=== PATIENT | female | born 1935 | race American Indian/Alaskan Native ===

== ENCOUNTER 2016-05-20 11:58 | Inpatient (IN) | payer MEDICARE ==
[2016-05-20] MEDS ORDERED: DUONEB 0.5 MG-3 MG/3 ML SOLN IH ONE (13:02)
[2016-05-20 13:07] LABS: Hemoglobin 10.5 gm/dl (10.1-14.3); Mean Corpuscular HGB Conc 32 % (30-34); Platelet Count 234 K/mm3 (140-440); Red Blood Count 4.38 M/mm3 (3.65-5.03); White Blood Count 9.1 K/mm3 (4.5-11.0)
[2016-05-20 13:13] LABS: Mean Corpuscular Hemoglobin 24 pg (28-32); Red Cell Distribution Width 27.6 % (13.2-15.2)
[2016-05-20 13:14] LABS: Mean Corpuscular Volume 75 fl (79-97)
--- NOTE | 2016-05-20 13:20 | XRay Report ---
AP chest History: Shortness of breath Findings: The interstitium is prominent. This may represent interstitial edema or fibrotic changes. No consolidation, pleural effusion or pneumothorax. Heart size is within normal limits. Given differences in the level of inspiration, no overwhelming change since 04/01/16. Impression: Prominent interstitium, see above.
--- NOTE | 2016-05-20 13:23 | Emergency Department Report ---
ED Shortness of Breath HPI - General Chief Complaint: Dyspnea/Respdistress Stated Complaint: CARL Time Seen by Provider: 05/20/16 12:51 Source: patient Mode of arrival: Ambulatory Limitations: No Limitations - History of Present Illness Initial Comments: 80-year-old female presents to the emergency department via EMS complaining of difficulty breathing. Patient reports she has been having difficulty breathing for 2 weeks. Her symptoms became acutely worse yesterday. She reports cough productive of clear sputum. She denies chest pain or fever. Patient normally wears 2 L of oxygen via nasal cannula. She states this morning her oxygen saturation was in the 40s. She increased her oxygen to 4 L but this did not increase her oxygen saturation. EMS administered 125 mg of Solu-Medrol and 2.5 mg of albuterol en route to the emergency department. There are no other complaints. MD Complaint: shortness of breath, cough -: Gradual, week(s) (2) Consistency: constant Improves With: oxygen, bronchodilators Worsens With: nothing Known History Of: COPD, asthma, congestive heart failure Associated Symptoms: cough, sputum production - Related Data Home Medications Medication Instructions Recorded Confirmed Last Taken Acetaminophen [Acetaminophen TAB] 650 mg PO Q6HR PRN 04/01/16 05/20/16 1 Day Ago Albuterol Sulfate [Albuterol 0.63% 0.63 mg IH Q6H PRN 04/01/16 05/20/16 1 Day Ago NEBS] Albuterol Sulfate [Ventolin HFA] 2 puff IH Q4H PRN 04/01/16 05/20/16 1 Day Ago Fluticasone/Vilanterol [Breo 1 each IH DAILY 04/01/16 05/20/16 1 Day Ago Ellipta 100-25 Mcg INH] Gabapentin [Neurontin] 100 mg PO QHS 04/01/16 05/20/16 1 Day Ago Pantoprazole [Protonix TAB] 40 mg PO QDAY 04/01/16 05/20/16 1 Day Ago Valsartan/Hydrochlorothiazide 1 tab PO QDAY 04/01/16 05/20/16 1 Day Ago [Diovan Hct 160-25 mg] amLODIPine [Norvasc] 5 mg PO DAILY 04/01/16 05/20/16 1 Day Ago Previous Rx's Medication Instructions Recorded Last Taken Type AtorvaSTATin [Lipitor] 20 mg PO QHS #30 tablet 12/31/16 Unknown Rx Ferrous Sulfate [Feosol 325 MG tab] 325 mg PO TID #90 tablet 04/10/16 Unknown Rx Prednisone [predniSONE 10 mg 10 mg PO .TAPER #1 tab.ds.pk 04/10/16 Unknown Rx (6-Day Pack, 21 Tabs)] Allergies Allergy/AdvReac Type Severity Reaction Status Date / Time oxytetracycline Allergy Rash Verified 05/01/15 12:26 [From Terramycin] oxytetracycline HCl Allergy Rash Verified 05/01/15 12:26 [From Terramycin] Penicillins Allergy Rash Verified 05/01/15 12:26 Sulfa (Sulfonamide Allergy Rash Verified 05/01/15 12:26 Antibiotics) GLOVE POWDER Allergy Rash Uncoded 05/01/15 12:26 ED Review of Systems ROS: Stated complaint: CARL Other details as noted in HPI Comment: All other systems reviewed and negative Respiratory: cough, shortness of breath 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) Hx Congestive Heart Failure: Yes Hx Diabetes: No Hx Deep Vein Thrombosis: Yes (right leg) Hx GERD: Yes Hx Arthritis: Yes (spine) Hx Kidney Stones: Yes Hx Asthma: Yes Hx COPD: Yes Hx HIV: No Additional medical history: Respiratory disease, possibly pulmonary fibrosis, hiatel hernia 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 - Surgical History Past Surgical History?: Yes Hx Coronary Stent: Yes Hx Open Heart Surgery: Yes (CABG) Additional Surgical History: csection x 5 lung surg hand surg - Family History Family history: no significant - Social History Smoking Status: Former Smoker Substance Use Type: None - Medications Home Medications: Home Medications Medication Instructions Recorded Confirmed Last Taken Type Acetaminophen [Acetaminophen TAB] 650 mg PO Q6HR PRN 04/01/16 05/20/16 1 Day Ago History Albuterol Sulfate [Albuterol 0.63% 0.63 mg IH Q6H PRN 04/01/16 05/20/16 1 Day Ago History NEBS] Albuterol Sulfate [Ventolin HFA] 2 puff IH Q4H PRN 04/01/16 05/20/16 1 Day Ago History Fluticasone/Vilanterol [Breo 1 each IH DAILY 04/01/16 05/20/16 1 Day Ago History Ellipta 100-25 Mcg INH] Gabapentin [Neurontin] 100 mg PO QHS 04/01/16 05/20/16 1 Day Ago History Pantoprazole [Protonix TAB] 40 mg PO QDAY 04/01/16 05/20/16 1 Day Ago History Valsartan/Hydrochlorothiazide 1 tab PO QDAY 04/01/16 05/20/16 1 Day Ago History [Diovan Hct 160-25 mg] amLODIPine [Norvasc] 5 mg PO DAILY 04/01/16 05/20/16 1 Day Ago History AtorvaSTATin [Lipitor] 20 mg PO QHS #30 tablet 04/10/16 05/20/16 Unknown Rx Ferrous Sulfate [Feosol 325 MG tab] 325 mg PO TID #90 tablet 04/10/16 05/20/16 Unknown Rx Prednisone [predniSONE 10 mg 10 mg PO .TAPER #1 tab.ds.pk 04/10/16 05/20/16 Unknown Rx (6-Day Pack, 21 Tabs)] ED Physical Exam - General Limitations: No Limitations General appearance: alert, in no apparent distress - Head Head exam: Present: atraumatic, normocephalic - Eye Eye exam: Present: normal appearance, PERRL, EOMI - ENT ENT exam: Present: normal exam, normal orophraynx, mucous membranes moist - Neck Neck exam: Present: normal inspection, full ROM. Absent: tenderness - Respiratory Respiratory exam: Present: decreased breath sounds (bilateral posterior bases). Absent: respiratory distress - Cardiovascular Cardiovascular Exam: Present: regular rate, normal rhythm, normal heart sounds - GI/Abdominal GI/Abdominal exam: Present: soft, normal bowel sounds. Absent: distended, tenderness - Extremities Exam Extremities exam: Present: normal inspection, full ROM. Absent: tenderness - Back Exam Back exam: Present: normal inspection, full ROM. Absent: tenderness - Neurological Exam Neurological exam: Present: alert, oriented X3. Absent: motor sensory deficit - Skin Skin exam: Present: warm, dry, intact ED Course Vital Signs 05/20/16 05/20/16 05/20/16 12:19 13:10 13:32 Temperature 97.6 F Pulse Rate 86 84 Pulse Rate [ 85 Right Middle Lobe] Respiratory 28 H 30 H Rate Respiratory 30 H Rate [Right Middle Lobe] Blood Pressure 106/65 Blood Pressure 106/65 107/69 [Left] O2 Sat by Pulse 94 88 Oximetry 05/20/16 05/20/16 13:59 14:08 Temperature Pulse Rate 86 Pulse Rate [ 95 H Right Middle Lobe] Respiratory 26 H Rate Respiratory 20 Rate [Right Middle Lobe] Blood Pressure Blood Pressure 128/71 [Left] O2 Sat by Pulse 90 Oximetry - Reevaluation(s) Reevaluation #1: 05/20/16 13:47 Patient reports feeling better following to do a nap nebulizer treatments. Her oxygen saturation is reading between 88 and 90%, but this patient is still on 5 L via nasal cannula. Giving additional albuterol. Reevaluation #2: 05/20/16 15:01 After additional albuterol, the patient's oxygen saturation continues to be in the low 80s. She is still on 5 L of oxygen via nasal cannula. Giving IV Levaquin. Patient is to be admitted by the hospitalist. ED Medical Decision Making - Lab Data Result diagrams: 05/20/16 12:55 05/20/16 12:55 - EKG Data -: EKG Interpreted by Al EKG shows normal: sinus rhythm, axis, intervals, QRS complexes Rate: normal - EKG Data When compared to previous EKG there are: previous EKG unavailable Interpretation: nonspecific ST-T wave jaret - Radiology Data Radiology results: report reviewed, image reviewed Chest x-ray shows prominent interstitium, no significant change compared to previous x-ray dated 04/01/2016. - Differential Diagnosis COPD exacerbation, CHF, ACS Critical care attestation.: If time is entered above; I have spent that time in minutes in the direct care of this critically ill patient, excluding procedure time. ED Disposition Clinical Impression: COPD exacerbation Disposition: OP ADMITTED IP TO THIS HOSP Is pt being admited?: Yes Condition: Stable Instructions: Chronic Obstructive Pulmonary Disease (ED) Referrals: PRIMARY CARE, [Primary Care Provider] - 3-5 Days Time of Disposition: 15:06
[2016-05-20 13:26] LABS: Anion Gap 24 mmol/L; Blood Urea Nitrogen 16 mg/dL (7-17); Calcium 6.9 mg/dL (8.4-10.2); Carbon Dioxide 19 mmol/L (22-30); Chloride 101.1 mmol/L (98-107); Glucose 108 mg/dL (65-100); Potassium 3.2 mmol/L (3.6-5.0); Sodium 141 mmol/L (137-145)
[2016-05-20 13:45] LABS: Anisocytosis 1+; Basophils % (Manual) 0 % (0.0-1.8); Blastocytes % (Manual) 0 %; Diff Status Complete; Elliptocytes 1+; Hypochromasia 1+; Microcytosis 1+; Poikilocytosis 1+; Target Cells 1+; Tear Drop Cells 1+
--- NOTE | 2016-05-20 13:46 | Admit Criteria Form ---
Admission Criteria Documentation: COPD Clinical Indications for Admission to Inpatient Care (Place 'X' for any and all applicable criteria): Admission is indicated for ANY ONE of the following (1)(2)(3): [X ]I. Acute exacerbation by high-risk comorbidity (e.g., pneumonia, dysrhythmia, heart failure, pleural effusion, pneumothorax) or severe underlying COPD (e.g., steroid dependent) [ X]II. Inpatient admission required rather than observation care (see Chronic Obstructive Pulmonary Disease: Observation Care) because of ANY ONE of the following: [X ]a) New or pre-existing signs or symptoms of COPD (eg, dyspnea or Tachypnea at rest or with minimal activity) that persist despite outpatient and observation care treatment [ ]b) New-onset hypoxemia (room air SaO2 less than 90%, PO2 less than 60 mm Hg (8.0 kPa)) that persists despite outpatient and observation care treatment [ ]c) Worsening of pre-existing hypoxemia (eg, new or increased requirement for supplemental oxygen to maintain oxygenation at baseline level) that persists despite outpatient and observation care treatment, with oxygen treatment needs performable only in acute inpatient setting [ ]d) Hypercarbia (PCO2 greater than 40 mm Hg (5.3 kPa))-induced respiratory acidosis (pH less than 7.35) that persists despite outpatient and observation care treatment [ ]e) Supplemental oxygen or respiratory treatments for over 24 hours that are performable only in acute inpatient setting [ ]f) Chest tube placement with active evacuation (e.g., suction, drainage) (5) [ ]g) Other condition, treatment or monitoring requiring inpatient admission [ ]III. Planned invasive surgical or diagnostic procedures requiring acute- care hospitalization [ ]IV. Acute respiratory failure (e.g., uncompensated hypercarbia, severe hypoxemia) [ ]V. Severe comorbid condition (e.g., severe steroid myopathy, acute vertebral fracture) that has acutely worsened pulmonary function [ ]. Confusion state, lethargy, obtundation, stupor or coma Extended stay beyond goal length of stay may be needed for (31)(32): [ ]a ) Respiratory Failure. [ ]b) Severe or persisting hypoxemia or hypercarbia [ ]c) Severe or persistent dyspnea [ ]d) Comorbidities (e.g. chronic heart failure, atrial fibrillation with rapid response, pneumonia) [ ]e) Malnutrition The original [facility] content created by [facility] has been revised. The portions of the content which have been revised are identified through the use of italic text or in bold, and [facility] has neither reviewed nor approved the modified material. All other unmodified content is copyright [facility]. Please see references footnoted in the original [facility] edition 2016 Admission Criteria Met: Yes
[2016-05-20] MEDS ORDERED: PROVENTIL IH ONE (13:47)
[2016-05-20] MEDS ORDERED: LEVAQUIN 750MG/150ML 750 MG/150 ML BAG IV ONE (15:32)
--- NOTE | 2016-05-20 16:36 | History and Physical Report ---
History of Present Illness Date of examination: 05/20/16 Date of admission: 05/20/16 Chief complaint: sob History of present illness: 80-year-old female presents to the emergency department via EMS complaining of difficulty breathing. Patient reports she has been having difficulty breathing for 2 weeks. Her symptoms became acutely worse yesterday. She reports cough productive of clear sputum. She denies chest pain or fever. Patient normally wears 2 L of oxygen via nasal cannula. She states this morning her oxygen saturation was in the 40s. She increased her oxygen to 4 L but this did not increase her oxygen saturation. Patient was previously admitted here at our facility in March for COPD exacerbation and was treated appropriately. Patient has history of CAD s/p stent placed. Heart cath was done and it showed pulmonary HTN, multivessel CAD, and restenosis of the stent. In route to the hospital, EMS administered 125 mg of Solu-Medrol and 2.5 mg of albuterol en route to the emergency department. There are no other complaints. Patient denies any nausea, vomiting or abdominal pain. No melena, hematochezia or hematemesis. Past History Past Medical History: CAD, COPD, heart failure, hypertension, other (asthma) Past Surgical History: , Other (hand surgery) Social history: no significant social history Family history: hypertension Medications and Allergies Allergies Allergy/AdvReac Type Severity Reaction Status Date / Time oxytetracycline Allergy Rash Verified 05/01/15 12:26 [From Terramycin] oxytetracycline HCl Allergy Rash Verified 05/01/15 12:26 [From Terramycin] Penicillins Allergy Rash Verified 05/01/15 12:26 Sulfa (Sulfonamide Allergy Rash Verified 05/01/15 12:26 Antibiotics) GLOVE POWDER Allergy Rash Uncoded 05/01/15 12:26 Home Medications Medication Instructions Recorded Confirmed Last Taken Type Acetaminophen [Acetaminophen TAB] 650 mg PO Q6HR PRN 04/01/16 05/20/16 1 Day Ago History Albuterol Sulfate [Albuterol 0.63% 0.63 mg IH Q6H PRN 04/01/16 05/20/16 1 Day Ago History NEBS] Albuterol Sulfate [Ventolin HFA] 2 puff IH Q4H PRN 04/01/16 05/20/16 1 Day Ago History Fluticasone/Vilanterol [Breo 1 each IH DAILY 04/01/16 05/20/16 1 Day Ago History Ellipta 100-25 Mcg INH] Gabapentin [Neurontin] 100 mg PO QHS 04/01/16 05/20/16 1 Day Ago History Pantoprazole [Protonix TAB] 40 mg PO QDAY 04/01/16 05/20/16 1 Day Ago History Valsartan/Hydrochlorothiazide 1 tab PO QDAY 04/01/16 05/20/16 1 Day Ago History [Diovan Hct 160-25 mg] amLODIPine [Norvasc] 5 mg PO DAILY 04/01/16 05/20/16 1 Day Ago History AtorvaSTATin [Lipitor] 20 mg PO QHS #30 tablet 04/10/16 05/20/16 Unknown Rx Ferrous Sulfate [Feosol 325 MG tab] 325 mg PO TID #90 tablet 04/10/16 05/20/16 Unknown Rx Prednisone [predniSONE 10 mg 10 mg PO .TAPER #1 tab.ds.pk 04/10/16 05/20/16 Unknown Rx (6-Day Pack, 21 Tabs)] Active Meds: Active Medications Levofloxacin/Dextrose (Levaquin 750mg/150ml) 750 mg in 150 mls @ 100 mls/hr IV ONCE ONE Stop: 05/20/16 17:01 Last Admin: 05/20/16 16:00 Dose: 100 mls/hr Review of Systems All systems: negative Exam - Constitutional Vitals: Temp Pulse Resp BP Pulse Ox 97.6 F 100 H 26 H 113/63 99 05/20/16 12:19 05/20/16 15:00 05/20/16 16:00 05/20/16 16:00 05/20/16 16:00 General appearance: Present: no acute distress, well-nourished - EENT Eyes: Present: PERRL ENT: hearing intact, clear oral mucosa - Neck Neck: Present: supple, normal ROM - Respiratory Respiratory effort: normal Respiratory: bilateral: diminished, rhonchi, wheezing - Cardiovascular Heart Sounds: Present: S1 & S2. Absent: rub, click - Extremities Extremities: pulses symmetrical, No edema Peripheral Pulses: within normal limits - Abdominal General gastrointestinal: Present: soft, non-tender, non-distended, normal bowel sounds Female genitourinary: Present: normal - Integumentary Integumentary: Present: clear, warm, dry - Musculoskeletal Musculoskeletal: gait normal, strength equal bilaterally - Psychiatric Psychiatric: appropriate mood/affect, intact judgment & insight - Neurologic Neurologic: CNII-XII intact, moves all extremities Results - Labs CBC & Chem 7: 05/20/16 12:55 05/20/16 12:55 Labs: Laboratory Last Values WBC 9.1 K/mm3 (4.5-11.0) 05/20/16 12:55 RBC 4.38 M/mm3 (3.65-5.03) 05/20/16 12:55 Hgb 10.5 gm/dl (10.1-14.3) 05/20/16 12:55 Hct 33.0 % (30.3-42.9) 05/20/16 12:55 MCV 75 fl (79-97) L 05/20/16 12:55 MCH 24 pg (28-32) L 05/20/16 12:55 MCHC 32 % (30-34) 05/20/16 12:55 RDW 27.6 % (13.2-15.2) H 05/20/16 12:55 Plt Count 234 K/mm3 (140-440) 05/20/16 12:55 Add Manual Diff Complete 05/20/16 12:55 Total Counted 100 05/20/16 12:55 Seg Neuts % (Manual) 80.0 % (40.0-70.0) H 05/20/16 12:55 Band Neutrophils % 3.0 % 05/20/16 12:55 Lymphocytes % (Manual) 12.0 % (13.4-35.0) L 05/20/16 12:55 Reactive Lymphs % (Man) 0 % 05/20/16 12:55 Monocytes % (Manual) 3.0 % (0.0-7.3) 05/20/16 12:55 Eosinophils % (Manual) 2.0 % (0.0-4.3) 05/20/16 12:55 Basophils % (Manual) 0 % (0.0-1.8) 05/20/16 12:55 Metamyelocytes % 0 % 05/20/16 12:55 Myelocytes % 0 % 05/20/16 12:55 Promyelocytes % 0 % 05/20/16 12:55 Blast Cells % 0 % 05/20/16 12:55 Nucleated RBC % Not Reportable 05/20/16 12:55 Seg Neutrophils # Man 7.3 K/mm3 (1.8-7.7) 05/20/16 12:55 Band Neutrophils # 0.3 K/mm3 05/20/16 12:55 Lymphocytes # (Manual) 1.1 K/mm3 (1.2-5.4) L 05/20/16 12:55 Abs React Lymphs (Man) 0.0 K/mm3 05/20/16 12:55 Monocytes # (Manual) 0.3 K/mm3 (0.0-0.8) 05/20/16 12:55 Eosinophils # (Manual) 0.2 K/mm3 (0.0-0.4) 05/20/16 12:55 Basophils # (Manual) 0.0 K/mm3 (0.0-0.1) 05/20/16 12:55 Metamyelocytes # 0.0 K/mm3 05/20/16 12:55 Myelocytes # 0.0 K/mm3 05/20/16 12:55 Promyelocytes # 0.0 K/mm3 05/20/16 12:55 Blast Cells # 0.0 K/mm3 05/20/16 12:55 WBC Morphology Not Reportable 05/20/16 12:55 Hypersegmented Neuts Not Reportable 05/20/16 12:55 Hyposegmented Neuts Not Reportable 05/20/16 12:55 Hypogranular Neuts Not Reportable 05/20/16 12:55 Smudge Cells Not Reportable 05/20/16 12:55 Toxic Granulation Not Reportable 05/20/16 12:55 Toxic Vacuolation Not Reportable 05/20/16 12:55 Dohle Bodies Not Reportable 05/20/16 12:55 Pelger-Huet Anomaly Not Reportable 05/20/16 12:55 Mony Rods Not Reportable 05/20/16 12:55 Platelet Estimate Appears normal 05/20/16 12:55 Clumped Platelets Not Reportable 05/20/16 12:55 Plt Clumps, EDTA Not Reportable 05/20/16 12:55 Large Platelets Not Reportable 05/20/16 12:55 Giant Platelets Not Reportable 05/20/16 12:55 Platelet Satelliting Not Reportable 05/20/16 12:55 Plt Morphology Comment Not Reportable 05/20/16 12:55 RBC Morphology Not Reportable 05/20/16 12:55 Dimorphic RBCs Not Reportable 05/20/16 12:55 Polychromasia Not Reportable 05/20/16 12:55 Hypochromasia 1+ 05/20/16 12:55 Poikilocytosis 1+ 05/20/16 12:55 Anisocytosis 1+ 05/20/16 12:55 Microcytosis 1+ 05/20/16 12:55 Macrocytosis Not Reportable 05/20/16 12:55 Spherocytes Not Reportable 05/20/16 12:55 Pappenheimer Bodies Not Reportable 05/20/16 12:55 Sickle Cells Not Reportable 05/20/16 12:55 Target Cells 1+ 05/20/16 12:55 Tear Drop Cells 1+ 05/20/16 12:55 Ovalocytes Not Reportable 05/20/16 12:55 Helmet Cells Not Reportable 05/20/16 12:55 [place] Bodies Not Reportable 05/20/16 12:55 [place] Rings Not Reportable 05/20/16 12:55 [place] Cells Not Reportable 05/20/16 12:55 Bite Cells Not Reportable 05/20/16 12:55 Crenated Cell Not Reportable 05/20/16 12:55 Elliptocytes 1+ 05/20/16 12:55 Acanthocytes (Spur) Not Reportable 05/20/16 12:55 Rouleaux Not Reportable 05/20/16 12:55 Hemoglobin C Crystals Not Reportable 05/20/16 12:55 Schistocytes Not Reportable 05/20/16 12:55 Malaria parasites Not Reportable 05/20/16 12:55 Juan R Bodies Not Reportable 05/20/16 12:55 Hem Pathologist Commnt No 05/20/16 12:55 Sodium 141 mmol/L (137-145) 05/20/16 12:55 Potassium 3.2 mmol/L (3.6-5.0) L 05/20/16 12:55 Chloride 101.1 mmol/L (98-107) 05/20/16 12:55 Carbon Dioxide 19 mmol/L (22-30) L 05/20/16 12:55 Anion Gap 24 mmol/L 05/20/16 12:55 BUN 16 mg/dL (7-17) 05/20/16 12:55 Creatinine 1.3 mg/dL (0.7-1.2) H 05/20/16 12:55 Estimated GFR 48 ml/min 05/20/16 12:55 BUN/Creatinine Ratio 12.30 % 05/20/16 12:55 Glucose 108 mg/dL (65-100) H 05/20/16 12:55 Calcium 6.9 mg/dL (8.4-10.2) L 05/20/16 12:55 Troponin T < 0.010 ng/mL (0.00-0.029) 05/20/16 12:55 NT-Pro-B Natriuret Pep 1205 pg/mL (0-900) H 05/20/16 12:55 Assessment and Plan Assessment and plan: COPD exacerbation Coronary artery disease GERD CHF, stable Hypertension Hypokalemia Plan Admit to medicine Start high-dose IV steroids, nebulizer treatments, check cardiac enzymes Continue appropriate outpatient medication, start DVT prophylaxis Replete potassium.
[2016-05-20] MEDS ORDERED: PROAIR IH PRN (16:39)
[2016-05-20] MEDS ORDERED: TYLENOL PO PRN ×2 (16:39→16:41)
[2016-05-20] MEDS ORDERED: ZOFRAN IV PRN (16:41)
[2016-05-20] MEDS ORDERED: MILK OF MAGNESIA PO PRN (16:41)
[2016-05-20] MEDS ORDERED: DULCOLAX PR PRN (16:41)
[2016-05-20] MEDS ORDERED: PROVENTIL IH PRN (16:51)
[2016-05-20] MEDS: FEOSOL PO SCH (21:00)
[2016-05-20] MEDS: DUONEB 0.5 MG-3 MG/3 ML SOLN IH SCH (21:02)
[2016-05-20] MEDS: PULMICORT IH SCH (21:02)
[2016-05-20] MEDS: BROVANA NEBU IH SCH (21:09)
[2016-05-20] MEDS: NEURONTIN PO SCH (22:52)
[2016-05-21] MEDS: DUONEB 0.5 MG-3 MG/3 ML SOLN IH SCH ×4 (02:09→20:31)
[2016-05-21 05:47] LABS: Hemoglobin 10.2 gm/dl (10.1-14.3); Mean Corpuscular HGB Conc 33 % (30-34); Mean Corpuscular Hemoglobin 24 pg (28-32); Mean Corpuscular Volume 74 fl (79-97); Platelet Count 258 K/mm3 (140-440); Red Blood Count 4.21 M/mm3 (3.65-5.03); Red Cell Distribution Width 27.6 % (13.2-15.2); White Blood Count 7.6 K/mm3 (4.5-11.0)
[2016-05-21 05:56] LABS: BUN/Creatinine Ratio 13.57; Calcium 6.8 mg/dL (8.4-10.2); Chloride 100.1 mmol/L (98-107); Potassium 3.4 mmol/L (3.6-5.0)
[2016-05-21 06:43] LABS: Anisocytosis 2+; Basophils % (Manual) 0 % (0.0-1.8); Blastocytes % (Manual) 0 %; Eosinophils % (Manual) 0 % (0.0-4.3); Hypochromasia 1+; Microcytosis 1+; Poikilocytosis 1+; Polychromasia Rare
[2016-05-21 06:44] LABS: Diff Status Complete; Platelet Estimate Consistent w Auto; Schistocytes Rare
[2016-05-21] MEDS: BROVANA NEBU IH SCH ×2 (07:42→20:31)
[2016-05-21] MEDS: PULMICORT IH SCH ×2 (07:42→20:31)
[2016-05-21] MEDS ORDERED: PROVENTIL IH PRN (07:48)
[2016-05-21] MEDS: NORVASC PO SCH (09:33)
[2016-05-21] MEDS: DIOVAN PO SCH (09:33)
[2016-05-21] MEDS: HCTZ PO SCH (09:33)
[2016-05-21] MEDS: LOVENOX SUB-Q SCH (09:34)
[2016-05-21] MEDS: FEOSOL PO SCH ×3 (09:34→23:38)
[2016-05-21] MEDS: PROTONIX PO SCH (09:34)
[2016-05-21] MEDS ORDERED: NON-FORMULARY (Fluticasone/Vilanterol [Breo Ellipta 100-25 Mcg Inh] 1 EACH) IH SCH (10:00)
[2016-05-21] MEDS ORDERED: LOVENOX SUB-Q SCH (10:00)
[2016-05-21] MEDS ORDERED: VALSARTAN PO SCH (10:00)
[2016-05-21] MEDS ORDERED: NITRO DUR TD ONE (10:00)
[2016-05-21] MEDS ORDERED: HYDROCHLOROTHIAZIDE PO SCH (10:00)
[2016-05-21] MEDS ORDERED: LEVAQUIN 500MG/100ML 500 MG/100 ML BAG IV ONE ×2 (10:00→15:00)
--- NOTE | 2016-05-21 11:06 | Progress Note ---
Assessment and Plan Assessment and plan: COPD exacerbation. Continue IV steroids, nebulizer treatments and IV antibiotics. Coronary artery disease. Supportive care. GERD. Continue PPI. Ischemic cardiomyopathy. Echocardiogram revealed EF 45-50%. Hypertension. Resume antihypertensive medications. Hypokalemia. Resolved. History Interval history: Patient complains of shortness of breath with minimal exertion. Hospitalist Physical - Constitutional Vitals: Temp Pulse Resp BP Pulse Ox 98.2 F 90 22 116/70 97 05/21/16 08:00 05/21/16 08:00 05/21/16 08:00 05/21/16 08:00 05/21/16 08:00 General appearance: Present: no acute distress, well-nourished - EENT Eyes: Present: PERRL, EOM intact ENT: hearing intact, clear oral mucosa, dentition normal - Neck Neck: Present: supple, normal ROM - Respiratory Respiratory effort: normal Respiratory: bilateral: diminished, rhonchi - Cardiovascular Rhythm: regular Heart Sounds: Present: S1 & S2. Absent: gallop, rub - Extremities Extremities: no ischemia, No edema, Full ROM - Abdominal General gastrointestinal: soft, non-tender, non-distended, normal bowel sounds - Integumentary Integumentary: Present: clear, warm, dry - Neurologic Neurologic: CNII-XII intact, moves all extremities Results - Labs CBC & Chem 7: 05/21/16 05:00 05/21/16 05:00 Labs: Laboratory Last Values WBC 7.6 K/mm3 (4.5-11.0) 05/21/16 05:00 RBC 4.21 M/mm3 (3.65-5.03) 05/21/16 05:00 Hgb 10.2 gm/dl (10.1-14.3) 05/21/16 05:00 Hct 31.0 % (30.3-42.9) 05/21/16 05:00 MCV 74 fl (79-97) L 05/21/16 05:00 MCH 24 pg (28-32) L 05/21/16 05:00 MCHC 33 % (30-34) 05/21/16 05:00 RDW 27.6 % (13.2-15.2) H 05/21/16 05:00 Plt Count 258 K/mm3 (140-440) 05/21/16 05:00 Add Manual Diff Complete 05/21/16 05:00 Total Counted 100 05/21/16 05:00 Seg Neuts % (Manual) 73.0 % (40.0-70.0) H 05/21/16 05:00 Band Neutrophils % 6.0 % 05/21/16 05:00 Lymphocytes % (Manual) 19.0 % (13.4-35.0) 05/21/16 05:00 Reactive Lymphs % (Man) 0 % 05/21/16 05:00 Monocytes % (Manual) 2.0 % (0.0-7.3) 05/21/16 05:00 Eosinophils % (Manual) 0 % (0.0-4.3) 05/21/16 05:00 Basophils % (Manual) 0 % (0.0-1.8) 05/21/16 05:00 Metamyelocytes % 0 % 05/21/16 05:00 Myelocytes % 0 % 05/21/16 05:00 Promyelocytes % 0 % 05/21/16 05:00 Blast Cells % 0 % 05/21/16 05:00 Nucleated RBC % Not Reportable 05/21/16 05:00 Seg Neutrophils # Man 5.5 K/mm3 (1.8-7.7) 05/21/16 05:00 Band Neutrophils # 0.5 K/mm3 05/21/16 05:00 Lymphocytes # (Manual) 1.4 K/mm3 (1.2-5.4) 05/21/16 05:00 Abs React Lymphs (Man) 0.0 K/mm3 05/21/16 05:00 Monocytes # (Manual) 0.2 K/mm3 (0.0-0.8) 05/21/16 05:00 Eosinophils # (Manual) 0.0 K/mm3 (0.0-0.4) 05/21/16 05:00 Basophils # (Manual) 0.0 K/mm3 (0.0-0.1) 05/21/16 05:00 Metamyelocytes # 0.0 K/mm3 05/21/16 05:00 Myelocytes # 0.0 K/mm3 05/21/16 05:00 Promyelocytes # 0.0 K/mm3 05/21/16 05:00 Blast Cells # 0.0 K/mm3 05/21/16 05:00 WBC Morphology Not Reportable 05/21/16 05:00 Hypersegmented Neuts Not Reportable 05/21/16 05:00 Hyposegmented Neuts Not Reportable 05/21/16 05:00 Hypogranular Neuts Not Reportable 05/21/16 05:00 Smudge Cells Not Reportable 05/21/16 05:00 Toxic Granulation Not Reportable 05/21/16 05:00 Toxic Vacuolation Not Reportable 05/21/16 05:00 Dohle Bodies Not Reportable 05/21/16 05:00 Pelger-Huet Anomaly Not Reportable 05/21/16 05:00 Mony Rods Not Reportable 05/21/16 05:00 Platelet Estimate Consistent w auto 05/21/16 05:00 Clumped Platelets Not Reportable 05/21/16 05:00 Plt Clumps, EDTA Not Reportable 05/21/16 05:00 Large Platelets Not Reportable 05/21/16 05:00 Giant Platelets Not Reportable 05/21/16 05:00 Platelet Satelliting Not Reportable 05/21/16 05:00 Plt Morphology Comment Not Reportable 05/21/16 05:00 RBC Morphology Not Reportable 05/21/16 05:00 Dimorphic RBCs Yes 05/21/16 05:00 Polychromasia Rare 05/21/16 05:00 Hypochromasia 1+ 05/21/16 05:00 Poikilocytosis 1+ 05/21/16 05:00 Anisocytosis 2+ 05/21/16 05:00 Microcytosis 1+ 05/21/16 05:00 Macrocytosis Not Reportable 05/21/16 05:00 Spherocytes Not Reportable 05/21/16 05:00 Pappenheimer Bodies Not Reportable 05/21/16 05:00 Sickle Cells Not Reportable 05/21/16 05:00 Target Cells Not Reportable 05/21/16 05:00 Tear Drop Cells Not Reportable 05/21/16 05:00 Ovalocytes Not Reportable 05/21/16 05:00 Helmet Cells Not Reportable 05/21/16 05:00 Serna-Young Bodies Not Reportable 05/21/16 05:00 [place] Rings Not Reportable 05/21/16 05:00 [place] Cells Not Reportable 05/21/16 05:00 Bite Cells Not Reportable 05/21/16 05:00 Crenated Cell Not Reportable 05/21/16 05:00 Elliptocytes Not Reportable 05/21/16 05:00 Acanthocytes (Spur) Not Reportable 05/21/16 05:00 Rouleaux Not Reportable 05/21/16 05:00 Hemoglobin C Crystals Not Reportable 05/21/16 05:00 Schistocytes Rare 05/21/16 05:00 Malaria parasites Not Reportable 05/21/16 05:00 Juan R Bodies Not Reportable 05/21/16 05:00 Hem Pathologist Commnt No 05/21/16 05:00 Sodium 142 mmol/L (137-145) 05/21/16 05:00 Potassium 3.4 mmol/L (3.6-5.0) L 05/21/16 05:00 Chloride 100.1 mmol/L (98-107) 05/21/16 05:00 Carbon Dioxide 20 mmol/L (22-30) L 05/21/16 05:00 Anion Gap 25 mmol/L 05/21/16 05:00 BUN 19 mg/dL (7-17) H 05/21/16 05:00 Creatinine 1.4 mg/dL (0.7-1.2) H 05/21/16 05:00 Estimated GFR 44 ml/min 05/21/16 05:00 BUN/Creatinine Ratio 13.57 % 05/21/16 05:00 Glucose 141 mg/dL (65-100) H 05/21/16 05:00 Calcium 6.8 mg/dL (8.4-10.2) L 05/21/16 05:00 Troponin T < 0.010 ng/mL (0.00-0.029) 05/20/16 12:55 NT-Pro-B Natriuret Pep 1205 pg/mL (0-900) H 05/20/16 12:55
--- NOTE | 2016-05-21 11:54 | Consultation ---
History of Present Illness Consult date: 05/21/16 Requesting physician: DIEGO RAMIREZ Reason for consult: other (Acute on Chronic Hypoxemic Respiratory Failure) History of present illness: PULMONARY/CCM CONSULT NOTE (Full dictation # [id number]) Please see dictated notes for full details Past History Past Medical History: CAD, COPD, heart failure, hypertension, other (asthma) Past Surgical History: , Other (hand surgery) Social history: no significant social history Family history: hypertension Medications and Allergies Allergies Allergy/AdvReac Type Severity Reaction Status Date / Time oxytetracycline Allergy Rash Verified 05/01/15 12:26 [From Terramycin] oxytetracycline HCl Allergy Rash Verified 05/01/15 12:26 [From Terramycin] Penicillins Allergy Rash Verified 05/01/15 12:26 Sulfa (Sulfonamide Allergy Rash Verified 05/01/15 12:26 Antibiotics) GLOVE POWDER Allergy Rash Uncoded 05/01/15 12:26 Home Medications Medication Instructions Recorded Confirmed Last Taken Type Acetaminophen [Acetaminophen TAB] 650 mg PO Q6HR PRN 04/01/16 05/20/16 1 Day Ago History Albuterol Sulfate [Albuterol 0.63% 0.63 mg IH Q6H PRN 04/01/16 05/20/16 1 Day Ago History NEBS] Albuterol Sulfate [Ventolin HFA] 2 puff IH Q4H PRN 04/01/16 05/20/16 1 Day Ago History Fluticasone/Vilanterol [Breo 1 each IH DAILY 04/01/16 05/20/16 1 Day Ago History Ellipta 100-25 Mcg INH] Gabapentin [Neurontin] 100 mg PO QHS 04/01/16 05/20/16 1 Day Ago History Pantoprazole [Protonix TAB] 40 mg PO QDAY 04/01/16 05/20/16 1 Day Ago History Valsartan/Hydrochlorothiazide 1 tab PO QDAY 04/01/16 05/20/16 1 Day Ago History [Diovan Hct 160-25 mg] amLODIPine [Norvasc] 5 mg PO DAILY 04/01/16 05/20/16 1 Day Ago History AtorvaSTATin [Lipitor] 20 mg PO QHS #30 tablet 04/10/16 05/20/16 Unknown Rx Ferrous Sulfate [Feosol 325 MG tab] 325 mg PO TID #90 tablet 04/10/16 05/20/16 Unknown Rx Aspirin [Adult Low Dose Aspirin EC] 81 mg PO QDAY 05/20/16 05/20/16 05/20/16 10: 00 History Nitroglycerin [Nitro Dur] 0.4 mg TD QDAY 05/20/16 05/20/16 05/20/16 10:00 History Ranolazine ER [Ranexa ER] 2 tab PO BID 05/20/16 05/20/16 05/20/16 10:00 History Active Meds: Active Medications Acetaminophen (Tylenol) 650 mg PO Q4H PRN PRN Reason: Pain MILD(1-3)/Fever >100.5/JOHNSON Albuterol (Proventil) 2.5 mg IH Q4HRT PRN PRN Reason: Shortness Of Breath Albuterol/Ipratropium (Duoneb 0.5 Mg-3 Mg/3 Ml Soln) 1 ampul IH Q6HRT [facility] Amlodipine Besylate (Norvasc) 5 mg PO DAILY [facility] Last Admin: 05/21/16 09:33 Dose: 5 mg Arformoterol Tartrate (Brovana Nebu) 15 mcg IH Q12HRT [facility] Atorvastatin Calcium (Lipitor) 20 mg PO QHS [facility] Last Admin: 05/20/16 22:52 Dose: 20 mg Bisacodyl (Dulcolax) 10 mg VT QDAY PRN PRN Reason: Constipation unrelieved by MOM Budesonide (Pulmicort) 0.5 mg IH Q12HRT [facility] Enoxaparin Sodium (Lovenox) 30 mg SUB-Q QDAY [facility] Last Admin: 05/21/16 09:34 Dose: 30 mg Ferrous Sulfate (Feosol) 325 mg PO TID [facility] Last Admin: 05/21/16 09:34 Dose: Not Given Gabapentin (Neurontin) 100 mg PO QHS [facility] Last Admin: 05/20/16 22:52 Dose: 100 mg Hydrochlorothiazide (Hctz) 25 mg PO QDAY [facility] Last Admin: 05/21/16 09:33 Dose: 25 mg Levofloxacin/Dextrose (Levaquin 250mg/50ml) 250 mg in 50 mls @ 50 mls/hr IV Q24HR [facility] Magnesium Hydroxide (Milk Of Magnesia) 30 ml PO Q4H PRN PRN Reason: Constipation Methylprednisolone Sodium Succinate (Solu-Medrol) 80 mg IV Q8H [facility] Last Admin: 05/21/16 05:38 Dose: 80 mg Ondansetron HCl (Zofran) 4 mg IV Q8H PRN PRN Reason: N/V unrelieved by Reglan Pantoprazole Sodium (Protonix) 40 mg PO QDAY [facility] Last Admin: 05/21/16 09:34 Dose: 40 mg Valsartan (Diovan) 160 mg PO QDAY [facility] Last Admin: 05/21/16 09:33 Dose: 160 mg Physical Examination Vital signs: Vital Signs Temp Pulse Resp BP Pulse Ox 97.6 F 86 28 H 106/65 88 05/20/16 12:19 05/20/16 12:19 05/20/16 12:19 05/20/16 12:19 05/20/16 12:19 Results - Laboratory Findings CBC and BMP: 05/21/16 05:00 05/21/16 05:00 Abnormal lab findings: Abnormal Labs 05/21/16 05/21/16 05:00 05:00 MCV 74 L MCH 24 L RDW 27.6 H Seg Neuts % (Manual) 73.0 H Potassium 3.4 L Carbon Dioxide 20 L BUN 19 H Creatinine 1.4 H Glucose 141 H Calcium 6.8 L
[2016-05-21] MEDS ORDERED: ROBITUSSIN PO PRN (16:01)
[2016-05-21] MEDS: NEURONTIN PO SCH (23:39)
[2016-05-22] MEDS: DUONEB 0.5 MG-3 MG/3 ML SOLN IH SCH ×4 (01:55→20:27)
[2016-05-22] MEDS: BROVANA NEBU IH SCH ×2 (08:40→20:28)
[2016-05-22] MEDS: PULMICORT IH SCH ×2 (08:40→20:35)
[2016-05-22] MEDS: LEVAQUIN 250MG/50ML 250 MG/50 ML BAG IV SCH (10:25)
[2016-05-22] MEDS: FEOSOL PO SCH ×4 (10:25→22:57)
[2016-05-22] MEDS: DIOVAN PO SCH (10:26)
[2016-05-22] MEDS: HCTZ PO SCH (10:26)
[2016-05-22] MEDS: NORVASC PO SCH (10:26)
[2016-05-22] MEDS: LOVENOX SUB-Q SCH (10:27)
[2016-05-22] MEDS: PROTONIX PO SCH (10:27)
--- NOTE | 2016-05-22 11:36 | Progress Note ---
Assessment and Plan Assessment and plan: ? Coffee ground emesis. Check gatric occult, NGT placement. Neck pain and tenderness. CT neck COPD exacerbation. Continue IV steroids, nebulizer treatments and IV antibiotics. Coronary artery disease. Supportive care. GERD. Continue PPI. Ischemic cardiomyopathy. Echocardiogram revealed EF 45-50%. Hypertension. Resume antihypertensive medications. Hypokalemia. Resolved. History Interval history: Patient complains of shortness of breath with minimal exertion. Patient also complains of exquisite pain in her neck and difficulty swallowing. Nurse reports vomiting episode of ? Coffee ground emesis. Hospitalist Physical - Constitutional Vitals: Temp Pulse Resp BP Pulse Ox 97.8 F 96 H 18 118/60 92 05/22/16 08:00 05/22/16 10:26 05/22/16 08:48 05/22/16 10:26 05/22/16 10:45 General appearance: Present: no acute distress, well-nourished - EENT Eyes: Present: PERRL, EOM intact ENT: hearing intact, clear oral mucosa, dentition normal - Neck Neck: Present: supple, normal ROM, other (tenderness anteriorly to palpation.) - Respiratory Respiratory effort: normal Respiratory: bilateral: diminished, rhonchi, wheezing - Cardiovascular Rhythm: regular Heart Sounds: Present: S1 & S2. Absent: gallop, rub - Extremities Extremities: no ischemia, No edema, Full ROM - Abdominal General gastrointestinal: soft, non-tender, non-distended, normal bowel sounds - Integumentary Integumentary: Present: clear, warm, dry - Neurologic Neurologic: CNII-XII intact, moves all extremities Results - Labs CBC & Chem 7: 05/21/16 05:00 05/21/16 05:00 Labs: Laboratory Last Values WBC 7.6 K/mm3 (4.5-11.0) 05/21/16 05:00 RBC 4.21 M/mm3 (3.65-5.03) 05/21/16 05:00 Hgb 10.2 gm/dl (10.1-14.3) 05/21/16 05:00 Hct 31.0 % (30.3-42.9) 05/21/16 05:00 MCV 74 fl (79-97) L 05/21/16 05:00 MCH 24 pg (28-32) L 05/21/16 05:00 MCHC 33 % (30-34) 05/21/16 05:00 RDW 27.6 % (13.2-15.2) H 05/21/16 05:00 Plt Count 258 K/mm3 (140-440) 05/21/16 05:00 Add Manual Diff Complete 05/21/16 05:00 Total Counted 100 05/21/16 05:00 Seg Neuts % (Manual) 73.0 % (40.0-70.0) H 05/21/16 05:00 Band Neutrophils % 6.0 % 05/21/16 05:00 Lymphocytes % (Manual) 19.0 % (13.4-35.0) 05/21/16 05:00 Reactive Lymphs % (Man) 0 % 05/21/16 05:00 Monocytes % (Manual) 2.0 % (0.0-7.3) 05/21/16 05:00 Eosinophils % (Manual) 0 % (0.0-4.3) 05/21/16 05:00 Basophils % (Manual) 0 % (0.0-1.8) 05/21/16 05:00 Metamyelocytes % 0 % 05/21/16 05:00 Myelocytes % 0 % 05/21/16 05:00 Promyelocytes % 0 % 05/21/16 05:00 Blast Cells % 0 % 05/21/16 05:00 Nucleated RBC % Not Reportable 05/21/16 05:00 Seg Neutrophils # Man 5.5 K/mm3 (1.8-7.7) 05/21/16 05:00 Band Neutrophils # 0.5 K/mm3 05/21/16 05:00 Lymphocytes # (Manual) 1.4 K/mm3 (1.2-5.4) 05/21/16 05:00 Abs React Lymphs (Man) 0.0 K/mm3 05/21/16 05:00 Monocytes # (Manual) 0.2 K/mm3 (0.0-0.8) 05/21/16 05:00 Eosinophils # (Manual) 0.0 K/mm3 (0.0-0.4) 05/21/16 05:00 Basophils # (Manual) 0.0 K/mm3 (0.0-0.1) 05/21/16 05:00 Metamyelocytes # 0.0 K/mm3 05/21/16 05:00 Myelocytes # 0.0 K/mm3 05/21/16 05:00 Promyelocytes # 0.0 K/mm3 05/21/16 05:00 Blast Cells # 0.0 K/mm3 05/21/16 05:00 WBC Morphology Not Reportable 05/21/16 05:00 Hypersegmented Neuts Not Reportable 05/21/16 05:00 Hyposegmented Neuts Not Reportable 05/21/16 05:00 Hypogranular Neuts Not Reportable 05/21/16 05:00 Smudge Cells Not Reportable 05/21/16 05:00 Toxic Granulation Not Reportable 05/21/16 05:00 Toxic Vacuolation Not Reportable 05/21/16 05:00 Dohle Bodies Not Reportable 05/21/16 05:00 Pelger-Huet Anomaly Not Reportable 05/21/16 05:00 Mony Rods Not Reportable 05/21/16 05:00 Platelet Estimate Consistent w auto 05/21/16 05:00 Clumped Platelets Not Reportable 05/21/16 05:00 Plt Clumps, EDTA Not Reportable 05/21/16 05:00 Large Platelets Not Reportable 05/21/16 05:00 Giant Platelets Not Reportable 05/21/16 05:00 Platelet Satelliting Not Reportable 05/21/16 05:00 Plt Morphology Comment Not Reportable 05/21/16 05:00 RBC Morphology Not Reportable 05/21/16 05:00 Dimorphic RBCs Yes 05/21/16 05:00 Polychromasia Rare 05/21/16 05:00 Hypochromasia 1+ 05/21/16 05:00 Poikilocytosis 1+ 05/21/16 05:00 Anisocytosis 2+ 05/21/16 05:00 Microcytosis 1+ 05/21/16 05:00 Macrocytosis Not Reportable 05/21/16 05:00 Spherocytes Not Reportable 05/21/16 05:00 Pappenheimer Bodies Not Reportable 05/21/16 05:00 Sickle Cells Not Reportable 05/21/16 05:00 Target Cells Not Reportable 05/21/16 05:00 Tear Drop Cells Not Reportable 05/21/16 05:00 Ovalocytes Not Reportable 05/21/16 05:00 Helmet Cells Not Reportable 05/21/16 05:00 Serna-[place]ls[place] Bodies Not Reportable 05/21/16 05:00 [place] Rings Not Reportable 05/21/16 05:00 [place] Cells Not Reportable 05/21/16 05:00 Bite Cells Not Reportable 05/21/16 05:00 Crenated Cell Not Reportable 05/21/16 05:00 Elliptocytes Not Reportable 05/21/16 05:00 Acanthocytes (Spur) Not Reportable 05/21/16 05:00 Rouleaux Not Reportable 05/21/16 05:00 Hemoglobin C Crystals Not Reportable 05/21/16 05:00 Schistocytes Rare 05/21/16 05:00 Malaria parasites Not Reportable 05/21/16 05:00 Juan R Bodies Not Reportable 05/21/16 05:00 Hem Pathologist Commnt No 05/21/16 05:00 Sodium 142 mmol/L (137-145) 05/21/16 05:00 Potassium 3.4 mmol/L (3.6-5.0) L 05/21/16 05:00 Chloride 100.1 mmol/L (98-107) 05/21/16 05:00 Carbon Dioxide 20 mmol/L (22-30) L 05/21/16 05:00 Anion Gap 25 mmol/L 05/21/16 05:00 BUN 19 mg/dL (7-17) H 05/21/16 05:00 Creatinine 1.4 mg/dL (0.7-1.2) H 05/21/16 05:00 Estimated GFR 44 ml/min 05/21/16 05:00 BUN/Creatinine Ratio 13.57 % 05/21/16 05:00 Glucose 141 mg/dL (65-100) H 05/21/16 05:00 Calcium 6.8 mg/dL (8.4-10.2) L 05/21/16 05:00 Troponin T < 0.010 ng/mL (0.00-0.029) 05/20/16 12:55 NT-Pro-B Natriuret Pep 1205 pg/mL (0-900) H 05/20/16 12:55
--- NOTE | 2016-05-22 12:20 | Consultation ---
CONSULTING PHYSICIAN: Dr. Flores. REASON FOR CONSULTATION: Difficulty in breathing. CHIEF COMPLAINT AND HISTORY OF PRESENT ILLNESS: The patient is a 80-year-old -[place] female, clinic patient of ours, past medical history most significant amongst other things goes for a diagnosis of pulmonary fibrosis, but also pulmonary hypertension and cardiomyopathy. She is home oxygen dependent, but usually around 2-3 L, came into the Emergency Room complaining of increasing shortness of breath. She had a cough productive of clear sputum. Denies any gross or streaky hemoptysis. Denied chest pains or fevers. She came in because she noticed her oxygen saturations were dropping. She had to go up to about 4-5 L to get the oxygen a little bit higher, still it was lower than 90%. She called emergency medical services and they had difficulty getting the oxygen levels up. So, she was brought into the ER. In the ER, she was essentially admitted with a diagnosis of acute on chronic hypoxemic respiratory failure. We are asked to assist with management. When I stopped by to see her, she was resting in bed, feeling a little bit better, remained on supplemental oxygen. Again, still no hemoptysis. With regards to tobacco smoking abuse, she has a remote tobacco smoking history, 10+ pack year, but has quit smoking for many years now. She denied nausea, vomiting, or overt aspiration. She denied fevers or chills. She denied any sick contacts at home. She stated she had been compliant with all her medications. This really is as much of the history of presentation as I have. PAST MEDICAL HISTORY: Again, significant for chronic obstructive lung disease, pulmonary fibrosis, coronary artery disease, cardiomyopathy, congestive heart failure, hypertension. PAST SURGICAL HISTORY: She has had a section done in the past. She has also had coronary artery stenting. She has had 5 C-sections. MEDICATIONS: She was on at the time I stopped by to see her, according to the medication administration record had included the following: She was on Tylenol 650 mg p.o. q. 4 hours p.r.n., p.r.n. albuterol treatments, DuoNeb treatments scheduled q. 6 hours, amlodipine 5 mg p.o. daily, Lipitor 20 mg p.o. at bedtime, Brovana 15 mcg inhaled q. 12 hours, p.r.n. Dulcolax, Pulmicort 0.5 mg nebulized q. 12 hours, Lovenox 30 mg subQ daily, Feosol 325 mg p.o. t.i.d., Neurontin 100 mg p.o. at bedtime, guaifenesin 200 mg p.o. q. 4 hours, hydrochlorothiazide 25 mg p.o. daily, Levaquin 250 mg IV daily, Solu-Medrol 80 mg IV q. 8 hours, p.r.n. milk of magnesia, Zofran 4 mg IV q. 8 hours p.r.n., Protonix 40 mg p.o. daily, and valsartan 160 mg p.o. daily. ALLERGIES: PENICILLINS AND TETRACYCLINE. Nature of this allergy is unknown. DIET: Petite lady. No significant weight changes since I had last seen her. FAMILY AND SOCIAL HISTORY: Lives in the community. A 10+ pack year remote tobacco smoking history. Denies current alcohol, tobacco, or illicit drug use or abuse. REVIEW OF SYSTEMS: No loss of consciousness. No new onset seizures. No new onset focal weakness. No gross hematochezia or melena. No gross hematuria. She has diarrhea, she states when she takes the iron tablets she is on. She denied dysuria. No hematemesis, no hemoptysis. No palpitations. Complete review of systems obtained. Pertinent positives and/or negatives as in body of the history above, otherwise noncontributory. PHYSICAL EXAMINATION: VITAL SIGNS: At presentation, she was afebrile, temperature 97.6, pulse 86, respiratory rate 28, blood pressure 106/65, oxygen sats were 88%, inspired oxygen concentration was not recorded. HEAD, EYES, EARS, NOSE, AND THROAT: Pupils are equal and round, about 3 mm. Extraocular muscle movements are intact. No scleral icterus. No scleral erythema. NODES: Grossly, no palpable lymph nodes in the supraclavicular or submandibular lymph node chains. Mild left submandibular tenderness. LUNGS: Auscultation of both lung kruger, inspiratory basilar rales, no wheezing. HEART: Sounds 1 and 2 are heard. They were regular in rate and rhythm at the time of my evaluation. ABDOMEN: Soft, full, bowel sounds are positive, nontender. EXTREMITIES: Without overt digital clubbing, cyanosis, or pedal edema. NEUROLOGIC: Exam was grossly nonfocal. LABORATORY DATA: From my review as follows: Admission white cell count 9100, hemoglobin 10.5, hematocrit 33.0, platelets 234. Serum sodium 141, potassium 3.2, chloride 101, bicarbonate 19, BUN 16, creatinine 1.3, and glucose 108. BNP 1205. Troponin within normal limits. IMAGING DATA: Radiographic studies have been reviewed. I have also reviewed the radiologist's interpretation. Comparing this x-ray against one from 04/01/2016, I do not think the increased interstitial markings likely represent an element of interstitial edema. She does have the chronic fibrotic changes. ASSESSMENT AND PLAN: We have an elderly lady in with an acute exacerbation of her chronic hypoxemic respiratory failure. As mentioned prior, she does have a history of cardiomyopathy. Her last cardiac catheterization was in the end of last year, 04/08/2016, showed ejection fraction of 40-45% with elevated pulmonary artery pressures with a systolic pulmonary artery pressure of 75 and a wedge of 25. Respiratory-stauffer, we agree with current therapies. We will taper the systemic steroid dose some and I do feel she will benefit from gentle diuresis, keeping an eye obviously on her blood pressure as well as on her BUN and creatinine and other renal indices. I will go with Lasix. I will do 20 mg IV daily over a 3-day period and see how she tolerates it. Oxygen will be weaned to keep sats greater than or equal to about 92%. We will continue empiric antibiotic therapy. I will change the dose to 500 q. 48 hours as against the 250 daily. I will order at this point. Sputum will be sent for Gram stain, cultures and sensitivities. Aspiration precautions will be maintained. She is appropriately on gastrointestinal prophylaxis as well as deep venous thrombosis prophylaxis. Flu and pneumonia vaccination will be per protocol. Cardiology evaluation will be at the behest of the attending physician. Thank you very much for the consult, Dr. Flores. We will follow along and make further recommendations as picture progresses/becomes clearer. JOB# [id number] DEWEY/BERKLEY
--- NOTE | 2016-05-22 12:25 | Progress Note ---
Assessment and Plan - Patient Problems (1) Acute and chronic respiratory failure ([id number]) Status: Acute Qualifiers: Respiratory failure complication: hypoxia and hypercapnia Qualified Code(s) : J96.21 - Acute and chronic respiratory failure with hypoxia Plan to address problem: - supplemental oxygen to keep sats > 92% at all times - prn BIPAP - trial of diuresis - optimize cardiac status - empiric CAP antibiotics - continue systemic steroids - add long acting bronchodilators (2) Acute chest pain Status: Acute Plan to address problem: - resolved - ACS w/up (3) COPD exacerbation Status: Acute Plan to address problem: - as above Subjective Date of service: 05/22/16 Principal diagnosis: Acute on Chronic Hypoxemic Respiratory Failure Interval history: Seen and examined at bedside; 24 hour events reviewed; nursing and respiratory care staff consulted; no adverse overnight events reported to me; resting in bed ; on supplemental oxygen; denies acute chest pains and less SOB Objective Vital Signs - 12hr 05/22/16 05/22/16 05/22/16 08:00 08:40 08:48 Temperature 97.8 F Pulse Rate Pulse Rate [ 94 H 96 H Anterior Bilateral Throughout] Pulse Rate [ 97 H Right Radial] Respiratory 16 Rate Respiratory 18 18 Rate [Anterior Bilateral Throughout] Blood Pressure Blood Pressure 118/60 [Right Arm] O2 Sat by Pulse 98 99 Oximetry 05/22/16 05/22/16 05/22/16 09:05 10:26 10:45 Temperature Pulse Rate 96 H Pulse Rate [ Anterior Bilateral Throughout] Pulse Rate [ Right Radial] Respiratory Rate Respiratory Rate [Anterior Bilateral Throughout] Blood Pressure 118/60 Blood Pressure [Right Arm] O2 Sat by Pulse 95 92 Oximetry Constitutional: alert, appears uncomfortable Eyes: non-icteric ENT: oropharynx moist Neck: supple, no lymphadenopathy Effort: mildly labored Ascultation: Bilateral: diminished breath sounds, rales (bases and inspiratory) Cardiovascular: regular rate and rhythm Gastrointestinal: normoactive bowel sounds, soft, non-tender, non-distended Integumentary: normal Extremities: no cyanosis, pulses normal, no ischemia or petechiae, edema (trace) Neurologic: normal mental status, non-focal exam, pupils equal and round, motor strength normal and CBC and BMP: 05/21/16 05:00 05/26/16 05:40 Abnormal lab findings: Abnormal Labs 05/21/16 05/21/16 05:00 05:00 MCV 74 L MCH 24 L RDW 27.6 H Seg Neuts % (Manual) 73.0 H Potassium 3.4 L Carbon Dioxide 20 L BUN 19 H Creatinine 1.4 H Glucose 141 H Calcium 6.8 L Chest x-ray: image reviewed
--- NOTE | 2016-05-22 13:34 | Cat Scan Report ---
CT NECK WITHOUT CONTRAST: 05/20/16 16:41:00 CLINICAL: Neck pain and tenderness. Difficulty swallowing. TECHNIQUE: Volumetric acquisition and 1.25 mm axial scan reconstructionswithout contrast. Sagittal and coronal reformats formed. FINDINGS: Normal mucosal structures of the nasopharynx, oropharynx, hypopharynx and larynx. No mass or lymphadenopathy of the neck. Normal salivary glands. The parapharyngeal spaces are normal. Normal thyroid. The sinuses are clear. The innominate artery and the proximal right subclavian, and common carotid arteries are ectatic. The esophagus is filled with fluid and is moderately dilated. Severe emphysematous changes in the lungs with numerous peripheral bullae. IMPRESSION: 1. An abnormally dilated and fluid-filled esophagus. This raises suspicion for an esophageal lesion. Consider an esophagram or endoscopy. 2. No neck mass or lymphadenopathy.
--- NOTE | 2016-05-22 13:38 | XRay Report ---
KUB: 05/22/16 11:29:00 CLINICAL: Abdominal pain. FINDINGS: Normal bowel gas pattern. No distended bowel and no air-fluid levels. No mass or suspicious calcifications. An aorto-right iliac stent graft. IMPRESSION: Negative abdomen.
[2016-05-22] MEDS: LASIX IV SCH (16:28)
[2016-05-22] MEDS: NEURONTIN PO SCH (22:55)
[2016-05-23] MEDS: DUONEB 0.5 MG-3 MG/3 ML SOLN IH SCH ×4 (01:32→20:33)
[2016-05-23] MEDS: PULMICORT IH SCH ×2 (08:07→20:33)
[2016-05-23] MEDS: BROVANA NEBU IH SCH ×2 (08:07→20:30)
[2016-05-23] MEDS: FEOSOL PO SCH ×3 (08:27→22:23)
[2016-05-23 09:42] LABS: Calcium 6.4 mg/dL (8.4-10.2); Chloride 99.1 mmol/L (98-107); Potassium 3.1 mmol/L (3.6-5.0)
[2016-05-23] MEDS ORDERED: HALDOL IM ONE ×2 (10:35→11:00)
[2016-05-23] MEDS: LEVAQUIN 250MG/50ML 250 MG/50 ML BAG IV SCH (11:11)
[2016-05-23] MEDS: LASIX IV SCH (11:12)
[2016-05-23] MEDS: LOVENOX SUB-Q SCH (11:12)
[2016-05-23] MEDS: HCTZ PO SCH (11:13)
[2016-05-23] MEDS: PROTONIX PO SCH (11:13)
[2016-05-23] MEDS: DIOVAN PO SCH (11:22)
[2016-05-23] MEDS: NORVASC PO SCH (11:23)
--- NOTE | 2016-05-23 11:37 | Progress Note ---
Assessment and Plan Assessment and plan: Dysphagia. CT scan revealed abnormally dilated and fluid-filled esophagus. GI consultation. COPD exacerbation. Continue IV steroids, nebulizer treatments and IV antibiotics. Acute hypoxic respiratory failure. Etiology secondary to above. Continue O2 for supportive care. Coronary artery disease. Supportive care. GERD. Continue PPI. Ischemic cardiomyopathy. Echocardiogram revealed EF 45-50%. Hypertension. Resume antihypertensive medications. Hypokalemia. Replete. Nausea vomiting. Resolved. KUB negative. History Interval history: Patient complains of shortness of breath with minimal exertion. Patient only reports one episode of vomiting yesterday. No new episodes of vomiting and no nausea. Hospitalist Physical - Constitutional Vitals: Temp Pulse Resp BP Pulse Ox 98.6 F 98 H 20 111/71 99 05/23/16 07:46 05/23/16 11:23 05/23/16 08:07 05/23/16 11:23 05/23/16 07:46 General appearance: Present: no acute distress, well-nourished - EENT Eyes: Present: PERRL, EOM intact ENT: hearing intact, clear oral mucosa, dentition normal - Neck Neck: Present: supple, normal ROM - Respiratory Respiratory effort: normal Respiratory: bilateral: diminished, wheezing - Cardiovascular Rhythm: regular Heart Sounds: Present: S1 & S2. Absent: gallop, rub - Extremities Extremities: no ischemia, No edema, Full ROM - Abdominal General gastrointestinal: soft, non-tender, non-distended, normal bowel sounds - Integumentary Integumentary: Present: clear, warm, dry - Neurologic Neurologic: CNII-XII intact, moves all extremities Results - Labs CBC & Chem 7: 05/21/16 05:00 05/23/16 08:55 Labs: Laboratory Last Values WBC 7.6 K/mm3 (4.5-11.0) 05/21/16 05:00 RBC 4.21 M/mm3 (3.65-5.03) 05/21/16 05:00 Hgb 10.2 gm/dl (10.1-14.3) 05/21/16 05:00 Hct 31.0 % (30.3-42.9) 05/21/16 05:00 MCV 74 fl (79-97) L 05/21/16 05:00 MCH 24 pg (28-32) L 05/21/16 05:00 MCHC 33 % (30-34) 05/21/16 05:00 RDW 27.6 % (13.2-15.2) H 05/21/16 05:00 Plt Count 258 K/mm3 (140-440) 05/21/16 05:00 Add Manual Diff Complete 05/21/16 05:00 Total Counted 100 05/21/16 05:00 Seg Neuts % (Manual) 73.0 % (40.0-70.0) H 05/21/16 05:00 Band Neutrophils % 6.0 % 05/21/16 05:00 Lymphocytes % (Manual) 19.0 % (13.4-35.0) 05/21/16 05:00 Reactive Lymphs % (Man) 0 % 05/21/16 05:00 Monocytes % (Manual) 2.0 % (0.0-7.3) 05/21/16 05:00 Eosinophils % (Manual) 0 % (0.0-4.3) 05/21/16 05:00 Basophils % (Manual) 0 % (0.0-1.8) 05/21/16 05:00 Metamyelocytes % 0 % 05/21/16 05:00 Myelocytes % 0 % 05/21/16 05:00 Promyelocytes % 0 % 05/21/16 05:00 Blast Cells % 0 % 05/21/16 05:00 Nucleated RBC % Not Reportable 05/21/16 05:00 Seg Neutrophils # Man 5.5 K/mm3 (1.8-7.7) 05/21/16 05:00 Band Neutrophils # 0.5 K/mm3 05/21/16 05:00 Lymphocytes # (Manual) 1.4 K/mm3 (1.2-5.4) 05/21/16 05:00 Abs React Lymphs (Man) 0.0 K/mm3 05/21/16 05:00 Monocytes # (Manual) 0.2 K/mm3 (0.0-0.8) 05/21/16 05:00 Eosinophils # (Manual) 0.0 K/mm3 (0.0-0.4) 05/21/16 05:00 Basophils # (Manual) 0.0 K/mm3 (0.0-0.1) 05/21/16 05:00 Metamyelocytes # 0.0 K/mm3 05/21/16 05:00 Myelocytes # 0.0 K/mm3 05/21/16 05:00 Promyelocytes # 0.0 K/mm3 05/21/16 05:00 Blast Cells # 0.0 K/mm3 05/21/16 05:00 WBC Morphology Not Reportable 05/21/16 05:00 Hypersegmented Neuts Not Reportable 05/21/16 05:00 Hyposegmented Neuts Not Reportable 05/21/16 05:00 Hypogranular Neuts Not Reportable 05/21/16 05:00 Smudge Cells Not Reportable 05/21/16 05:00 Toxic Granulation Not Reportable 05/21/16 05:00 Toxic Vacuolation Not Reportable 05/21/16 05:00 Dohle Bodies Not Reportable 05/21/16 05:00 Pelger-Huet Anomaly Not Reportable 05/21/16 05:00 Mony Rods Not Reportable 05/21/16 05:00 Platelet Estimate Consistent w auto 05/21/16 05:00 Clumped Platelets Not Reportable 05/21/16 05:00 Plt Clumps, EDTA Not Reportable 05/21/16 05:00 Large Platelets Not Reportable 05/21/16 05:00 Giant Platelets Not Reportable 05/21/16 05:00 Platelet Satelliting Not Reportable 05/21/16 05:00 Plt Morphology Comment Not Reportable 05/21/16 05:00 RBC Morphology Not Reportable 05/21/16 05:00 Dimorphic RBCs Yes 05/21/16 05:00 Polychromasia Rare 05/21/16 05:00 Hypochromasia 1+ 05/21/16 05:00 Poikilocytosis 1+ 05/21/16 05:00 Anisocytosis 2+ 05/21/16 05:00 Microcytosis 1+ 05/21/16 05:00 Macrocytosis Not Reportable 05/21/16 05:00 Spherocytes Not Reportable 05/21/16 05:00 Pappenheimer Bodies Not Reportable 05/21/16 05:00 Sickle Cells Not Reportable 05/21/16 05:00 Target Cells Not Reportable 05/21/16 05:00 Tear Drop Cells Not Reportable 05/21/16 05:00 Ovalocytes Not Reportable 05/21/16 05:00 Helmet Cells Not Reportable 05/21/16 05:00 Serna-Paulina Bodies Not Reportable 05/21/16 05:00 Conner Rings Not Reportable 05/21/16 05:00 Tayler Cells Not Reportable 05/21/16 05:00 Bite Cells Not Reportable 05/21/16 05:00 Crenated Cell Not Reportable 05/21/16 05:00 Elliptocytes Not Reportable 05/21/16 05:00 Acanthocytes (Spur) Not Reportable 05/21/16 05:00 Rouleaux Not Reportable 05/21/16 05:00 Hemoglobin C Crystals Not Reportable 05/21/16 05:00 Schistocytes Rare 05/21/16 05:00 Malaria parasites Not Reportable 05/21/16 05:00 Juan R Bodies Not Reportable 05/21/16 05:00 Hem Pathologist Commnt No 05/21/16 05:00 Sodium 142 mmol/L (137-145) 05/23/16 08:55 Potassium 3.1 mmol/L (3.6-5.0) L 05/23/16 08:55 Chloride 99.1 mmol/L (98-107) 05/23/16 08:55 Carbon Dioxide 21 mmol/L (22-30) L 05/23/16 08:55 Anion Gap 25 mmol/L 05/23/16 08:55 BUN 32 mg/dL (7-17) H 05/23/16 08:55 Creatinine 2.0 mg/dL (0.7-1.2) H 05/23/16 08:55 Estimated GFR 29 ml/min 05/23/16 08:55 BUN/Creatinine Ratio 16.00 % 05/23/16 08:55 Glucose 141 mg/dL (65-100) H 05/23/16 08:55 Calcium 6.4 mg/dL (8.4-10.2) L 05/23/16 08:55 Troponin T < 0.010 ng/mL (0.00-0.029) 05/20/16 12:55 NT-Pro-B Natriuret Pep 1205 pg/mL (0-900) H 05/20/16 12:55
--- NOTE | 2016-05-23 13:37 | Progress Note ---
Assessment and Plan (1) Acute and chronic respiratory failure ([id number]) Status: Acute Qualifiers: Respiratory failure complication: hypoxia and hypercapnia Qualified Code(s) : J96.21 - Acute and chronic respiratory failure with hypoxia Plan to address problem: - supplemental oxygen to keep sats > 92% at all times - prn BIPAP - trial of diuresis - optimize cardiac status - empiric CAP antibiotics - continue systemic steroids - add long acting bronchodilators (2) Acute chest pain Status: Acute Plan to address problem: - resolved - ACS w/up (3) COPD exacerbation Status: Acute Plan to address problem: - as above Subjective Date of service: 05/23/16 Principal diagnosis: Acute on Chronic Hypoxemic Respiratory Failure Interval history: seen and examined at bedside; 24hour events reviewed; nursing and respiratory care staff consulted; no adverse overnight events reported to me; no new issues respiratory-stauffer but still states she is more SOB than baseline Objective Vital Signs - 12hr 05/23/16 05/23/16 05/23/16 01:45 07:46 08:07 Temperature 98.6 F Pulse Rate Pulse Rate [ 96 H 94 H Anterior Bilateral Throughout] Pulse Rate [ 98 H Right Radial] Respiratory 16 Rate Respiratory 18 20 Rate [Anterior Bilateral Throughout] Blood Pressure Blood Pressure 111/71 [Right Arm] O2 Sat by Pulse 99 Oximetry 05/23/16 05/23/16 11:22 11:23 Temperature Pulse Rate 98 H 98 H Pulse Rate [ Anterior Bilateral Throughout] Pulse Rate [ Right Radial] Respiratory Rate Respiratory Rate [Anterior Bilateral Throughout] Blood Pressure 111/71 111/71 Blood Pressure [Right Arm] O2 Sat by Pulse Oximetry Constitutional: no acute distress Eyes: non-icteric ENT: oropharynx moist Neck: supple Effort: mildly labored Ascultation: Bilateral: diminished breath sounds, rales Cardiovascular: regular rate and rhythm Gastrointestinal: normoactive bowel sounds, soft, non-tender, non-distended Integumentary: normal Extremities: no cyanosis, no edema, pulses normal, no ischemia or petechiae Neurologic: normal mental status, non-focal exam, pupils equal and round, motor strength normal and Psychiatric: mood appropriate, affect normal CBC and BMP: 05/21/16 05:00 05/26/16 05:40 Abnormal lab findings: Abnormal Labs 05/21/16 05/21/16 05/23/16 05:00 05:00 08:55 MCV 74 L MCH 24 L RDW 27.6 H Seg Neuts % (Manual) 73.0 H Potassium 3.4 L 3.1 L Carbon Dioxide 20 L 21 L BUN 19 H 32 H Creatinine 1.4 H 2.0 H Glucose 141 H 141 H Calcium 6.8 L 6.4 L
--- NOTE | 2016-05-23 16:48 | Consultation ---
History of Present Illness - Reason for Consult Consult date: 05/23/16 abnormal esophagus - History of Present Illness See Dictation Past History Past Medical History: CAD, COPD, heart failure, hypertension, other (asthma) Past Surgical History: , Other (hand surgery) Social history: no significant social history Family history: hypertension Medications and Allergies Allergies Allergy/AdvReac Type Severity Reaction Status Date / Time oxytetracycline Allergy Rash Verified 05/01/15 12:26 [From Terramycin] oxytetracycline HCl Allergy Rash Verified 05/01/15 12:26 [From Terramycin] Penicillins Allergy Rash Verified 05/01/15 12:26 Sulfa (Sulfonamide Allergy Rash Verified 05/01/15 12:26 Antibiotics) GLOVE POWDER Allergy Rash Uncoded 05/01/15 12:26 Home Medications Medication Instructions Recorded Confirmed Last Taken Type Acetaminophen [Acetaminophen TAB] 650 mg PO Q6HR PRN 04/01/16 05/20/16 1 Day Ago History Albuterol Sulfate [Albuterol 0.63% 0.63 mg IH Q6H PRN 04/01/16 05/20/16 1 Day Ago History NEBS] Albuterol Sulfate [Ventolin HFA] 2 puff IH Q4H PRN 04/01/16 05/20/16 1 Day Ago History Fluticasone/Vilanterol [Breo 1 each IH DAILY 04/01/16 05/20/16 1 Day Ago History Ellipta 100-25 Mcg INH] Gabapentin [Neurontin] 100 mg PO QHS 04/01/16 05/20/16 1 Day Ago History Pantoprazole [Protonix TAB] 40 mg PO QDAY 04/01/16 05/20/16 1 Day Ago History Valsartan/Hydrochlorothiazide 1 tab PO QDAY 04/01/16 05/20/16 1 Day Ago History [Diovan Hct 160-25 mg] amLODIPine [Norvasc] 5 mg PO DAILY 04/01/16 05/20/16 1 Day Ago History AtorvaSTATin [Lipitor] 20 mg PO QHS #30 tablet 04/10/16 05/20/16 Unknown Rx Ferrous Sulfate [Feosol 325 MG tab] 325 mg PO TID #90 tablet 04/10/16 05/20/16 Unknown Rx Aspirin [Adult Low Dose Aspirin EC] 81 mg PO QDAY 05/20/16 05/20/1605/20/17 10: 00 History Nitroglycerin [Nitro Dur] 0.4 mg TD QDAY 05/20/16 05/20/16 05/20/16 10:00 History Ranolazine ER [Ranexa ER] 2 tab PO BID 05/20/16 05/20/16 05/20/16 10:00 History Active Meds: Active Medications Acetaminophen (Tylenol) 650 mg PO Q4H PRN PRN Reason: Pain MILD(1-3)/Fever >100.5/JOHNSON Albuterol (Proventil) 2.5 mg IH Q4HRT PRN PRN Reason: Shortness Of Breath Albuterol/Ipratropium (Duoneb 0.5 Mg-3 Mg/3 Ml Soln) 1 ampul IH Q6HRT [facility] Last Admin: 05/23/16 14:44 Dose: Not Given Amlodipine Besylate (Norvasc) 5 mg PO DAILY [facility] Last Admin: 05/23/16 11:23 Dose: 5 mg Arformoterol Tartrate (Brovana Nebu) 15 mcg IH Q12HRT [facility] Last Admin: 05/23/16 08:07 Dose: 15 mcg Atorvastatin Calcium (Lipitor) 20 mg PO QHS [facility] Last Admin: 05/22/16 22:55 Dose: 20 mg Bisacodyl (Dulcolax) 10 mg MS QDAY PRN PRN Reason: Constipation unrelieved by MOM Budesonide (Pulmicort) 0.5 mg IH Q12HRT [facility] Last Admin: 05/23/16 08:07 Dose: 0.5 mg Enoxaparin Sodium (Lovenox) 30 mg SUB-Q QDAY [facility] Last Admin: 05/23/16 11:12 Dose: 30 mg Ferrous Sulfate (Feosol) 325 mg PO TID [facility] Last Admin: 05/23/16 14:24 Dose: Not Given Furosemide (Lasix) 20 mg IV QDAY [facility] Last Admin: 05/23/16 11:12 Dose: 20 mg Gabapentin (Neurontin) 100 mg PO QHS [facility] Last Admin: 05/22/16 22:55 Dose: 100 mg Guaifenesin (Robitussin) 200 mg PO Q4H PRN PRN Reason: Cough Last Admin: 05/21/16 17:41 Dose: 200 mg Hydrochlorothiazide (Hctz) 25 mg PO QDAY [facility] Last Admin: 05/23/16 11:13 Dose: 25 mg Levofloxacin/Dextrose (Levaquin 250mg/50ml) 250 mg in 50 mls @ 50 mls/hr IV Q24HR [facility] Last Admin: 05/23/16 11:11 Dose: 50 mls/hr Magnesium Hydroxide (Milk Of Magnesia) 30 ml PO Q4H PRN PRN Reason: Constipation Methylprednisolone Sodium Succinate (Solu-Medrol) 80 mg IV Q8HR [facility] Last Admin: 05/23/16 14:26 Dose: 80 mg Ondansetron HCl (Zofran) 4 mg IV Q8H PRN PRN Reason: N/V unrelieved by Reglan Last Admin: 05/22/16 10:49 Dose: 4 mg Pantoprazole Sodium (Protonix) 40 mg PO QDAY [facility] Last Admin: 05/23/16 11:13 Dose: 40 mg Valsartan (Diovan) 160 mg PO QDAY [facility] Last Admin: 05/23/16 11:22 Dose: 160 mg Exam - Constitutional Vitals: Temp Pulse Resp BP Pulse Ox 98.6 F 98 H 16 111/71 96 05/23/16 07:46 05/23/16 11:23 05/23/16 08:25 05/23/16 11:23 05/23/16 10:00 Results - Labs CBC & Chem 7: 05/21/16 05:00 05/23/16 08:55 Labs: Abnormal lab results 05/23/16 Range/Units 08:55 Potassium 3.1 L (3.6-5.0) mmol/L Carbon Dioxide 21 L (22-30) mmol/L BUN 32 H (7-17) mg/dL Creatinine 2.0 H (0.7-1.2) mg/dL Glucose 141 H (65-100) mg/dL Calcium 6.4 L (8.4-10.2) mg/dL Assessment and Plan Pt adm with exac of COPD, with no GI symptoms except GERD, but with 30# weight loss recently, with CT showing dilated esophagus with fluid. CT report not available at present. Regardless, will eval with EGD once stable from Pulmonary standpoint.
[2016-05-23] MEDS: NEURONTIN PO SCH (22:23)
[2016-05-24] MEDS: DUONEB 0.5 MG-3 MG/3 ML SOLN IH SCH ×4 (01:28→21:33)
--- NOTE | 2016-05-24 01:42 | Consultation ---
REASON FOR CONSULTATION: Abnormal CT scan. HISTORY OF PRESENT ILLNESS: The patient is a 80-year-old woman with longstanding COPD who is on home oxygen. She was admitted with acute exacerbation of her COPD and has improved somewhat during her hospital stay here. She underwent evaluation including a CT of her neck and this showed findings consistent with abnormally dilated fluid filled esophagus. She had had a chest x-ray done, which did not reveal any esophageal abnormalities. Because of this, GI consultation is obtained. The patient denies problems with dysphagia. She has chronic GERD, controlled with Protonix. She states that she has had a hiatal hernia in the past and a long time ago and was advised to have surgery, but she did not do so. She does complain of loss of appetite and states she cannot chew meat because of poor dentition. She states she has lost 30 pounds in the past, though this appears to have stabilized. She denies abdominal pain, nausea, vomiting, hematemesis, hematochezia, or melena. She was having dyspnea that was progressive for which she was admitted and which is improving. She denies chest pain, fevers, chills, or sweats. ALLERGIES: TERRAMYCIN, PENICILLIN, SULFA AND GLOVE POWDER. MEDICATIONS: At home, she is on nitroglycerin, aspirin, Ranexa, amlodipine, Diovan, pantoprazole, Neurontin, Breo inhaler, iron, Lipitor, Ventolin, albuterol. PAST MEDICAL HISTORY: Has a history of: 1. COPD -- on home oxygen. 2. CHF. 3. Hypertension. 4. Coronary artery disease. 5. x 5. 6. History of pneumothorax in the past. 7. AAA repair and lower extremity bypass for left lower extremity and right lower extremity in 2004 for peripheral arterial disease. FAMILY HISTORY: Noncontributory. SOCIAL HISTORY: Negative for ethanol and she quit smoking 30 years ago. REVIEW OF SYSTEMS: Negative except as noted above. PHYSICAL EXAMINATION: GENERAL: This is a thin, elderly black female lying in bed in no apparent distress. VITAL SIGNS: Temperature, she is afebrile with pulse of 98, blood pressure 111/71. HEENT: She is anicteric. Pupils are round and reactive. Oropharynx is clear with poor dentition. LUNGS: Show few crackles in the bases bilaterally. CARDIOVASCULAR: Regular with no extra heart sounds. ABDOMEN: Soft with good bowel sounds and no organomegaly or tenderness to palpation. RECTAL: Deferred. EXTREMITIES: Reveal no edema. NEUROLOGIC: She is alert, oriented x 3, grossly nonfocal. LABORATORY DATA: White count is 7.6, hemoglobin 10.2, hematocrit 31, MCV of 74, platelet count of 258,000. Sodium is 142, potassium 3.1, chloride 99, bicarbonate 21, BUN 32, creatinine 2.0, glucose is 141. IMPRESSION: 1. Abnormal esophagus on CT -- this is of unclear significance. The patient just had a chest CT done at the end of March 2016, which I cannot access at present. This will be reviewed to see if there is any indication of etiology. Based on that, we will decide whether endoscopic evaluation or other evaluation is warranted. The finding may represent achalasia or growth of mass lesion at the EG junction, but at present this is unclear. 2. Anemia -- microcytosis. This is longstanding. There is evidence that the patient has undergone endoscopic evaluation in the past in 2014, but unfortunately the records are not available right now and will need to be reviewed. Otherwise, given no clear history of bleeding, I will not pursue this further at present. JOB# [id number] HRC/NTS
--- NOTE | 2016-05-24 08:54 | Gastroenterology Progress Note ---
Assessment and Plan 80yo woman with hx of COPD, GERD, with 30lb weight loss; CT shows dilated/fluid- filled esophagus. Can consider large hiatus hernia, mass, motility disorder, etc. Rec: 1) Cont current diet for now 2) Would have pulmonary comment on her risk for EGD; if risk is acceptable, will plan for EGD tomorrow Subjective Date of service: 05/24/16 Principal diagnosis: Acute on Chronic Hypoxemic Respiratory Failure Interval history: Pt seen/examined this AM. No GI complaints. CT officially read as dilated, fluid-filled esophagus. Pt states that she has had chronic heartburn for years and was told in [place] that she has a hiatal hernia. No CP/SOB at this time. Objective - Constitutional Vitals: Temp Pulse Resp BP Pulse Ox 97.5 F L 85 16 125/67 95 05/24/16 08:00 05/24/16 08:00 05/24/16 08:00 05/24/16 08:00 05/24/16 08:00 General appearance: no acute distress - Neck Neck: supple - Respiratory Respiratory: bilateral: wheezing - Cardiovascular Rhythm: regular Heart Sounds: Present: S1 & S2 - Extremities Extremities: No edema - Gastrointestinal General gastrointestinal: Present: soft, non-tender, non-distended, normal bowel sounds - Neurologic Neurological: alert and oriented x3 - Psychiatric Psychiatric: appropriate mood/affect - Labs CBC & Chem 7: 05/21/16 05:00 05/23/16 08:55 Labs: Laboratory Results - last 24 hr 05/23/16 08:55 Sodium 142 Potassium 3.1 L Chloride 99.1 Carbon Dioxide 21 L Anion Gap 25 BUN 32 H Creatinine 2.0 H Estimated GFR 29 BUN/Creatinine Ratio 16.00 Glucose 141 H Calcium 6.4 L - Imaging CT scan: report reviewed
[2016-05-24] MEDS: BROVANA NEBU IH SCH ×2 (09:07→21:07)
[2016-05-24] MEDS: PULMICORT IH SCH ×2 (09:07→21:07)
[2016-05-24] MEDS: LOVENOX SUB-Q SCH (10:06)
[2016-05-24] MEDS: LASIX IV SCH (10:06)
[2016-05-24] MEDS: FEOSOL PO SCH ×5 (10:06→20:58)
[2016-05-24] MEDS: HCTZ PO SCH (10:06)
[2016-05-24] MEDS: PROTONIX PO SCH (10:06)
[2016-05-24] MEDS: NORVASC PO SCH (10:08)
[2016-05-24] MEDS: LEVAQUIN 250MG/50ML 250 MG/50 ML BAG IV SCH (10:09)
[2016-05-24] MEDS: DIOVAN PO SCH (10:11)
--- NOTE | 2016-05-24 10:37 | Progress Note ---
Assessment and Plan Assessment and plan: Dysphagia. CT scan revealed abnormally dilated and fluid-filled esophagus. Patient also reports 30 pound weight loss. GI to perform endoscopy in a.m. COPD exacerbation. Continue IV steroids, nebulizer treatments and IV antibiotics. Acute hypoxic respiratory failure. Etiology secondary to above. Continue O2 for supportive care. Coronary artery disease. Supportive care. GERD. Continue PPI. Ischemic cardiomyopathy. Echocardiogram revealed EF 45-50%. Hypertension. Resume antihypertensive medications. Hypokalemia. Repleted. Nausea vomiting. Resolved. KUB negative. History Interval history: Patient complains of shortness of breath with minimal exertion. Patient only reports one episode of vomiting 2 days ago. No new episodes of vomiting and no nausea. Hospitalist Physical - Constitutional Vitals: Temp Pulse Resp BP Pulse Ox 97.5 F L 93 H 18 125/67 93 05/24/16 08:00 05/24/16 09:25 05/24/16 09:25 05/24/16 08:00 05/24/16 09:26 General appearance: Present: no acute distress, well-nourished - EENT Eyes: Present: PERRL, EOM intact ENT: hearing intact, clear oral mucosa, dentition normal - Neck Neck: Present: supple, normal ROM - Respiratory Respiratory effort: normal Respiratory: bilateral: diminished, rhonchi, wheezing - Cardiovascular Rhythm: regular Heart Sounds: Present: S1 & S2. Absent: gallop, rub - Extremities Extremities: no ischemia, No edema, Full ROM - Abdominal General gastrointestinal: soft, non-tender, non-distended, normal bowel sounds - Integumentary Integumentary: Present: clear, warm, dry - Neurologic Neurologic: CNII-XII intact, moves all extremities Results - Labs CBC & Chem 7: 05/21/16 05:00 05/23/16 08:55 Labs: Laboratory Last Values WBC 7.6 K/mm3 (4.5-11.0) 05/21/16 05:00 RBC 4.21 M/mm3 (3.65-5.03) 05/21/16 05:00 Hgb 10.2 gm/dl (10.1-14.3) 05/21/16 05:00 Hct 31.0 % (30.3-42.9) 05/21/16 05:00 MCV 74 fl (79-97) L 05/21/16 05:00 MCH 24 pg (28-32) L 05/21/16 05:00 MCHC 33 % (30-34) 05/21/16 05:00 RDW 27.6 % (13.2-15.2) H 05/21/16 05:00 Plt Count 258 K/mm3 (140-440) 05/21/16 05:00 Add Manual Diff Complete 05/21/16 05:00 Total Counted 100 05/21/16 05:00 Seg Neuts % (Manual) 73.0 % (40.0-70.0) H 05/21/16 05:00 Band Neutrophils % 6.0 % 05/21/16 05:00 Lymphocytes % (Manual) 19.0 % (13.4-35.0) 05/21/16 05:00 Reactive Lymphs % (Man) 0 % 05/21/16 05:00 Monocytes % (Manual) 2.0 % (0.0-7.3) 05/21/16 05:00 Eosinophils % (Manual) 0 % (0.0-4.3) 05/21/16 05:00 Basophils % (Manual) 0 % (0.0-1.8) 05/21/16 05:00 Metamyelocytes % 0 % 05/21/16 05:00 Myelocytes % 0 % 05/21/16 05:00 Promyelocytes % 0 % 05/21/16 05:00 Blast Cells % 0 % 05/21/16 05:00 Nucleated RBC % Not Reportable 05/21/16 05:00 Seg Neutrophils # Man 5.5 K/mm3 (1.8-7.7) 05/21/16 05:00 Band Neutrophils # 0.5 K/mm3 05/21/16 05:00 Lymphocytes # (Manual) 1.4 K/mm3 (1.2-5.4) 05/21/16 05:00 Abs React Lymphs (Man) 0.0 K/mm3 05/21/16 05:00 Monocytes # (Manual) 0.2 K/mm3 (0.0-0.8) 05/21/16 05:00 Eosinophils # (Manual) 0.0 K/mm3 (0.0-0.4) 05/21/16 05:00 Basophils # (Manual) 0.0 K/mm3 (0.0-0.1) 05/21/16 05:00 Metamyelocytes # 0.0 K/mm3 05/21/16 05:00 Myelocytes # 0.0 K/mm3 05/21/16 05:00 Promyelocytes # 0.0 K/mm3 05/21/16 05:00 Blast Cells # 0.0 K/mm3 05/21/16 05:00 WBC Morphology Not Reportable 05/21/16 05:00 Hypersegmented Neuts Not Reportable 05/21/16 05:00 Hyposegmented Neuts Not Reportable 05/21/16 05:00 Hypogranular Neuts Not Reportable 05/21/16 05:00 Smudge Cells Not Reportable 05/21/16 05:00 Toxic Granulation Not Reportable 05/21/16 05:00 Toxic Vacuolation Not Reportable 05/21/16 05:00 Dohle Bodies Not Reportable 05/21/16 05:00 Pelger-Huet Anomaly Not Reportable 05/21/16 05:00 Mony Rods Not Reportable 05/21/16 05:00 Platelet Estimate Consistent w auto 05/21/16 05:00 Clumped Platelets Not Reportable 05/21/16 05:00 Plt Clumps, EDTA Not Reportable 05/21/16 05:00 Large Platelets Not Reportable 05/21/16 05:00 Giant Platelets Not Reportable 05/21/16 05:00 Platelet Satelliting Not Reportable 05/21/16 05:00 Plt Morphology Comment Not Reportable 05/21/16 05:00 RBC Morphology Not Reportable 05/21/16 05:00 Dimorphic RBCs Yes 05/21/16 05:00 Polychromasia Rare 05/21/16 05:00 Hypochromasia 1+ 05/21/16 05:00 Poikilocytosis 1+ 05/21/16 05:00 Anisocytosis 2+ 05/21/16 05:00 Microcytosis 1+ 05/21/16 05:00 Macrocytosis Not Reportable 05/21/16 05:00 Spherocytes Not Reportable 05/21/16 05:00 Pappenheimer Bodies Not Reportable 05/21/16 05:00 Sickle Cells Not Reportable 05/21/16 05:00 Target Cells Not Reportable 05/21/16 05:00 Tear Drop Cells Not Reportable 05/21/16 05:00 Ovalocytes Not Reportable 05/21/16 05:00 Helmet Cells Not Reportable 05/21/16 05:00 [place] Bodies Not Reportable 05/21/16 05:00 [place] Rings Not Reportable 05/21/16 05:00 [place] Cells Not Reportable 05/21/16 05:00 Bite Cells Not Reportable 05/21/16 05:00 Crenated Cell Not Reportable 05/21/16 05:00 Elliptocytes Not Reportable 05/21/16 05:00 Acanthocytes (Spur) Not Reportable 05/21/16 05:00 Rouleaux Not Reportable 05/21/16 05:00 Hemoglobin C Crystals Not Reportable 05/21/16 05:00 Schistocytes Rare 05/21/16 05:00 Malaria parasites Not Reportable 05/21/16 05:00 Juan R Bodies Not Reportable 05/21/16 05:00 Hem Pathologist Commnt No 05/21/16 05:00 Sodium 142 mmol/L (137-145) 05/23/16 08:55 Potassium 3.1 mmol/L (3.6-5.0) L 05/23/16 08:55 Chloride 99.1 mmol/L (98-107) 05/23/16 08:55 Carbon Dioxide 21 mmol/L (22-30) L 05/23/16 08:55 Anion Gap 25 mmol/L 05/23/16 08:55 BUN 32 mg/dL (7-17) H 05/23/16 08:55 Creatinine 2.0 mg/dL (0.7-1.2) H 05/23/16 08:55 Estimated GFR 29 ml/min 05/23/16 08:55 BUN/Creatinine Ratio 16.00 % 05/23/16 08:55 Glucose 141 mg/dL (65-100) H 05/23/16 08:55 Calcium 6.4 mg/dL (8.4-10.2) L 05/23/16 08:55 Troponin T < 0.010 ng/mL (0.00-0.029) 05/20/16 12:55 NT-Pro-B Natriuret Pep 1205 pg/mL (0-900) H 05/20/16 12:55
--- NOTE | 2016-05-24 18:31 | Progress Note ---
Assessment and Plan - Patient Problems (1) COPD exacerbation Current Visit: Yes Status: Acute Plan to address problem: Albuterol/Atrovent aerosol treatments q 6 hours. Continue I/V solumedral. (2) Acute and chronic respiratory failure ([id number]) Current Visit: No Status: Acute Qualifiers: Respiratory failure complication: hypoxia and hypercapnia Qualified Code(s) : J96.21 - Acute and chronic respiratory failure with hypoxia Plan to address problem: O2 supplementatation Albuterol/atrovent aerosol treatments q 6 hours. Continue I/V solumedral. Continue S/C Lovenox. Continue Protonix. (3) Acute bronchitis Current Visit: No Status: Acute Qualifiers: Bronchitis organism: unspecified organism Qualified Code(s): J20.9 - Acute bronchitis, unspecified Plan to address problem: Patient is on Levaquine. Subjective Date of service: 05/24/16 Principal diagnosis: Acute on Chronic Hypoxemic Respiratory Failure Objective Vital Signs - 12hr 05/24/16 05/24/16 05/24/16 08:00 09:07 09:12 Temperature 97.5 F L Pulse Rate [ 89 Anterior Bilateral Throughout] Pulse Rate [ 85 Right] Respiratory 16 Rate Respiratory 18 Rate [Anterior Bilateral Throughout] Blood Pressure 125/67 [Right Arm] O2 Sat by Pulse 95 99 99 Oximetry 05/24/16 05/24/16 05/24/16 09:25 09:26 13:52 Temperature Pulse Rate [ 93 H 90 Anterior Bilateral Throughout] Pulse Rate [ Right] Respiratory Rate Respiratory 18 18 Rate [Anterior Bilateral Throughout] Blood Pressure [Right Arm] O2 Sat by Pulse 93 Oximetry 05/24/16 05/24/16 14:06 15:16 Temperature 97.8 F Pulse Rate [ 86 Anterior Bilateral Throughout] Pulse Rate [ 106 H Right] Respiratory 16 Rate Respiratory 18 Rate [Anterior Bilateral Throughout] Blood Pressure 108/64 [Right Arm] O2 Sat by Pulse 96 Oximetry CBC and BMP: 05/21/16 05:00 05/23/16 08:55 Abnormal lab findings: Abnormal Labs 05/21/16 05/21/16 05/23/16 05:00 05:00 08:55 MCV 74 L MCH 24 L RDW 27.6 H Seg Neuts % (Manual) 73.0 H Potassium 3.4 L 3.1 L Carbon Dioxide 20 L 21 L BUN 19 H 32 H Creatinine 1.4 H 2.0 H Glucose 141 H 141 H Calcium 6.8 L 6.4 L Chest x-ray: report reviewed (Prominent interstitium), image reviewed
--- NOTE | 2016-05-24 22:32 | Progress Note ---
Assessment and Plan Patient resting on nasal canula. O2 satuaration 100% on 5 litres O2.Patient says breathing better. - Patient Problems (1) COPD exacerbation Current Visit: Yes Status: Acute Plan to address problem: Albuterol/Atrovent aerosol treatments q 6 hours. Continue I/V solumedral. Continue O2 supplementation. (2) Acute and chronic respiratory failure ([id number]) Current Visit: No Status: Acute Qualifiers: Respiratory failure complication: hypoxia and hypercapnia Qualified Code(s) : J96.21 - Acute and chronic respiratory failure with hypoxia Plan to address problem: O2 supplementatation 2 to 3 litres. Albuterol/atrovent aerosol treatments q 6 hours. Continue I/V solumedral. Continue S/C Lovenox. Continue Protonix. (3) Acute bronchitis Current Visit: No Status: Acute Qualifiers: Bronchitis organism: unspecified organism Qualified Code(s): J20.9 - Acute bronchitis, unspecified Plan to address problem: Patient is on Levaquine. Subjective Date of service: 05/24/16 Principal diagnosis: Acute on Chronic Hypoxemic Respiratory Failure Interval history: Patient resting on nasal canula. O2 satuaration 100% on 5 litres O2.Patient says breathing better. Objective Vital Signs - 12hr 05/24/16 05/24/16 05/24/16 13:52 14:06 15:16 Temperature 97.8 F Pulse Rate [ 90 86 Anterior Bilateral Throughout] Pulse Rate [ 106 H Right] Respiratory 16 Rate Respiratory 18 18 Rate [Anterior Bilateral Throughout] Blood Pressure 108/64 [Right Arm] O2 Sat by Pulse 96 Oximetry 05/24/16 05/24/16 05/24/16 21:10 21:35 21:36 Temperature Pulse Rate [ 103 H 108 H Anterior Bilateral Throughout] Pulse Rate [ Right] Respiratory Rate Respiratory 20 20 Rate [Anterior Bilateral Throughout] Blood Pressure [Right Arm] O2 Sat by Pulse 100 Oximetry Constitutional: no acute distress, alert Eyes: non-icteric ENT: oropharynx moist Neck: supple, no lymphadenopathy Ascultation: Bilateral: diminished breath sounds (Prolonged expiratory phase.) Cardiovascular: regular rate and rhythm Gastrointestinal: normoactive bowel sounds, soft, non-tender Integumentary: normal Extremities: no cyanosis, no edema Neurologic: normal mental status, non-focal exam, pupils equal and round, CN II- XII normal Psychiatric: anxious CBC and BMP: 05/21/16 05:00 05/23/16 08:55 Abnormal lab findings: Abnormal Labs 05/21/16 05/21/16 05/23/16 05:00 05:00 08:55 MCV 74 L MCH 24 L RDW 27.6 H Seg Neuts % (Manual) 73.0 H Potassium 3.4 L 3.1 L Carbon Dioxide 20 L 21 L BUN 19 H 32 H Creatinine 1.4 H 2.0 H Glucose 141 H 141 H Calcium 6.8 L 6.4 L Chest x-ray: report reviewed (Prominent interstitium.), image reviewed
[2016-05-24] MEDS: NEURONTIN PO SCH (23:00)
[2016-05-25] MEDS: DUONEB 0.5 MG-3 MG/3 ML SOLN IH SCH ×4 (02:22→20:12)
[2016-05-25] MEDS: PULMICORT IH SCH ×2 (08:02→20:11)
[2016-05-25] MEDS: BROVANA NEBU IH SCH ×2 (08:03→20:11)
[2016-05-25 09:52] LABS: BUN/Creatinine Ratio 22.77; Calcium 6.4 mg/dL (8.4-10.2); Chloride 95.7 mmol/L (98-107)
[2016-05-25] MEDS: LEVAQUIN PO SCH (09:53)
[2016-05-25] MEDS: PROTONIX PO SCH (09:53)
[2016-05-25] MEDS: LOVENOX SUB-Q SCH (09:53)
[2016-05-25] MEDS: LASIX IV SCH (09:53)
[2016-05-25] MEDS: FEOSOL PO SCH ×3 (09:54→23:19)
[2016-05-25] MEDS: NORVASC PO SCH (09:54)
[2016-05-25] MEDS: HCTZ PO SCH (09:54)
[2016-05-25] MEDS: DIOVAN PO SCH (09:54)
[2016-05-25 09:57] LABS: Potassium 2.7 mmol/L (3.6-5.0)
[2016-05-25] MEDS: POTASSIUM CHLORIDE FEEDTUBE SCH ×2 (13:38→15:48)
--- NOTE | 2016-05-25 14:05 | Progress Note ---
Assessment and Plan Patient resting on nasal canula. O2 satuaration 96% on 3 litres O2.Patient says breathing better. - Patient Problems (1) COPD exacerbation Current Visit: Yes Status: Acute Plan to address problem: Albuterol/Atrovent aerosol treatments q 6 hours. Continue I/V solumedral. Continue O2 supplementation. (2) Acute and chronic respiratory failure ([id number]) Current Visit: No Status: Acute Qualifiers: Respiratory failure complication: hypoxia and hypercapnia Qualified Code(s) : J96.21 - Acute and chronic respiratory failure with hypoxia; J96.22 - Acute and chronic respiratory failure with hypercapnia Plan to address problem: O2 supplementatation 2 to 3 litres. Albuterol/atrovent aerosol treatments q 6 hours. Continue I/V solumedral. Continue S/C Lovenox. Continue Protonix. (3) Acute bronchitis Current Visit: No Status: Acute Qualifiers: Bronchitis organism: unspecified organism Qualified Code(s): J20.9 - Acute bronchitis, unspecified Plan to address problem: Patient is on Levaquine. Subjective Date of service: 05/25/16 Principal diagnosis: Acute on Chronic Hypoxemic Respiratory Failure Interval history: Patient resting on nasal canula. O2 satuaration 96% on 3 litres O2.Patient says breathing better. Objective Vital Signs - 12hr 05/25/16 05/25/16 05/25/16 08:03 08:17 08:18 Temperature 98.2 F Pulse Rate [ 102 H 104 H Anterior Bilateral Throughout] Pulse Rate [ 89 Right] Respiratory 16 Rate Respiratory 18 18 Rate [Anterior Bilateral Throughout] Blood Pressure 126/72 [Right Arm] O2 Sat by Pulse 95 96 Oximetry Constitutional: no acute distress, alert Eyes: non-icteric ENT: oropharynx moist Neck: supple, no lymphadenopathy Ascultation: Bilateral: diminished breath sounds (Prolonged expiratory phase.) Cardiovascular: regular rate and rhythm Gastrointestinal: normoactive bowel sounds, soft, non-tender Integumentary: normal Extremities: no cyanosis, no edema Neurologic: normal mental status, non-focal exam, pupils equal and round, CN II- XII normal Psychiatric: anxious CBC and BMP: 05/21/16 05:00 05/25/16 09:10 Abnormal lab findings: Abnormal Labs 05/21/16 05/21/16 05/23/16 05:00 05:00 08:55 MCV 74 L MCH 24 L RDW 27.6 H Seg Neuts % (Manual) 73.0 H Potassium 3.4 L 3.1 L Chloride Carbon Dioxide 20 L 21 L BUN 19 H 32 H Creatinine 1.4 H 2.0 H Glucose 141 H 141 H Calcium 6.8 L 6.4 L Magnesium 05/25/16 05/25/16 09:10 09:10 MCV MCH RDW Seg Neuts % (Manual) Potassium 2.7 L* Chloride 95.7 L Carbon Dioxide BUN 41 H Creatinine 1.8 H Glucose 195 H Calcium 6.4 L Magnesium 1.1 L
--- NOTE | 2016-05-25 14:11 | Gastroenterology Progress Note ---
Assessment and Plan 80yo woman with hx of COPD, GERD, with 30lb weight loss; CT shows dilated/fluid- filled esophagus. Can consider large hiatus hernia, mass, motility disorder, etc. Rec: 1) Discussed EGD further w/ Ms. Hawkins and she declines the procedure at this time. She states "I'm fine and I don't want it." She also declines anesthesia. I have explained to her that there is a risk that there is underlying malignancy, which she understands, and accepts the risks. She states that she has had intermittent problems swallowing for many years and was told that she has a hiatal hernia. I re-encouraged her to stay to have the EGD performed, but again, she adamantly declines the procedure. I will sign off, but please do not hesitate to re-contact me should Ms. Hawkins change her mind. Thank you! Subjective Date of service: 05/25/16 Principal diagnosis: Acute on Chronic Hypoxemic Respiratory Failure Interval history: Pt seen/examined this AM. No GI complaints. CT officially read as dilated, fluid-filled esophagus. Pt states that she has had chronic heartburn for years and was told in [place] that she has a hiatal hernia. No CP/SOB at this time. Sitting in chair with neb tx in progress. Objective - Constitutional Vitals: Temp Pulse Resp BP Pulse Ox 98.2 F 104 H 18 126/72 96 05/25/16 08:17 05/25/16 08:18 05/25/16 08:18 05/25/16 08:17 05/25/16 08:17 General appearance: no acute distress - Neck Neck: supple - Respiratory Respiratory: bilateral: wheezing - Cardiovascular Rhythm: regular Heart Sounds: Present: S1 & S2 - Extremities Extremities: No edema - Gastrointestinal General gastrointestinal: Present: soft, non-tender, non-distended, normal bowel sounds - Neurologic Neurological: alert and oriented x3 - Psychiatric Psychiatric: appropriate mood/affect - Labs CBC & Chem 7: 05/21/16 05:00 05/25/16 09:10 Labs: Laboratory Results - last 24 hr 05/25/16 05/25/16 09:10 09:10 Sodium 141 Potassium 2.7 L* Chloride 95.7 L Carbon Dioxide 24 Anion Gap 24 BUN 41 H Creatinine 1.8 H Estimated GFR 33 BUN/Creatinine Ratio 22.77 Glucose 195 H Calcium 6.4 L Magnesium 1.1 L
--- NOTE | 2016-05-25 16:06 | Progress Note ---
Assessment and Plan Assessment and plan: 1. Dysphagia. CT scan revealed abnormally dilated and fluid-filled esophagus- she refused EGD; GI f/U appreciated. 2. COPD exacerbation-improving. Continue IV steroids, nebulizer treatments and IV antibiotics. 3. Acute hypoxic respiratory failure. Etiology secondary to above. Continue O2 for supportive care. 4. Coronary artery disease-stable; Supportive care. Cont statin 5.GERD. Continue PPI. 6. Hypertension. Resume antihypertensive medications. 7. Hypokalemia- will replace; check Mg;PO4 8. DVT prophylaxis- lovenox For d/c if K better in the a.m and sob better History Interval history: f/u copd exacerbation; dysphagia Patient seen at the bedside; no complaints; she refuses to have EGD Hospitalist Physical - Constitutional Vitals: Temp Pulse Resp BP Pulse Ox 98.3 F 107 H 24 119/69 93 05/25/16 15:51 05/25/16 15:51 05/25/16 15:51 05/25/16 15:51 05/25/16 15:51 General appearance: Present: no acute distress, well-nourished - EENT Eyes: Present: PERRL, EOM intact. Absent: scleral icterus, conjunctival injection ENT: hearing intact, clear oral mucosa, no oropharyngeal erythema, no poor dentition - Neck Neck: Present: supple, normal ROM. Absent: enlarged thyroid, masses or JVD - Respiratory Respiratory effort: normal Respiratory: bilateral: diminished, negative: rales, rhonchi, wheezing - Cardiovascular Rhythm: regular Heart Sounds: Present: S1 & S2. Absent: gallop - Extremities Extremities: no ischemia, pulses intact, pulses symmetrical, No edema Peripheral Pulses: within normal limits - Abdominal General gastrointestinal: soft, non-tender, non-distended - Integumentary Integumentary: Present: clear - Psychiatric Psychiatric: appropriate mood/affect, intact judgment & insight, cooperative - Neurologic Neurologic: CNII-XII intact, moves all extremities Results - Labs CBC & Chem 7: 05/21/16 05:00 05/25/16 09:10 Labs: Laboratory Last Values WBC 7.6 K/mm3 (4.5-11.0) 05/21/16 05:00 RBC 4.21 M/mm3 (3.65-5.03) 05/21/16 05:00 Hgb 10.2 gm/dl (10.1-14.3) 05/21/16 05:00 Hct 31.0 % (30.3-42.9) 05/21/16 05:00 MCV 74 fl (79-97) L 05/21/16 05:00 MCH 24 pg (28-32) L 05/21/16 05:00 MCHC 33 % (30-34) 05/21/16 05:00 RDW 27.6 % (13.2-15.2) H 05/21/16 05:00 Plt Count 258 K/mm3 (140-440) 05/21/16 05:00 Add Manual Diff Complete 05/21/16 05:00 Total Counted 100 05/21/16 05:00 Seg Neuts % (Manual) 73.0 % (40.0-70.0) H 05/21/16 05:00 Band Neutrophils % 6.0 % 05/21/16 05:00 Lymphocytes % (Manual) 19.0 % (13.4-35.0) 05/21/16 05:00 Reactive Lymphs % (Man) 0 % 05/21/16 05:00 Monocytes % (Manual) 2.0 % (0.0-7.3) 05/21/16 05:00 Eosinophils % (Manual) 0 % (0.0-4.3) 05/21/16 05:00 Basophils % (Manual) 0 % (0.0-1.8) 05/21/16 05:00 Metamyelocytes % 0 % 05/21/16 05:00 Myelocytes % 0 % 05/21/16 05:00 Promyelocytes % 0 % 05/21/16 05:00 Blast Cells % 0 % 05/21/16 05:00 Nucleated RBC % Not Reportable 05/21/16 05:00 Seg Neutrophils # Man 5.5 K/mm3 (1.8-7.7) 05/21/16 05:00 Band Neutrophils # 0.5 K/mm3 05/21/16 05:00 Lymphocytes # (Manual) 1.4 K/mm3 (1.2-5.4) 05/21/16 05:00 Abs React Lymphs (Man) 0.0 K/mm3 05/21/16 05:00 Monocytes # (Manual) 0.2 K/mm3 (0.0-0.8) 05/21/16 05:00 Eosinophils # (Manual) 0.0 K/mm3 (0.0-0.4) 05/21/16 05:00 Basophils # (Manual) 0.0 K/mm3 (0.0-0.1) 05/21/16 05:00 Metamyelocytes # 0.0 K/mm3 05/21/16 05:00 Myelocytes # 0.0 K/mm3 05/21/16 05:00 Promyelocytes # 0.0 K/mm3 05/21/16 05:00 Blast Cells # 0.0 K/mm3 05/21/16 05:00 WBC Morphology Not Reportable 05/21/16 05:00 Hypersegmented Neuts Not Reportable 05/21/16 05:00 Hyposegmented Neuts Not Reportable 05/21/16 05:00 Hypogranular Neuts Not Reportable 05/21/16 05:00 Smudge Cells Not Reportable 05/21/16 05:00 Toxic Granulation Not Reportable 05/21/16 05:00 Toxic Vacuolation Not Reportable 05/21/16 05:00 Dohle Bodies Not Reportable 05/21/16 05:00 Pelger-Huet Anomaly Not Reportable 05/21/16 05:00 Mony Rods Not Reportable 05/21/16 05:00 Platelet Estimate Consistent w auto 05/21/16 05:00 Clumped Platelets Not Reportable 05/21/16 05:00 Plt Clumps, EDTA Not Reportable 05/21/16 05:00 Large Platelets Not Reportable 05/21/16 05:00 Giant Platelets Not Reportable 05/21/16 05:00 Platelet Satelliting Not Reportable 05/21/16 05:00 Plt Morphology Comment Not Reportable 05/21/16 05:00 RBC Morphology Not Reportable 05/21/16 05:00 Dimorphic RBCs Yes 05/21/16 05:00 Polychromasia Rare 05/21/16 05:00 Hypochromasia 1+ 05/21/16 05:00 Poikilocytosis 1+ 05/21/16 05:00 Anisocytosis 2+ 05/21/16 05:00 Microcytosis 1+ 05/21/16 05:00 Macrocytosis Not Reportable 05/21/16 05:00 Spherocytes Not Reportable 05/21/16 05:00 Pappenheimer Bodies Not Reportable 05/21/16 05:00 Sickle Cells Not Reportable 05/21/16 05:00 Target Cells Not Reportable 05/21/16 05:00 Tear Drop Cells Not Reportable 05/21/16 05:00 Ovalocytes Not Reportable 05/21/16 05:00 Helmet Cells Not Reportable 05/21/16 05:00 [place] Bodies Not Reportable 05/21/16 05:00 [place] Rings Not Reportable 05/21/16 05:00 [place] Cells Not Reportable 05/21/16 05:00 Bite Cells Not Reportable 05/21/16 05:00 Crenated Cell Not Reportable 05/21/16 05:00 Elliptocytes Not Reportable 05/21/16 05:00 Acanthocytes (Spur) Not Reportable 05/21/16 05:00 Rouleaux Not Reportable 05/21/16 05:00 Hemoglobin C Crystals Not Reportable 05/21/16 05:00 Schistocytes Rare 05/21/16 05:00 Malaria parasites Not Reportable 05/21/16 05:00 Juan R Bodies Not Reportable 05/21/16 05:00 Hem Pathologist Commnt No 05/21/16 05:00 Sodium 141 mmol/L (137-145) 05/25/16 09:10 Potassium 2.7 mmol/L (3.6-5.0) L* 05/25/16 09:10 Chloride 95.7 mmol/L (98-107) L 05/25/16 09:10 Carbon Dioxide 24 mmol/L (22-30) 05/25/16 09:10 Anion Gap 24 mmol/L 05/25/16 09:10 BUN 41 mg/dL (7-17) H 05/25/16 09:10 Creatinine 1.8 mg/dL (0.7-1.2) H 05/25/16 09:10 Estimated GFR 33 ml/min 05/25/16 09:10 BUN/Creatinine Ratio 22.77 % 05/25/16 09:10 Glucose 195 mg/dL (65-100) H 05/25/16 09:10 Calcium 6.4 mg/dL (8.4-10.2) L 05/25/16 09:10 Magnesium 1.1 mg/dL (1.7-2.3) L 05/25/16 09:10 Troponin T < 0.010 ng/mL (0.00-0.029) 05/20/16 12:55 NT-Pro-B Natriuret Pep 1205 pg/mL (0-900) H 05/20/16 12:55
[2016-05-25] MEDS: NEURONTIN PO SCH (23:16)
[2016-05-26] MEDS: DUONEB 0.5 MG-3 MG/3 ML SOLN IH SCH ×3 (01:37→13:13)
[2016-05-26 06:35] LABS: BUN/Creatinine Ratio 23.33; Calcium 6.4 mg/dL (8.4-10.2); Chloride 102.6 mmol/L (98-107); Potassium 3.2 mmol/L (3.6-5.0)
[2016-05-26] MEDS: BROVANA NEBU IH SCH (08:19)
[2016-05-26] MEDS: PULMICORT IH SCH (08:19)
[2016-05-26] MEDS ORDERED: K-DUR PO ONE (08:20)
[2016-05-26] MEDS ORDERED: K-DUR PO SCH (09:00)
--- NOTE | 2016-05-26 09:25 | Discharge Summary ---
Providers - Providers Date of Admission: 05/20/16 16:41 Date of discharge: 05/26/16 Attending physician: DINA MORALES 05/20/16 16:50 Consult to Physician [CONS] Stat Consulting Provider: MAYCOL ROSALES Reason For Exam: CARL Place consult to:: Maycol Rosales Notified:: Bobby office Phone number called:: [phone] Was contact made?: Yes If yes, spoke with:: Shannan Time called:: 17:02 05/23/16 11:38 Consult to Physician [CONS] Routine Consulting Provider: NADIYA DU Reason For Exam: dysphagia, dilated/fluid filled esophagus Place consult to:: Grant Notified:: yes Phone number called:: [phone] If yes, spoke with:: AL Time called:: 13:00 Primary care physician: E MAIL SYSTEM ADMINISTRATOR Hospitalization Reason for admission: COPD exacerbation, hypokalemia Condition: Stable Pertinent studies: Chest [id number] interstitium. No consolidation, pleural effusion or pneumothorax. Heart size is within normal limits Hospital course: Miss Hawkins presented to the ER with shortness of breath on a background of copd with home oxygen dependence; she was diagnosed with copd exacerbation; she was treated with IV steroids and nebulization treatments; she also had dysphagia while she was here and she refused EGD. She returned to baseline prior to discharge. condition at discharge-stable 31 minutes spent on discharge Disposition: DISCHARGED TO HOME OR SELFCARE - Discharge Diagnoses (1) Dysphagia Status: Acute Qualifiers: Dysphagia type: D (2) COPD exacerbation Status: Acute (3) Acute and chronic respiratory failure ([id number]) Status: Acute Qualifiers: Respiratory failure complication: hypoxia and hypercapnia Qualified Code(s) : J96.21 - Acute and chronic respiratory failure with hypoxia Core Measure Documentation - Palliative Care Palliative Care/ Comfort Measures: Not Applicable - Core Measures Any of the following diagnoses?: none Exam - Constitutional Vitals: Temp Pulse Resp BP Pulse Ox 98.3 F 82 16 118/66 93 05/26/16 00:00 05/26/16 08:00 05/26/16 08:00 05/26/16 00:00 05/26/16 08:21 General appearance: Present: no acute distress, well-nourished - EENT Eyes: Present: PERRL, EOM intact. Absent: scleral icterus, conjunctival injection ENT: hearing intact, clear oral mucosa, no oropharyngeal erythema, no poor dentition - Neck Neck: Present: supple, normal ROM. Absent: enlarged thyroid, masses or JVD - Respiratory Respiratory effort: normal Respiratory: negative: diminished, rales, rhonchi, wheezing - Cardiovascular Rhythm: regular Heart Sounds: Present: S1 & S2. Absent: gallop - Extremities Extremities: no ischemia, pulses intact, pulses symmetrical, No edema Peripheral Pulses: within normal limits - Abdominal General gastrointestinal: Present: soft, non-tender, non-distended, normal bowel sounds Female genitourinary: Present: deferred - Rectal Rectal Exam: deferred - Integumentary Integumentary: Present: clear - Musculoskeletal Musculoskeletal: strength equal bilaterally - Psychiatric Psychiatric: appropriate mood/affect, intact judgment & insight, cooperative - Neurologic Neurologic: CNII-XII intact, moves all extremities Plan Activity: advance as tolerated, fall precautions Diet: renal Additional Instructions: F/U PCP for monitoring of potassium level Follow up with: PRIMARY CARE, [Primary Care Provider] - 3-5 Days Prescriptions: Potassium Chloride 20 meq PO DAILY #7 tablet.er Prednisone [predniSONE 5 mg (6-Day Pack, 21 Tabs)] 5 mg PO .TAPER #1 tab.ds.pk
[2016-05-26] MEDS ORDERED: MAGNESIUM SULFATE 2GM/50ML 2 GM/50 ML BAG IV ONE (10:00)
[2016-05-26] MEDS: NORVASC PO SCH (10:39)
[2016-05-26] MEDS: LOVENOX SUB-Q SCH (10:39)
[2016-05-26] MEDS: FEOSOL PO SCH (10:40)
[2016-05-26] MEDS: DIOVAN PO SCH (10:43)
[2016-05-26] MEDS: PROTONIX PO SCH (10:47)
[2016-05-26] MEDS: LEVAQUIN PO SCH (10:47)
[2016-05-26 17:34] VITALS: BP 170/90
== END 2016-05-26 14:00 | disposition home or self-care (01) | DRG 189 ==
LOC: ED 11:58 → 3A 16:41
PROVIDERS: ADMIT Internal Medicine; ATTEND Hospitalist
DX: J96.21 Acute and chronic respiratory failure with hypoxia (principal); N17.0 Acute kidney failure with tubular necrosis; J44.1 Chronic obstructive pulmonary disease with (acute) exacerbation; J44.0 Chronic obstructive pulmonary disease with (acute) lower respiratory infection; J20.9 Acute bronchitis, unspecified; I50.9 Heart failure, unspecified; K21.9 Gastro-esophageal reflux disease without esophagitis; I25.5 Ischemic cardiomyopathy; J96.22 Acute and chronic respiratory failure with hypercapnia; Z53.29 Procedure and treatment not carried out because of patient's decision for other reasons; E87.6 Hypokalemia; I25.10 Atherosclerotic heart disease of native coronary artery without angina pectoris; J45.909 Unspecified asthma, uncomplicated; I11.0 Hypertensive heart disease with heart failure; Z86.718 Personal history of other venous thrombosis and embolism; Z87.442 Personal history of urinary calculi; Z95.1 Presence of aortocoronary bypass graft; Z87.891 Personal history of nicotine dependence; Z82.49 Family history of ischemic heart disease and other diseases of the circulatory system; Z88.0 Allergy status to penicillin; Z88.8 Allergy status to other drugs, medicaments and biological substances; Z79.899 Other long term (current) drug therapy
CPT/HCPCS: 36415; 70490; 71010; 74000; 80048; 83735; 83880; 84484; 85007; 85025; 93005; 93010; 94640; 94760; 96365; 96375; A9270-GY; J1630; J1650; J1940; J1956; J2405; J2920; J2930; J3475

== ENCOUNTER 2016-06-17 15:06 | Inpatient (IN) | payer MEDICARE ==
[2016-06-17] MEDS ORDERED: DUONEB 0.5 MG-3 MG/3 ML SOLN IH ONE (16:19)
[2016-06-17] MEDS ORDERED: BABY ASPIRIN PO ONE (16:22)
--- NOTE | 2016-06-17 16:22 | Emergency Department Report ---
HPI - General Chief Complaint: Dyspnea/Respdistress Time Seen by Provider: 06/17/16 15:55 - HPI HPI: The patient is 80-year-old female who presents for evaluation of dyspnea. The patient has history of COPD and CHF. The patient reports constant and severe dyspnea for the past 2-3 days, worsening over the past one day, exacerbated with attempting to physical activity or lying flat, and improved with rest and sitting up. The patient states that her symptoms are consistent with previous episodes of COPD exacerbation. The patient denies fever, chest pain, cough, generalized myalgias, hemoptysis, unilateral leg swelling, recent immobilization , history of DVT or PE. 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 - Surgical History Past Surgical History?: Yes Hx Coronary Stent: Yes (x2) Hx Open Heart Surgery: Yes (CABG) Additional Surgical History: csection x 5 lung surg hand surg - Social History Smoking Status: Former Smoker Substance Use Type: None - Medications Home Medications: Home Medications Medication Instructions Recorded Confirmed Last Taken Type Albuterol Sulfate [Ventolin HFA] 2 puff IH Q4H PRN 04/01/16 06/17/16 1 Day Ago History Fluticasone/Vilanterol [Breo 1 each IH DAILY 04/01/16 06/17/16 1 Day Ago History Ellipta 100-25 Mcg INH] Gabapentin [Neurontin] 100 mg PO QHS 04/01/16 06/17/16 1 Day Ago History Pantoprazole [Protonix TAB] 40 mg PO BID 04/01/16 06/17/16 1 Day Ago History Valsartan/Hydrochlorothiazide 1 tab PO QDAY 04/01/16 06/17/16 1 Day Ago History [Diovan Hct 160-25 mg] amLODIPine [Norvasc] 5 mg PO DAILY 04/01/16 06/17/16 1 Day Ago History Ferrous Sulfate [Feosol 325 MG tab] 325 mg PO TID #90 tablet 04/10/16 06/17/16 Unknown Rx Aspirin [Adult Low Dose Aspirin EC] 81 mg PO QDAY 05/20/16 06/17/16 05/20/16 10: 00 History Nitroglycerin [Nitro Dur] 0.4 mg TD QDAY 05/20/16 06/17/16 05/20/16 10:00 History Ranolazine ER [Ranexa ER] 2 tab PO BID 05/20/16 06/17/16 05/20/16 10:00 History ED Review of Systems ROS: Stated complaint: CARL Other details as noted in HPI Constitutional: denies: fever ENT: denies: throat or neck pain Respiratory: denies: cough reports shortness of breath Cardiovascular: denies: chest pain Endocrine: denies unexplained weight loss or gain Gastrointestinal: denies: abdominal pain, nausea Genitourinary: denies: dysuria Musculoskeletal: denies: leg swelling Skin: denies: rash Neurological: denies: headache Hematological/Lymphatic: denies: easy bleeding or easy bruising Psych: denies sadness or hopelessness Physical Exam - Physical Exam Vital Signs: Vital Signs 06/17/16 15:15 Pulse Rate 77 Blood Pressure 88/39 O2 Sat by Pulse 67 L Oximetry Physical Exam: General: well-nourished, well-developed, no acute distress Head: Normocephalic, atraumatic Eyes: normal sclera ENT: Mucous membranes are pink and moist Neck: trachea midline, neck supple, No neck stiffness, no cervical adenopathy Respiratory: Diminished breath sounds and wheezing present throughout lung kruger bilaterally, rhonchi present to bilateral lower lung kruger Cardio: S1 and S2 present, no murmurs, rubs, gallops, capillary refill is brisk Abdomen: Normoactive bowel sounds, soft abdomen, no rigidity, no guarding or rebound tenderness Musc: 1+ bilateral pitting edema of the legs present Skin: No rash Neuro: no facial drooping, normal speech Psych: Normal affect ED Course Vital Signs 06/17/16 15:15 Pulse Rate 77 Blood Pressure 88/39 O2 Sat by Pulse 67 L Oximetry ED Medical Decision Making - Lab Data Result diagrams: 06/17/16 15:59 06/17/16 15:59 - Medical Decision Making The patient was seen and examined by myself. The patient is placed on a recording clerk and continuous pulse ox. Prior to arrival the patient was given IV site measuring, IV magnesium, and an albuterol breathing treatment. On initial evaluation here in the ED, the patient was found to be in mild respiratory distress, with low oxygen saturations and pulse oximetry despite supplemental oxygenation. The patient is placed on a Ventimask and O2 sat improves to 91%. Evaluation orders were placed. The patient is given a DuoNeb breathing treatment. X-ray of the chest exhibits diffuse bilateral lung scarring and hyperinflation, and is negative for pneumonia or pneumothorax. The patient is reevaluated and remains with wheezing, decreased breath sounds, and increased work of breathing. The on-call hospitalist service was contacted. They agreed to admit the patient for further treatment and close monitoring. The ED admit order was placed. The patient was admitted in guarded condition. Critical care attestation.: If time is entered above; I have spent that time in minutes in the direct care of this critically ill patient, excluding procedure time. ED Disposition Clinical Impression: Acute exacerbation of chronic obstructive pulmonary disease (COPD), PATIENCE (acute kidney injury) Respiratory failure with hypoxia Qualifiers: Chronicity: acute on chronic Qualified Code(s): J96.21 - Acute and chronic respiratory failure with hypoxia Anemia Qualifiers: Anemia type: unspecified type Qualified Code(s): D64.9 - Anemia, unspecified Disposition: OP ADMITTED IP TO THIS HOSP Is pt being admited?: Yes Does the pt Need Aspirin: Yes Condition: Serious Instructions: Chronic Obstructive Pulmonary Disease (ED) Referrals: PRIMARY MD CALI [Primary Care Provider] - 3-5 Days Time of Disposition: 16:21
[2016-06-17 16:41] LABS: Anion Gap 21 mmol/L; BUN/Creatinine Ratio 12.85; Blood Urea Nitrogen 18 mg/dL (7-17); Calcium 7.1 mg/dL (8.4-10.2); Carbon Dioxide 23 mmol/L (22-30); Chloride 99.2 mmol/L (98-107); Glucose 119 mg/dL (65-100); Hematocrit 28.4 % (30.3-42.9); Hemoglobin 9.4 gm/dl (10.1-14.3); Mean Corpuscular HGB Conc 33 % (30-34); Mean Corpuscular Hemoglobin 26 pg (28-32); Mean Corpuscular Volume 79 fl (79-97); Platelet Count 403 K/mm3 (140-440); Potassium 4.4 mmol/L (3.6-5.0); Red Blood Count 3.61 M/mm3 (3.65-5.03); Sodium 139 mmol/L (137-145); White Blood Count 6.4 K/mm3 (4.5-11.0)
[2016-06-17 16:42] LABS: Red Cell Distribution Width 28.3 % (13.2-15.2)
--- NOTE | 2016-06-17 16:51 | Admit Criteria Form ---
Admission Criteria Documentation: RESPIRATORY FAILURE GRG Clinical Indications for Admission to Inpatient Care (Place 'X' for any and all applicable criteria): Hospital admission is needed for appropriate care of the patient because of acute respiratory failure or insufficiency as indicated by ANY ONE of the following(1)(2)(3)(4)(5)(6)(7)(8): [ ]I. Mechanical ventilation needed (acute invasive or noninvasive) [ ]II. Severe ventilation deficit as indicated by ANY ONE of the following (9) [ ]a) Respiratory acidosis (pH less than 7.32 and partial pressure of carbon dioxide greater than 40 mm Hg (5.3 kPa)) [ ]b) Partial pressure of carbon dioxide greater than 44 mm Hg (5.9 kPa ) (new) [ ]c) Airflow measurements less than 25% of predicted (eg, peak expiratory flow rate less than 100 L/minute) [ ]d) Forced vital capacity less than 15 mL/kg of ideal body weight, or 50% decrease in vital capacity from baseline [ ]III. Noncardiac pulmonary edema not resolving with rapid emergency treatment (8) [X]IV. Severe respiratory distress as indicated by ANY ONE of the following: [X]a) Severe tachypnea (respiratory rate greater than 30, greater than 45 for 6-month-old, greater than 60 for ) []b) Severe hypoxemia (partial pressure of oxygen less than 50 mm Hg ( 6.7 kPa) on greater than 50% oxygen or partial pressure of oxygen to FIO2 ratio less than 200) [ ]c) Mental status deterioration from respiratory disease [ ]V. Airway obstruction or inadequate protection [A](10)(11) The original [email or web address] content created by [email or web address] has been revised. The portions of the content which have been revised are identified through the use of italic text or in bold, and [facility] has neither reviewed nor approved the modified material. All other unmodified content is copyright [email or web address]. Please see references footnoted in the original [email or web address] edition 2016 Admission Criteria Met: Yes
[2016-06-17 18:24] LABS: Basophils % (Manual) 0 % (0.0-1.8); Blastocytes % (Manual) 0 %
[2016-06-17 18:26] LABS: Anisocytosis 1+; Elliptocytes 1+; Poikilocytosis 1+
[2016-06-17 18:27] LABS: Diff Status Complete; Platelet Estimate Consistent w Auto; Polychromasia Few; Tear Drop Cells Few
[2016-06-17] MEDS ORDERED: ZOFRAN IV PRN (20:13)
[2016-06-17] MEDS ORDERED: DULCOLAX PR PRN (20:13)
[2016-06-17] MEDS ORDERED: TYLENOL PO PRN (20:13)
[2016-06-17] MEDS ORDERED: MILK OF MAGNESIA PO PRN (20:13)
--- NOTE | 2016-06-17 20:33 | History and Physical Report ---
History of Present Illness Date of examination: 06/17/16 Chief complaint: Worsening shortness of breath for 3 days History of present illness: The patient is 80-year-old AA female history of COPD on home oxygen and CHF, pretension, atherosclerotic heart disease and GERD who presents for evaluation of dyspnea. The patient reports constant and worsening dyspnea for the past 2- 3 days, exacerbated with attempting to physical activity or lying flat, and improved with rest and sitting up. The patient states that her symptoms are consistent with previous episodes of COPD exacerbation. The patient denies fever, chills, chest pain, but has chronic cough mostly dry but with occasional mucoid sputum Past History Past Medical History: CAD, COPD, GERD, heart failure, hypertension, other (back ache) Past Surgical History: CABG, Other (kidney stone removal) Social history: no significant social history Family history: diabetes, hypertension Medications and Allergies Allergies Allergy/AdvReac Type Severity Reaction Status Date / Time oxytetracycline Allergy Rash Verified 05/01/15 12:26 [From Terramycin] oxytetracycline HCl Allergy Rash Verified 05/01/15 12:26 [From Terramycin] Penicillins Allergy Rash Verified 05/01/15 12:26 Sulfa (Sulfonamide Allergy Rash Verified 05/01/15 12:26 Antibiotics) GLOVE POWDER Allergy Rash Uncoded 05/01/15 12:26 Home Medications Medication Instructions Recorded Confirmed Last Taken Type Albuterol Sulfate [Ventolin HFA] 2 puff IH Q4H PRN 04/01/16 06/17/16 1 Day Ago History Fluticasone/Vilanterol [Breo 1 each IH DAILY 04/01/16 06/17/16 1 Day Ago History Ellipta 100-25 Mcg INH] Gabapentin [Neurontin] 100 mg PO QHS 04/01/16 06/17/16 1 Day Ago History Pantoprazole [Protonix TAB] 40 mg PO BID 04/01/16 06/17/16 1 Day Ago History Valsartan/Hydrochlorothiazide 1 tab PO QDAY 04/01/16 06/17/16 1 Day Ago History [Diovan Hct 160-25 mg] amLODIPine [Norvasc] 5 mg PO DAILY 04/01/16 06/17/16 1 Day Ago History Ferrous Sulfate [Feosol 325 MG tab] 325 mg PO TID #90 tablet 04/10/16 06/17/16 Unknown Rx Aspirin [Adult Low Dose Aspirin EC] 81 mg PO QDAY 05/20/16 06/17/16 05/20/16 10: 00 History Nitroglycerin [Nitro Dur] 0.4 mg TD QDAY 05/20/16 06/17/16 05/20/16 10:00 History Ranolazine ER [Ranexa ER] 2 tab PO BID 05/20/16 06/17/16 05/20/16 10:00 History Active Meds: Active Medications Acetaminophen (Tylenol) 650 mg PO Q4H PRN PRN Reason: Pain MILD(1-3)/Fever >100.5/JOHNSON Acetaminophen/Hydrocodone Bitart ([place] 5/325) 1 each PO Q6H PRN PRN Reason: Pain, Moderate (4-6) Albuterol/Ipratropium (Duoneb 0.5 Mg-3 Mg/3 Ml Soln) 1 ampul IH Q6HRT LLUVIA Bisacodyl (Dulcolax) 10 mg MS QDAY PRN PRN Reason: Constipation unrelieved by [facility] [place] Budesonide (Pulmicort) 0.5 mg IH Q12HRT LLUVIA Heparin Sodium (Porcine) (Heparin) 5,000 unit SUB-Q Q8HR LLUVIA Sodium Chloride (Nacl 0.9% 1000 Ml) 1,000 mls @ 42 mls/hr IV DIRECT LLUVIA Magnesium Hydroxide (Milk Of Magnesia) 30 ml PO Q4H PRN PRN Reason: Constipation Methylprednisolone Sodium Succinate (Solu-Medrol) 60 mg IV Q8H LLUVIA Ondansetron HCl (Zofran) 4 mg IV Q8H PRN PRN Reason: N/V unrelieved by Reglan Review of Systems Constitutional: no weight loss, no fever, no chills, no weakness Ears, nose, mouth and throat: no ear pain, no ear discharge, no sore throat, no headache, no vertigo Cardiovascular: high blood pressure, no chest pain, no palpitations, no syncope , no lightheadedness Respiratory: cough (mostly dry), shortness of breath, dyspnea on exertion, home oxygen, no wheezing Gastrointestinal: no abdominal pain, no nausea, no vomiting, no diarrhea, no constipation, no melena Genitourinary Female: no dysuria, no urge incontinence Menstruation: postmenopausal Rectal: no pain Musculoskeletal: low back pain, no neck stiffness, no neck pain Integumentary: no rash, no pruritis Neurological: no seizures, no syncope Psychiatric: no anxiety, no depression Endocrine: no excessive thirst, no polyuria, no nocturia Exam - Constitutional Vitals: Temp Pulse Resp BP Pulse Ox 98.1 F 88 18 120/70 93 06/17/16 19:58 06/17/16 19:58 06/17/16 19:58 06/17/16 19:58 06/17/16 19:58 General appearance: Present: mild distress (on Ventimask with 34% FiO2 and O2 sats mid 90s) - EENT Eyes: Present: PERRL, EOM intact ENT: hearing intact, clear oral mucosa - Neck Neck: Present: supple, normal ROM. Absent: masses or JVD, carotid bruits - Respiratory Respiratory: bilateral: diminished, rales, negative: rhonchi, wheezing - Cardiovascular Rhythm: regular Heart Sounds: Present: S1 & S2 - Extremities Extremities: No edema - Abdominal General gastrointestinal: Present: soft, non-tender. Absent: hepatomegaly, splenomegaly - Rectal Rectal Exam: deferred - Integumentary Integumentary: Present: clear - Musculoskeletal Musculoskeletal: strength equal bilaterally - Psychiatric Psychiatric: appropriate mood/affect - Neurologic Neurologic: CNII-XII intact, no focal deficits Results - Labs CBC & Chem 7: 06/17/16 15:59 06/17/16 15:59 Labs: Abnormal lab results 06/17/16 06/17/16 06/17/16 Range/Units 15:59 15:59 15:59 RBC 3.61 L (3.65-5.03) M/mm3 Hgb 9.4 L (10.1-14.3) gm/dl Hct 28.4 L (30.3-42.9) % MCH 26 L (28-32) pg RDW 28.3 H (13.2-15.2) % Lymphocytes % (Manual) 12.0 L (13.4-35.0) % Eosinophils % (Manual) 7.0 H (0.0-4.3) % Lymphocytes # (Manual) 0.8 L (1.2-5.4) K/mm3 BUN 18 H (7-17) mg/dL Creatinine 1.4 H (0.7-1.2) mg/dL Glucose 119 H (65-100) mg/dL Calcium 7.1 L (8.4-10.2) mg/dL NT-Pro-B Natriuret Pep 1912 H (0-900) pg/mL Assessment and Plan - Patient Problems (1) Acute and chronic respiratory failure (kogth-py-tplhnda) Current Visit: No Status: Acute Qualifiers: Respiratory failure complication: hypoxia and hypercapnia Qualified Code(s) : J96.21 - Acute and chronic respiratory failure with hypoxia Plan to address problem: Admitted to telemetry floor Start the patient on aggressive nebulizer treatments with DuoNeb intravenous steroids and Pulmicort stools X-ray shows chronic lung disease with no acute infiltrates or pneumothorax Pulmonary consult with Dr. Rosales was requested (2) Normocytic anemia Current Visit: Yes Status: Chronic Plan to address problem: Most likely chronic there is no overt bleeding Will monitor hemoglobin and hematocrit (3) Hypertension Current Visit: Yes Status: Chronic Qualifiers: Hypertension type: H Plan to address problem: Blood pressure is in the normal range we will hold some of her medications and gradually step of the medications as needed Start on valsartan for now (4) COPD exacerbation Current Visit: No Status: Acute Plan to address problem: Intravenous steroids and aggressive nebulizer treatments and oxygen supplement Patient refused ABG Her O2 sat on 35% FiO2 via Ventimask is 93-94% (5) Coronary artery disease Current Visit: No Status: Chronic Qualifiers: Coronary Disease-Associated Artery/Lesion type: unspecified vessel or lesion type [place] vs. transplanted heart: N Associated angina: A Plan to address problem: Continue home medications
[2016-06-17] MEDS: NEURONTIN PO SCH (22:39)
[2016-06-17] MEDS: HEPARIN SUB-Q SCH (22:39)
[2016-06-17] MEDS: RANEXA ER PO SCH (22:39)
[2016-06-17] MEDS: NACL 0.9% 1000 ML 1,000 ML IV SCH (22:42)
[2016-06-17] MEDS ORDERED: DEEP SEA NS PRN (23:17)
[2016-06-18] MEDS: DUONEB 0.5 MG-3 MG/3 ML SOLN IH SCH ×4 (01:11→20:43)
[2016-06-18] MEDS: HEPARIN SUB-Q SCH ×3 (05:53→21:49)
[2016-06-18 06:36] LABS: Calcium 7.2 mg/dL (8.4-10.2); Chloride 101.3 mmol/L (98-107); Potassium 4.7 mmol/L (3.6-5.0)
--- NOTE | 2016-06-18 09:20 | XRay Report ---
PORTABLE CHEST INDICATION: Difficulty breathing. COMPARISON: 05/20/2016 and few other chest radiographs, including the most remote from 09/28/2006 available at this institution. FINDINGS: Portable, frontal chest radiograph again demonstrates limited inspiration with stable cardiomediastinal silhouette and diffuse bilateral interstitial infiltrates/coarsening. No pleural effusions or CHF. EKG leads. Demineralized bones with few degenerative changes. Right humeral neck appearance nonspecific for questionable fracture versus projectional/artifactual. CONCLUSION: Chronic interstitial lung disease without significant interval change since 1 month ago, as described. Clinical correlation for right shoulder radiographic appearance also suggested as also followed up on subsequent exams. Thank you for the opportunity to participate in this patient's care.
[2016-06-18] MEDS: BROVANA NEBU IH SCH ×2 (09:22→20:43)
[2016-06-18] MEDS: PULMICORT IH SCH ×2 (09:22→20:43)
[2016-06-18] MEDS ORDERED: NON-FORMULARY (Fluticasone/Vilanterol [Breo Ellipta 100-25 Mcg Inh] 1 EACH) IH SCH (10:00)
[2016-06-18] MEDS: DIOVAN PO SCH (10:29)
[2016-06-18] MEDS: HALFPRIN EC PO SCH (10:29)
[2016-06-18] MEDS: RANEXA ER PO SCH ×2 (10:30→21:54)
[2016-06-18] MEDS: PROTONIX PO SCH (10:30)
[2016-06-18] MEDS: FEOSOL PO SCH ×3 (13:30→21:57)
[2016-06-18] MEDS ORDERED: XANAX PO PRN (15:58)
--- NOTE | 2016-06-18 15:58 | Progress Note ---
Assessment and Plan Assessment and plan: (1) Acute and chronic respiratory failure ([id number]) Current Visit: No Status: Acute Qualifiers: Respiratory failure complication: hypoxia and hypercapnia Qualified Code(s) : J96.21 - Acute and chronic respiratory failure with hypoxia Plan to address problem: cont on aggressive nebulizer treatments with DuoNeb intravenous steroids and Pulmicort stools X-ray shows chronic lung disease with no acute infiltrates or pneumothorax cont on BiPAP Pulmonary consult with Dr. Rosales was requested (2) Normocytic anemia Current Visit: Yes Status: Chronic Plan to address problem: Most likely chronic there is no overt bleeding Will monitor hemoglobin and hematocrit (3) Hypertension Current Visit: Yes Status: Chronic Qualifiers: Hypertension type: H Plan to address problem: Blood pressure is in the normal range we will hold some of her medications and gradually step of the medications as needed cont on valsartan for now (4) COPD exacerbation Current Visit: No Status: Acute Plan to address problem: Intravenous steroids and aggressive nebulizer treatments and oxygen supplement Patient refused ABG on BiPAP now (5) Coronary artery disease Current Visit: No Status: Chronic Qualifiers: Coronary Disease-Associated Artery/Lesion type: unspecified vessel or lesion type [place] vs. transplanted heart: N Associated angina: A Plan to address problem: Continue home medications s/p cath on 03/26 (6) CHF Current Visit: No Status: chronic Plan to address problem: EF 40 to 45% on last echo cont to monitor no pulmonary edema on cxr History Interval history: Patient seen and examined. Medical records and medication list reviewed. No acute event overnight noted by the RN. Patient placed back on BiPAP Hospitalist Physical - Physical exam Narrative exam: GENERAL: Elderly female lying on bed appeared to be in mild discomfort. HEENT: Normocephalic. Atraumatic. No conjunctival congestion or icterus. Patient has moist mucous membranes. NECK: Supple. Trachea midline. CHEST/LUNGS: Coarse breath sounds auscultated bilaterally, breathing labored. On BiPAP mask HEART/CARDIOVASCULAR: Regular in rate and rhythm. S1 and S2 positive. ABDOMEN: Abdomen is soft, nontender. Patient has normal bowel sounds. SKIN: There is no rash. Warm and dry. NEURO: No focal motor deficit. Follows command. MUSCULOSKELETAL: No joint effusion or tenderness. EXTRIMITY: No edema, no cyanosis or clubbing. PSYCH: Cooperative. - Constitutional Vitals: Temp Pulse Resp BP Pulse Ox 98.0 F 96 H 31 H 140/72 92 06/18/16 09:35 06/18/16 13:24 06/18/16 13:24 06/18/16 09:35 06/18/16 13:12 General appearance: Present: mild distress (on Ventimask with 34% FiO2 and O2 sats mid 90s) Results - Labs CBC & Chem 7: 06/17/16 15:59 06/18/16 05:34 Labs: Laboratory Last Values WBC 6.4 K/mm3 (4.5-11.0) 06/17/16 15:59 RBC 3.61 M/mm3 (3.65-5.03) L 06/17/16 15:59 Hgb 9.4 gm/dl (10.1-14.3) L 06/17/16 15:59 Hct 28.4 % (30.3-42.9) L 06/17/16 15:59 MCV 79 fl (79-97) 06/17/16 15:59 MCH 26 pg (28-32) L 06/17/16 15:59 MCHC 33 % (30-34) 06/17/16 15:59 RDW 28.3 % (13.2-15.2) H 06/17/16 15:59 Plt Count 403 K/mm3 (140-440) 06/17/16 15:59 Add Manual Diff Complete 06/17/16 15:59 Total Counted 100 06/17/16 15:59 Seg Neuts % (Manual) 66.0 % (40.0-70.0) 06/17/16 15:59 Band Neutrophils % 11.0 % 06/17/16 15:59 Lymphocytes % (Manual) 12.0 % (13.4-35.0) L 06/17/16 15:59 Reactive Lymphs % (Man) 0 % 06/17/16 15:59 Monocytes % (Manual) 4.0 % (0.0-7.3) 06/17/16 15:59 Eosinophils % (Manual) 7.0 % (0.0-4.3) H 06/17/16 15:59 Basophils % (Manual) 0 % (0.0-1.8) 06/17/16 15:59 Metamyelocytes % 0 % 06/17/16 15:59 Myelocytes % 0 % 06/17/16 15:59 Promyelocytes % 0 % 06/17/16 15:59 Blast Cells % 0 % 06/17/16 15:59 Nucleated RBC % Not Reportable 06/17/16 15:59 Seg Neutrophils # Man 4.2 K/mm3 (1.8-7.7) 06/17/16 15:59 Band Neutrophils # 0.7 K/mm3 06/17/16 15:59 Lymphocytes # (Manual) 0.8 K/mm3 (1.2-5.4) L 06/17/16 15:59 Abs React Lymphs (Man) 0.0 K/mm3 06/17/16 15:59 Monocytes # (Manual) 0.3 K/mm3 (0.0-0.8) 06/17/16 15:59 Eosinophils # (Manual) 0.4 K/mm3 (0.0-0.4) 06/17/16 15:59 Basophils # (Manual) 0.0 K/mm3 (0.0-0.1) 06/17/16 15:59 Metamyelocytes # 0.0 K/mm3 06/17/16 15:59 Myelocytes # 0.0 K/mm3 06/17/16 15:59 Promyelocytes # 0.0 K/mm3 06/17/16 15:59 Blast Cells # 0.0 K/mm3 06/17/16 15:59 WBC Morphology Not Reportable 06/17/16 15:59 Hypersegmented Neuts Not Reportable 06/17/16 15:59 Hyposegmented Neuts Not Reportable 06/17/16 15:59 Hypogranular Neuts Not Reportable 06/17/16 15:59 Smudge Cells Not Reportable 06/17/16 15:59 Toxic Granulation Not Reportable 06/17/16 15:59 Toxic Vacuolation Not Reportable 06/17/16 15:59 Dohle Bodies Not Reportable 06/17/16 15:59 Pelger-Huet Anomaly Not Reportable 06/17/16 15:59 Mony Rods Not Reportable 06/17/16 15:59 Platelet Estimate Consistent w auto 06/17/16 15:59 Clumped Platelets Not Reportable 06/17/16 15:59 Plt Clumps, EDTA Not Reportable 06/17/16 15:59 Large Platelets Not Reportable 06/17/16 15:59 Giant Platelets Not Reportable 06/17/16 15:59 Platelet Satelliting Not Reportable 06/17/16 15:59 Plt Morphology Comment Not Reportable 06/17/16 15:59 RBC Morphology Not Reportable 06/17/16 15:59 Dimorphic RBCs Not Reportable 06/17/16 15:59 Polychromasia Few 06/17/16 15:59 Hypochromasia Not Reportable 06/17/16 15:59 Poikilocytosis 1+ 06/17/16 15:59 Anisocytosis 1+ 06/17/16 15:59 Microcytosis Not Reportable 06/17/16 15:59 Macrocytosis Not Reportable 06/17/16 15:59 Spherocytes Not Reportable 06/17/16 15:59 Pappenheimer Bodies Not Reportable 06/17/16 15:59 Sickle Cells Not Reportable 06/17/16 15:59 Target Cells Not Reportable 06/17/16 15:59 Tear Drop Cells Few 06/17/16 15:59 Ovalocytes Not Reportable 06/17/16 15:59 Helmet Cells Not Reportable 06/17/16 15:59 [place] Bodies Not Reportable 06/17/16 15:59 [place] Rings Not Reportable 06/17/16 15:59 [place] Cells Not Reportable 06/17/16 15:59 Bite Cells Not Reportable 06/17/16 15:59 Crenated Cell Not Reportable 06/17/16 15:59 Elliptocytes 1+ 06/17/16 15:59 Acanthocytes (Spur) Not Reportable 06/17/16 15:59 Rouleaux Not Reportable 06/17/16 15:59 Hemoglobin C Crystals Not Reportable 06/17/16 15:59 Schistocytes Not Reportable 06/17/16 15:59 Malaria parasites Not Reportable 06/17/16 15:59 Juan R Bodies Not Reportable 06/17/16 15:59 Hem Pathologist Commnt No 06/17/16 15:59 Sodium 137 mmol/L (137-145) 06/18/16 05:34 Potassium 4.7 mmol/L (3.6-5.0) 06/18/16 05:34 Chloride 101.3 mmol/L (98-107) 06/18/16 05:34 Carbon Dioxide 19 mmol/L (22-30) L 06/18/16 05:34 Anion Gap 21 mmol/L 06/18/16 05:34 BUN 18 mg/dL (7-17) H 06/18/16 05:34 Creatinine 1.2 mg/dL (0.7-1.2) 06/18/16 05:34 Estimated GFR 53 ml/min 06/18/16 05:34 BUN/Creatinine Ratio 15.00 % 06/18/16 05:34 Glucose 143 mg/dL (65-100) H 06/18/16 05:34 Calcium 7.2 mg/dL (8.4-10.2) L 06/18/16 05:34 Troponin T < 0.010 ng/mL (0.00-0.029) 06/17/16 15:59 NT-Pro-B Natriuret Pep 1912 pg/mL (0-900) H 06/17/16 15:59
[2016-06-18] MEDS: NEURONTIN PO SCH (21:49)
[2016-06-19] MEDS: DUONEB 0.5 MG-3 MG/3 ML SOLN IH SCH ×4 (02:41→19:21)
[2016-06-19] MEDS: HEPARIN SUB-Q SCH ×3 (05:56→23:26)
[2016-06-19] MEDS: NACL 0.9% 1000 ML 1,000 ML IV SCH (06:44)
[2016-06-19] MEDS: PULMICORT IH SCH ×2 (07:40→19:21)
[2016-06-19] MEDS: BROVANA NEBU IH SCH ×2 (07:40→19:21)
[2016-06-19] MEDS: COREG PO SCH ×2 (10:16→23:25)
[2016-06-19] MEDS: FEOSOL PO SCH ×3 (10:16→23:29)
[2016-06-19] MEDS: PROTONIX PO SCH (10:16)
[2016-06-19] MEDS: HALFPRIN EC PO SCH (10:18)
[2016-06-19] MEDS: RANEXA ER PO SCH ×2 (10:18→23:26)
[2016-06-19] MEDS: DIOVAN PO SCH (10:18)
--- NOTE | 2016-06-19 13:32 | Consultation ---
History of Present Illness Consult date: 06/19/16 Requesting physician: MARGARITO VASQUES Reason for consult: other (Acute on Chronic Hypoxemic Respiratory Failure) History of present illness: PULMONARY/CCM CONSULT NOTE (Full dictation # [id number]) Please see dictated notes for full details Past History Past Medical History: CAD, COPD, GERD, heart failure, hypertension, other (back ache) Past Surgical History: CABG, Other (kidney stone removal) Social history: no significant social history Family history: diabetes, hypertension Medications and Allergies Allergies Allergy/AdvReac Type Severity Reaction Status Date / Time oxytetracycline Allergy Rash Verified 05/01/15 12:26 [From Terramycin] oxytetracycline HCl Allergy Rash Verified 05/01/15 12:26 [From Terramycin] Penicillins Allergy Rash Verified 05/01/15 12:26 Sulfa (Sulfonamide Allergy Rash Verified 05/01/15 12:26 Antibiotics) GLOVE POWDER Allergy Rash Uncoded 05/01/15 12:26 Home Medications Medication Instructions Recorded Confirmed Last Taken Type Albuterol Sulfate [Ventolin HFA] 2 puff IH Q4H PRN 04/01/16 06/17/16 1 Day Ago History Fluticasone/Vilanterol [Breo 1 each IH DAILY 04/01/16 06/17/16 1 Day Ago History Ellipta 100-25 Mcg INH] Gabapentin [Neurontin] 100 mg PO QHS 04/01/16 06/17/16 1 Day Ago History Pantoprazole [Protonix TAB] 40 mg PO BID 04/01/16 06/17/16 1 Day Ago History Valsartan/Hydrochlorothiazide 1 tab PO QDAY 04/01/16 06/17/16 1 Day Ago History [Diovan Hct 160-25 mg] amLODIPine [Norvasc] 5 mg PO DAILY 04/01/16 06/17/16 1 Day Ago History Ferrous Sulfate [Feosol 325 MG tab] 325 mg PO TID #90 tablet 04/10/16 06/17/16 Unknown Rx Aspirin [Adult Low Dose Aspirin EC] 81 mg PO QDAY 05/20/16 06/17/16 05/20/16 10: 00 History Nitroglycerin [Nitro Dur] 0.4 mg TD QDAY 05/20/16 06/17/16 05/20/16 10:00 History Ranolazine ER [Ranexa ER] 2 tab PO BID 05/20/16 06/17/16 05/20/16 10:00 History Active Meds: Active Medications Acetaminophen (Tylenol) 650 mg PO Q4H PRN PRN Reason: Pain MILD(1-3)/Fever >100.5/[place] Acetaminophen/Hydrocodone Bitart ([place] 5/325) 1 each PO Q6H PRN PRN Reason: Pain, Moderate (4-6) Albuterol/Ipratropium (Duoneb 0.5 Mg-3 Mg/3 Ml Soln) 1 ampul IH Q6HRT [facility] Last Admin: 06/19/16 13:20 Dose: 1 ampul Alprazolam (Xanax) 0.25 mg PO Q8H PRN PRN Reason: Anxiety Arformoterol Tartrate (Brovana Nebu) 15 mcg IH Q12HRT [facility] Last Admin: 06/19/16 07:40 Dose: 15 mcg Aspirin (Halfprin Ec) 81 mg PO QDAY [facility] Last Admin: 06/19/16 10:18 Dose: 81 mg Atorvastatin Calcium (Lipitor) 40 mg PO QHS [facility] Last Admin: 06/18/16 21:49 Dose: 40 mg Bisacodyl (Dulcolax) 10 mg OK QDAY PRN PRN Reason: Constipation unrelieved by MOM Budesonide (Pulmicort) 0.5 mg IH Q12HRT [facility] Last Admin: 06/19/16 07:40 Dose: 0.5 mg Carvedilol (Coreg) 3.125 mg PO BID [facility] Last Admin: 06/19/16 10:16 Dose: 3.125 mg Ferrous Sulfate (Feosol) 325 mg PO TID [facility] Last Admin: 06/19/16 10:16 Dose: 325 mg Gabapentin (Neurontin) 100 mg PO QHS [facility] Last Admin: 06/18/16 21:49 Dose: 100 mg Heparin Sodium (Porcine) (Heparin) 5,000 unit SUB-Q Q8HR [facility] Last Admin: 06/19/16 05:56 Dose: 5,000 unit Sodium Chloride (Nacl 0.9% 1000 Ml) 1,000 mls @ 42 mls/hr IV DIRECT [facility] Last Admin: 06/19/16 06:44 Dose: 42 mls/hr Magnesium Hydroxide (Milk Of Magnesia) 30 ml PO Q4H PRN PRN Reason: Constipation Methylprednisolone Sodium Succinate (Solu-Medrol) 60 mg IV Q12H [facility] Last Admin: 06/19/16 10:19 Dose: 60 mg Ondansetron HCl (Zofran) 4 mg IV Q8H PRN PRN Reason: N/V unrelieved by Adri Pantoprazole Sodium (Protonix) 40 mg PO DAILY [facility] Last Admin: 06/19/16 10:16 Dose: 40 mg Ranolazine (Ranexa Er) 1,000 mg PO BID [facility] Last Admin: 06/19/16 10:18 Dose: 1,000 mg Sodium Chloride ([place]) 2 spray NS QID PRN PRN Reason: dry nasal passage Last Admin: 06/17/16 23:42 Dose: 2 spray Valsartan (Diovan) 80 mg PO DAILY [facility] Last Admin: 06/19/16 10:18 Dose: 80 mg Physical Examination Vital signs: Vital Signs Pulse Ox 82 L 06/17/16 15:09 Results - Laboratory Findings CBC and BMP: 06/17/16 15:59 06/18/16 05:34 Abnormal lab findings: Abnormal Labs 06/18/16 05:34 Carbon Dioxide 19 L BUN 18 H Glucose 143 H Calcium 7.2 L
--- NOTE | 2016-06-19 18:20 | Progress Note ---
Assessment and Plan Assessment and plan: (1) Acute and chronic respiratory failure ([id number]) Current Visit: No Status: Acute Qualifiers: Respiratory failure complication: hypoxia and hypercapnia Qualified Code(s) : J96.21 - Acute and chronic respiratory failure with hypoxia Plan to address problem: cont on aggressive nebulizer treatments with DuoNeb intravenous tappering steroids and Pulmicort X-ray shows chronic lung disease with no acute infiltrates or pneumothorax cont on BiPAP prn , now on ventimask Pulmonary following (2) Normocytic anemia Current Visit: Yes Status: Chronic Plan to address problem: Most likely chronic there is no overt bleeding Will cont to monitor hemoglobin and hematocrit (3) Hypertension Current Visit: Yes Status: Chronic Qualifiers: Hypertension type: H Plan to address problem: Blood pressure is in the normal range we will hold some of her medications and gradually step of the medications as needed cont on valsartan for now, added coreg (4) COPD exacerbation Current Visit: No Status: Acute Plan to address problem: Intravenous steroids and aggressive nebulizer treatments and oxygen supplement Patient refused ABG, prn BiPAP (5) Coronary artery disease Current Visit: No Status: Chronic Qualifiers: Coronary Disease-Associated Artery/Lesion type: unspecified vessel or lesion type [place] vs. transplanted heart: N Associated angina: A Plan to address problem: Continue home medications s/p cath on 03/26 (6) CHF Current Visit: No Status: chronic Plan to address problem: EF 40 to 45% on last echo cont to monitor no pulmonary edema on cxr History Interval history: Patient seen and examined. Medical records and medication list reviewed. No acute event overnight noted by the RN. Patient placed back on [facility] Hospitalist Physical - Physical exam Narrative exam: GENERAL: Elderly female sitting on chair appeared to be in no discomfort. HEENT: Normocephalic. Atraumatic. No conjunctival congestion or icterus. Patient has moist mucous membranes. NECK: Supple. Trachea midline. CHEST/LUNGS: clear breath sounds auscultated bilaterally, breathing labored. On venti mask HEART/CARDIOVASCULAR: Regular in rate and rhythm. S1 and S2 positive. ABDOMEN: Abdomen is soft, nontender. Patient has normal bowel sounds. SKIN: There is no rash. Warm and dry. NEURO: No focal motor deficit. Follows command. MUSCULOSKELETAL: No joint effusion or tenderness. EXTRIMITY: No edema, no cyanosis or clubbing. PSYCH: Cooperative. - Constitutional Vitals: Temp Pulse Resp BP Pulse Ox 97.4 F L 97 H 20 131/74 95 06/19/16 08:45 06/19/16 13:30 06/19/16 13:30 06/19/16 08:45 06/19/16 10:00 General appearance: Present: mild distress (on Ventimask with 34% FiO2 and O2 sats mid 90s) Results - Labs CBC & Chem 7: 06/17/16 15:59 06/18/16 05:34 Labs: Laboratory Last Values WBC 6.4 K/mm3 (4.5-11.0) 06/17/16 15:59 RBC 3.61 M/mm3 (3.65-5.03) L 06/17/16 15:59 Hgb 9.4 gm/dl (10.1-14.3) L 06/17/16 15:59 Hct 28.4 % (30.3-42.9) L 06/17/16 15:59 MCV 79 fl (79-97) 06/17/16 15:59 MCH 26 pg (28-32) L 06/17/16 15:59 MCHC 33 % (30-34) 06/17/16 15:59 RDW 28.3 % (13.2-15.2) H 06/17/16 15:59 Plt Count 403 K/mm3 (140-440) 06/17/16 15:59 Add Manual Diff Complete 06/17/16 15:59 Total Counted 100 06/17/16 15:59 Seg Neuts % (Manual) 66.0 % (40.0-70.0) 06/17/16 15:59 Band Neutrophils % 11.0 % 06/17/16 15:59 Lymphocytes % (Manual) 12.0 % (13.4-35.0) L 06/17/16 15:59 Reactive Lymphs % (Man) 0 % 06/17/16 15:59 Monocytes % (Manual) 4.0 % (0.0-7.3) 06/17/16 15:59 Eosinophils % (Manual) 7.0 % (0.0-4.3) H 06/17/16 15:59 Basophils % (Manual) 0 % (0.0-1.8) 06/17/16 15:59 Metamyelocytes % 0 % 06/17/16 15:59 Myelocytes % 0 % 06/17/16 15:59 Promyelocytes % 0 % 06/17/16 15:59 Blast Cells % 0 % 06/17/16 15:59 Nucleated RBC % Not Reportable 06/17/16 15:59 Seg Neutrophils # Man 4.2 K/mm3 (1.8-7.7) 06/17/16 15:59 Band Neutrophils # 0.7 K/mm3 06/17/16 15:59 Lymphocytes # (Manual) 0.8 K/mm3 (1.2-5.4) L 06/17/16 15:59 Abs React Lymphs (Man) 0.0 K/mm3 06/17/16 15:59 Monocytes # (Manual) 0.3 K/mm3 (0.0-0.8) 06/17/16 15:59 Eosinophils # (Manual) 0.4 K/mm3 (0.0-0.4) 06/17/16 15:59 Basophils # (Manual) 0.0 K/mm3 (0.0-0.1) 06/17/16 15:59 Metamyelocytes # 0.0 K/mm3 06/17/16 15:59 Myelocytes # 0.0 K/mm3 06/17/16 15:59 Promyelocytes # 0.0 K/mm3 06/17/16 15:59 Blast Cells # 0.0 K/mm3 06/17/16 15:59 WBC Morphology Not Reportable 06/17/16 15:59 Hypersegmented Neuts Not Reportable 06/17/16 15:59 Hyposegmented Neuts Not Reportable 06/17/16 15:59 Hypogranular Neuts Not Reportable 06/17/16 15:59 Smudge Cells Not Reportable 06/17/16 15:59 Toxic Granulation Not Reportable 06/17/16 15:59 Toxic Vacuolation Not Reportable 06/17/16 15:59 Dohle Bodies Not Reportable 06/17/16 15:59 Pelger-Huet Anomaly Not Reportable 06/17/16 15:59 Mony Rods Not Reportable 06/17/16 15:59 Platelet Estimate Consistent w auto 06/17/16 15:59 Clumped Platelets Not Reportable 06/17/16 15:59 Plt Clumps, EDTA Not Reportable 06/17/16 15:59 Large Platelets Not Reportable 06/17/16 15:59 Giant Platelets Not Reportable 06/17/16 15:59 Platelet Satelliting Not Reportable 06/17/16 15:59 Plt Morphology Comment Not Reportable 06/17/16 15:59 RBC Morphology Not Reportable 06/17/16 15:59 Dimorphic RBCs Not Reportable 06/17/16 15:59 Polychromasia Few 06/17/16 15:59 Hypochromasia Not Reportable 06/17/16 15:59 Poikilocytosis 1+ 06/17/16 15:59 Anisocytosis 1+ 06/17/16 15:59 Microcytosis Not Reportable 06/17/16 15:59 Macrocytosis Not Reportable 06/17/16 15:59 Spherocytes Not Reportable 06/17/16 15:59 Pappenheimer Bodies Not Reportable 06/17/16 15:59 Sickle Cells Not Reportable 06/17/16 15:59 Target Cells Not Reportable 06/17/16 15:59 Tear Drop Cells Few 06/17/16 15:59 Ovalocytes Not Reportable 06/17/16 15:59 Helmet Cells Not Reportable 06/17/16 15:59 [place] Bodies Not Reportable 06/17/16 15:59 [place] Rings Not Reportable 06/17/16 15:59 [place] Cells Not Reportable 06/17/16 15:59 Bite Cells Not Reportable 06/17/16 15:59 Crenated Cell Not Reportable 06/17/16 15:59 Elliptocytes 1+ 06/17/16 15:59 Acanthocytes (Spur) Not Reportable 06/17/16 15:59 Rouleaux Not Reportable 06/17/16 15:59 Hemoglobin C Crystals Not Reportable 06/17/16 15:59 Schistocytes Not Reportable 06/17/16 15:59 Malaria parasites Not Reportable 06/17/16 15:59 Juan R Bodies Not Reportable 06/17/16 15:59 Hem Pathologist Commnt No 06/17/16 15:59 Sodium 137 mmol/L (137-145) 06/18/16 05:34 Potassium 4.7 mmol/L (3.6-5.0) 06/18/16 05:34 Chloride 101.3 mmol/L (98-107) 06/18/16 05:34 Carbon Dioxide 19 mmol/L (22-30) L 06/18/16 05:34 Anion Gap 21 mmol/L 06/18/16 05:34 BUN 18 mg/dL (7-17) H 06/18/16 05:34 Creatinine 1.2 mg/dL (0.7-1.2) 06/18/16 05:34 Estimated GFR 53 ml/min 06/18/16 05:34 BUN/Creatinine Ratio 15.00 % 06/18/16 05:34 Glucose 143 mg/dL (65-100) H 06/18/16 05:34 Calcium 7.2 mg/dL (8.4-10.2) L 06/18/16 05:34 Troponin T < 0.010 ng/mL (0.00-0.029) 06/17/16 15:59 NT-Pro-B Natriuret Pep 1912 pg/mL (0-900) H 06/17/16 15:59
[2016-06-19] MEDS: NEURONTIN PO SCH (23:26)
[2016-06-20] MEDS: DUONEB 0.5 MG-3 MG/3 ML SOLN IH SCH ×4 (03:28→20:04)
[2016-06-20] MEDS: HEPARIN SUB-Q SCH ×3 (06:06→22:58)
[2016-06-20] MEDS: BROVANA NEBU IH SCH ×2 (10:03→20:04)
[2016-06-20] MEDS: PULMICORT IH SCH ×2 (10:03→20:04)
[2016-06-20] MEDS: COREG PO SCH ×2 (10:51→22:57)
[2016-06-20] MEDS: DIOVAN PO SCH (10:51)
[2016-06-20] MEDS: FEOSOL PO SCH ×3 (10:51→20:22)
[2016-06-20] MEDS: RANEXA ER PO SCH ×2 (10:51→22:57)
[2016-06-20] MEDS: HALFPRIN EC PO SCH (10:51)
[2016-06-20] MEDS: PROTONIX PO SCH (10:52)
[2016-06-20] MEDS: NACL 0.9% 1000 ML 1,000 ML IV SCH (10:52)
--- NOTE | 2016-06-20 13:26 | Progress Note ---
Assessment and Plan - Patient Problems (1) Acute exacerbation of chronic obstructive pulmonary disease (COPD) Current Visit: Yes Status: Acute Plan to address problem: - continue supplemental oxygen to keep O2 Sats >/= 92% - continue bronchodilators and pulmonary toilet - prn BIPAP - optimize cardiac status (2) Chest pain Current Visit: No Status: Acute Qualifiers: Chest pain type: unspecified Qualified Code(s): R07.9 - Chest pain, unspecified Plan to address problem: - ACS w/up per cardiology - prn analgesia (3) Pulmonary fibrosis Current Visit: No Status: Chronic Plan to address problem: - as above - sputum C&S - follow off AB's Subjective Date of service: 06/20/16 Principal diagnosis: Acute On Chronic ypoxemic Respiratory Failure Interval history: Seen and examined at bedside; 24 hour events reviewed; nursing and respiratory care staff consulted; no adverse overnight events reported to me; resting in bed ; denies acute chest pains or increased SOB; no N/V/F/C Objective Vital Signs - 12hr 06/20/16 06/20/16 06/20/16 01:13 05:40 07:00 Temperature 97.4 F L 97.5 F L Pulse Rate Pulse Rate [ 86 Anterior Bilateral Throughout] Pulse Rate [ 91 H 87 Right Dorsalis Pedis] Respiratory 18 24 Rate Respiratory 20 Rate [Anterior Bilateral Throughout] Blood Pressure 152/87 145/83 [Right Radial Artery] O2 Sat by Pulse 97 95 Oximetry 06/20/16 06/20/16 06/20/16 07:10 08:00 08:21 Temperature 97.4 F L Pulse Rate Pulse Rate [ 90 Anterior Bilateral Throughout] Pulse Rate [ 82 Right Dorsalis Pedis] Respiratory 20 18 Rate Respiratory 20 Rate [Anterior Bilateral Throughout] Blood Pressure 131/64 [Right Radial Artery] O2 Sat by Pulse 96 96 Oximetry 06/20/16 06/20/16 06/20/16 08:24 10:03 10:15 Temperature Pulse Rate 91 H Pulse Rate [ 88 96 H Anterior Bilateral Throughout] Pulse Rate [ Right Dorsalis Pedis] Respiratory Rate Respiratory 20 20 Rate [Anterior Bilateral Throughout] Blood Pressure [Right Radial Artery] O2 Sat by Pulse Oximetry 06/20/16 13:21 Temperature Pulse Rate Pulse Rate [ 98 H Anterior Bilateral Throughout] Pulse Rate [ Right Dorsalis Pedis] Respiratory Rate Respiratory 20 Rate [Anterior Bilateral Throughout] Blood Pressure [Right Radial Artery] O2 Sat by Pulse Oximetry Constitutional: alert, appears uncomfortable Eyes: non-icteric ENT: oropharynx moist Neck: supple, no lymphadenopathy Effort: mildly labored Ascultation: Bilateral: diminished breath sounds, rales (inspiratory in bases) Cardiovascular: regular rate and rhythm Gastrointestinal: normoactive bowel sounds, soft, non-tender, non-distended Integumentary: normal Extremities: no cyanosis, pulses normal, no ischemia or petechiae Neurologic: normal mental status, non-focal exam, pupils equal and round, motor strength normal and Psychiatric: mood appropriate, affect normal CBC and BMP: 07/01/16 07:10 06/30/16 07:29 Abnormal lab findings: Abnormal Labs 06/18/16 05:34 Carbon Dioxide 19 L BUN 18 H Glucose 143 H Calcium 7.2 L Chest x-ray: image reviewed
[2016-06-20 14:48] LABS: INR 1.13 (0.87-1.13)
--- NOTE | 2016-06-20 15:00 | Progress Note ---
Assessment and Plan Assessment and plan: (1) Acute and chronic respiratory failure ([id number]) Current Visit: No Status: Acute Qualifiers: Respiratory failure complication: hypoxia and hypercapnia Qualified Code(s) : J96.21 - Acute and chronic respiratory failure with hypoxia Plan to address problem: cont on aggressive nebulizer treatments with DuoNeb intravenous tappering steroids and Pulmicort X-ray shows chronic lung disease with no acute infiltrates or pneumothorax cont on BiPAP prn , now on ventimask Pulmonary following (2) Normocytic anemia Current Visit: Yes Status: Chronic Plan to address problem: Most likely chronic there is no overt bleeding Will cont to monitor hemoglobin and hematocrit (3) Hypertension Current Visit: Yes Status: Chronic Qualifiers: Hypertension type: H Plan to address problem: Blood pressure is in the normal range we will hold some of her medications and gradually step of the medications as needed cont on valsartan and coreg (4) COPD exacerbation Current Visit: No Status: Acute Plan to address problem: Intravenous steroids and aggressive nebulizer treatments and oxygen supplement Patient refused ABG, prn BiPAP (5) Coronary artery disease Current Visit: No Status: Chronic Qualifiers: Coronary Disease-Associated Artery/Lesion type: unspecified vessel or lesion type [place] vs. transplanted heart: N Associated angina: A Plan to address problem: Continue home medications s/p cath on 03/26 (6) CHF Current Visit: No Status: chronic Plan to address problem: EF 40 to 45% on last echo cont to monitor no pulmonary edema on cxr Disposition: unable to wean off from high flow O2, will f/u with pulmonary History Interval history: Patient seen and examined. Medical records and medication list reviewed. No acute event overnight noted by the RN. Patient on ventimask, updated family at bedside Hospitalist Physical - Physical exam Narrative exam: GENERAL: Elderly female sitting on chair appeared to be in no discomfort. HEENT: Normocephalic. Atraumatic. No conjunctival congestion or icterus. Patient has moist mucous membranes. NECK: Supple. Trachea midline. CHEST/LUNGS: clear breath sounds auscultated bilaterally, breathing labored. On venti mask HEART/CARDIOVASCULAR: Regular in rate and rhythm. S1 and S2 positive. ABDOMEN: Abdomen is soft, nontender. Patient has normal bowel sounds. SKIN: There is no rash. Warm and dry. NEURO: No focal motor deficit. Follows command. MUSCULOSKELETAL: No joint effusion or tenderness. EXTRIMITY: No edema, no cyanosis or clubbing. PSYCH: Cooperative. - Constitutional Vitals: Temp Pulse Resp BP Pulse Ox 97.4 F L 101 H 20 131/64 96 06/20/16 08:00 06/20/16 13:32 06/20/16 13:32 06/20/16 08:00 06/20/16 08:21 General appearance: Present: mild distress (on Ventimask with 34% FiO2 and O2 sats mid 90s) Results - Labs CBC & Chem 7: 06/17/16 15:59 06/18/16 05:34 Labs: Laboratory Last Values WBC 6.4 K/mm3 (4.5-11.0) 06/17/16 15:59 RBC 3.61 M/mm3 (3.65-5.03) L 06/17/16 15:59 Hgb 9.4 gm/dl (10.1-14.3) L 06/17/16 15:59 Hct 28.4 % (30.3-42.9) L 06/17/16 15:59 MCV 79 fl (79-97) 06/17/16 15:59 MCH 26 pg (28-32) L 06/17/16 15:59 MCHC 33 % (30-34) 06/17/16 15:59 RDW 28.3 % (13.2-15.2) H 06/17/16 15:59 Plt Count 403 K/mm3 (140-440) 06/17/16 15:59 Add Manual Diff Complete 06/17/16 15:59 Total Counted 100 06/17/16 15:59 Seg Neuts % (Manual) 66.0 % (40.0-70.0) 06/17/16 15:59 Band Neutrophils % 11.0 % 06/17/16 15:59 Lymphocytes % (Manual) 12.0 % (13.4-35.0) L 06/17/16 15:59 Reactive Lymphs % (Man) 0 % 06/17/16 15:59 Monocytes % (Manual) 4.0 % (0.0-7.3) 06/17/16 15:59 Eosinophils % (Manual) 7.0 % (0.0-4.3) H 06/17/16 15:59 Basophils % (Manual) 0 % (0.0-1.8) 06/17/16 15:59 Metamyelocytes % 0 % 06/17/16 15:59 Myelocytes % 0 % 06/17/16 15:59 Promyelocytes % 0 % 06/17/16 15:59 Blast Cells % 0 % 06/17/16 15:59 Nucleated RBC % Not Reportable 06/17/16 15:59 Seg Neutrophils # Man 4.2 K/mm3 (1.8-7.7) 06/17/16 15:59 Band Neutrophils # 0.7 K/mm3 06/17/16 15:59 Lymphocytes # (Manual) 0.8 K/mm3 (1.2-5.4) L 06/17/16 15:59 Abs React Lymphs (Man) 0.0 K/mm3 06/17/16 15:59 Monocytes # (Manual) 0.3 K/mm3 (0.0-0.8) 06/17/16 15:59 Eosinophils # (Manual) 0.4 K/mm3 (0.0-0.4) 06/17/16 15:59 Basophils # (Manual) 0.0 K/mm3 (0.0-0.1) 06/17/16 15:59 Metamyelocytes # 0.0 K/mm3 06/17/16 15:59 Myelocytes # 0.0 K/mm3 06/17/16 15:59 Promyelocytes # 0.0 K/mm3 06/17/16 15:59 Blast Cells # 0.0 K/mm3 06/17/16 15:59 WBC Morphology Not Reportable 06/17/16 15:59 Hypersegmented Neuts Not Reportable 06/17/16 15:59 Hyposegmented Neuts Not Reportable 06/17/16 15:59 Hypogranular Neuts Not Reportable 06/17/16 15:59 Smudge Cells Not Reportable 06/17/16 15:59 Toxic Granulation Not Reportable 06/17/16 15:59 Toxic Vacuolation Not Reportable 06/17/16 15:59 Dohle Bodies Not Reportable 06/17/16 15:59 Pelger-Huet Anomaly Not Reportable 06/17/16 15:59 Mony Rods Not Reportable 06/17/16 15:59 Platelet Estimate Consistent w auto 06/17/16 15:59 Clumped Platelets Not Reportable 06/17/16 15:59 Plt Clumps, EDTA Not Reportable 06/17/16 15:59 Large Platelets Not Reportable 06/17/16 15:59 Giant Platelets Not Reportable 06/17/16 15:59 Platelet Satelliting Not Reportable 06/17/16 15:59 Plt Morphology Comment Not Reportable 06/17/16 15:59 RBC Morphology Not Reportable 06/17/16 15:59 Dimorphic RBCs Not Reportable 06/17/16 15:59 Polychromasia Few 06/17/16 15:59 Hypochromasia Not Reportable 06/17/16 15:59 Poikilocytosis 1+ 06/17/16 15:59 Anisocytosis 1+ 06/17/16 15:59 Microcytosis Not Reportable 06/17/16 15:59 Macrocytosis Not Reportable 06/17/16 15:59 Spherocytes Not Reportable 06/17/16 15:59 Pappenheimer Bodies Not Reportable 06/17/16 15:59 Sickle Cells Not Reportable 06/17/16 15:59 Target Cells Not Reportable 06/17/16 15:59 Tear Drop Cells Few 06/17/16 15:59 Ovalocytes Not Reportable 06/17/16 15:59 Helmet Cells Not Reportable 06/17/16 15:59 Serna-[place] Bodies Not Reportable 06/17/16 15:59 [place] Rings Not Reportable 06/17/16 15:59 [place]ler Cells Not Reportable 06/17/16 15:59 Bite Cells Not Reportable 06/17/16 15:59 Crenated Cell Not Reportable 06/17/16 15:59 Elliptocytes 1+ 06/17/16 15:59 Acanthocytes (Spur) Not Reportable 06/17/16 15:59 Rouleaux Not Reportable 06/17/16 15:59 Hemoglobin C Crystals Not Reportable 06/17/16 15:59 Schistocytes Not Reportable 06/17/16 15:59 Malaria parasites Not Reportable 06/17/16 15:59 Juan R Bodies Not Reportable 06/17/16 15:59 Hem Pathologist Commnt No 06/17/16 15:59 PT 14.4 Sec. (12.2-14.9) 06/20/16 14:11 INR 1.13 (0.87-1.13) 06/20/16 14:11 D-Dimer 958.1 ng/mlDDU (0-234) H 06/20/16 14:12 Sodium 137 mmol/L (137-145) 06/18/16 05:34 Potassium 4.7 mmol/L (3.6-5.0) 06/18/16 05:34 Chloride 101.3 mmol/L (98-107) 06/18/16 05:34 Carbon Dioxide 19 mmol/L (22-30) L 06/18/16 05:34 Anion Gap 21 mmol/L 06/18/16 05:34 BUN 18 mg/dL (7-17) H 06/18/16 05:34 Creatinine 1.2 mg/dL (0.7-1.2) 06/18/16 05:34 Estimated GFR 53 ml/min 06/18/16 05:34 BUN/Creatinine Ratio 15.00 % 06/18/16 05:34 Glucose 143 mg/dL (65-100) H 06/18/16 05:34 Calcium 7.2 mg/dL (8.4-10.2) L 06/18/16 05:34 Troponin T < 0.010 ng/mL (0.00-0.029) 06/17/16 15:59 NT-Pro-B Natriuret Pep 1912 pg/mL (0-900) H 06/17/16 15:59
[2016-06-20] MEDS: NEURONTIN PO SCH (22:57)
--- NOTE | 2016-06-21 01:31 | Consultation ---
CONSULTING PHYSICIAN: Dr. Starks. REASON FOR CONSULTATION: Acute on chronic hypoxemic respiratory failure. CHIEF COMPLAINT AND HISTORY OF PRESENT ILLNESS: The patient is a 80-year-old -[place] female known to us with past medical history significant amongst other things for pulmonary fibrosis and chronic obstructive lung disease who stated that she has had increasing shortness of breath in the preceding 2-3 days, increasing oxygen requirement. She was actually seen in the clinic about a couple of days prior to admission, according to her and did well and was sent back home. She denied any major problems at that time. As a result of watching her oxygen levels drop at home, she got scared, came into the Emergency Room. In the Emergency Room, she was evaluated. She denied any hemoptysis, but stated she was coughing up more brownish phlegm than usual. Denied any chest pains. Denied fevers or chills. Denied nausea, vomiting, or overt aspiration. The patient is a former smoker, a 10+ pack year tobacco smoking history. When I stopped by to see her, she was sitting in the chair, had oxygen going via facemask, was feeling better. That really is as much of the history of presentation. Denies any new onset leg pain or swelling or any suggestion of deep venous thrombosis. PAST MEDICAL HISTORY: Hypertension, congestive heart failure, coronary artery disease, history of right lower extremity DVT, history of gastroesophageal reflux disease, history of COPD, history of pulmonary fibrosis, history of nephrolithiasis, history of arthritis, and peripheral vascular disease. PAST SURGICAL HISTORY: She has had a coronary stenting x 2. She has had coronary artery bypass grafting and she has had C-sections x 5 and femoral artery bypass in the left leg. MEDICATIONS: She was on at the time I stopped by to see her, according to the medication administration record included the following: Tylenol 650 mg p.o. q. 4 hours p.r.n., [place] 5/325 mg 1 tablet p.o. q. 6 hours p.r.n. moderate pain, DuoNeb treatments nebulized q. 6, Xanax 0.25 mg p.o. q. 8 p.r.n. anxiety, Brovana 15 mcg inhaled q. 12 hours, aspirin 81 mg p.o. daily, Lipitor 40 mg p.o. at bedtime, p.r.n. Dulcolax, Pulmicort 0.5 mg inhaled q. 12 hours, Coreg 3.125 mg p.o. b.i.d., Feosol 325 mg p.o. t.i.d., Neurontin 100 mg p.o. at bedtime, heparin 5000 units subcutaneous q. 8 hours, Solu-Medrol 60 mg IV q. 12 hours, p.r.n. milk of magnesia, Zofran 4 mg IV q. 8 hours, Protonix 40 mg p.o. daily, Ranexa 1000 mg p.o. b.i.d., p.r.n. saline nasal spray, and Diovan 80 mg p.o. daily. ALLERGIES: Tetracycline and penicillins, nature of this allergy is unclear. DIET: Well-built lady. No significant weight changes in the preceding few weeks to months. FAMILY AND SOCIAL HISTORY: Lives in the community. 10+ pack year tobacco smoking history. Denies current alcohol, tobacco, or illicit drug use or abuse. Family history, otherwise noncontributory. REVIEW OF SYSTEMS: No loss of consciousness. No new onset seizures. No new onset focal weakness. She had increasing expectoration. Denies gross hematochezia or melena. No gross hematuria or dysuria. No hematemesis. No hemoptysis. No palpitations. Complete review of systems obtained. Pertinent positives and/or negatives as in body of history above, otherwise they are noncontributory. PHYSICAL EXAMINATION: VITAL SIGNS: At presentation, she was afebrile, initial temperature recorded was 98.1, pulse was 88, respiratory rate was 30, blood pressure was 120/70, oxygen sats were recorded as 88%, inspired oxygen concentration was not recorded. HEAD, EYES, EARS, NOSE, AND THROAT: Pupils are equal, round, about 3-4 mm, reactive to light. Extraocular muscle movements were intact. Grossly, no palpable lymph nodes in the supraclavicular or submandibular lymph node chains. LUNGS: Auscultation of both lung kruger significant for bilateral inspiratory rales in the bases. No wheezing. HEART: Heart sounds 1 and 2 are heard. There were regular rate and rhythm at the time of my evaluation. ABDOMEN: Soft, full, bowel sounds are positive, nontender. EXTREMITIES: Without overt digital clubbing or cyanosis. Trace pedal edema. NEUROLOGIC: The exam was grossly nonfocal. LABORATORY DATA: From my review are as follows: White cell count 6400, hemoglobin 9.4, hematocrit 28.4, platelets 403. Serum sodium 139, potassium 4.4, chloride 99, bicarbonate 23, BUN 18, creatinine 1.2, and glucose of 119. Troponin within normal limits. BNP was elevated. Radiographic studies have been reviewed. I have also reviewed the radiologist's interpretation and essentially there does not seem to be significant change in her chronic interstitial lung markings, but it is always to difficult to tell if there is an element of pulmonary edema or occult pneumonia interspace. ASSESSMENT AND PLAN: We have an elderly lady in with an acute on chronic hypoxemic respiratory failure. Historically, there is a psych component to her, I should say an anxiety component to her symptoms, sometimes she just feels much better in the hospital, she has refused ABGs for example, and there has not been any real major intervention that I can put a finger on except she has not been compliant with her treatments at home. She tells me she has home oxygen. She uses it as prescribed. Denied any sick contacts. Denied any significant medication noncompliance. Recommendations would be to continue current therapy. Wean oxygen to keep sats greater than or equal to 92%. A quick acute coronary syndrome workup may be indicated, but the initial troponins are unremarkable. I will send a D-dimer plus or minus for the venosus thromboembolic disease workup. I will send sputum for Gram stain, cultures and sensitivities, but I will hold on empiric anti-infective therapy at this time as she is already clinically improving. We will continue the systemic steroids and taper that shortly. She is appropriately on GI and DVT prophylaxis. Flu and pneumonia vaccination will be per protocol. Thank you very much for the consult. We will follow along and make further recommendations as picture progresses/becomes clearer. JOB# [id number] DEWEY/BERKLEY
[2016-06-21 02:02] LABS: Hematocrit 26.9 % (30.3-42.9); Hemoglobin 8.9 gm/dl (10.1-14.3); Mean Corpuscular HGB Conc 33 % (30-34); Mean Corpuscular Hemoglobin 27 pg (28-32); Mean Corpuscular Volume 81 fl (79-97); Platelet Count 317 K/mm3 (140-440); Red Blood Count 3.33 M/mm3 (3.65-5.03)
[2016-06-21 02:17] LABS: Red Cell Distribution Width 28.4 % (13.2-15.2)
[2016-06-21] MEDS: DUONEB 0.5 MG-3 MG/3 ML SOLN IH SCH ×4 (02:30→20:38)
[2016-06-21] MEDS: HEPARIN SUB-Q SCH ×3 (06:31→22:40)
[2016-06-21] MEDS: PULMICORT IH SCH ×2 (07:44→20:38)
[2016-06-21] MEDS: BROVANA NEBU IH SCH ×2 (07:44→20:41)
[2016-06-21] MEDS: FEOSOL PO SCH ×3 (08:21→22:38)
[2016-06-21] MEDS: DIOVAN PO SCH (10:16)
[2016-06-21] MEDS: HALFPRIN EC PO SCH (10:17)
[2016-06-21] MEDS: RANEXA ER PO SCH ×2 (10:17→22:44)
[2016-06-21] MEDS: PROTONIX PO SCH (10:18)
[2016-06-21] MEDS: COREG PO SCH ×2 (10:18→22:39)
[2016-06-21] MEDS: NACL 0.9% 1000 ML 1,000 ML IV SCH (10:22)
--- NOTE | 2016-06-21 16:33 | Progress Note ---
Assessment and Plan Assessment and plan: (1) Acute and chronic respiratory failure ([id number]) Current Visit: No Status: Acute Qualifiers: Respiratory failure complication: hypoxia and hypercapnia Qualified Code(s) : J96.21 - Acute and chronic respiratory failure with hypoxia Plan to address problem: cont on aggressive nebulizer treatments with DuoNeb cont intravenous steroids and Pulmicort X-ray shows chronic lung disease with no acute infiltrates or pneumothorax cont on BiPAP prn , now on 15L O2 Pulmonary following (2) Normocytic anemia Current Visit: Yes Status: Chronic Plan to address problem: Most likely chronic there is no overt bleeding Will cont to monitor hemoglobin and hematocrit (3) Hypertension Current Visit: Yes Status: Chronic Qualifiers: Hypertension type: H Plan to address problem: Blood pressure is in the normal range we will hold some of her medications and gradually step of the medications as needed cont on valsartan and coreg (4) COPD exacerbation Current Visit: No Status: Acute Plan to address problem: Intravenous steroids and aggressive nebulizer treatments and oxygen supplement Patient refused ABG, prn BiPAP (5) Coronary artery disease Current Visit: No Status: Chronic Qualifiers: Coronary Disease-Associated Artery/Lesion type: unspecified vessel or lesion type [place] vs. transplanted heart: N Associated angina: A Plan to address problem: Continue home medications s/p cath on 03/26 (6) CHF Current Visit: No Status: chronic Plan to address problem: EF 40 to 45% on last echo cont to monitor no pulmonary edema on cxr Disposition: unable to wean off from high flow O2, will f/u with pulmonary History Interval history: Patient seen and examined. Medical records and medication list reviewed. No acute event overnight noted by the RN. Patient on 15L supplimental O2 , BiPAP at night unable to wean off from O2 Hospitalist Physical - Physical exam Narrative exam: GENERAL: Elderly female sitting on chair appeared to be in no discomfort. HEENT: Normocephalic. Atraumatic. No conjunctival congestion or icterus. Patient has moist mucous membranes. NECK: Supple. Trachea midline. CHEST/LUNGS: clear breath sounds auscultated bilaterally, breathing labored. On venti mask HEART/CARDIOVASCULAR: Regular in rate and rhythm. S1 and S2 positive. ABDOMEN: Abdomen is soft, nontender. Patient has normal bowel sounds. SKIN: There is no rash. Warm and dry. NEURO: No focal motor deficit. Follows command. MUSCULOSKELETAL: No joint effusion or tenderness. EXTRIMITY: No edema, no cyanosis or clubbing. PSYCH: Cooperative. - Constitutional Vitals: Temp Pulse Resp BP Pulse Ox 97.3 F L 101 H 22 141/81 98 06/21/16 15:10 06/21/16 15:10 06/21/16 15:10 06/21/16 15:10 06/21/16 11:10 General appearance: Present: mild distress (on Ventimask with 34% FiO2 and O2 sats mid 90s) Results - Labs CBC & Chem 7: 06/21/16 00:31 06/18/16 05:34 Labs: Laboratory Last Values WBC 9.0 K/mm3 (4.5-11.0) 06/21/16 00:31 RBC 3.33 M/mm3 (3.65-5.03) L 06/21/16 00:31 Hgb 8.9 gm/dl (10.1-14.3) L 06/21/16 00:31 Hct 26.9 % (30.3-42.9) L 06/21/16 00:31 MCV 81 fl (79-97) 06/21/16 00:31 MCH 27 pg (28-32) L 06/21/16 00:31 MCHC 33 % (30-34) 06/21/16 00:31 RDW 28.4 % (13.2-15.2) H 06/21/16 00:31 Plt Count 317 K/mm3 (140-440) 06/21/16 00:31 Add Manual Diff Complete 06/17/16 15:59 Total Counted 100 06/17/16 15:59 Seg Neuts % (Manual) 66.0 % (40.0-70.0) 06/17/16 15:59 Band Neutrophils % 11.0 % 06/17/16 15:59 Lymphocytes % (Manual) 12.0 % (13.4-35.0) L 06/17/16 15:59 Reactive Lymphs % (Man) 0 % 06/17/16 15:59 Monocytes % (Manual) 4.0 % (0.0-7.3) 06/17/16 15:59 Eosinophils % (Manual) 7.0 % (0.0-4.3) H 06/17/16 15:59 Basophils % (Manual) 0 % (0.0-1.8) 06/17/16 15:59 Metamyelocytes % 0 % 06/17/16 15:59 Myelocytes % 0 % 06/17/16 15:59 Promyelocytes % 0 % 06/17/16 15:59 Blast Cells % 0 % 06/17/16 15:59 Nucleated RBC % Not Reportable 06/17/16 15:59 Seg Neutrophils # Man 4.2 K/mm3 (1.8-7.7) 06/17/16 15:59 Band Neutrophils # 0.7 K/mm3 06/17/16 15:59 Lymphocytes # (Manual) 0.8 K/mm3 (1.2-5.4) L 06/17/16 15:59 Abs React Lymphs (Man) 0.0 K/mm3 06/17/16 15:59 Monocytes # (Manual) 0.3 K/mm3 (0.0-0.8) 06/17/16 15:59 Eosinophils # (Manual) 0.4 K/mm3 (0.0-0.4) 06/17/16 15:59 Basophils # (Manual) 0.0 K/mm3 (0.0-0.1) 06/17/16 15:59 Metamyelocytes # 0.0 K/mm3 06/17/16 15:59 Myelocytes # 0.0 K/mm3 06/17/16 15:59 Promyelocytes # 0.0 K/mm3 06/17/16 15:59 Blast Cells # 0.0 K/mm3 06/17/16 15:59 WBC Morphology Not Reportable 06/17/16 15:59 Hypersegmented Neuts Not Reportable 06/17/16 15:59 Hyposegmented Neuts Not Reportable 06/17/16 15:59 Hypogranular Neuts Not Reportable 06/17/16 15:59 Smudge Cells Not Reportable 06/17/16 15:59 Toxic Granulation Not Reportable 06/17/16 15:59 Toxic Vacuolation Not Reportable 06/17/16 15:59 Dohle Bodies Not Reportable 06/17/16 15:59 Pelger-Huet Anomaly Not Reportable 06/17/16 15:59 Mony Rods Not Reportable 06/17/16 15:59 Platelet Estimate Consistent w auto 06/17/16 15:59 Clumped Platelets Not Reportable 06/17/16 15:59 Plt Clumps, EDTA Not Reportable 06/17/16 15:59 Large Platelets Not Reportable 06/17/16 15:59 Giant Platelets Not Reportable 06/17/16 15:59 Platelet Satelliting Not Reportable 06/17/16 15:59 Plt Morphology Comment Not Reportable 06/17/16 15:59 RBC Morphology Not Reportable 06/17/16 15:59 Dimorphic RBCs Not Reportable 06/17/16 15:59 Polychromasia Few 06/17/16 15:59 Hypochromasia Not Reportable 06/17/16 15:59 Poikilocytosis 1+ 06/17/16 15:59 Anisocytosis 1+ 06/17/16 15:59 Microcytosis Not Reportable 06/17/16 15:59 Macrocytosis Not Reportable 06/17/16 15:59 Spherocytes Not Reportable 06/17/16 15:59 Pappenheimer Bodies Not Reportable 06/17/16 15:59 Sickle Cells Not Reportable 06/17/16 15:59 Target Cells Not Reportable 06/17/16 15:59 Tear Drop Cells Few 06/17/16 15:59 Ovalocytes Not Reportable 06/17/16 15:59 Helmet Cells Not Reportable 06/17/16 15:59 Serna-[place] Bodies Not Reportable 06/17/16 15:59 [place] Rings Not Reportable 06/17/16 15:59 Tayler Cells Not Reportable 06/17/16 15:59 Bite Cells Not Reportable 06/17/16 15:59 Crenated Cell Not Reportable 06/17/16 15:59 Elliptocytes 1+ 06/17/16 15:59 Acanthocytes (Spur) Not Reportable 06/17/16 15:59 Rouleaux Not Reportable 06/17/16 15:59 Hemoglobin C Crystals Not Reportable 06/17/16 15:59 Schistocytes Not Reportable 06/17/16 15:59 Malaria parasites Not Reportable 06/17/16 15:59 Juan R Bodies Not Reportable 06/17/16 15:59 Hem Pathologist Commnt No 06/17/16 15:59 PT 14.4 Sec. (12.2-14.9) 06/20/16 14:11 INR 1.13 (0.87-1.13) 06/20/16 14:11 D-Dimer 958.1 ng/mlDDU (0-234) H 06/20/16 14:12 Sodium 137 mmol/L (137-145) 06/18/16 05:34 Potassium 4.7 mmol/L (3.6-5.0) 06/18/16 05:34 Chloride 101.3 mmol/L (98-107) 06/18/16 05:34 Carbon Dioxide 19 mmol/L (22-30) L 06/18/16 05:34 Anion Gap 21 mmol/L 06/18/16 05:34 BUN 18 mg/dL (7-17) H 06/18/16 05:34 Creatinine 1.2 mg/dL (0.7-1.2) 06/18/16 05:34 Estimated GFR 53 ml/min 06/18/16 05:34 BUN/Creatinine Ratio 15.00 % 06/18/16 05:34 Glucose 143 mg/dL (65-100) H 06/18/16 05:34 Calcium 7.2 mg/dL (8.4-10.2) L 06/18/16 05:34 Troponin T < 0.010 ng/mL (0.00-0.029) 06/17/16 15:59 NT-Pro-B Natriuret Pep 1912 pg/mL (0-900) H 06/17/16 15:59
--- NOTE | 2016-06-21 18:45 | Progress Note ---
Assessment and Plan (1) Acute exacerbation of chronic obstructive pulmonary disease (COPD) Current Visit: Yes Status: Acute Plan to address problem: - continue supplemental oxygen and wean to keep O2 Sats >/= 92% - continue bronchodilators and pulmonary toilet - prn BIPAP (historically does not tolerate) - optimize cardiac status per cardiology (2) Chest pain Current Visit: No Status: Acute Qualifiers: Chest pain type: unspecified Qualified Code(s): R07.9 - Chest pain, unspecified Plan to address problem: - ACS w/up per cardiology - prn analgesia (3) Pulmonary fibrosis Current Visit: No Status: Chronic Plan to address problem: - as above - sputum C&S - follow off AB's Subjective Date of service: 06/21/16 Principal diagnosis: Acute On Chronic ypoxemic Respiratory Failure Interval history: Seen and examined at bedside; 24 hour events reviewed; nursing and respiratory care staff consulted; no adverse overnight events reported to me; remains on HFNC at 12L/min; denies acute chest pains or increased SOB; no hemoptysis Objective Vital Signs - 12hr 06/21/16 06/21/16 06/21/16 07:05 07:44 07:55 Temperature 97.4 F L Pulse Rate Pulse Rate [ 100 H 94 H Anterior Bilateral Throughout] Pulse Rate [ Left Radial] Pulse Rate [ 94 H Right Radial] Respiratory 22 Rate Respiratory 20 20 Rate [Anterior Bilateral Throughout] Respiratory Rate [denies] Blood Pressure 149/75 [Right Radial Artery] O2 Sat by Pulse 98 98 Oximetry 06/21/16 06/21/16 06/21/16 09:00 09:30 10:00 Temperature Pulse Rate 103 H Pulse Rate [ Anterior Bilateral Throughout] Pulse Rate [ 103 H Left Radial] Pulse Rate [ Right Radial] Respiratory 24 Rate Respiratory Rate [Anterior Bilateral Throughout] Respiratory 24 Rate [denies] Blood Pressure [Right Radial Artery] O2 Sat by Pulse 78 L 96 Oximetry 06/21/16 06/21/16 06/21/16 11:10 13:35 15:10 Temperature 97.5 F L 97.3 F L Pulse Rate Pulse Rate [ 90 Anterior Bilateral Throughout] Pulse Rate [ 97 H Left Radial] Pulse Rate [ 101 H Right Radial] Respiratory 22 22 Rate Respiratory 20 Rate [Anterior Bilateral Throughout] Respiratory Rate [denies] Blood Pressure 129/71 141/81 [Right Radial Artery] O2 Sat by Pulse 98 Oximetry Constitutional: alert, appears uncomfortable Eyes: non-icteric ENT: oropharynx moist Neck: supple, no lymphadenopathy Effort: mildly labored Ascultation: Bilateral: diminished breath sounds, rales (bases) Cardiovascular: regular rate and rhythm Gastrointestinal: normoactive bowel sounds, soft, non-tender, non-distended Integumentary: normal Extremities: no cyanosis, pulses normal, no ischemia or petechiae, edema Neurologic: normal mental status, non-focal exam, pupils equal and round, motor strength normal and Psychiatric: mood appropriate, affect normal CBC and BMP: 07/01/16 07:10 06/30/16 07:29 ABG, PT/INR, D-dimer: PT/INR, D-dimer PT 14.4 Sec. (12.2-14.9) 06/20/16 14:11 INR 1.13 (0.87-1.13) 06/20/16 14:11 D-Dimer 958.1 ng/mlDDU (0-234) H 06/20/16 14:12 Abnormal lab findings: Abnormal Labs 06/18/16 06/20/16 06/21/16 05:34 14:12 00:31 RBC 3.33 L Hgb 8.9 L Hct 26.9 L MCH 27 L RDW 28.4 H D-Dimer 958.1 H Carbon Dioxide 19 L BUN 18 H Glucose 143 H POC Glucose Calcium 7.2 L 06/21/16 11:39 RBC Hgb Hct MCH RDW D-Dimer Carbon Dioxide BUN Glucose POC Glucose 135 H Calcium Chest x-ray: image reviewed
[2016-06-21] MEDS: NEURONTIN PO SCH (22:40)
[2016-06-22] MEDS: DUONEB 0.5 MG-3 MG/3 ML SOLN IH SCH ×4 (01:47→20:08)
[2016-06-22] MEDS: HEPARIN SUB-Q SCH ×4 (06:29→21:03)
[2016-06-22 07:04] LABS: Anion Gap 16 mmol/L; Blood Urea Nitrogen 17 mg/dL (7-17); Calcium 8.2 mg/dL (8.4-10.2); Carbon Dioxide 21 mmol/L (22-30); Glucose 91 mg/dL (65-100); Potassium 4.2 mmol/L (3.6-5.0); Sodium 142 mmol/L (137-145)
[2016-06-22 07:05] LABS: Hematocrit 25.1 % (30.3-42.9); Hemoglobin 8.2 gm/dl (10.1-14.3); Mean Corpuscular HGB Conc 33 % (30-34); Mean Corpuscular Hemoglobin 26 pg (28-32); Mean Corpuscular Volume 80 fl (79-97); Platelet Count 279 K/mm3 (140-440); Red Blood Count 3.13 M/mm3 (3.65-5.03); White Blood Count 8.6 K/mm3 (4.5-11.0)
[2016-06-22 07:14] LABS: Red Cell Distribution Width 28.6 % (13.2-15.2)
[2016-06-22] MEDS: BROVANA NEBU IH SCH ×2 (07:27→20:07)
[2016-06-22] MEDS: PULMICORT IH SCH ×2 (07:27→20:07)
[2016-06-22 09:18] LABS: Blastocytes % (Manual) 0 %
[2016-06-22 09:19] LABS: Anisocytosis 3+; Basophils % (Manual) 0 % (0.0-1.8); Elliptocytes Few; Hypochromasia 1+; Ovalocytes Few
[2016-06-22 09:20] LABS: Diff Status Complete
[2016-06-22] MEDS: HALFPRIN EC PO SCH (10:25)
[2016-06-22] MEDS: PROTONIX PO SCH (10:25)
[2016-06-22] MEDS: DIOVAN PO SCH (10:25)
[2016-06-22] MEDS: COREG PO SCH ×3 (10:25→21:03)
[2016-06-22] MEDS: FEOSOL PO SCH ×3 (10:30→20:51)
[2016-06-22] MEDS: RANEXA ER PO SCH ×2 (10:30→21:03)
--- NOTE | 2016-06-22 11:32 | Progress Note ---
Assessment and Plan Assessment and plan: Acute on chronic respiratory failure due to COPD exacerbation. She is still on high amount of oxygen. For LTAC placement COPD exacerbation. On solumedrol, Duoneb, supplemental Oxygen Coronary artery disease. On Aspirin, Coreg, Diovan, Ranexa. 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 On Coreg, Diovan Hypertension. BP stable. DVT prophylaxis. Full code status Disposition. To go to LTAC when arrangements done. History Interval history: still shortness of breath Hospitalist Physical - Constitutional Vitals: Temp Pulse Resp BP Pulse Ox 97.7 F 93 H 20 133/79 97 06/22/16 08:00 06/22/16 10:25 06/22/16 08:00 06/22/16 08:00 06/22/16 08:00 General appearance: Present: mild distress (on Ventimask with 34% FiO2 and O2 sats mid 90s) Results - Labs CBC & Chem 7: 06/22/16 06:22 06/22/16 06:22 Labs: Laboratory Last Values WBC 8.6 K/mm3 (4.5-11.0) 06/22/16 06:22 RBC 3.13 M/mm3 (3.65-5.03) L 06/22/16 06:22 Hgb 8.2 gm/dl (10.1-14.3) L 06/22/16 06:22 Hct 25.1 % (30.3-42.9) L 06/22/16 06:22 MCV 80 fl (79-97) 06/22/16 06:22 MCH 26 pg (28-32) L 06/22/16 06:22 MCHC 33 % (30-34) 06/22/16 06:22 RDW 28.6 % (13.2-15.2) H 06/22/16 06:22 Plt Count 279 K/mm3 (140-440) 06/22/16 06:22 Add Manual Diff Complete 06/22/16 06:22 Total Counted 100 06/22/16 06:22 Seg Neuts % (Manual) 88.0 % (40.0-70.0) H 06/22/16 06:22 Band Neutrophils % 0 % 06/22/16 06:22 Lymphocytes % (Manual) 7.0 % (13.4-35.0) L 06/22/16 06:22 Reactive Lymphs % (Man) 0 % 06/22/16 06:22 Monocytes % (Manual) 4.0 % (0.0-7.3) 06/22/16 06:22 Eosinophils % (Manual) 1.0 % (0.0-4.3) 06/22/16 06:22 Basophils % (Manual) 0 % (0.0-1.8) 06/22/16 06:22 Metamyelocytes % 0 % 06/22/16 06:22 Myelocytes % 0 % 06/22/16 06:22 Promyelocytes % 0 % 06/22/16 06:22 Blast Cells % 0 % 06/22/16 06:22 Nucleated RBC % Not Reportable 06/22/16 06:22 Seg Neutrophils # Man 7.6 K/mm3 (1.8-7.7) 06/22/16 06:22 Band Neutrophils # 0.0 K/mm3 06/22/16 06:22 Lymphocytes # (Manual) 0.6 K/mm3 (1.2-5.4) L 06/22/16 06:22 Abs React Lymphs (Man) 0.0 K/mm3 06/22/16 06:22 Monocytes # (Manual) 0.3 K/mm3 (0.0-0.8) 06/22/16 06:22 Eosinophils # (Manual) 0.1 K/mm3 (0.0-0.4) 06/22/16 06:22 Basophils # (Manual) 0.0 K/mm3 (0.0-0.1) 06/22/16 06:22 Metamyelocytes # 0.0 K/mm3 06/22/16 06:22 Myelocytes # 0.0 K/mm3 06/22/16 06:22 Promyelocytes # 0.0 K/mm3 06/22/16 06:22 Blast Cells # 0.0 K/mm3 06/22/16 06:22 WBC Morphology Not Reportable 06/22/16 06:22 Hypersegmented Neuts Not Reportable 06/22/16 06:22 Hyposegmented Neuts Not Reportable 06/22/16 06:22 Hypogranular Neuts Not Reportable 06/22/16 06:22 Smudge Cells Not Reportable 06/22/16 06:22 Toxic Granulation Not Reportable 06/22/16 06:22 Toxic Vacuolation Not Reportable 06/22/16 06:22 Dohle Bodies Not Reportable 06/22/16 06:22 Pelger-Huet Anomaly Not Reportable 06/22/16 06:22 Mony Rods Not Reportable 06/22/16 06:22 Platelet Estimate Appears normal 06/22/16 06:22 Clumped Platelets Not Reportable 06/22/16 06:22 Plt Clumps, EDTA Not Reportable 06/22/16 06:22 Large Platelets Not Reportable 06/22/16 06:22 Giant Platelets Not Reportable 06/22/16 06:22 Platelet Satelliting Not Reportable 06/22/16 06:22 Plt Morphology Comment Not Reportable 06/22/16 06:22 RBC Morphology Not Reportable 06/22/16 06:22 Dimorphic RBCs Not Reportable 06/22/16 06:22 Polychromasia Not Reportable 06/22/16 06:22 Hypochromasia 1+ 06/22/16 06:22 Poikilocytosis Not Reportable 06/22/16 06:22 Anisocytosis 3+ 06/22/16 06:22 Microcytosis Not Reportable 06/22/16 06:22 Macrocytosis Not Reportable 06/22/16 06:22 Spherocytes Not Reportable 06/22/16 06:22 Pappenheimer Bodies Not Reportable 06/22/16 06:22 Sickle Cells Not Reportable 06/22/16 06:22 Target Cells Not Reportable 06/22/16 06:22 Tear Drop Cells Not Reportable 06/22/16 06:22 Ovalocytes Few 06/22/16 06:22 Helmet Cells Not Reportable 06/22/16 06:22 [place] Bodies Not Reportable 06/22/16 06:22 [place] Rings Not Reportable 06/22/16 06:22 [place] Cells Not Reportable 06/22/16 06:22 Bite Cells Not Reportable 06/22/16 06:22 Crenated Cell Not Reportable 06/22/16 06:22 Elliptocytes Few 06/22/16 06:22 Acanthocytes (Spur) Not Reportable 06/22/16 06:22 Rouleaux Not Reportable 06/22/16 06:22 Hemoglobin C Crystals Not Reportable 06/22/16 06:22 Schistocytes Not Reportable 06/22/16 06:22 Malaria parasites Not Reportable 06/22/16 06:22 Juan R Bodies Not Reportable 06/22/16 06:22 Hem Pathologist Commnt No 06/22/16 06:22 PT 14.4 Sec. (12.2-14.9) 06/20/16 14:11 INR 1.13 (0.87-1.13) 06/20/16 14:11 D-Dimer 958.1 ng/mlDDU (0-234) H 06/20/16 14:12 Sodium 142 mmol/L (137-145) 06/22/16 06:22 Potassium 4.2 mmol/L (3.6-5.0) 06/22/16 06:22 Chloride 109.0 mmol/L (98-107) H 06/22/16 06:22 Carbon Dioxide 21 mmol/L (22-30) L 06/22/16 06:22 Anion Gap 16 mmol/L 06/22/16 06:22 BUN 17 mg/dL (7-17) 06/22/16 06:22 Creatinine 1.0 mg/dL (0.7-1.2) 06/22/16 06:22 Estimated GFR > 60 ml/min 06/22/16 06:22 BUN/Creatinine Ratio 17.00 % 06/22/16 06:22 Glucose 91 mg/dL (65-100) 06/22/16 06:22 POC Glucose 115 (70-105) H 06/21/16 16:19 Calcium 8.2 mg/dL (8.4-10.2) L 06/22/16 06:22 Troponin T < 0.010 ng/mL (0.00-0.029) 06/17/16 15:59 NT-Pro-B Natriuret Pep 1912 pg/mL (0-900) H 06/17/16 15:59
--- NOTE | 2016-06-22 11:47 | Progress Note ---
Assessment and Plan Patient resting on venturi mask.FIO2 40% and O2 satuaration 93%.Patient admitted for hypoxic respiratory failure.Patient D dimer is high. Patient has angio ct of chest about 6 months ago which is negative.Still complaining shortness of breath. Repeating angio CT of chest again. Obtaining ABgs. - Patient Problems (1) Acute exacerbation of chronic obstructive pulmonary disease (COPD) Current Visit: Yes Status: Acute Plan to address problem: O2 FIO2 40% through venturi mask. Albuterol/atrovent aerosol treatments q 12 hours. Continue I/V solumedral. Continue S/C Heparin. Continue prednisone. (2) Respiratory failure with hypoxia Current Visit: Yes Status: Acute Qualifiers: Chronicity: acute on chronic Qualified Code(s): J96.21 - Acute and chronic respiratory failure with hypoxia Plan to address problem: O2 FIO2 40% through venturi mask. Albuterol/atrovent aerosol treatments q 12 hours. Continue I/V solumedral. Continue S/C Heparin. Continue prednisone. Obtaining ABGs Obtaining Angio CT of chest. Subjective Date of service: 06/22/16 Principal diagnosis: Acute On Chronic ypoxemic Respiratory Failure Interval history: Patient resting on venturi mask.FIO2 40% and O2 satuaration 93%.Patient admitted for hypoxic respiratory failure.Patient D dimer is high. Patient has angio ct of chest about 6 months ago which is negative.Still complaining shortness of breath. Repeating angio CT of chest again. Obtaining ABgs. Objective Vital Signs - 12hr 06/22/16 06/22/16 06/22/16 00:37 01:40 01:51 Temperature 97.6 F Pulse Rate Pulse Rate [ 98 H 96 H Anterior Bilateral Throughout] Pulse Rate [ 102 H Right Dorsalis Pedis] Respiratory 22 Rate Respiratory 22 20 Rate [Anterior Bilateral Throughout] Blood Pressure 128/73 [Right Radial Artery] O2 Sat by Pulse 90 Oximetry 06/22/16 06/22/16 06/22/16 04:00 08:00 10:25 Temperature 97.7 F 97.7 F Pulse Rate 93 H Pulse Rate [ Anterior Bilateral Throughout] Pulse Rate [ 104 H 89 Right Dorsalis Pedis] Respiratory 24 20 Rate Respiratory Rate [Anterior Bilateral Throughout] Blood Pressure 121/82 133/79 [Right Radial Artery] O2 Sat by Pulse 100 97 Oximetry Constitutional: alert, other (Still complaining shortness of breath.) Eyes: non-icteric ENT: oropharynx moist Neck: supple, no lymphadenopathy Ascultation: Bilateral: diminished breath sounds (Prolonged expiratory phase.) Cardiovascular: regular rate and rhythm Gastrointestinal: normoactive bowel sounds, soft, non-tender Integumentary: normal Extremities: no cyanosis, no edema Neurologic: normal mental status, non-focal exam, pupils equal and round, CN II- XII normal Psychiatric: mood appropriate CBC and BMP: 06/22/16 06:22 06/22/16 06:22 ABG, PT/INR, D-dimer: PT/INR, D-dimer PT 14.4 Sec. (12.2-14.9) 06/20/16 14:11 INR 1.13 (0.87-1.13) 06/20/16 14:11 D-Dimer 958.1 ng/mlDDU (0-234) H 06/20/16 14:12 Abnormal lab findings: Abnormal Labs 06/18/16 06/20/16 06/21/16 05:34 14:12 00:31 RBC 3.33 L Hgb 8.9 L Hct 26.9 L MCH 27 L RDW 28.4 H Seg Neuts % (Manual) Lymphocytes % (Manual) Lymphocytes # (Manual) D-Dimer 958.1 H Chloride Carbon Dioxide 19 L BUN 18 H Glucose 143 H POC Glucose Calcium 7.2 L 06/21/16 06/21/16 06/22/16 11:39 16:19 06:22 RBC 3.13 L Hgb 8.2 L Hct 25.1 L MCH 26 L RDW 28.6 H Seg Neuts % (Manual) 88.0 H Lymphocytes % (Manual) 7.0 L Lymphocytes # (Manual) 0.6 L D-Dimer Chloride Carbon Dioxide BUN Glucose POC Glucose 135 H 115 H Calcium 06/22/16 06:22 RBC Hgb Hct MCH RDW Seg Neuts % (Manual) Lymphocytes % (Manual) Lymphocytes # (Manual) D-Dimer Chloride 109.0 H Carbon Dioxide 21 L BUN Glucose POC Glucose Calcium 8.2 L
[2016-06-22 16:10] LABS: ISTAT Base Excess -3; ISTAT HCO3 21.2; ISTAT PCO2 29.7 (35-45); ISTAT PH 7.461 (7.35-7.45); ISTAT PO2 29 (80-105); ISTAT SO2 60; ISTAT TCO2 22
[2016-06-22] MEDS: NACL 0.9% 1000 ML 1,000 ML IV SCH (20:49)
[2016-06-22] MEDS: NEURONTIN PO SCH ×2 (20:52→21:04)
[2016-06-23] MEDS: DUONEB 0.5 MG-3 MG/3 ML SOLN IH SCH ×4 (02:14→19:31)
[2016-06-23] MEDS: HEPARIN SUB-Q SCH ×3 (06:05→21:45)
[2016-06-23] MEDS: PULMICORT IH SCH ×2 (08:02→19:31)
--- NOTE | 2016-06-23 09:58 | Query- Renal Failure ---
Eugenio Dorado Jadyn Date:____06/23/16 Computer Systems Integrator/CDS:___Veronicaora Osbornrafi Phone#:____[phone] Exercise your independent professional judgment when responding to query. Questions asked do not imply a particular answer is desired or expected. We greatly appreciate your clarification on this issue. Clinical Documentation States: 80 year old female was admitted on 06/17/16. The patient was diagnosed with Acute on chronic respiratory failure, and copd exacerbation. With chronic CHF. Clinical Findings Show: 06/17/16 06/22/16 Creatinine: 1.4 1.0 Please clarify if you mean: Acute Renal Failure with or due to: [x ] Tubular Necrosis [ ] Medullary Necrosis [ ] Vasomotor Nephropathy [ ] Shock Kidney [ ] Tubular Nephrosis [ ] Renal Tubular Stasis [ ] Cortical Necrosis [ ] Acute Renal Failure (unspecified) [ ] Lower Tubular Nephrosis [ ] Other: [ ] Not Applicable Present on Admission: [x ] Yes (Y) [ ] Clinically undeterminable (W) [ ] No (N) Please also document response in your Progress Notes and/or Discharge Summary and indicate if the condition was present on admission. MTDD
--- NOTE | 2016-06-23 11:04 | Consultation ---
History of Present Illness Consult date: 06/23/16 Consult reason: shortness of breath History of present illness: Patient is a 80 year old chronically ill female admitted for shortness of breath and hypoxia. Patient denies chest pain. Patient is very sedentary and transfers minimally at home using a walker without distress. She is known to have severe diffuse coronary artery disease and was recommended by her primary academic director to medical therapy only. Past History Past Medical History: CAD, COPD, GERD, heart failure, hypertension, other (back ache) Past Surgical History: CABG, Other (kidney stone removal) Social history: no significant social history Family history: diabetes, hypertension Medications and Allergies Allergies Allergy/AdvReac Type Severity Reaction Status Date / Time oxytetracycline Allergy Rash Verified 05/01/15 12:26 [From Terramycin] oxytetracycline HCl Allergy Rash Verified 05/01/15 12:26 [From Terramycin] Penicillins Allergy Rash Verified 05/01/15 12:26 Sulfa (Sulfonamide Allergy Rash Verified 05/01/15 12:26 Antibiotics) GLOVE POWDER Allergy Rash Uncoded 05/01/15 12:26 Home Medications Medication Instructions Recorded Confirmed Last Taken Type Albuterol Sulfate [Ventolin HFA] 2 puff IH Q4H PRN 04/01/16 06/17/16 1 Day Ago History Fluticasone/Vilanterol [Breo 1 each IH DAILY 04/01/16 06/17/16 1 Day Ago History Ellipta 100-25 Mcg INH] Gabapentin [Neurontin] 100 mg PO QHS 04/01/16 06/17/16 1 Day Ago History Pantoprazole [Protonix TAB] 40 mg PO BID 04/01/16 06/17/16 1 Day Ago History Valsartan/Hydrochlorothiazide 1 tab PO QDAY 04/01/16 06/17/16 1 Day Ago History [Diovan Hct 160-25 mg] amLODIPine [Norvasc] 5 mg PO DAILY 04/01/16 06/17/16 1 Day Ago History Ferrous Sulfate [Feosol 325 MG tab] 325 mg PO TID #90 tablet 04/10/16 06/17/16 Unknown Rx Aspirin [Adult Low Dose Aspirin EC] 81 mg PO QDAY 05/20/16 06/17/16 05/20/16 10: 00 History Nitroglycerin [Nitro Dur] 0.4 mg TD QDAY 05/20/16 06/17/16 05/20/16 10:00 History Ranolazine ER [Ranexa ER] 2 tab PO BID 05/20/16 06/17/16 05/20/16 10:00 History Active Meds: Active Medications Acetaminophen (Tylenol) 650 mg PO Q4H PRN PRN Reason: Pain MILD(1-3)/Fever >100.5/JOHNSON Acetaminophen/Hydrocodone Bitart ([place] 5/325) 1 each PO Q6H PRN PRN Reason: Pain, Moderate (4-6) Albuterol/Ipratropium (Duoneb 0.5 Mg-3 Mg/3 Ml Soln) 1 ampul IH Q6HRT [facility] Last Admin: 06/23/16 08:02 Dose: 1 ampul Alprazolam (Xanax) 0.25 mg PO Q8H PRN PRN Reason: Anxiety Arformoterol Tartrate (Brovana Nebu) 15 mcg IH Q12HRT [facility] Last Admin: 06/22/16 20:07 Dose: 15 mcg Aspirin (Halfprin Ec) 81 mg PO QDAY [facility] Last Admin: 06/22/16 10:25 Dose: 81 mg Atorvastatin Calcium (Lipitor) 40 mg PO QHS [facility] Last Admin: 06/22/16 21:03 Dose: Not Given Bisacodyl (Dulcolax) 10 mg UT QDAY PRN PRN Reason: Constipation unrelieved by MOM Budesonide (Pulmicort) 0.5 mg IH Q12HRT [facility] Last Admin: 06/23/16 08:02 Dose: 0.5 mg Carvedilol (Coreg) 3.125 mg PO BID [facility] Last Admin: 06/22/16 21:03 Dose: Not Given Ferrous Sulfate (Feosol) 325 mg PO TID [facility] Last Admin: 06/22/16 20:51 Dose: 325 mg Gabapentin (Neurontin) 100 mg PO QHS [facility] Last Admin: 06/22/16 21:04 Dose: Not Given Heparin Sodium (Porcine) (Heparin) 5,000 unit SUB-Q Q8HR [facility] Last Admin: 06/23/16 06:05 Dose: 5,000 unit Sodium Chloride (Nacl 0.9% 1000 Ml) 1,000 mls @ 42 mls/hr IV DIRECT [facility] Last Admin: 06/22/16 20:49 Dose: 42 mls/hr Magnesium Hydroxide (Milk Of Magnesia) 30 ml PO Q4H PRN PRN Reason: Constipation Methylprednisolone Sodium Succinate (Solu-Medrol) 60 mg IV Q12H [facility] Last Admin: 06/22/16 21:03 Dose: Not Given Ondansetron HCl (Zofran) 4 mg IV Q8H PRN PRN Reason: N/V unrelieved by Reglan Pantoprazole Sodium (Protonix) 40 mg PO DAILY [facility] Last Admin: 06/22/16 10:25 Dose: 40 mg Ranolazine (Ranexa Er) 1,000 mg PO BID [facility] Last Admin: 06/22/16 21:03 Dose: Not Given Sodium Chloride ([place]) 2 spray NS QID PRN PRN Reason: dry nasal passage Last Admin: 06/17/16 23:42 Dose: 2 spray Valsartan (Diovan) 80 mg PO DAILY [facility] Last Admin: 06/22/16 10:25 Dose: 80 mg Review of Systems All systems: negative Physical Examination Vital Signs Pulse Ox 82 L 06/17/16 15:09 General appearance: no acute distress HEENT: Positive: PERRL Neck: Positive: neck supple Cardiac: Positive: Reg Rate and Rhythm, Systolic Murmur Lungs: Positive: Decreased Breath Sounds Abdomen: Positive: Soft Extremities: Present: +2 Edema Results 06/22/16 06:22 06/22/16 06:22 Assessment and Plan Shortness of breath and hypoxia Acute COPD exacerbation CXR showing chronic interstitial changes No clinical signs of heart failure Diffuse calcified severe coronary artery disease involving the proximal, mid RCA , mid LAD and mid left circumflex arteries Patient deemed not a candidate for revascularization and recommended only for medical therapy Severe deconditioning Anemia Recommendations: Continue current medical therapy No further cardiac intervention is recommended
--- NOTE | 2016-06-23 12:32 | Progress Note ---
Assessment and Plan Assessment and plan: Acute on chronic respiratory failure due to COPD exacerbation. She is still on high amount of oxygen. For LTAC placement COPD exacerbation. On solumedrol, Duoneb, supplemental Oxygen Coronary artery disease. On Aspirin, Coreg, Diovan, Ranexa. 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 On Coreg, Diovan Hypertension. BP stable. Hyperlipidemia , on Lipitor. DVT prophylaxis.Heparin subcut Full code status Disposition. To go to LTAC when arrangements done. History Interval history: still shortness of breath, no chest pain Hospitalist Physical - Physical exam Narrative exam: Gen: not in acute distress, ventimask on HEENT: normocephalic,atraumatic Neck :supple, no JVD Lungs: Decreased breath sounds,few rhonchibilaterally Heart: S1 and S2 regular, no murmurs no gallops, Abdomen: soft nontender, nondistended, normal bowel sounds Extremities: no edema, no clubbing or cyanosis Neuro: Awake alert oriented x 3, non focal Psych: Normal mood - Constitutional Vitals: Temp Pulse Resp BP Pulse Ox 97.6 F 84 20 99/61 92 06/23/16 09:03 06/23/16 09:03 06/23/16 09:03 06/23/16 09:03 06/23/16 09:03 General appearance: Present: no acute distress Results - Labs CBC & Chem 7: 06/22/16 06:22 06/22/16 06:22 Labs: Laboratory Last Values WBC 8.6 K/mm3 (4.5-11.0) 06/22/16 06:22 RBC 3.13 M/mm3 (3.65-5.03) L 06/22/16 06:22 Hgb 8.2 gm/dl (10.1-14.3) L 06/22/16 06:22 Hct 25.1 % (30.3-42.9) L 06/22/16 06:22 MCV 80 fl (79-97) 06/22/16 06:22 MCH 26 pg (28-32) L 06/22/16 06:22 MCHC 33 % (30-34) 06/22/16 06:22 RDW 28.6 % (13.2-15.2) H 06/22/16 06:22 Plt Count 279 K/mm3 (140-440) 06/22/16 06:22 Add Manual Diff Complete 06/22/16 06:22 Total Counted 100 06/22/16 06:22 Seg Neuts % (Manual) 88.0 % (40.0-70.0) H 06/22/16 06:22 Band Neutrophils % 0 % 06/22/16 06:22 Lymphocytes % (Manual) 7.0 % (13.4-35.0) L 06/22/16 06:22 Reactive Lymphs % (Man) 0 % 06/22/16 06:22 Monocytes % (Manual) 4.0 % (0.0-7.3) 06/22/16 06:22 Eosinophils % (Manual) 1.0 % (0.0-4.3) 06/22/16 06:22 Basophils % (Manual) 0 % (0.0-1.8) 06/22/16 06:22 Metamyelocytes % 0 % 06/22/16 06:22 Myelocytes % 0 % 06/22/16 06:22 Promyelocytes % 0 % 06/22/16 06:22 Blast Cells % 0 % 06/22/16 06:22 Nucleated RBC % Not Reportable 06/22/16 06:22 Seg Neutrophils # Man 7.6 K/mm3 (1.8-7.7) 06/22/16 06:22 Band Neutrophils # 0.0 K/mm3 06/22/16 06:22 Lymphocytes # (Manual) 0.6 K/mm3 (1.2-5.4) L 06/22/16 06:22 Abs React Lymphs (Man) 0.0 K/mm3 06/22/16 06:22 Monocytes # (Manual) 0.3 K/mm3 (0.0-0.8) 06/22/16 06:22 Eosinophils # (Manual) 0.1 K/mm3 (0.0-0.4) 06/22/16 06:22 Basophils # (Manual) 0.0 K/mm3 (0.0-0.1) 06/22/16 06:22 Metamyelocytes # 0.0 K/mm3 06/22/16 06:22 Myelocytes # 0.0 K/mm3 06/22/16 06:22 Promyelocytes # 0.0 K/mm3 06/22/16 06:22 Blast Cells # 0.0 K/mm3 06/22/16 06:22 WBC Morphology Not Reportable 06/22/16 06:22 Hypersegmented Neuts Not Reportable 06/22/16 06:22 Hyposegmented Neuts Not Reportable 06/22/16 06:22 Hypogranular Neuts Not Reportable 06/22/16 06:22 Smudge Cells Not Reportable 06/22/16 06:22 Toxic Granulation Not Reportable 06/22/16 06:22 Toxic Vacuolation Not Reportable 06/22/16 06:22 Dohle Bodies Not Reportable 06/22/16 06:22 Pel[place]uet Anomaly Not Reportable 06/22/16 06:22 Mony Rods Not Reportable 06/22/16 06:22 Platelet Estimate Appears normal 06/22/16 06:22 Clumped Platelets Not Reportable 06/22/16 06:22 Plt Clumps, EDTA Not Reportable 06/22/16 06:22 Large Platelets Not Reportable 06/22/16 06:22 Giant Platelets Not Reportable 06/22/16 06:22 Platelet Satelliting Not Reportable 06/22/16 06:22 Plt Morphology Comment Not Reportable 06/22/16 06:22 RBC Morphology Not Reportable 06/22/16 06:22 Dimorphic RBCs Not Reportable 06/22/16 06:22 Polychromasia Not Reportable 06/22/16 06:22 Hypochromasia 1+ 06/22/16 06:22 Poikilocytosis Not Reportable 06/22/16 06:22 Anisocytosis 3+ 06/22/16 06:22 Microcytosis Not Reportable 06/22/16 06:22 Macrocytosis Not Reportable 06/22/16 06:22 Spherocytes Not Reportable 06/22/16 06:22 Pappenheimer Bodies Not Reportable 06/22/16 06:22 Sickle Cells Not Reportable 06/22/16 06:22 Target Cells Not Reportable 06/22/16 06:22 Tear Drop Cells Not Reportable 06/22/16 06:22 Ovalocytes Few 06/22/16 06:22 Helmet Cells Not Reportable 06/22/16 06:22 [place] Bodies Not Reportable 06/22/16 06:22 [place] Rings Not Reportable 06/22/16 06:22 [place] Cells Not Reportable 06/22/16 06:22 Bite Cells Not Reportable 06/22/16 06:22 Crenated Cell Not Reportable 06/22/16 06:22 Elliptocytes Few 06/22/16 06:22 Acanthocytes (Spur) Not Reportable 06/22/16 06:22 Rouleaux Not Reportable 06/22/16 06:22 Hemoglobin C Crystals Not Reportable 06/22/16 06:22 Schistocytes Not Reportable 06/22/16 06:22 Malaria parasites Not Reportable 06/22/16 06:22 Juan R Bodies Not Reportable 06/22/16 06:22 Hem Pathologist Commnt No 06/22/16 06:22 PT 14.4 Sec. (12.2-14.9) 06/20/16 14:11 INR 1.13 (0.87-1.13) 06/20/16 14:11 D-Dimer 958.1 ng/mlDDU (0-234) H 06/20/16 14:12 POC ABG pH 7.461 (7.35-7.45) H 06/22/16 15:53 POC ABG pCO2 29.7 (35-45) L 06/22/16 15:53 POC ABG pO2 29 (80-105) L 06/22/16 15:53 POC ABG HCO3 21.2 06/22/16 15:53 POC ABG Total CO2 22 06/22/16 15:53 POC ABG O2 Sat 60 06/22/16 15:53 POC ABG Base Excess -3 06/22/16 15:53 FiO2 21 % 06/22/16 15:53 Sodium 142 mmol/L (137-145) 06/22/16 06:22 Potassium 4.2 mmol/L (3.6-5.0) 06/22/16 06:22 Chloride 109.0 mmol/L (98-107) H 06/22/16 06:22 Carbon Dioxide 21 mmol/L (22-30) L 06/22/16 06:22 Anion Gap 16 mmol/L 06/22/16 06:22 BUN 17 mg/dL (7-17) 06/22/16 06:22 Creatinine 1.0 mg/dL (0.7-1.2) 06/22/16 06:22 Estimated GFR > 60 ml/min 06/22/16 06:22 BUN/Creatinine Ratio 17.00 % 06/22/16 06:22 Glucose 91 mg/dL (65-100) 06/22/16 06:22 POC Glucose 112 (70-105) H 06/22/16 12:52 Calcium 8.2 mg/dL (8.4-10.2) L 06/22/16 06:22 Troponin T < 0.010 ng/mL (0.00-0.029) 06/17/16 15:59 NT-Pro-B Natriuret Pep 1912 pg/mL (0-900) H 06/17/16 15:59
[2016-06-23] MEDS: COREG PO SCH ×2 (13:03→21:45)
[2016-06-23] MEDS: NORCO 5/325 PO PRN (13:09)
[2016-06-23] MEDS: RANEXA ER PO SCH ×2 (13:12→21:45)
[2016-06-23] MEDS: PROTONIX PO SCH (13:12)
[2016-06-23] MEDS: FEOSOL PO SCH ×3 (13:13→22:18)
[2016-06-23] MEDS: HALFPRIN EC PO SCH (13:13)
[2016-06-23] MEDS: DIOVAN PO SCH (13:13)
[2016-06-23] MEDS: BROVANA NEBU IH SCH ×2 (14:42→19:31)
--- NOTE | 2016-06-23 18:43 | Progress Note ---
Assessment and Plan Patient resting on venturi mask.FIO2 40% and O2 satuaration 95%.Patient admitted for hypoxic respiratory failure.Patient D dimer is high. Patient has angio ct of chest about 6 months ago which is negative.Still complaining shortness of breath. Repeating angio CT of chest again. Obtaining ABgs. Angio CT of chest not done. Reordering Angio CT of chest. - Patient Problems (1) Acute exacerbation of chronic obstructive pulmonary disease (COPD) Current Visit: Yes Status: Acute Plan to address problem: O2 FIO2 40% through venturi mask. Albuterol/atrovent aerosol treatments q 12 hours. Continue I/V solumedral. Continue S/C Heparin. Continue prednisone. (2) Respiratory failure with hypoxia Current Visit: Yes Status: Acute Qualifiers: Chronicity: acute on chronic Qualified Code(s): J96.21 - Acute and chronic respiratory failure with hypoxia Plan to address problem: O2 FIO2 40% through venturi mask. Albuterol/atrovent aerosol treatments q 12 hours. Continue I/V solumedral. Continue S/C Heparin. Continue prednisone. Obtaining ABGs Obtaining Angio CT of chest. Subjective Date of service: 06/23/16 Principal diagnosis: Acute On Chronic ypoxemic Respiratory Failure Interval history: Patient resting on venturi mask.FIO2 40% and O2 satuaration 95%.Patient admitted for hypoxic respiratory failure.Patient D dimer is high. Patient has angio ct of chest about 6 months ago which is negative.Still complaining shortness of breath. Repeating angio CT of chest again. Obtaining ABgs. Angio CT of chest not done. Reordering Angio CT of chest. Objective Vital Signs - 12hr 06/23/16 06/23/16 06/23/16 07:10 08:00 08:20 Temperature 97.7 F Pulse Rate Pulse Rate [ 88 88 Anterior Bilateral Throughout] Pulse Rate [ Left Radial] Pulse Rate [ 91 H Right Radial] Respiratory 91 H Rate Respiratory 24 22 Rate [Anterior Bilateral Throughout] Blood Pressure 115/81 [Right Radial Artery] O2 Sat by Pulse 94 Oximetry 06/23/16 06/23/16 06/23/16 08:50 09:03 13:03 Temperature 97.6 F Pulse Rate 94 H Pulse Rate [ Anterior Bilateral Throughout] Pulse Rate [ 84 Left Radial] Pulse Rate [ Right Radial] Respiratory 20 Rate Respiratory Rate [Anterior Bilateral Throughout] Blood Pressure 99/61 [Right Radial Artery] O2 Sat by Pulse 95 92 Oximetry 06/23/16 06/23/16 06/23/16 13:05 13:13 14:45 Temperature 97.8 F Pulse Rate 94 H Pulse Rate [ 90 Anterior Bilateral Throughout] Pulse Rate [ 94 H Left Radial] Pulse Rate [ Right Radial] Respiratory 18 Rate Respiratory 22 Rate [Anterior Bilateral Throughout] Blood Pressure 104/56 [Right Radial Artery] O2 Sat by Pulse 96 Oximetry 06/23/16 17:46 Temperature 98.2 F Pulse Rate Pulse Rate [ Anterior Bilateral Throughout] Pulse Rate [ 93 H Left Radial] Pulse Rate [ Right Radial] Respiratory 18 Rate Respiratory Rate [Anterior Bilateral Throughout] Blood Pressure 116/68 [Right Radial Artery] O2 Sat by Pulse 95 Oximetry Constitutional: alert, other (Still complaining shortness of breath.) Eyes: non-icteric ENT: oropharynx moist Neck: supple, no lymphadenopathy Ascultation: Bilateral: diminished breath sounds (Prolonged expiratory phase.) Cardiovascular: regular rate and rhythm Gastrointestinal: normoactive bowel sounds, soft, non-tender Integumentary: normal Extremities: no cyanosis, no edema Neurologic: normal mental status, non-focal exam, pupils equal and round, CN II- XII normal Psychiatric: mood appropriate CBC and BMP: 06/22/16 06:22 06/22/16 06:22 ABG, PT/INR, D-dimer: ABG POC ABG pH 7.461 (7.35-7.45) H 06/22/16 15:53 POC ABG pCO2 29.7 (35-45) L 06/22/16 15:53 POC ABG pO2 29 (80-105) L 06/22/16 15:53 POC ABG HCO3 21.2 06/22/16 15:53 POC ABG Total CO2 22 06/22/16 15:53 POC ABG O2 Sat 60 06/22/16 15:53 PT/INR, D-dimer PT 14.4 Sec. (12.2-14.9) 06/20/16 14:11 INR 1.13 (0.87-1.13) 06/20/16 14:11 D-Dimer 958.1 ng/mlDDU (0-234) H 06/20/16 14:12 Abnormal lab findings: Abnormal Labs 0306/20/16 06/21/16 05:34 14:12 00:31 RBC 3.33 L Hgb 8.9 L Hct 26.9 L MCH 27 L RDW 28.4 H Seg Neuts % (Manual) Lymphocytes % (Manual) Lymphocytes # (Manual) D-Dimer 958.1 H POC ABG pH POC ABG pCO2 POC ABG pO2 Chloride Carbon Dioxide 19 L BUN 18 H Glucose 143 H POC Glucose Calcium 7.2 L 06/21/16 06/21/16 06/22/16 11:39 16:19 06:22 RBC 3.13 L Hgb 8.2 L Hct 25.1 L MCH 26 L RDW 28.6 H Seg Neuts % (Manual) 88.0 H Lymphocytes % (Manual) 7.0 L Lymphocytes # (Manual) 0.6 L D-Dimer POC ABG pH POC ABG pCO2 POC ABG pO2 Chloride Carbon Dioxide BUN Glucose POC Glucose 135 H 115 H Calcium 06/22/16 06/22/16 06/22/16 06:22 12:52 15:53 RBC Hgb Hct MCH RDW Seg Neuts % (Manual) Lymphocytes % (Manual) Lymphocytes # (Manual) D-Dimer POC ABG pH 7.461 H POC ABG pCO2 29.7 L POC ABG pO2 29 L Chloride 109.0 H Carbon Dioxide 21 L BUN Glucose POC Glucose 112 H Calcium 8.2 L
[2016-06-23] MEDS: NEURONTIN PO SCH (21:45)
[2016-06-24] MEDS: DUONEB 0.5 MG-3 MG/3 ML SOLN IH SCH ×4 (06:10→21:33)
[2016-06-24] MEDS: HEPARIN SUB-Q SCH ×3 (06:27→22:50)
[2016-06-24] MEDS: PULMICORT IH SCH ×2 (08:20→21:32)
[2016-06-24] MEDS: BROVANA NEBU IH SCH ×2 (08:20→21:33)
[2016-06-24] MEDS ORDERED: NACL ONE (10:22)
--- NOTE | 2016-06-24 11:30 | Progress Note ---
Assessment and Plan Acute hypoxic respiratory failure Acute COPD exacerbation Pulmonary edema Hx of Multivessel coronary artery disease Patient deemed not a candidate for revascularization and recommended only for medical therapy. Severe deconditioning Anemia Recommendations: IV diuretics and afterload reduction. Medical therapy for coronary artery disease. Subjective Date of service: 06/24/16 Principal diagnosis: Acute On Chronic ypoxemic Respiratory Failure Interval history: Patient resting in bed comfortably. No distress noted. Objective Vital Signs Temp Pulse Pulse Pulse Pulse Resp Resp 06/24/16 09:30 98.8 F 86 18 06/24/16 08:33 99 H 20 06/24/16 08:30 06/24/16 08:20 83 20 06/24/16 08:12 06/24/16 04:10 98.3 F 75 22 06/24/16 00:20 98.0 F 89 22 06/23/16 23:35 90 20 06/23/16 23:02 84 06/23/16 21:08 97.5 F L 89 22 06/23/16 19:45 96 H 20 06/23/16 19:34 90 20 06/23/16 17:46 98.2 F 93 H 18 06/23/16 15:00 80 18 06/23/16 14:45 90 22 06/23/16 13:13 94 H 06/23/16 13:05 97.8 F 94 H 18 06/23/16 13:03 94 H BP Pulse Ox 06/24/16 09:30 100/58 92 06/24/16 08:33 06/24/16 08:30 92 06/24/16 08:20 06/24/16 08:12 95 06/24/16 04:10 110/60 93 06/24/16 00:20 101/60 93 06/23/16 23:35 93 06/23/16 23:02 06/23/16 21:08 109/57 94 06/23/16 19:45 06/23/16 19:34 91 06/23/16 17:46 116/68 95 06/23/16 15:00 06/23/16 14:45 06/23/16 13:13 06/23/16 13:05 104/56 96 06/23/16 13:03 - Physical Examination General: No Apparent Distress HEENT: Positive: PERRL Neck: Positive: neck supple Cardiac: Positive: Reg Rate and Rhythm
--- NOTE | 2016-06-24 11:36 | Progress Note ---
Assessment and Plan (1) Acute exacerbation of chronic obstructive pulmonary disease (COPD) Current Visit: Yes Status: Acute Plan to address problem: - continue supplemental oxygen and wean to keep O2 Sats >/= 92% - continue bronchodilators and pulmonary toilet - prn BIPAP (historically does not tolerate) - optimize cardiac status per cardiology (2) Chest pain Current Visit: No Status: Acute Qualifiers: Chest pain type: unspecified Qualified Code(s): R07.9 - Chest pain, unspecified Plan to address problem: - ACS w/up per cardiology - prn analgesia - prn diuresis (3) Pulmonary fibrosis Current Visit: No Status: Chronic Plan to address problem: - as above - sputum C&S - follow off AB's Subjective Date of service: 06/24/16 Principal diagnosis: Acute On Chronic ypoxemic Respiratory Failure Interval history: Seen and examined at bedside; 24 hour events reviewed; nursing and respiratory care staff consulted; no adverse overnight events reported to me; still with hypoxemia; no hemoptysis; no chest pains Objective Vital Signs - 12hr 06/24/16 06/24/16 06/24/16 00:20 04:10 08:12 Temperature 98.0 F 98.3 F Pulse Rate [ Anterior Bilateral Throughout] Pulse Rate [ Left Radial] Pulse Rate [ 89 75 Right Radial] Respiratory 22 22 Rate Respiratory Rate [Anterior Bilateral Throughout] Blood Pressure 101/60 110/60 [Right Radial Artery] O2 Sat by Pulse 93 93 95 Oximetry 06/24/16 06/24/16 06/24/16 08:20 08:30 08:33 Temperature Pulse Rate [ 83 99 H Anterior Bilateral Throughout] Pulse Rate [ Left Radial] Pulse Rate [ Right Radial] Respiratory Rate Respiratory 20 20 Rate [Anterior Bilateral Throughout] Blood Pressure [Right Radial Artery] O2 Sat by Pulse 92 Oximetry 06/24/16 09:30 Temperature 98.8 F Pulse Rate [ Anterior Bilateral Throughout] Pulse Rate [ 86 Left Radial] Pulse Rate [ Right Radial] Respiratory 18 Rate Respiratory Rate [Anterior Bilateral Throughout] Blood Pressure 100/58 [Right Radial Artery] O2 Sat by Pulse 92 Oximetry Constitutional: alert, other (Still complaining shortness of breath.) Eyes: non-icteric ENT: oropharynx moist Neck: supple, no lymphadenopathy Effort: mildly labored Ascultation: Bilateral: diminished breath sounds (Prolonged expiratory phase.), rales Cardiovascular: regular rate and rhythm Gastrointestinal: normoactive bowel sounds, soft, non-tender, non-distended Integumentary: normal Extremities: no cyanosis, no edema, pulses normal, no ischemia or petechiae Neurologic: normal mental status, non-focal exam, pupils equal and round, CN II- XII normal Psychiatric: mood appropriate, affect normal CBC and BMP: 07/01/16 07:10 06/30/16 07:29 ABG, PT/INR, D-dimer: ABG POC ABG pH 7.461 (7.35-7.45) H 06/22/16 15:53 POC ABG pCO2 29.7 (35-45) L 06/22/16 15:53 POC ABG pO2 29 (80-105) L 06/22/16 15:53 POC ABG HCO3 21.2 06/22/16 15:53 POC ABG Total CO2 22 06/22/16 15:53 POC ABG O2 Sat 60 06/22/16 15:53 PT/INR, D-dimer PT 14.4 Sec. (12.2-14.9) 06/20/16 14:11 INR 1.13 (0.87-1.13) 06/20/16 14:11 D-Dimer 958.1 ng/mlDDU (0-234) H 06/20/16 14:12 Abnormal lab findings: Abnormal Labs 06/18/16 06/20/16 06/21/16 05:34 14:12 00:31 RBC 3.33 L Hgb 8.9 L Hct 26.9 L MCH 27 L RDW 28.4 H Seg Neuts % (Manual) Lymphocytes % (Manual) Lymphocytes # (Manual) D-Dimer 958.1 H POC ABG pH POC ABG pCO2 POC ABG pO2 Chloride Carbon Dioxide 19 L BUN 18 H Glucose 143 H POC Glucose Calcium 7.2 L 06/21/16 06/21/16 06/22/16 11:39 16:19 06:22 RBC 3.13 L Hgb 8.2 L Hct 25.1 L MCH 26 L RDW 28.6 H Seg Neuts % (Manual) 88.0 H Lymphocytes % (Manual) 7.0 L Lymphocytes # (Manual) 0.6 L D-Dimer POC ABG pH POC ABG pCO2 POC ABG pO2 Chloride Carbon Dioxide BUN Glucose POC Glucose 135 H 115 H Calcium 06/22/16 06/22/16 06/22/16 06:22 12:52 15:53 RBC Hgb Hct MCH RDW Seg Neuts % (Manual) Lymphocytes % (Manual) Lymphocytes # (Manual) D-Dimer POC ABG pH 7.461 H POC ABG pCO2 29.7 L POC ABG pO2 29 L Chloride 109.0 H Carbon Dioxide 21 L BUN Glucose POC Glucose 112 H Calcium 8.2 L
--- NOTE | 2016-06-24 12:18 | Cat Scan Report ---
CT angiography of the chest with 3-D reconstructed images. Findings: There is no evidence of pulmonary emboli. A large hiatal hernia is present. Severe emphysematous changes and honeycomb interstitial pattern are again noted. There is a mixed infiltrate in the left upper lobe, primarily in the apicoposterior segment. Patchy airspace disease is also seen in the left lower lobe posteriorly. There is no pleural fluid. Impression: 1. No evidence of pulmonary emboli. 2. Superimposed on chronic interstitial lung disease are mixed infiltrates in both the left upper and lower lobes. 3. Large lateral hernia
[2016-06-24] MEDS: RANEXA ER PO SCH ×2 (12:41→22:51)
[2016-06-24] MEDS: PROTONIX PO SCH (12:41)
[2016-06-24] MEDS: COREG PO SCH ×2 (12:41→22:51)
[2016-06-24] MEDS: DIOVAN PO SCH ×2 (12:42→19:07)
[2016-06-24] MEDS: FEOSOL PO SCH ×3 (12:43→22:51)
[2016-06-24] MEDS: HALFPRIN EC PO SCH (12:43)
[2016-06-24] MEDS: NEURONTIN PO SCH (22:51)
[2016-06-25] MEDS: DUONEB 0.5 MG-3 MG/3 ML SOLN IH SCH ×4 (01:50→20:53)
--- NOTE | 2016-06-25 02:31 | Progress Note ---
Assessment and Plan Assessment and plan: Acute on chronic respiratory failure due to COPD exacerbation. She is still on high amount of oxygen. O2 sat 92 % on 50% vm that is 15l/min. For LTAC placement COPD exacerbation. On solumedrol, Duoneb, supplemental Oxygen Coronary artery disease. On Aspirin, Coreg, Diovan, Ranexa. 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 On Coreg, Diovan Hypertension. BP stable. Hyperlipidemia , on Lipitor. DVT prophylaxis.Heparin subcut Full code status Disposition. To go to LTAC when arrangements done. History Interval history: still shortness of breath, no chest pain Hospitalist Physical - Physical exam Narrative exam: Gen: not in acute distress, ventimask on HEENT: normocephalic,atraumatic Neck :supple, no JVD Lungs: Decreased breath sounds,few rhonchi bilaterally Heart: S1 and S2 regular, no murmurs no gallops, Abdomen: soft nontender, nondistended, normal bowel sounds Extremities: no edema, no clubbing or cyanosis Neuro: Awake alert oriented x 3, non focal Psych: Normal mood - Constitutional Vitals: Temp Pulse Resp BP Pulse Ox 98.2 F 93 H 20 101/65 95 06/25/16 01:02 06/25/16 01:58 06/25/16 01:58 06/25/16 01:02 06/25/16 01:02 General appearance: Present: no acute distress Results - Labs CBC & Chem 7: 06/22/16 06:22 06/22/16 06:22 Labs: Laboratory Last Values WBC 8.6 K/mm3 (4.5-11.0) 06/22/16 06:22 RBC 3.13 M/mm3 (3.65-5.03) L 06/22/16 06:22 Hgb 8.2 gm/dl (10.1-14.3) L 06/22/16 06:22 Hct 25.1 % (30.3-42.9) L 06/22/16 06:22 MCV 80 fl (79-97) 06/22/16 06:22 MCH 26 pg (28-32) L 06/22/16 06:22 MCHC 33 % (30-34) 06/22/16 06:22 RDW 28.6 % (13.2-15.2) H 06/22/16 06:22 Plt Count 279 K/mm3 (140-440) 06/22/16 06:22 Add Manual Diff Complete 06/22/16 06:22 Total Counted 100 06/22/16 06:22 Seg Neuts % (Manual) 88.0 % (40.0-70.0) H 06/22/16 06:22 Band Neutrophils % 0 % 06/22/16 06:22 Lymphocytes % (Manual) 7.0 % (13.4-35.0) L 06/22/16 06:22 Reactive Lymphs % (Man) 0 % 06/22/16 06:22 Monocytes % (Manual) 4.0 % (0.0-7.3) 06/22/16 06:22 Eosinophils % (Manual) 1.0 % (0.0-4.3) 06/22/16 06:22 Basophils % (Manual) 0 % (0.0-1.8) 06/22/16 06:22 Metamyelocytes % 0 % 06/22/16 06:22 Myelocytes % 0 % 06/22/16 06:22 Promyelocytes % 0 % 06/22/16 06:22 Blast Cells % 0 % 06/22/16 06:22 Nucleated RBC % Not Reportable 06/22/16 06:22 Seg Neutrophils # Man 7.6 K/mm3 (1.8-7.7) 06/22/16 06:22 Band Neutrophils # 0.0 K/mm3 06/22/16 06:22 Lymphocytes # (Manual) 0.6 K/mm3 (1.2-5.4) L 06/22/16 06:22 Abs React Lymphs (Man) 0.0 K/mm3 06/22/16 06:22 Monocytes # (Manual) 0.3 K/mm3 (0.0-0.8) 06/22/16 06:22 Eosinophils # (Manual) 0.1 K/mm3 (0.0-0.4) 06/22/16 06:22 Basophils # (Manual) 0.0 K/mm3 (0.0-0.1) 06/22/16 06:22 Metamyelocytes # 0.0 K/mm3 06/22/16 06:22 Myelocytes # 0.0 K/mm3 06/22/16 06:22 Promyelocytes # 0.0 K/mm3 06/22/16 06:22 Blast Cells # 0.0 K/mm3 06/22/16 06:22 WBC Morphology Not Reportable 06/22/16 06:22 Hypersegmented Neuts Not Reportable 06/22/16 06:22 Hyposegmented Neuts Not Reportable 06/22/16 06:22 Hypogranular Neuts Not Reportable 06/22/16 06:22 Smudge Cells Not Reportable 06/22/16 06:22 Toxic Granulation Not Reportable 06/22/16 06:22 Toxic Vacuolation Not Reportable 06/22/16 06:22 Dohle Bodies Not Reportable 06/22/16 06:22 Pelger-Huet Anomaly Not Reportable 06/22/16 06:22 Mony Rods Not Reportable 06/22/16 06:22 Platelet Estimate Appears normal 06/22/16 06:22 Clumped Platelets Not Reportable 06/22/16 06:22 Plt Clumps, EDTA Not Reportable 06/22/16 06:22 Large Platelets Not Reportable 06/22/16 06:22 Giant Platelets Not Reportable 06/22/16 06:22 Platelet Satelliting Not Reportable 06/22/16 06:22 Plt Morphology Comment Not Reportable 06/22/16 06:22 RBC Morphology Not Reportable 06/22/16 06:22 Dimorphic RBCs Not Reportable 06/22/16 06:22 Polychromasia Not Reportable 06/22/16 06:22 Hypochromasia 1+ 06/22/16 06:22 Poikilocytosis Not Reportable 06/22/16 06:22 Anisocytosis 3+ 06/22/16 06:22 Microcytosis Not Reportable 06/22/16 06:22 Macrocytosis Not Reportable 06/22/16 06:22 Spherocytes Not Reportable 06/22/16 06:22 Pappenheimer Bodies Not Reportable 06/22/16 06:22 Sickle Cells Not Reportable 06/22/16 06:22 Target Cells Not Reportable 06/22/16 06:22 Tear Drop Cells Not Reportable 06/22/16 06:22 Ovalocytes Few 06/22/16 06:22 Helmet Cells Not Reportable 06/22/16 06:22 [place] Bodies Not Reportable 06/22/16 06:22 [place] Rings Not Reportable 06/22/16 06:22 [place] Cells Not Reportable 06/22/16 06:22 Bite Cells Not Reportable 06/22/16 06:22 Crenated Cell Not Reportable 06/22/16 06:22 Elliptocytes Few 06/22/16 06:22 Acanthocytes (Spur) Not Reportable 06/22/16 06:22 Rouleaux Not Reportable 06/22/16 06:22 Hemoglobin C Crystals Not Reportable 06/22/16 06:22 Schistocytes Not Reportable 06/22/16 06:22 Malaria parasites Not Reportable 06/22/16 06:22 Juan R Bodies Not Reportable 06/22/16 06:22 Hem Pathologist Commnt No 06/22/16 06:22 PT 14.4 Sec. (12.2-14.9) 06/20/16 14:11 INR 1.13 (0.87-1.13) 06/20/16 14:11 D-Dimer 958.1 ng/mlDDU (0-234) H 06/20/16 14:12 POC ABG pH 7.461 (7.35-7.45) H 06/22/16 15:53 POC ABG pCO2 29.7 (35-45) L 06/22/16 15:53 POC ABG pO2 29 (80-105) L 06/22/16 15:53 POC ABG HCO3 21.2 06/22/16 15:53 POC ABG Total CO2 22 06/22/16 15:53 POC ABG O2 Sat 60 06/22/16 15:53 POC ABG Base Excess -3 06/22/16 15:53 FiO2 21 % 06/22/16 15:53 Sodium 142 mmol/L (137-145) 06/22/16 06:22 Potassium 4.2 mmol/L (3.6-5.0) 06/22/16 06:22 Chloride 109.0 mmol/L (98-107) H 06/22/16 06:22 Carbon Dioxide 21 mmol/L (22-30) L 06/22/16 06:22 Anion Gap 16 mmol/L 06/22/16 06:22 BUN 17 mg/dL (7-17) 06/22/16 06:22 Creatinine 1.0 mg/dL (0.7-1.2) 06/22/16 06:22 Estimated GFR > 60 ml/min 06/22/16 06:22 BUN/Creatinine Ratio 17.00 % 06/22/16 06:22 Glucose 91 mg/dL (65-100) 06/22/16 06:22 POC Glucose 112 (70-105) H 06/22/16 12:52 Calcium 8.2 mg/dL (8.4-10.2) L 06/22/16 06:22 Troponin T < 0.010 ng/mL (0.00-0.029) 06/17/16 15:59 NT-Pro-B Natriuret Pep 1912 pg/mL (0-900) H 06/17/16 15:59
[2016-06-25] MEDS: HEPARIN SUB-Q SCH ×3 (05:33→21:05)
[2016-06-25] MEDS: BROVANA NEBU IH SCH ×2 (08:12→20:52)
[2016-06-25] MEDS: PULMICORT IH SCH ×2 (08:12→20:52)
--- NOTE | 2016-06-25 10:20 | Progress Note ---
Assessment and Plan Acute hypoxic respiratory failure Acute COPD exacerbation Hx of Multivessel coronary artery disease Patient deemed not a candidate for revascularization and recommended only for medical therapy. Severe deconditioning Anemia Recommendations: Medical therapy for coronary artery disease. Subjective Date of service: 06/25/16 Principal diagnosis: Acute On Chronic ypoxemic Respiratory Failure Interval history: Patient resting in bed comfortably. Venturi mask in place. No distress noted. Patient denies chest pain. Objective Vital Signs Temp Pulse Pulse Pulse Pulse Pulse Resp 06/25/16 08:33 94 H 06/25/16 08:08 88 06/25/16 08:00 98.4 F 57 L 20 06/25/16 05:41 98.6 F 94 H 19 06/25/16 01:58 93 H 06/25/16 01:49 86 06/25/16 01:02 98.2 F 91 H 18 06/24/16 22:57 114 H 21 06/24/16 21:40 114 H 06/24/16 21:20 110 H 06/24/16 20:00 99.6 F 96 H 18 06/24/16 18:01 98.2 F 101 H 18 06/24/16 14:42 98 H 06/24/16 14:32 94 H 06/24/16 13:10 98.6 F 88 18 06/24/16 12:41 88 06/24/16 11:00 101 H Resp BP BP Pulse Ox 06/25/16 08:33 22 06/25/16 08:08 24 88 06/25/16 08:00 121/52 93 06/25/16 05:41 127/63 89 06/25/16 01:58 20 06/25/16 01:49 22 06/25/16 01:02 101/65 95 06/24/16 22:57 94 06/24/16 21:40 24 06/24/16 21:20 22 06/24/16 20:00 112/62 90 06/24/16 18:01 110/62 91 06/24/16 14:42 20 06/24/16 14:32 18 06/24/16 13:10 118/62 98 06/24/16 12:41 118/62 06/24/16 11:00 - Physical Examination General: No Apparent Distress HEENT: Positive: PERRL Neck: Positive: neck supple Cardiac: Positive: Reg Rate and Rhythm Lungs: Positive: Decreased Breath Sounds Extremities: Absent: edema
[2016-06-25] MEDS: RANEXA ER PO SCH ×2 (11:04→21:04)
[2016-06-25] MEDS: HALFPRIN EC PO SCH (11:05)
[2016-06-25] MEDS: DIOVAN PO SCH (11:05)
[2016-06-25] MEDS: COREG PO SCH ×2 (11:06→21:04)
[2016-06-25] MEDS: FEOSOL PO SCH ×3 (11:06→20:54)
[2016-06-25] MEDS: PROTONIX PO SCH (11:06)
--- NOTE | 2016-06-25 14:03 | Progress Note ---
Assessment and Plan Assessment and plan: Acute on chronic respiratory failure due to COPD exacerbation. She is still on high amount of oxygen. O2 sat 88 % on 50% vm that is 15l/min. For LTAC placement COPD exacerbation. On solumedrol, Duoneb, supplemental Oxygen Coronary artery disease. On Aspirin, Coreg, Diovan, Ranexa. 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 On Coreg, Diovan Hypertension. BP stable. Hyperlipidemia , on Lipitor. DVT prophylaxis.Heparin subcut Full code status Disposition. To go to LTAC when arrangements done. History Interval history: still shortness of breath, no chest pain, no fever Hospitalist Physical - Physical exam Narrative exam: Gen: not in acute distress, ventimask on HEENT: normocephalic,atraumatic Neck :supple, no JVD Lungs: Decreased breath sounds, rhonchi bilaterally Heart: S1 and S2 regular, no murmurs no gallops, Abdomen: soft nontender, nondistended, normal bowel sounds Extremities: no edema, no clubbing or cyanosis Neuro: Awake alert oriented x 3, non focal Psych: Normal mood - Constitutional Vitals: Temp Pulse Resp BP Pulse Ox 98.5 F 97 H 20 107/57 92 06/25/16 12:00 06/25/16 12:00 06/25/16 12:00 06/25/16 12:00 06/25/16 12:00 General appearance: Present: no acute distress Results - Labs CBC & Chem 7: 06/22/16 06:22 06/22/16 06:22 Labs: Laboratory Last Values WBC 8.6 K/mm3 (4.5-11.0) 06/22/16 06:22 RBC 3.13 M/mm3 (3.65-5.03) L 06/22/16 06:22 Hgb 8.2 gm/dl (10.1-14.3) L 06/22/16 06:22 Hct 25.1 % (30.3-42.9) L 06/22/16 06:22 MCV 80 fl (79-97) 06/22/16 06:22 MCH 26 pg (28-32) L 06/22/16 06:22 MCHC 33 % (30-34) 06/22/16 06:22 RDW 28.6 % (13.2-15.2) H 06/22/16 06:22 Plt Count 279 K/mm3 (140-440) 06/22/16 06:22 Add Manual Diff Complete 06/22/16 06:22 Total Counted 100 06/22/16 06:22 Seg Neuts % (Manual) 88.0 % (40.0-70.0) H 06/22/16 06:22 Band Neutrophils % 0 % 06/22/16 06:22 Lymphocytes % (Manual) 7.0 % (13.4-35.0) L 06/22/16 06:22 Reactive Lymphs % (Man) 0 % 06/22/16 06:22 Monocytes % (Manual) 4.0 % (0.0-7.3) 06/22/16 06:22 Eosinophils % (Manual) 1.0 % (0.0-4.3) 06/22/16 06:22 Basophils % (Manual) 0 % (0.0-1.8) 06/22/16 06:22 Metamyelocytes % 0 % 06/22/16 06:22 Myelocytes % 0 % 06/22/16 06:22 Promyelocytes % 0 % 06/22/16 06:22 Blast Cells % 0 % 06/22/16 06:22 Nucleated RBC % Not Reportable 06/22/16 06:22 Seg Neutrophils # Man 7.6 K/mm3 (1.8-7.7) 06/22/16 06:22 Band Neutrophils # 0.0 K/mm3 06/22/16 06:22 Lymphocytes # (Manual) 0.6 K/mm3 (1.2-5.4) L 06/22/16 06:22 Abs React Lymphs (Man) 0.0 K/mm3 06/22/16 06:22 Monocytes # (Manual) 0.3 K/mm3 (0.0-0.8) 06/22/16 06:22 Eosinophils # (Manual) 0.1 K/mm3 (0.0-0.4) 06/22/16 06:22 Basophils # (Manual) 0.0 K/mm3 (0.0-0.1) 06/22/16 06:22 Metamyelocytes # 0.0 K/mm3 06/22/16 06:22 Myelocytes # 0.0 K/mm3 06/22/16 06:22 Promyelocytes # 0.0 K/mm3 06/22/16 06:22 Blast Cells # 0.0 K/mm3 06/22/16 06:22 WBC Morphology Not Reportable 06/22/16 06:22 Hypersegmented Neuts Not Reportable 06/22/16 06:22 Hyposegmented Neuts Not Reportable 06/22/16 06:22 Hypogranular Neuts Not Reportable 06/22/16 06:22 Smudge Cells Not Reportable 06/22/16 06:22 Toxic Granulation Not Reportable 06/22/16 06:22 Toxic Vacuolation Not Reportable 06/22/16 06:22 Dohle Bodies Not Reportable 06/22/16 06:22 Pelger-Huet Anomaly Not Reportable 06/22/16 06:22 Mony Rods Not Reportable 06/22/16 06:22 Platelet Estimate Appears normal 06/22/16 06:22 Clumped Platelets Not Reportable 06/22/16 06:22 Plt Clumps, EDTA Not Reportable 06/22/16 06:22 Large Platelets Not Reportable 06/22/16 06:22 Giant Platelets Not Reportable 06/22/16 06:22 Platelet Satelliting Not Reportable 06/22/16 06:22 Plt Morphology Comment Not Reportable 06/22/16 06:22 RBC Morphology Not Reportable 06/22/16 06:22 Dimorphic RBCs Not Reportable 06/22/16 06:22 Polychromasia Not Reportable 06/22/16 06:22 Hypochromasia 1+ 06/22/16 06:22 Poikilocytosis Not Reportable 06/22/16 06:22 Anisocytosis 3+ 06/22/16 06:22 Microcytosis Not Reportable 06/22/16 06:22 Macrocytosis Not Reportable 06/22/16 06:22 Spherocytes Not Reportable 06/22/16 06:22 Pappenheimer Bodies Not Reportable 06/22/16 06:22 Sickle Cells Not Reportable 06/22/16 06:22 Target Cells Not Reportable 06/22/16 06:22 Tear Drop Cells Not Reportable 06/22/16 06:22 Ovalocytes Few 06/22/16 06:22 Helmet Cells Not Reportable 06/22/16 06:22 [place] Bodies Not Reportable 06/22/16 06:22 [place] Rings Not Reportable 06/22/16 06:22 [place] Cells Not Reportable 06/22/16 06:22 Bite Cells Not Reportable 06/22/16 06:22 Crenated Cell Not Reportable 06/22/16 06:22 Elliptocytes Few 06/22/16 06:22 Acanthocytes (Spur) Not Reportable 06/22/16 06:22 Rouleaux Not Reportable 06/22/16 06:22 Hemoglobin C Crystals Not Reportable 06/22/16 06:22 Schistocytes Not Reportable 06/22/16 06:22 Malaria parasites Not Reportable 06/22/16 06:22 Juan R Bodies Not Reportable 06/22/16 06:22 Hem Pathologist Commnt No 06/22/16 06:22 PT 14.4 Sec. (12.2-14.9) 06/20/16 14:11 INR 1.13 (0.87-1.13) 06/20/16 14:11 D-Dimer 958.1 ng/mlDDU (0-234) H 06/20/16 14:12 POC ABG pH 7.461 (7.35-7.45) H 06/22/16 15:53 POC ABG pCO2 29.7 (35-45) L 06/22/16 15:53 POC ABG pO2 29 (80-105) L 06/22/16 15:53 POC ABG HCO3 21.2 06/22/16 15:53 POC ABG Total CO2 22 06/22/16 15:53 POC ABG O2 Sat 60 06/22/16 15:53 POC ABG Base Excess -3 06/22/16 15:53 FiO2 21 % 06/22/16 15:53 Sodium 142 mmol/L (137-145) 06/22/16 06:22 Potassium 4.2 mmol/L (3.6-5.0) 06/22/16 06:22 Chloride 109.0 mmol/L (98-107) H 06/22/16 06:22 Carbon Dioxide 21 mmol/L (22-30) L 06/22/16 06:22 Anion Gap 16 mmol/L 06/22/16 06:22 BUN 17 mg/dL (7-17) 06/22/16 06:22 Creatinine 1.0 mg/dL (0.7-1.2) 06/22/16 06:22 Estimated GFR > 60 ml/min 06/22/16 06:22 BUN/Creatinine Ratio 17.00 % 06/22/16 06:22 Glucose 91 mg/dL (65-100) 06/22/16 06:22 POC Glucose 112 (70-105) H 06/22/16 12:52 Calcium 8.2 mg/dL (8.4-10.2) L 06/22/16 06:22 Troponin T < 0.010 ng/mL (0.00-0.029) 06/17/16 15:59 NT-Pro-B Natriuret Pep 1912 pg/mL (0-900) H 06/17/16 15:59
[2016-06-25] MEDS: NEURONTIN PO SCH (21:04)
[2016-06-26] MEDS: DUONEB 0.5 MG-3 MG/3 ML SOLN IH SCH ×4 (01:25→20:11)
[2016-06-26] MEDS: HEPARIN SUB-Q SCH ×3 (06:10→22:48)
[2016-06-26] MEDS: NACL 0.9% 1000 ML 1,000 ML IV SCH (06:43)
[2016-06-26] MEDS: PULMICORT IH SCH ×2 (07:41→20:09)
[2016-06-26] MEDS: BROVANA NEBU IH SCH ×2 (07:42→20:18)
--- NOTE | 2016-06-26 10:47 | Discharge Summary ---
Providers - Providers Date of Admission: 06/17/16 20:13 Date of discharge: 06/26/16 Attending physician: SILVANA LAWSON 06/22/16 16:17 Consult to Physician [CONS] Routine Consulting Provider: DONNA BARBA Reason For Exam: chronic CHF Place consult to:: Dr. 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 Hospitalization Condition: Fair Disposition: DISCHARGED TO HOME OR SELFCARE - Discharge Diagnoses (1) Acute exacerbation of chronic obstructive pulmonary disease (COPD) Status: Acute (2) Acute and chronic respiratory failure ([id number]) Status: Acute Qualifiers: Respiratory failure complication: hypoxia and hypercapnia Qualified Code(s) : J96.21 - Acute and chronic respiratory failure with hypoxia Exam - Constitutional Vitals: Temp Pulse Resp BP Pulse Ox 97.5 F L 76 20 127/63 92 06/26/16 08:45 06/26/16 08:45 06/26/16 08:45 06/26/16 08:45 06/26/16 08:45 Plan Activity: advance as tolerated Diet: low fat, low cholesterol, low salt Additional Instructions: 1. Follow up with: PRIMARY CARE, [Primary Care Provider] - 3-5 Days Prescriptions: ALPRAZolam [Xanax TAB] 0.25 mg PO Q8H PRN #10 tablet PRN Reason: Anxiety AtorvaSTATin [Lipitor] 40 mg PO QHS #30 tablet Carvedilol [Coreg] 3.125 mg PO BID #60 tablet
[2016-06-26] MEDS: DIOVAN PO SCH (11:00)
[2016-06-26] MEDS: COREG PO SCH ×2 (11:00→22:48)
[2016-06-26] MEDS: PROTONIX PO SCH (11:01)
[2016-06-26] MEDS: RANEXA ER PO SCH ×2 (11:01→22:48)
[2016-06-26] MEDS: FEOSOL PO SCH ×3 (11:01→20:47)
[2016-06-26] MEDS: HALFPRIN EC PO SCH (11:01)
--- NOTE | 2016-06-26 12:59 | Progress Note ---
Assessment and Plan - Patient Problems (1) Coronary artery disease Current Visit: No Status: Chronic Qualifiers: Coronary Disease-Associated Artery/Lesion type: unspecified vessel or lesion type [place] vs. transplanted heart: N Associated angina: A Plan to address problem: Patient has inoperable three-vessel disease and ischemic cardiomyopathy. We'll continue aggressive risk factor modification and medical therapy. Subjective Date of service: 06/26/16 Principal diagnosis: Acute On Chronic ypoxemic Respiratory Failure Interval history: Patient has mild shortness of breath bedrest, currently receiving bronchodilator treatment. No chest pain, no palpitations and no edema. Objective Vital Signs Temp Pulse Pulse Pulse Pulse Resp Resp 06/26/16 11:00 68 06/26/16 08:45 97.5 F L 76 20 06/26/16 07:52 72 20 06/26/16 07:42 74 18 06/26/16 04:59 98 F 83 20 06/26/16 01:34 711 H 71 25 H 25 H 06/26/16 01:20 78 20 06/26/16 00:33 98.2 F 83 18 06/25/16 22:00 20 06/25/16 21:06 90 25 H 06/25/16 21:04 91 H 06/25/16 20:53 99 H 25 H 06/25/16 20:16 97.8 F 91 H 18 06/25/16 16:00 97.3 F L 90 20 BP BP Pulse Ox 06/26/16 11:00 128/74 06/26/16 08:45 127/63 92 06/26/16 07:52 06/26/16 07:42 95 06/26/16 04:59 134/72 98 06/26/16 01:34 91 06/26/16 01:20 06/26/16 00:33 117/64 92 06/25/16 22:00 06/25/16 21:06 06/25/16 21:04 109/61 97 06/25/16 20:53 06/25/16 20:16 109/60 95 06/25/16 16:00 99/57 - Physical Examination General: No Apparent Distress HEENT: Positive: PERRL Neck: Positive: neck supple Cardiac: Positive: Irregularly Regular Lungs: Positive: Decreased Breath Sounds Neuro: Positive: Grossly Intact Abdomen: Positive: Soft Skin: Positive: Clear Extremities: Absent: edema
--- NOTE | 2016-06-26 13:03 | Progress Note ---
Assessment and Plan Assessment and plan: Acute on chronic respiratory failure due to COPD exacerbation. She is still on high amount of oxygen. O2 sat 88 % on 50% vm that is 15l/min. For LTAC placement. COPD exacerbation. On solumedrol, Duoneb, supplemental Oxygen Coronary artery disease. On Aspirin, Coreg, Diovan, Ranexa. 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 On Coreg, Diovan Hypertension. BP stable. Hyperlipidemia , on Lipitor. DVT prophylaxis.Heparin subcut Full code status Disposition. To go to LTAC when arrangements done. - Patient Problems (1) Acute exacerbation of chronic obstructive pulmonary disease (COPD) Current Visit: Yes Status: Acute (2) Acute and chronic respiratory failure ([id number]) Current Visit: No Status: Acute Qualifiers: Respiratory failure complication: hypoxia and hypercapnia Qualified Code(s) : J96.21 - Acute and chronic respiratory failure with hypoxia; J96.22 - Acute and chronic respiratory failure with hypercapnia History Interval history: still shortness of breath, no chest pain, Hospitalist Physical - Physical exam Narrative exam: Gen: not in acute distress, obese, ventimask on HEENT: normocephalic,atraumatic Neck :supple, no JVD Lungs: Decreased breath sounds, rhonchi bilaterally Heart: S1 and S2 regular, no murmurs no gallops, Abdomen: soft non-tender, nond-istended, normal bowel sounds Extremities: no edema, no clubbing or cyanosis Neuro: Awake alert oriented x 3, non focal Psych: Normal mood - Constitutional Vitals: Temp Pulse Resp BP Pulse Ox 97.5 F L 68 20 128/74 92 06/26/16 08:45 06/26/16 11:00 06/26/16 08:45 06/26/16 11:00 06/26/16 08:45 General appearance: Present: no acute distress Results - Labs CBC & Chem 7: 06/28/16 06:40 06/28/16 06:40 Labs: Laboratory Last Values WBC 8.6 K/mm3 (4.5-11.0) 06/22/16 06:22 RBC 3.13 M/mm3 (3.65-5.03) L 06/22/16 06:22 Hgb 8.2 gm/dl (10.1-14.3) L 06/22/16 06:22 Hct 25.1 % (30.3-42.9) L 06/22/16 06:22 MCV 80 fl (79-97) 06/22/16 06:22 MCH 26 pg (28-32) L 06/22/16 06:22 MCHC 33 % (30-34) 06/22/16 06:22 RDW 28.6 % (13.2-15.2) H 06/22/16 06:22 Plt Count 279 K/mm3 (140-440) 06/22/16 06:22 Add Manual Diff Complete 06/22/16 06:22 Total Counted 100 06/22/16 06:22 Seg Neuts % (Manual) 88.0 % (40.0-70.0) H 06/22/16 06:22 Band Neutrophils % 0 % 06/22/16 06:22 Lymphocytes % (Manual) 7.0 % (13.4-35.0) L 06/22/16 06:22 Reactive Lymphs % (Man) 0 % 06/22/16 06:22 Monocytes % (Manual) 4.0 % (0.0-7.3) 06/22/16 06:22 Eosinophils % (Manual) 1.0 % (0.0-4.3) 06/22/16 06:22 Basophils % (Manual) 0 % (0.0-1.8) 06/22/16 06:22 Metamyelocytes % 0 % 06/22/16 06:22 Myelocytes % 0 % 06/22/16 06:22 Promyelocytes % 0 % 06/22/16 06:22 Blast Cells % 0 % 06/22/16 06:22 Nucleated RBC % Not Reportable 06/22/16 06:22 Seg Neutrophils # Man 7.6 K/mm3 (1.8-7.7) 06/22/16 06:22 Band Neutrophils # 0.0 K/mm3 06/22/16 06:22 Lymphocytes # (Manual) 0.6 K/mm3 (1.2-5.4) L 06/22/16 06:22 Abs React Lymphs (Man) 0.0 K/mm3 06/22/16 06:22 Monocytes # (Manual) 0.3 K/mm3 (0.0-0.8) 06/22/16 06:22 Eosinophils # (Manual) 0.1 K/mm3 (0.0-0.4) 06/22/16 06:22 Basophils # (Manual) 0.0 K/mm3 (0.0-0.1) 06/22/16 06:22 Metamyelocytes # 0.0 K/mm3 06/22/16 06:22 Myelocytes # 0.0 K/mm3 06/22/16 06:22 Promyelocytes # 0.0 K/mm3 06/22/16 06:22 Blast Cells # 0.0 K/mm3 06/22/16 06:22 WBC Morphology Not Reportable 06/22/16 06:22 Hypersegmented Neuts Not Reportable 06/22/16 06:22 Hyposegmented Neuts Not Reportable 06/22/16 06:22 Hypogranular Neuts Not Reportable 06/22/16 06:22 Smudge Cells Not Reportable 06/22/16 06:22 Toxic Granulation Not Reportable 06/22/16 06:22 Toxic Vacuolation Not Reportable 06/22/16 06:22 Dohle Bodies Not Reportable 06/22/16 06:22 Pelger-Huet Anomaly Not Reportable 06/22/16 06:22 Mony Rods Not Reportable 06/22/16 06:22 Platelet Estimate Appears normal 06/22/16 06:22 Clumped Platelets Not Reportable 06/22/16 06:22 Plt Clumps, EDTA Not Reportable 06/22/16 06:22 Large Platelets Not Reportable 06/22/16 06:22 Giant Platelets Not Reportable 06/22/16 06:22 Platelet Satelliting Not Reportable 06/22/16 06:22 Plt Morphology Comment Not Reportable 06/22/16 06:22 RBC Morphology Not Reportable 06/22/16 06:22 Dimorphic RBCs Not Reportable 06/22/16 06:22 Polychromasia Not Reportable 06/22/16 06:22 Hypochromasia 1+ 06/22/16 06:22 Poikilocytosis Not Reportable 06/22/16 06:22 Anisocytosis 3+ 06/22/16 06:22 Microcytosis Not Reportable 06/22/16 06:22 Macrocytosis Not Reportable 06/22/16 06:22 Spherocytes Not Reportable 06/22/16 06:22 Pappenheimer Bodies Not Reportable 06/22/16 06:22 Sickle Cells Not Reportable 06/22/16 06:22 Target Cells Not Reportable 06/22/16 06:22 Tear Drop Cells Not Reportable 06/22/16 06:22 Ovalocytes Few 06/22/16 06:22 Helmet Cells Not Reportable 06/22/16 06:22 Serna-[place] Bodies Not Reportable 06/22/16 06:22 [place] Rings Not Reportable 06/22/16 06:22 [place] Cells Not Reportable 06/22/16 06:22 Bite Cells Not Reportable 06/22/16 06:22 Crenated Cell Not Reportable 06/22/16 06:22 Elliptocytes Few 06/22/16 06:22 Acanthocytes (Spur) Not Reportable 06/22/16 06:22 Rouleaux Not Reportable 06/22/16 06:22 Hemoglobin C Crystals Not Reportable 06/22/16 06:22 Schistocytes Not Reportable 06/22/16 06:22 Malaria parasites Not Reportable 06/22/16 06:22 Juan R Bodies Not Reportable 06/22/16 06:22 Hem Pathologist Commnt No 06/22/16 06:22 PT 14.4 Sec. (12.2-14.9) 06/20/16 14:11 INR 1.13 (0.87-1.13) 06/20/16 14:11 D-Dimer 958.1 ng/mlDDU (0-234) H 06/20/16 14:12 POC ABG pH 7.461 (7.35-7.45) H 06/22/16 15:53 POC ABG pCO2 29.7 (35-45) L 06/22/16 15:53 POC ABG pO2 29 (80-105) L 06/22/16 15:53 POC ABG HCO3 21.2 06/22/16 15:53 POC ABG Total CO2 22 06/22/16 15:53 POC ABG O2 Sat 60 06/22/16 15:53 POC ABG Base Excess -3 06/22/16 15:53 FiO2 21 % 06/22/16 15:53 Sodium 142 mmol/L (137-145) 06/22/16 06:22 Potassium 4.2 mmol/L (3.6-5.0) 06/22/16 06:22 Chloride 109.0 mmol/L (98-107) H 06/22/16 06:22 Carbon Dioxide 21 mmol/L (22-30) L 06/22/16 06:22 Anion Gap 16 mmol/L 06/22/16 06:22 BUN 17 mg/dL (7-17) 06/22/16 06:22 Creatinine 1.0 mg/dL (0.7-1.2) 06/22/16 06:22 Estimated GFR > 60 ml/min 06/22/16 06:22 BUN/Creatinine Ratio 17.00 % 06/22/16 06:22 Glucose 91 mg/dL (65-100) 06/22/16 06:22 POC Glucose 112 (70-105) H 06/22/16 12:52 Calcium 8.2 mg/dL (8.4-10.2) L 06/22/16 06:22 Troponin T < 0.010 ng/mL (0.00-0.029) 06/17/16 15:59 NT-Pro-B Natriuret Pep 1912 pg/mL (0-900) H 06/17/16 15:59
--- NOTE | 2016-06-26 15:54 | Progress Note ---
Assessment and Plan Patient resting on high flow O2.FIO2 60% and O2 satuaration 92%.No acute respitatory distress at rest. - Patient Problems (1) Acute exacerbation of chronic obstructive pulmonary disease (COPD) Current Visit: Yes Status: Acute Plan to address problem: Patient is on High flow O2 FIO2 60% Albuterol/atrovent aerosol treatments q 12 hours. Continue I/V solumedral. Continue S/C Heparin. (2) Respiratory failure with hypoxia Current Visit: Yes Status: Acute Qualifiers: Chronicity: acute on chronic Qualified Code(s): J96.21 - Acute and chronic respiratory failure with hypoxia Plan to address problem: Continue High flow O2 ,FIO2 60%. Albuterol/atrovent aerosol treatments q 12 hours. Continue I/V solumedral. Continue S/C Heparin. Subjective Date of service: 06/26/16 Principal diagnosis: Acute On Chronic ypoxemic Respiratory Failure Interval history: Patient resting on high flow O2.FIO2 60% and O2 satuaration 92%.No acute respitatory distress at rest. Objective Vital Signs - 12hr 06/26/16 06/26/16 06/26/16 04:59 07:42 07:52 Temperature 98 F Pulse Rate Pulse Rate [ 74 72 Anterior Bilateral Throughout] Pulse Rate [ 83 Apical] Pulse Rate [ Right Radial] Respiratory 20 Rate Respiratory 18 20 Rate [Anterior Bilateral Throughout] Respiratory Rate [denies] Blood Pressure Blood Pressure 134/72 [Right Radial Artery] O2 Sat by Pulse 98 95 Oximetry 06/26/16 06/26/16 06/26/16 08:45 10:00 11:00 Temperature 97.5 F L Pulse Rate 88 68 Pulse Rate [ Anterior Bilateral Throughout] Pulse Rate [ Apical] Pulse Rate [ 76 Right Radial] Respiratory 20 22 Rate Respiratory Rate [Anterior Bilateral Throughout] Respiratory 20 Rate [denies] Blood Pressure 128/74 Blood Pressure 127/63 [Right Radial Artery] O2 Sat by Pulse 92 92 Oximetry 06/26/16 06/26/16 13:00 13:10 Temperature Pulse Rate Pulse Rate [ 87 107 H Anterior Bilateral Throughout] Pulse Rate [ Apical] Pulse Rate [ Right Radial] Respiratory Rate Respiratory 20 20 Rate [Anterior Bilateral Throughout] Respiratory Rate [denies] Blood Pressure Blood Pressure [Right Radial Artery] O2 Sat by Pulse Oximetry Constitutional: alert, appears uncomfortable Eyes: non-icteric ENT: oropharynx moist Neck: supple, no lymphadenopathy Effort: mildly labored Ascultation: Bilateral: diminished breath sounds, rales (inspiratory in bases) Cardiovascular: regular rate and rhythm Gastrointestinal: normoactive bowel sounds, soft, non-tender, non-distended Integumentary: normal Extremities: no cyanosis, pulses normal, no ischemia or petechiae Neurologic: normal mental status, non-focal exam, pupils equal and round, motor strength normal and Psychiatric: mood appropriate, affect normal CBC and BMP: 06/22/16 06:22 06/22/16 06:22 ABG, PT/INR, D-dimer: ABG POC ABG pH 7.461 (7.35-7.45) H 06/22/16 15:53 POC ABG pCO2 29.7 (35-45) L 06/22/16 15:53 POC ABG pO2 29 (80-105) L 06/22/16 15:53 POC ABG HCO3 21.2 06/22/16 15:53 POC ABG Total CO2 22 06/22/16 15:53 POC ABG O2 Sat 60 06/22/16 15:53 PT/INR, D-dimer PT 14.4 Sec. (12.2-14.9) 06/20/16 14:11 INR 1.13 (0.87-1.13) 06/20/16 14:11 D-Dimer 958.1 ng/mlDDU (0-234) H 06/20/16 14:12 Abnormal lab findings: Abnormal Labs 06/18/16 06/20/16 06/21/16 05:34 14:12 00:31 RBC 3.33 L Hgb 8.9 L Hct 26.9 L MCH 27 L RDW 28.4 H Seg Neuts % (Manual) Lymphocytes % (Manual) Lymphocytes # (Manual) D-Dimer 958.1 H POC ABG pH POC ABG pCO2 POC ABG pO2 Chloride Carbon Dioxide 19 L BUN 18 H Glucose 143 H POC Glucose Calcium 7.2 L 06/21/16 06/21/16 06/22/16 11:39 16:19 06:22 RBC 3.13 L Hgb 8.2 L Hct 25.1 L MCH 26 L RDW 28.6 H Seg Neuts % (Manual) 88.0 H Lymphocytes % (Manual) 7.0 L Lymphocytes # (Manual) 0.6 L D-Dimer POC ABG pH POC ABG pCO2 POC ABG pO2 Chloride Carbon Dioxide BUN Glucose POC Glucose 135 H 115 H Calcium 06/22/16 06/22/16 06/22/16 06:22 12:52 15:53 RBC Hgb Hct MCH RDW Seg Neuts % (Manual) Lymphocytes % (Manual) Lymphocytes # (Manual) D-Dimer POC ABG pH 7.461 H POC ABG pCO2 29.7 L POC ABG pO2 29 L Chloride 109.0 H Carbon Dioxide 21 L BUN Glucose POC Glucose 112 H Calcium 8.2 L
[2016-06-26] MEDS: NEURONTIN PO SCH (22:47)
[2016-06-27] MEDS: DUONEB 0.5 MG-3 MG/3 ML SOLN IH SCH ×4 (03:09→19:31)
[2016-06-27] MEDS: HEPARIN SUB-Q SCH ×3 (06:13→22:36)
[2016-06-27 07:58] LABS: Hematocrit 25.5 % (30.3-42.9); Hemoglobin 8.1 gm/dl (10.1-14.3); Mean Corpuscular HGB Conc 32 % (30-34); Mean Corpuscular Hemoglobin 26 pg (28-32); Mean Corpuscular Volume 83 fl (79-97); Platelet Count 283 K/mm3 (140-440); Red Blood Count 3.07 M/mm3 (3.65-5.03)
[2016-06-27] MEDS: PULMICORT IH SCH ×2 (08:13→19:31)
[2016-06-27] MEDS: BROVANA NEBU IH SCH ×2 (08:13→19:32)
[2016-06-27 08:18] LABS: Anion Gap 21 mmol/L; Blood Urea Nitrogen 23 mg/dL (7-17); Calcium 9.2 mg/dL (8.4-10.2); Carbon Dioxide 22 mmol/L (22-30); Chloride 99.3 mmol/L (98-107); Glucose 117 mg/dL (65-100); Potassium 5.5 mmol/L (3.6-5.0); Sodium 137 mmol/L (137-145)
[2016-06-27 08:20] LABS: Red Cell Distribution Width 28.4 % (13.2-15.2)
[2016-06-27] MEDS ORDERED: D50W (25GM) IV ONE (09:25)
[2016-06-27] MEDS ORDERED: KIONEX PO ONE (09:26)
[2016-06-27] MEDS: RANEXA ER PO SCH ×2 (11:01→22:35)
[2016-06-27] MEDS: DIOVAN PO SCH (11:01)
[2016-06-27] MEDS: PROTONIX PO SCH (11:01)
[2016-06-27] MEDS: COREG PO SCH ×2 (11:01→22:35)
[2016-06-27] MEDS: HALFPRIN EC PO SCH (11:03)
[2016-06-27] MEDS: FEOSOL PO SCH ×3 (11:13→23:06)
--- NOTE | 2016-06-27 14:09 | Progress Note ---
Assessment and Plan - Patient Problems (1) Coronary artery disease Current Visit: No Status: Chronic Qualifiers: Coronary Disease-Associated Artery/Lesion type: unspecified vessel or lesion type [place] vs. transplanted heart: N Associated angina: A Plan to address problem: Patient has inoperable three-vessel disease and ischemic cardiomyopathy. We'll continue aggressive risk factor modification and medical therapy. Subjective Date of service: 06/27/16 Principal diagnosis: Acute On Chronic ypoxemic Respiratory Failure Interval history: Patient is breathing better this morning, denies chest pain, no acute respiratory distress. Objective Vital Signs Temp Pulse Pulse Pulse Pulse Pulse Pulse 06/27/16 13:52 87 06/27/16 13:31 95 H 06/27/16 11:30 97.2 F L 89 06/27/16 08:33 79 06/27/16 08:00 97.3 F L 74 06/27/16 07:49 68 06/27/16 05:06 97.8 F 76 06/27/16 02:23 92 H 06/27/16 02:12 95 H 06/26/16 22:00 06/26/16 21:15 103 H 06/26/16 20:23 97.9 F 89 06/26/16 20:20 06/26/16 20:18 91 H 06/26/16 20:06 89 06/26/16 18:59 97.8 F 101 H Resp Resp BP Pulse Ox 06/27/16 13:52 18 06/27/16 13:31 22 06/27/16 11:30 16 115/62 100 06/27/16 08:33 20 06/27/16 08:00 16 140/69 96 06/27/16 07:49 20 96 06/27/16 05:06 20 121/70 97 06/27/16 02:23 22 06/27/16 02:12 24 06/26/16 22:00 94 06/26/16 21:15 28 H 97 06/26/16 20:23 20 111/69 92 06/26/16 20:20 99 06/26/16 20:18 20 06/26/16 20:06 20 06/26/16 18:59 24 129/61 93 - Physical Examination General: No Apparent Distress HEENT: Positive: PERRL Neck: Positive: neck supple Cardiac: Positive: Reg Rate and Rhythm Lungs: Positive: Decreased Breath Sounds Neuro: Positive: Grossly Intact Abdomen: Positive: Soft Skin: Positive: Clear Extremities: Absent: edema - Labs and Meds CBC 06/27/16 Range/Units 07:03 WBC 17.0 H (4.5-11.0) K/mm3 RBC 3.07 L (3.65-5.03) M/mm3 Hgb 8.1 L (10.1-14.3) gm/dl Hct 25.5 L (30.3-42.9) % Plt Count 283 (140-440) K/mm3 Comprehensive Metabolic Panel 06/27/16 Range/Units 07:03 Sodium 137 (137-145) mmol/L Potassium 5.5 H (3.6-5.0) mmol/L Chloride 99.3 (98-107) mmol/L Carbon Dioxide 22 (22-30) mmol/L BUN 23 H (7-17) mg/dL Creatinine 1.0 (0.7-1.2) mg/dL Glucose 117 H (65-100) mg/dL Calcium 9.2 (8.4-10.2) mg/dL
--- NOTE | 2016-06-27 16:33 | Progress Note ---
Assessment and Plan Assessment and plan: Acute on chronic respiratory failure due to COPD exacerbation. She is still on high amount of oxygen. O2 sat 88 % on 50% vm that is 15l/min. For LTAC placement. COPD exacerbation. On solumedrol, Duoneb, supplemental Oxygen Coronary artery disease. On Aspirin, Coreg, Diovan, Ranexa. Follows with wellness manager Chronic systolic CHF. On Coreg, Diovan Hypertension. BP stable. Hyperlipidemia , on Lipitor. DVT prophylaxis.Heparin subcut Full code status Disposition. Was informed by case management that Insurance denied LTAC transfer. I did peer to peer and discussed with Physican at Insurance company and he states Patient can go to SNF that can handle high amounts of Oxygen requirement. History Interval history: still shortness of breath, no chest pain, Awaiting transfer to LTAC Hospitalist Physical - Physical exam Narrative exam: Gen: not in acute distress, obese, ventimask on HEENT: normocephalic,atraumatic Neck :supple, no JVD Lungs: Decreased breath sounds, rhonchi bilaterally Heart: S1 and S2 regular, no murmurs no gallops, Abdomen: soft non-tender, non-diistended, normal bowel sounds Extremities: no edema, no clubbing or cyanosis Neuro: Awake alert oriented x 3, non focal Psych: Normal mood - Constitutional Vitals: Temp Pulse Resp BP Pulse Ox 97.2 F L 87 18 115/62 100 06/27/16 11:30 06/27/16 13:52 06/27/16 13:52 06/27/16 11:30 06/27/16 11:30 General appearance: Present: no acute distress Results - Labs CBC & Chem 7: 06/28/16 06:40 06/28/16 06:40 Labs: Laboratory Last Values WBC 17.0 K/mm3 (4.5-11.0) H 06/27/16 07:03 RBC 3.07 M/mm3 (3.65-5.03) L 06/27/16 07:03 Hgb 8.1 gm/dl (10.1-14.3) L 06/27/16 07:03 Hct 25.5 % (30.3-42.9) L 06/27/16 07:03 MCV 83 fl (79-97) 06/27/16 07:03 MCH 26 pg (28-32) L 06/27/16 07:03 MCHC 32 % (30-34) 06/27/16 07:03 RDW 28.4 % (13.2-15.2) H 06/27/16 07:03 Plt Count 283 K/mm3 (140-440) 06/27/16 07:03 Add Manual Diff Complete 06/22/16 06:22 Total Counted 100 06/22/16 06:22 Seg Neuts % (Manual) 88.0 % (40.0-70.0) H 06/22/16 06:22 Band Neutrophils % 0 % 06/22/16 06:22 Lymphocytes % (Manual) 7.0 % (13.4-35.0) L 06/22/16 06:22 Reactive Lymphs % (Man) 0 % 06/22/16 06:22 Monocytes % (Manual) 4.0 % (0.0-7.3) 06/22/16 06:22 Eosinophils % (Manual) 1.0 % (0.0-4.3) 06/22/16 06:22 Basophils % (Manual) 0 % (0.0-1.8) 06/22/16 06:22 Metamyelocytes % 0 % 06/22/16 06:22 Myelocytes % 0 % 06/22/16 06:22 Promyelocytes % 0 % 06/22/16 06:22 Blast Cells % 0 % 06/22/16 06:22 Nucleated RBC % Not Reportable 06/22/16 06:22 Seg Neutrophils # Man 7.6 K/mm3 (1.8-7.7) 06/22/16 06:22 Band Neutrophils # 0.0 K/mm3 06/22/16 06:22 Lymphocytes # (Manual) 0.6 K/mm3 (1.2-5.4) L 06/22/16 06:22 Abs React Lymphs (Man) 0.0 K/mm3 06/22/16 06:22 Monocytes # (Manual) 0.3 K/mm3 (0.0-0.8) 06/22/16 06:22 Eosinophils # (Manual) 0.1 K/mm3 (0.0-0.4) 06/22/16 06:22 Basophils # (Manual) 0.0 K/mm3 (0.0-0.1) 06/22/16 06:22 Metamyelocytes # 0.0 K/mm3 06/22/16 06:22 Myelocytes # 0.0 K/mm3 06/22/16 06:22 Promyelocytes # 0.0 K/mm3 06/22/16 06:22 Blast Cells # 0.0 K/mm3 06/22/16 06:22 WBC Morphology Not Reportable 06/22/16 06:22 Hypersegmented Neuts Not Reportable 06/22/16 06:22 Hyposegmented Neuts Not Reportable 06/22/16 06:22 Hypogranular Neuts Not Reportable 06/22/16 06:22 Smudge Cells Not Reportable 06/22/16 06:22 Toxic Granulation Not Reportable 06/22/16 06:22 Toxic Vacuolation Not Reportable 06/22/16 06:22 Dohle Bodies Not Reportable 06/22/16 06:22 Pelger-Huet Anomaly Not Reportable 06/22/16 06:22 Mony Rods Not Reportable 06/22/16 06:22 Platelet Estimate Appears normal 06/22/16 06:22 Clumped Platelets Not Reportable 06/22/16 06:22 Plt Clumps, EDTA Not Reportable 06/22/16 06:22 Large Platelets Not Reportable 06/22/16 06:22 Giant Platelets Not Reportable 06/22/16 06:22 Platelet Satelliting Not Reportable 06/22/16 06:22 Plt Morphology Comment Not Reportable 06/22/16 06:22 RBC Morphology Not Reportable 06/22/16 06:22 Dimorphic RBCs Not Reportable 06/22/16 06:22 Polychromasia Not Reportable 06/22/16 06:22 Hypochromasia 1+ 06/22/16 06:22 Poikilocytosis Not Reportable 06/22/16 06:22 Anisocytosis 3+ 06/22/16 06:22 Microcytosis Not Reportable 06/22/16 06:22 Macrocytosis Not Reportable 06/22/16 06:22 Spherocytes Not Reportable 06/22/16 06:22 Pappenheimer Bodies Not Reportable 06/22/16 06:22 Sickle Cells Not Reportable 06/22/16 06:22 Target Cells Not Reportable 06/22/16 06:22 Tear Drop Cells Not Reportable 06/22/16 06:22 Ovalocytes Few 06/22/16 06:22 Helmet Cells Not Reportable 06/22/16 06:22 Serna-[place] Bodies Not Reportable 06/22/16 06:22 [place] Rings Not Reportable 06/22/16 06:22 [place] Cells Not Reportable 06/22/16 06:22 Bite Cells Not Reportable 06/22/16 06:22 Crenated Cell Not Reportable 06/22/16 06:22 Elliptocytes Few 06/22/16 06:22 Acanthocytes (Spur) Not Reportable 06/22/16 06:22 Rouleaux Not Reportable 06/22/16 06:22 Hemoglobin C Crystals Not Reportable 06/22/16 06:22 Schistocytes Not Reportable 06/22/16 06:22 Malaria parasites Not Reportable 06/22/16 06:22 Juan R Bodies Not Reportable 06/22/16 06:22 Hem Pathologist Commnt No 06/22/16 06:22 PT 14.4 Sec. (12.2-14.9) 06/20/16 14:11 INR 1.13 (0.87-1.13) 06/20/16 14:11 D-Dimer 958.1 ng/mlDDU (0-234) H 06/20/16 14:12 POC ABG pH 7.461 (7.35-7.45) H 06/22/16 15:53 POC ABG pCO2 29.7 (35-45) L 06/22/16 15:53 POC ABG pO2 29 (80-105) L 06/22/16 15:53 POC ABG HCO3 21.2 06/22/16 15:53 POC ABG Total CO2 22 06/22/16 15:53 POC ABG O2 Sat 60 06/22/16 15:53 POC ABG Base Excess -3 06/22/16 15:53 FiO2 21 % 06/22/16 15:53 Sodium 137 mmol/L (137-145) 06/27/16 07:03 Potassium 5.5 mmol/L (3.6-5.0) H 06/27/16 07:03 Chloride 99.3 mmol/L (98-107) 06/27/16 07:03 Carbon Dioxide 22 mmol/L (22-30) 06/27/16 07:03 Anion Gap 21 mmol/L 06/27/16 07:03 BUN 23 mg/dL (7-17) H 06/27/16 07:03 Creatinine 1.0 mg/dL (0.7-1.2) 06/27/16 07:03 Estimated GFR > 60 ml/min 06/27/16 07:03 BUN/Creatinine Ratio 23.00 % 06/27/16 07:03 Glucose 117 mg/dL (65-100) H 06/27/16 07:03 POC Glucose 112 (70-105) H 06/22/16 12:52 Calcium 9.2 mg/dL (8.4-10.2) 06/27/16 07:03 Troponin T < 0.010 ng/mL (0.00-0.029) 06/17/16 15:59 NT-Pro-B Natriuret Pep 1912 pg/mL (0-900) H 06/17/16 15:59
--- NOTE | 2016-06-27 20:06 | Progress Note ---
Assessment and Plan Patient sleeping at this time. On high flow O2.FIO2 60% and O2 satuaration 98% .No acute respitatory distress at rest. - Patient Problems (1) Acute exacerbation of chronic obstructive pulmonary disease (COPD) Current Visit: Yes Status: Acute Plan to address problem: Patient is on High flow O2 FIO2 60% Albuterol/atrovent aerosol treatments q 12 hours. Continue I/V solumedral. Continue S/C Heparin. (2) Respiratory failure with hypoxia Current Visit: Yes Status: Acute Qualifiers: Chronicity: acute on chronic Qualified Code(s): J96.21 - Acute and chronic respiratory failure with hypoxia Plan to address problem: Continue High flow O2 ,FIO2 60%. Albuterol/atrovent aerosol treatments q 12 hours. Continue I/V solumedral. Continue S/C Heparin. Subjective Date of service: 06/27/16 Principal diagnosis: Acute On Chronic ypoxemic Respiratory Failure Interval history: Patient sleeping at this time. On high flow O2.FIO2 60% and O2 satuaration 98% .No acute respitatory distress at rest. Objective Vital Signs - 12hr 06/27/16 06/27/16 06/27/16 08:33 08:50 10:00 Temperature Pulse Rate 74 Pulse Rate [ 79 Anterior Bilateral Throughout] Pulse Rate [ Apical] Respiratory Rate Respiratory 20 Rate [Anterior Bilateral Throughout] Blood Pressure [Right Radial Artery] O2 Sat by Pulse 87 Oximetry 06/27/16 06/27/16 06/27/16 11:30 13:31 13:52 Temperature 97.2 F L Pulse Rate Pulse Rate [ 95 H 87 Anterior Bilateral Throughout] Pulse Rate [ 89 Apical] Respiratory 16 Rate Respiratory 22 18 Rate [Anterior Bilateral Throughout] Blood Pressure 115/62 [Right Radial Artery] O2 Sat by Pulse 100 Oximetry 06/27/16 06/27/16 06/27/16 16:30 19:29 19:37 Temperature 97.2 F L Pulse Rate Pulse Rate [ 94 H Anterior Bilateral Throughout] Pulse Rate [ 94 H Apical] Respiratory 16 Rate Respiratory 22 Rate [Anterior Bilateral Throughout] Blood Pressure 138/76 [Right Radial Artery] O2 Sat by Pulse 94 98 Oximetry 06/27/16 19:38 Temperature Pulse Rate Pulse Rate [ 96 H Anterior Bilateral Throughout] Pulse Rate [ Apical] Respiratory Rate Respiratory 24 Rate [Anterior Bilateral Throughout] Blood Pressure [Right Radial Artery] O2 Sat by Pulse Oximetry Constitutional: no acute distress, alert, asleep Eyes: non-icteric ENT: oropharynx moist Neck: supple, no lymphadenopathy Effort: mildly labored Ascultation: Bilateral: diminished breath sounds, rales (inspiratory in bases) Cardiovascular: regular rate and rhythm Gastrointestinal: normoactive bowel sounds, soft, non-tender, non-distended Integumentary: normal Extremities: no cyanosis, pulses normal, no ischemia or petechiae Neurologic: normal mental status, non-focal exam, pupils equal and round, motor strength normal and Psychiatric: mood appropriate, affect normal CBC and BMP: 06/27/16 07:03 06/27/16 07:03 ABG, PT/INR, D-dimer: ABG POC ABG pH 7.461 (7.35-7.45) H 06/22/16 15:53 POC ABG pCO2 29.7 (35-45) L 06/22/16 15:53 POC ABG pO2 29 (80-105) L 06/22/16 15:53 POC ABG HCO3 21.2 06/22/16 15:53 POC ABG Total CO2 22 06/22/16 15:53 POC ABG O2 Sat 60 06/22/16 15:53 PT/INR, D-dimer PT 14.4 Sec. (12.2-14.9) 06/20/16 14:11 INR 1.13 (0.87-1.13) 06/20/16 14:11 D-Dimer 958.1 ng/mlDDU (0-234) H 06/20/16 14:12 Abnormal lab findings: Abnormal Labs 06/18/16 06/20/16 06/21/16 05:34 14:12 00:31 WBC RBC 3.33 L Hgb 8.9 L Hct 26.9 L MCH 27 L RDW 28.4 H Seg Neuts % (Manual) Lymphocytes % (Manual) Lymphocytes # (Manual) D-Dimer 958.1 H POC ABG pH POC ABG pCO2 POC ABG pO2 Potassium Chloride Carbon Dioxide 19 L BUN 18 H Glucose 143 H POC Glucose Calcium 7.2 L 06/21/16 06/21/16 06/22/16 11:39 16:19 06:22 WBC RBC 3.13 L Hgb 8.2 L Hct 25.1 L MCH 26 L RDW 28.6 H Seg Neuts % (Manual) 88.0 H Lymphocytes % (Manual) 7.0 L Lymphocytes # (Manual) 0.6 L D-Dimer POC ABG pH POC ABG pCO2 POC ABG pO2 Potassium Chloride Carbon Dioxide BUN Glucose POC Glucose 135 H 115 H Calcium 06/22/16 06/22/16 06/22/16 06:22 12:52 15:53 WBC RBC Hgb Hct MCH RDW Seg Neuts % (Manual) Lymphocytes % (Manual) Lymphocytes # (Manual) D-Dimer POC ABG pH 7.461 H POC ABG pCO2 29.7 L POC ABG pO2 29 L Potassium Chloride 109.0 H Carbon Dioxide 21 L BUN Glucose POC Glucose 112 H Calcium 8.2 L 06/27/16 06/27/16 07:03 07:03 WBC 17.0 H RBC 3.07 L Hgb 8.1 L Hct 25.5 L MCH 26 L RDW 28.4 H Seg Neuts % (Manual) Lymphocytes % (Manual) Lymphocytes # (Manual) D-Dimer POC ABG pH POC ABG pCO2 POC ABG pO2 Potassium 5.5 H Chloride Carbon Dioxide BUN 23 H Glucose 117 H POC Glucose Calcium
[2016-06-27] MEDS: NEURONTIN PO SCH (22:35)
[2016-06-28] MEDS: DUONEB 0.5 MG-3 MG/3 ML SOLN IH SCH ×5 (01:03→20:12)
[2016-06-28] MEDS: HEPARIN SUB-Q SCH ×3 (05:50→22:27)
[2016-06-28] MEDS: PULMICORT IH SCH ×2 (07:21→19:41)
[2016-06-28] MEDS: BROVANA NEBU IH SCH ×2 (07:21→19:41)
[2016-06-28 07:23] LABS: Hematocrit 22.3 % (30.3-42.9); Hemoglobin 7.2 gm/dl (10.1-14.3); Mean Corpuscular HGB Conc 32 % (30-34); Mean Corpuscular Hemoglobin 27 pg (28-32); Mean Corpuscular Volume 82 fl (79-97); Platelet Count 267 K/mm3 (140-440); Red Blood Count 2.72 M/mm3 (3.65-5.03)
[2016-06-28 07:27] LABS: Red Cell Distribution Width 28.1 % (13.2-15.2)
[2016-06-28 07:45] LABS: Anion Gap 17 mmol/L; Blood Urea Nitrogen 28 mg/dL (7-17); Calcium 8.2 mg/dL (8.4-10.2); Carbon Dioxide 25 mmol/L (22-30); Chloride 101.8 mmol/L (98-107); Glucose 110 mg/dL (65-100); Sodium 140 mmol/L (137-145)
[2016-06-28] MEDS: FEOSOL PO SCH ×3 (08:26→20:40)
[2016-06-28] MEDS: DIOVAN PO SCH (11:14)
[2016-06-28] MEDS: RANEXA ER PO SCH ×2 (11:15→22:26)
[2016-06-28] MEDS: PROTONIX PO SCH (11:15)
[2016-06-28] MEDS: HALFPRIN EC PO SCH (11:15)
[2016-06-28] MEDS: COREG PO SCH ×2 (11:16→22:26)
--- NOTE | 2016-06-28 12:43 | Query- Renal Failure ---
Deakylie Dorado____Jadyn Date:___06/28/16 Cover Stripper/CDS:___Danielito Iqbal Phone#:___[phone] Exercise your independent professional judgment when responding to query. Questions asked do not imply a particular answer is desired or expected. We greatly appreciate your clarification on this issue. Clinical Documentation States: 80 year old female was admitted on 06/17/16. The progress note (06/26/16) states " (1) Acute exacerbation of chronic obstructive pulmonary disease (COPD) Current Visit: Yes Status: Acute (2) Acute and chronic respiratory failure ([id number]) Current Visit: No Status: Acute Qualifiers: Respiratory failure complication: hypoxia and hypercapnia Qualified Code(s): J96.21 - Acute and chronic respiratory failure with hypoxia; J96.22 - Acute and chronic respiratory failure with hypercapnia " Clinical Findings Show: 06/17/16 06/28/16 Creatinine : 1.4 1.0 Please clarify if you mean: Acute Renal Failure with or due to: [ ] Tubular Necrosis [ ] Medullary Necrosis [ ] Vasomotor Nephropathy [ ] Shock Kidney [ ] Tubular Nephrosis [ ] Renal Tubular Stasis [ ] Cortical Necrosis [ ] Acute Renal Failure (unspecified) [ ] Lower Tubular Nephrosis [ ] Other: [ ] Not Applicable Present on Admission: [ ] Yes (Y) [ ] Clinically undeterminable (W) [ ] No (N) Please also document response in your Progress Notes and/or Discharge Summary and indicate if the condition was present on admission. MTDD
--- NOTE | 2016-06-28 16:37 | Progress Note ---
Assessment and Plan Acute hypoxic respiratory failure Acute COPD exacerbation Hx of Multivessel coronary artery disease Patient deemed not a candidate for revascularization and recommended only for medical therapy. Anemia -HCT trending downwards. Recommendations: Medical therapy for coronary artery disease. Subjective Date of service: 06/28/16 Principal diagnosis: Acute On Chronic ypoxemic Respiratory Failure Interval history: Patient sitting up in bedside chair. No distress noted. Noted hematocrit trending downwards. Objective Vital Signs Temp Pulse Pulse Pulse Pulse Resp Resp 06/28/16 16:08 98.8 F 106 H 24 06/28/16 14:10 107 H 22 06/28/16 13:59 102 H 22 06/28/16 12:22 97 F L 123 H 30 H 06/28/16 09:36 78 06/28/16 07:24 74 24 06/28/16 07:21 74 24 06/28/16 07:00 97.4 F L 74 24 06/28/16 04:00 97.9 F 82 24 06/28/16 03:07 78 06/28/16 03:06 89 18 06/28/16 02:55 92 H 20 06/28/16 00:00 98.0 F 86 22 06/27/16 22:35 84 06/27/16 22:00 79 06/27/16 20:00 98.0 F 88 22 06/27/16 19:38 96 H 24 06/27/16 19:37 06/27/16 19:29 94 H 22 BP Pulse Ox 06/28/16 16:08 125/63 96 06/28/16 14:10 06/28/16 13:59 06/28/16 12:22 123/66 91 06/28/16 09:36 06/28/16 07:24 97 06/28/16 07:21 97 06/28/16 07:00 128/61 97 06/28/16 04:00 104/57 95 06/28/16 03:07 100 06/28/16 03:06 06/28/16 02:55 06/28/16 00:00 149/70 93 06/27/16 22:35 06/27/16 22:00 92 06/27/16 20:00 124/65 100 06/27/16 19:38 06/27/16 19:37 98 06/27/16 19:29 - Physical Examination General: No Apparent Distress HEENT: Positive: PERRL Neck: Positive: neck supple Cardiac: Positive: Reg Rate and Rhythm Lungs: Positive: Decreased Breath Sounds Neuro: Positive: Grossly Intact - Labs and Meds CBC 06/28/16 Range/Units 06:40 WBC 16.0 H (4.5-11.0) K/mm3 RBC 2.72 L (3.65-5.03) M/mm3 Hgb 7.2 L (10.1-14.3) gm/dl Hct 22.3 L (30.3-42.9) % Plt Count 267 (140-440) K/mm3 Comprehensive Metabolic Panel 06/28/16 Range/Units 06:40 Sodium 140 (137-145) mmol/L Potassium 4.0 D (3.6-5.0) mmol/L Chloride 101.8 (98-107) mmol/L Carbon Dioxide 25 (22-30) mmol/L BUN 28 H (7-17) mg/dL Creatinine 1.0 (0.7-1.2) mg/dL Glucose 110 H (65-100) mg/dL Calcium 8.2 L (8.4-10.2) mg/dL
--- NOTE | 2016-06-28 19:27 | Progress Note ---
Assessment and Plan Assessment and plan: Acute on chronic respiratory failure due to COPD exacerbation. She is still on high amount of oxygen. Was on BiPAP last night. Now on high flow oxygen 60% 35l/min with sat 97%. Pulm following. Discussed with Pulm. COPD exacerbation. On solumedrol, Duoneb, supplemental high flow Oxygen. BiPAP prn Coronary artery disease. On Aspirin, Coreg, Diovan, Ranexa. 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 On Coreg, Diovan Hypertension. BP stable. Hyperlipidemia , on Lipitor. DVT prophylaxis.Heparin subcut Full code status Disposition. patient was to go to LTAC, however , was informed by case management that Insurance denied LTAC transfer. I did peer to peer and discussed with Physican at [employer] and he states Patient can go to SNF that can handle high amounts of Oxygen requirement. Discussed with case management and they are working on arrangements. - Patient Problems (1) Acute exacerbation of chronic obstructive pulmonary disease (COPD) Current Visit: Yes Status: Acute (2) Acute and chronic respiratory failure ([id number]) Current Visit: No Status: Acute Qualifiers: Respiratory failure complication: hypoxia and hypercapnia Qualified Code(s) : J96.21 - Acute and chronic respiratory failure with hypoxia; J96.22 - Acute and chronic respiratory failure with hypercapnia History Interval history: Less shortness of breath, no chest pain, Awaiting transfer to SNF Hospitalist Physical - Physical exam Narrative exam: Gen: not in acute distress, obese, ventimask on HEENT: normocephalic,atraumatic Neck :supple, no JVD Lungs: Decreased breath sounds, rhonchi bilaterally Heart: S1 and S2 regular, no murmurs no gallops, Abdomen: soft, non-tender, non-di stended, normal bowel sounds Extremities: no edema, no clubbing or cyanosis Neuro: Awake alert oriented x 3, non focal Psych: Normal mood - Constitutional Vitals: Temp Pulse Resp BP Pulse Ox 98.8 F 106 H 24 125/63 96 06/28/16 16:08 06/28/16 16:08 06/28/16 16:08 06/28/16 16:08 06/28/16 16:08 General appearance: Present: no acute distress Results - Labs CBC & Chem 7: 06/28/16 06:40 06/28/16 06:40 Labs: Laboratory Last Values WBC 16.0 K/mm3 (4.5-11.0) H 06/28/16 06:40 RBC 2.72 M/mm3 (3.65-5.03) L 06/28/16 06:40 Hgb 7.2 gm/dl (10.1-14.3) L 06/28/16 06:40 Hct 22.3 % (30.3-42.9) L 06/28/16 06:40 MCV 82 fl (79-97) 06/28/16 06:40 MCH 27 pg (28-32) L 06/28/16 06:40 MCHC 32 % (30-34) 06/28/16 06:40 RDW 28.1 % (13.2-15.2) H 06/28/16 06:40 Plt Count 267 K/mm3 (140-440) 06/28/16 06:40 Add Manual Diff Complete 06/22/16 06:22 Total Counted 100 06/22/16 06:22 Seg Neuts % (Manual) 88.0 % (40.0-70.0) H 06/22/16 06:22 Band Neutrophils % 0 % 06/22/16 06:22 Lymphocytes % (Manual) 7.0 % (13.4-35.0) L 06/22/16 06:22 Reactive Lymphs % (Man) 0 % 06/22/16 06:22 Monocytes % (Manual) 4.0 % (0.0-7.3) 06/22/16 06:22 Eosinophils % (Manual) 1.0 % (0.0-4.3) 06/22/16 06:22 Basophils % (Manual) 0 % (0.0-1.8) 06/22/16 06:22 Metamyelocytes % 0 % 06/22/16 06:22 Myelocytes % 0 % 06/22/16 06:22 Promyelocytes % 0 % 06/22/16 06:22 Blast Cells % 0 % 06/22/16 06:22 Nucleated RBC % Not Reportable 06/22/16 06:22 Seg Neutrophils # Man 7.6 K/mm3 (1.8-7.7) 06/22/16 06:22 Band Neutrophils # 0.0 K/mm3 06/22/16 06:22 Lymphocytes # (Manual) 0.6 K/mm3 (1.2-5.4) L 06/22/16 06:22 Abs React Lymphs (Man) 0.0 K/mm3 06/22/16 06:22 Monocytes # (Manual) 0.3 K/mm3 (0.0-0.8) 06/22/16 06:22 Eosinophils # (Manual) 0.1 K/mm3 (0.0-0.4) 06/22/16 06:22 Basophils # (Manual) 0.0 K/mm3 (0.0-0.1) 06/22/16 06:22 Metamyelocytes # 0.0 K/mm3 06/22/16 06:22 Myelocytes # 0.0 K/mm3 06/22/16 06:22 Promyelocytes # 0.0 K/mm3 06/22/16 06:22 Blast Cells # 0.0 K/mm3 06/22/16 06:22 WBC Morphology Not Reportable 06/22/16 06:22 Hypersegmented Neuts Not Reportable 06/22/16 06:22 Hyposegmented Neuts Not Reportable 06/22/16 06:22 Hypogranular Neuts Not Reportable 06/22/16 06:22 Smudge Cells Not Reportable 06/22/16 06:22 Toxic Granulation Not Reportable 06/22/16 06:22 Toxic Vacuolation Not Reportable 06/22/16 06:22 Dohle Bodies Not Reportable 06/22/16 06:22 Pelger-Huet Anomaly Not Reportable 06/22/16 06:22 Mony Rods Not Reportable 06/22/16 06:22 Platelet Estimate Appears normal 06/22/16 06:22 Clumped Platelets Not Reportable 06/22/16 06:22 Plt Clumps, EDTA Not Reportable 06/22/16 06:22 Large Platelets Not Reportable 06/22/16 06:22 Giant Platelets Not Reportable 06/22/16 06:22 Platelet Satelliting Not Reportable 06/22/16 06:22 Plt Morphology Comment Not Reportable 06/22/16 06:22 RBC Morphology Not Reportable 06/22/16 06:22 Dimorphic RBCs Not Reportable 06/22/16 06:22 Polychromasia Not Reportable 06/22/16 06:22 Hypochromasia 1+ 06/22/16 06:22 Poikilocytosis Not Reportable 06/22/16 06:22 Anisocytosis 3+ 06/22/16 06:22 Microcytosis Not Reportable 06/22/16 06:22 Macrocytosis Not Reportable 06/22/16 06:22 Spherocytes Not Reportable 06/22/16 06:22 Pappenheimer Bodies Not Reportable 06/22/16 06:22 Sickle Cells Not Reportable 06/22/16 06:22 Target Cells Not Reportable 06/22/16 06:22 Tear Drop Cells Not Reportable 06/22/16 06:22 Ovalocytes Few 06/22/16 06:22 Helmet Cells Not Reportable 06/22/16 06:22 [place] Bodies Not Reportable 06/22/16 06:22 [place] Rings Not Reportable 06/22/16 06:22 [place] Cells Not Reportable 06/22/16 06:22 Bite Cells Not Reportable 06/22/16 06:22 Crenated Cell Not Reportable 06/22/16 06:22 Elliptocytes Few 06/22/16 06:22 Acanthocytes (Spur) Not Reportable 06/22/16 06:22 Rouleaux Not Reportable 06/22/16 06:22 Hemoglobin C Crystals Not Reportable 06/22/16 06:22 Schistocytes Not Reportable 06/22/16 06:22 Malaria parasites Not Reportable 06/22/16 06:22 Juan R Bodies Not Reportable 06/22/16 06:22 Hem Pathologist Commnt No 06/22/16 06:22 PT 14.4 Sec. (12.2-14.9) 06/20/16 14:11 INR 1.13 (0.87-1.13) 06/20/16 14:11 D-Dimer 958.1 ng/mlDDU (0-234) H 06/20/16 14:12 POC ABG pH 7.461 (7.35-7.45) H 06/22/16 15:53 POC ABG pCO2 29.7 (35-45) L 06/22/16 15:53 POC ABG pO2 29 (80-105) L 06/22/16 15:53 POC ABG HCO3 21.2 06/22/16 15:53 POC ABG Total CO2 22 06/22/16 15:53 POC ABG O2 Sat 60 06/22/16 15:53 POC ABG Base Excess -3 06/22/16 15:53 FiO2 21 % 06/22/16 15:53 Sodium 140 mmol/L (137-145) 06/28/16 06:40 Potassium 4.0 mmol/L (3.6-5.0) D 06/28/16 06:40 Chloride 101.8 mmol/L (98-107) 06/28/16 06:40 Carbon Dioxide 25 mmol/L (22-30) 06/28/16 06:40 Anion Gap 17 mmol/L 06/28/16 06:40 BUN 28 mg/dL (7-17) H 06/28/16 06:40 Creatinine 1.0 mg/dL (0.7-1.2) 06/28/16 06:40 Estimated GFR > 60 ml/min 06/28/16 06:40 BUN/Creatinine Ratio 28.00 % 06/28/16 06:40 Glucose 110 mg/dL (65-100) H 06/28/16 06:40 POC Glucose 112 (70-105) H 06/22/16 12:52 Calcium 8.2 mg/dL (8.4-10.2) L 06/28/16 06:40 Troponin T < 0.010 ng/mL (0.00-0.029) 06/17/16 15:59 NT-Pro-B Natriuret Pep 1912 pg/mL (0-900) H 06/17/16 15:59
--- NOTE | 2016-06-28 20:41 | Progress Note ---
Assessment and Plan Patient awke, sitting up in chair. Still On high flow O2.FIO2 60% and O2 satuaration 93%.No acute respitatory distress at rest.Her family with her. - Patient Problems (1) Acute exacerbation of chronic obstructive pulmonary disease (COPD) Current Visit: Yes Status: Acute Plan to address problem: Patient is on High flow O2 FIO2 60% Albuterol/atrovent aerosol treatments q 12 hours. Continue I/V solumedral. Continue S/C Heparin. (2) Respiratory failure with hypoxia Current Visit: Yes Status: Acute Qualifiers: Chronicity: acute on chronic Qualified Code(s): J96.21 - Acute and chronic respiratory failure with hypoxia Plan to address problem: Continue High flow O2 ,FIO2 60%. Albuterol/atrovent aerosol treatments q 12 hours. Continue I/V solumedral. Continue S/C Heparin. Subjective Date of service: 06/28/16 Principal diagnosis: Acute On Chronic ypoxemic Respiratory Failure Interval history: Patient awke, sitting up in chair. Still On high flow O2.FIO2 60% and O2 satuaration 93%.No acute respitatory distress at rest.Her family with her. Objective Vital Signs - 12hr 06/28/16 06/28/16 06/28/16 09:36 10:00 12:22 Temperature 97 F L Pulse Rate 78 Pulse Rate [ Anterior Bilateral Throughout] Pulse Rate [ 123 H Left Radial] Respiratory 24 30 H Rate Respiratory Rate [Anterior Bilateral Throughout] Blood Pressure 123/66 [Right Radial Artery] O2 Sat by Pulse 95 91 Oximetry 06/28/16 06/28/16 06/28/16 13:59 14:10 16:08 Temperature 98.8 F Pulse Rate Pulse Rate [ 102 H 107 H Anterior Bilateral Throughout] Pulse Rate [ 106 H Left Radial] Respiratory 24 Rate Respiratory 22 22 Rate [Anterior Bilateral Throughout] Blood Pressure 125/63 [Right Radial Artery] O2 Sat by Pulse 96 Oximetry 06/28/16 06/28/16 06/28/16 19:41 19:42 19:56 Temperature Pulse Rate Pulse Rate [ 105 H 107 H Anterior Bilateral Throughout] Pulse Rate [ Left Radial] Respiratory Rate Respiratory 20 20 Rate [Anterior Bilateral Throughout] Blood Pressure [Right Radial Artery] O2 Sat by Pulse 93 Oximetry Constitutional: no acute distress, alert, asleep Eyes: non-icteric ENT: oropharynx moist Neck: supple, no lymphadenopathy Effort: mildly labored Ascultation: Bilateral: diminished breath sounds, rales (inspiratory in bases) Cardiovascular: regular rate and rhythm Gastrointestinal: normoactive bowel sounds, soft, non-tender, non-distended Integumentary: normal Extremities: no cyanosis, pulses normal, no ischemia or petechiae Neurologic: normal mental status, non-focal exam, pupils equal and round, motor strength normal and Psychiatric: mood appropriate, affect normal CBC and BMP: 06/28/16 06:40 06/28/16 06:40 ABG, PT/INR, D-dimer: ABG POC ABG pH 7.461 (7.35-7.45) H 06/22/16 15:53 POC ABG pCO2 29.7 (35-45) L 06/22/16 15:53 POC ABG pO2 29 (80-105) L 06/22/16 15:53 POC ABG HCO3 21.2 06/22/16 15:53 POC ABG Total CO2 22 06/22/16 15:53 POC ABG O2 Sat 60 06/22/16 15:53 PT/INR, D-dimer PT 14.4 Sec. (12.2-14.9) 06/20/16 14:11 INR 1.13 (0.87-1.13) 06/20/16 14:11 D-Dimer 958.1 ng/mlDDU (0-234) H 06/20/16 14:12 Abnormal lab findings: Abnormal Labs 06/18/16 06/20/16 06/21/16 05:34 14:12 00:31 WBC RBC 3.33 L Hgb 8.9 L Hct 26.9 L MCH 27 L RDW 28.4 H Seg Neuts % (Manual) Lymphocytes % (Manual) Lymphocytes # (Manual) D-Dimer 958.1 H POC ABG pH POC ABG pCO2 POC ABG pO2 Potassium Chloride Carbon Dioxide 19 L BUN 18 H Glucose 143 H POC Glucose Calcium 7.2 L 06/21/16 06/21/16 06/22/16 11:39 16:19 06:22 WBC RBC 3.13 L Hgb 8.2 L Hct 25.1 L MCH 26 L RDW 28.6 H Seg Neuts % (Manual) 88.0 H Lymphocytes % (Manual) 7.0 L Lymphocytes # (Manual) 0.6 L D-Dimer POC ABG pH POC ABG pCO2 POC ABG pO2 Potassium Chloride Carbon Dioxide BUN Glucose POC Glucose 135 H 115 H Calcium 06/22/16 06/22/16 06/22/16 06:22 12:52 15:53 WBC RBC Hgb Hct MCH RDW Seg Neuts % (Manual) Lymphocytes % (Manual) Lymphocytes # (Manual) D-Dimer POC ABG pH 7.461 H POC ABG pCO2 29.7 L POC ABG pO2 29 L Potassium Chloride 109.0 H Carbon Dioxide 21 L BUN Glucose POC Glucose 112 H Calcium 8.2 L 06/27/16 06/27/16 06/28/16 07:03 07:03 06:40 WBC 17.0 H 16.0 H RBC 3.07 L 2.72 L Hgb 8.1 L 7.2 L Hct 25.5 L 22.3 L MCH 26 L 27 L RDW 28.4 H 28.1 H Seg Neuts % (Manual) Lymphocytes % (Manual) Lymphocytes # (Manual) D-Dimer POC ABG pH POC ABG pCO2 POC ABG pO2 Potassium 5.5 H Chloride Carbon Dioxide BUN 23 H Glucose 117 H POC Glucose Calcium 06/28/16 06:40 WBC RBC Hgb Hct MCH RDW Seg Neuts % (Manual) Lymphocytes % (Manual) Lymphocytes # (Manual) D-Dimer POC ABG pH POC ABG pCO2 POC ABG pO2 Potassium Chloride Carbon Dioxide BUN 28 H Glucose 110 H POC Glucose Calcium 8.2 L
[2016-06-28] MEDS: NEURONTIN PO SCH (22:26)
[2016-06-29] MEDS: DUONEB 0.5 MG-3 MG/3 ML SOLN IH SCH ×4 (03:14→21:19)
[2016-06-29] MEDS: HEPARIN SUB-Q SCH ×3 (06:30→21:06)
[2016-06-29] MEDS: PULMICORT IH SCH ×2 (09:00→19:39)
[2016-06-29] MEDS: BROVANA NEBU IH SCH ×2 (09:01→19:38)
[2016-06-29] MEDS: RANEXA ER PO SCH ×2 (09:29→21:06)
[2016-06-29] MEDS: PROTONIX PO SCH (09:29)
[2016-06-29] MEDS: DIOVAN PO SCH (09:29)
[2016-06-29] MEDS: HALFPRIN EC PO SCH (09:29)
[2016-06-29] MEDS: FEOSOL PO SCH ×3 (09:29→20:54)
[2016-06-29] MEDS: COREG PO SCH ×2 (09:30→21:11)
[2016-06-29 10:10] LABS: Anion Gap 20 mmol/L; BUN/Creatinine Ratio 37.77; Blood Urea Nitrogen 34 mg/dL (7-17); Calcium 8.6 mg/dL (8.4-10.2); Carbon Dioxide 24 mmol/L (22-30); Chloride 99.6 mmol/L (98-107); Glucose 115 mg/dL (65-100); Potassium 4.6 mmol/L (3.6-5.0); Sodium 139 mmol/L (137-145)
--- NOTE | 2016-06-29 10:23 | Progress Note ---
Assessment and Plan Acute hypoxic respiratory failure Acute COPD exacerbation Hx of Multivessel coronary artery disease Patient deemed not a candidate for revascularization and recommended only for medical therapy. EF 55-60% on echo 04/2015 Anemia -HCT trending downwards Recommendations: Medical therapy for coronary artery disease. Subjective Date of service: 06/29/16 Principal diagnosis: Acute On Chronic ypoxemic Respiratory Failure Interval history: Awaits placement. No interval changes. Objective Vital Signs Temp Pulse Pulse Pulse Pulse Resp Resp 06/29/16 09:14 97.9 F 79 24 06/29/16 09:13 80 20 06/29/16 09:01 76 20 06/29/16 09:00 06/29/16 06:10 97.5 F L 109 H 22 06/29/16 01:47 97.7 F 113 H 22 06/29/16 01:08 101 H 20 06/28/16 22:00 86 06/28/16 21:58 97.6 F 99 H 20 06/28/16 19:56 107 H 20 06/28/16 19:42 06/28/16 19:41 105 H 20 06/28/16 16:08 98.8 F 106 H 24 06/28/16 14:10 107 H 22 06/28/16 13:59 102 H 22 06/28/16 12:22 97 F L 123 H 30 H BP BP Pulse Ox 06/29/16 09:14 123/65 123/65 95 06/29/16 09:13 06/29/16 09:01 06/29/16 09:00 94 06/29/16 06:10 114/62 83 L 06/29/16 01:47 130/59 84 06/29/16 01:08 100 06/28/16 22:00 06/28/16 21:58 115/74 92 06/28/16 19:56 06/28/16 19:42 93 06/28/16 19:41 06/28/16 16:08 125/63 96 06/28/16 14:10 06/28/16 13:59 06/28/16 12:22 123/66 91 - Physical Examination General: No Apparent Distress HEENT: Positive: PERRL Neck: Positive: neck supple Cardiac: Positive: Reg Rate and Rhythm Neuro: Positive: Grossly Intact Extremities: Absent: edema - Labs and Meds Comprehensive Metabolic Panel 06/29/16 Range/Units 09:19 Sodium 139 (137-145) mmol/L Potassium 4.6 (3.6-5.0) mmol/L Chloride 99.6 (98-107) mmol/L Carbon Dioxide 24 (22-30) mmol/L BUN 34 H (7-17) mg/dL Creatinine 0.9 (0.7-1.2) mg/dL Glucose 115 H (65-100) mg/dL Calcium 8.6 (8.4-10.2) mg/dL
--- NOTE | 2016-06-29 17:40 | Progress Note ---
Assessment and Plan Assessment and plan: The patient is 80-year-old AA female history of COPD on home oxygen and CHF, pretension, atherosclerotic heart disease and GERD who presents for evaluation of dyspnea. The patient reports constant and worsening dyspnea for 2-3 days, exacerbated with attempting to physical activity or lying flat, and improved with rest and sitting up. The patient states that her symptoms are consistent with previous episodes of COPD exacerbation. The patient denies fever, chills, chest pain, but has chronic cough mostly dry but with occasional mucoid sputum on admission patient was started on intensive treatments with high flow oxygen and BiPAP remains a 5 L/m on high flow. Cardiology recommended medical management. Appears to be improving but not quite at baseline. Acute on chronic hypoxic respiratory failure due to COPD exacerbation. She is still on high amount of oxygen. She is BiPAP last night but will try again today. Continues on high flow oxygen 60% 35l/min with sat 97%. We'll attempt to wean down discussed with respiratory therapist. Pulm following. Discussed with Pulm. COPD exacerbation. On solumedrol, Duoneb, supplemental high flow Oxygen. BiPAP prn Coronary artery disease. On Aspirin, Coreg, Diovan, Ranexa. 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 Will give a dose of IV Lasix due to pleural effusion On Coreg, Diovan Hypertension. BP stable. Pleural effusion-stable we'll give Lasix. Anemia of chronic disease stable monitor closely. Large hiatal hernia-multiple clinical candidate for intervention at this time will follow outpatient with surgery. Hyperlipidemia , on Lipitor. DVT prophylaxis.Heparin subcut Full code status Disposition. Patient was denied LTAC by insurance company stating that SNF for handle high oxygen requirements have discussed with case management. In day and not able to hire trandolapril 5 L flow. We will take the patient is down to 10 L.. Discussed with case management and they are working on arrangements. Plan of care discussed with the patient should verbalize understanding not family present at this time for discussion. History Interval history: Patient seen and examined this morning still with mild respiratory shortness of breath Denies any chest pain, nausea, vomiting, diarrhea No fever noted blood pressure controlled No adverse events reported to me by nursing staff Hospitalist Physical - Physical exam Narrative exam: VITAL SIGNS: Reviewed. GENERAL: The patient appeared ill and frail otherwise sitting up in chair with mild respiratory distress vital signs as documented. HEAD: No signs of head trauma. EYES: Pupils are equal. Extraocular motions intact. EARS: Hearing grossly intact. MOUTH: Oropharynx is normal. NECK: No adenopathy, no JVD. CHEST: Chest with bibasilar crackles bilaterally CARDIAC: Regular rate and rhythm. S1 and S2, without murmurs, gallops, or rubs. VASCULAR: 1+ pitting edema bilaterally. Peripheral pulses normal and equal in all extremities. ABDOMEN: Soft, without detectable tenderness. No sign of distention. No rebound or guarding, and no masses palpated. Bowel Sounds normal. MUSCULOSKELETAL: Good range of motion of all major joints. Extremities without clubbing, cyanosis and 1+ pitting edema bilaterally NEUROLOGIC EXAM: Alert and oriented x 3. No focal sensory or strength deficits. Speech normal. Follows commands. PSYCHIATRIC: Mood normal. SKIN: No rash or lesions. - Constitutional Vitals: Temp Pulse Resp BP Pulse Ox 97.7 F 92 H 20 117/58 93 06/29/16 12:41 06/29/16 13:52 06/29/16 13:52 06/29/16 12:41 06/29/16 16:51 General appearance: Present: no acute distress Results - Labs CBC & Chem 7: 06/28/16 06:40 06/29/16 09:19 Labs: Laboratory Last Values WBC 16.0 K/mm3 (4.5-11.0) H 06/28/16 06:40 RBC 2.72 M/mm3 (3.65-5.03) L 06/28/16 06:40 Hgb 7.2 gm/dl (10.1-14.3) L 06/28/16 06:40 Hct 22.3 % (30.3-42.9) L 06/28/16 06:40 MCV 82 fl (79-97) 06/28/16 06:40 MCH 27 pg (28-32) L 06/28/16 06:40 MCHC 32 % (30-34) 06/28/16 06:40 RDW 28.1 % (13.2-15.2) H 06/28/16 06:40 Plt Count 267 K/mm3 (140-440) 06/28/16 06:40 Add Manual Diff Complete 06/22/16 06:22 Total Counted 100 06/22/16 06:22 Seg Neuts % (Manual) 88.0 % (40.0-70.0) H 06/22/16 06:22 Band Neutrophils % 0 % 06/22/16 06:22 Lymphocytes % (Manual) 7.0 % (13.4-35.0) L 06/22/16 06:22 Reactive Lymphs % (Man) 0 % 06/22/16 06:22 Monocytes % (Manual) 4.0 % (0.0-7.3) 06/22/16 06:22 Eosinophils % (Manual) 1.0 % (0.0-4.3) 06/22/16 06:22 Basophils % (Manual) 0 % (0.0-1.8) 06/22/16 06:22 Metamyelocytes % 0 % 06/22/16 06:22 Myelocytes % 0 % 06/22/16 06:22 Promyelocytes % 0 % 06/22/16 06:22 Blast Cells % 0 % 06/22/16 06:22 Nucleated RBC % Not Reportable 06/22/16 06:22 Seg Neutrophils # Man 7.6 K/mm3 (1.8-7.7) 06/22/16 06:22 Band Neutrophils # 0.0 K/mm3 06/22/16 06:22 Lymphocytes # (Manual) 0.6 K/mm3 (1.2-5.4) L 06/22/16 06:22 Abs React Lymphs (Man) 0.0 K/mm3 06/22/16 06:22 Monocytes # (Manual) 0.3 K/mm3 (0.0-0.8) 06/22/16 06:22 Eosinophils # (Manual) 0.1 K/mm3 (0.0-0.4) 06/22/16 06:22 Basophils # (Manual) 0.0 K/mm3 (0.0-0.1) 06/22/16 06:22 Metamyelocytes # 0.0 K/mm3 06/22/16 06:22 Myelocytes # 0.0 K/mm3 06/22/16 06:22 Promyelocytes # 0.0 K/mm3 06/22/16 06:22 Blast Cells # 0.0 K/mm3 06/22/16 06:22 WBC Morphology Not Reportable 06/22/16 06:22 Hypersegmented Neuts Not Reportable 06/22/16 06:22 Hyposegmented Neuts Not Reportable 06/22/16 06:22 Hypogranular Neuts Not Reportable 06/22/16 06:22 Smudge Cells Not Reportable 06/22/16 06:22 Toxic Granulation Not Reportable 06/22/16 06:22 Toxic Vacuolation Not Reportable 06/22/16 06:22 Dohle Bodies Not Reportable 06/22/16 06:22 Pelger-Huet Anomaly Not Reportable 06/22/16 06:22 Mony Rods Not Reportable 06/22/16 06:22 Platelet Estimate Appears normal 06/22/16 06:22 Clumped Platelets Not Reportable 06/22/16 06:22 Plt Clumps, EDTA Not Reportable 06/22/16 06:22 Large Platelets Not Reportable 06/22/16 06:22 Giant Platelets Not Reportable 06/22/16 06:22 Platelet Satelliting Not Reportable 06/22/16 06:22 Plt Morphology Comment Not Reportable 06/22/16 06:22 RBC Morphology Not Reportable 06/22/16 06:22 Dimorphic RBCs Not Reportable 06/22/16 06:22 Polychromasia Not Reportable 06/22/16 06:22 Hypochromasia 1+ 06/22/16 06:22 Poikilocytosis Not Reportable 06/22/16 06:22 Anisocytosis 3+ 06/22/16 06:22 Microcytosis Not Reportable 06/22/16 06:22 Macrocytosis Not Reportable 06/22/16 06:22 Spherocytes Not Reportable 06/22/16 06:22 Pappenheimer Bodies Not Reportable 06/22/16 06:22 Sickle Cells Not Reportable 06/22/16 06:22 Target Cells Not Reportable 06/22/16 06:22 Tear Drop Cells Not Reportable 06/22/16 06:22 Ovalocytes Few 06/22/16 06:22 Helmet Cells Not Reportable 06/22/16 06:22 [place] Bodies Not Reportable 06/22/16 06:22 [place] Rings Not Reportable 06/22/16 06:22 [place] Cells Not Reportable 06/22/16 06:22 Bite Cells Not Reportable 06/22/16 06:22 Crenated Cell Not Reportable 06/22/16 06:22 Elliptocytes Few 06/22/16 06:22 Acanthocytes (Spur) Not Reportable 06/22/16 06:22 Rouleaux Not Reportable 06/22/16 06:22 Hemoglobin C Crystals Not Reportable 06/22/16 06:22 Schistocytes Not Reportable 06/22/16 06:22 Malaria parasites Not Reportable 06/22/16 06:22 Juan R Bodies Not Reportable 06/22/16 06:22 Hem Pathologist Commnt No 06/22/16 06:22 PT 14.4 Sec. (12.2-14.9) 06/20/16 14:11 INR 1.13 (0.87-1.13) 06/20/16 14:11 D-Dimer 958.1 ng/mlDDU (0-234) H 06/20/16 14:12 POC ABG pH 7.461 (7.35-7.45) H 06/22/16 15:53 POC ABG pCO2 29.7 (35-45) L 06/22/16 15:53 POC ABG pO2 29 (80-105) L 06/22/16 15:53 POC ABG HCO3 21.2 06/22/16 15:53 POC ABG Total CO2 22 06/22/16 15:53 POC ABG O2 Sat 60 06/22/16 15:53 POC ABG Base Excess -3 06/22/16 15:53 FiO2 21 % 06/22/16 15:53 Sodium 139 mmol/L (137-145) 06/29/16 09:19 Potassium 4.6 mmol/L (3.6-5.0) 06/29/16 09:19 Chloride 99.6 mmol/L (98-107) 06/29/16 09:19 Carbon Dioxide 24 mmol/L (22-30) 06/29/16 09:19 Anion Gap 20 mmol/L 06/29/16 09:19 BUN 34 mg/dL (7-17) H 06/29/16 09:19 Creatinine 0.9 mg/dL (0.7-1.2) 06/29/16 09:19 Estimated GFR > 60 ml/min 06/29/16 09:19 BUN/Creatinine Ratio 37.77 % 06/29/16 09:19 Glucose 115 mg/dL (65-100) H 06/29/16 09:19 POC Glucose 112 (70-105) H 06/22/16 12:52 Calcium 8.6 mg/dL (8.4-10.2) 06/29/16 09:19 Troponin T < 0.010 ng/mL (0.00-0.029) 06/17/16 15:59 NT-Pro-B Natriuret Pep 1912 pg/mL (0-900) H 06/17/16 15:59 - Imaging and Cardiology CT scan - chest: image reviewed (large pericardial hernia, mild pleural effusion.)
[2016-06-29] MEDS ORDERED: LASIX IV ONE (18:30)
--- NOTE | 2016-06-29 19:51 | Progress Note ---
Assessment and Plan Patient awke, sitting up in chair. Still On high flow O2.FIO2 55% and O2 satuaration 92%.No acute respitatory distress at rest. - Patient Problems (1) Acute exacerbation of chronic obstructive pulmonary disease (COPD) Current Visit: Yes Status: Acute Plan to address problem: Patient is on High flow O2 FIO2 55% Albuterol/atrovent aerosol treatments q 12 hours. Continue I/V solumedral. Continue S/C Heparin. (2) Respiratory failure with hypoxia Current Visit: Yes Status: Acute Qualifiers: Chronicity: acute on chronic Qualified Code(s): J96.21 - Acute and chronic respiratory failure with hypoxia Plan to address problem: Continue High flow O2 ,FIO2 55%. Albuterol/atrovent aerosol treatments q 12 hours. Continue I/V solumedral. Continue S/C Heparin. Subjective Date of service: 06/29/16 Principal diagnosis: Acute On Chronic ypoxemic Respiratory Failure Interval history: Patient awke, sitting up in chair. Still On high flow O2.FIO2 55% and O2 satuaration 92%.No acute respitatory distress at rest. Objective Vital Signs - 12hr 06/29/16 06/29/16 06/29/16 09:00 09:01 09:13 Temperature Pulse Rate Pulse Rate [ 76 80 Anterior Bilateral Throughout] Pulse Rate [ Apical] Pulse Rate [ Left Radial] Pulse Rate [ Right Radial] Respiratory Rate Respiratory 20 20 Rate [Anterior Bilateral Throughout] Blood Pressure [Left Arm] Blood Pressure [Right Radial Artery] O2 Sat by Pulse 94 Oximetry 06/29/16 06/29/16 06/29/16 09:14 10:00 12:41 Temperature 97.9 F 97.7 F Pulse Rate 79 Pulse Rate [ Anterior Bilateral Throughout] Pulse Rate [ Apical] Pulse Rate [ 79 Left Radial] Pulse Rate [ 90 Right Radial] Respiratory 24 22 Rate Respiratory Rate [Anterior Bilateral Throughout] Blood Pressure 123/65 [Left Arm] Blood Pressure 123/65 117/58 [Right Radial Artery] O2 Sat by Pulse 95 95 95 Oximetry 06/29/16 06/29/16 06/29/16 13:45 13:52 14:16 Temperature Pulse Rate Pulse Rate [ 94 H 92 H Anterior Bilateral Throughout] Pulse Rate [ Apical] Pulse Rate [ Left Radial] Pulse Rate [ Right Radial] Respiratory Rate Respiratory 20 20 Rate [Anterior Bilateral Throughout] Blood Pressure [Left Arm] Blood Pressure [Right Radial Artery] O2 Sat by Pulse 92 Oximetry 06/29/16 06/29/16 06/29/16 16:00 16:51 19:40 Temperature 97.8 F Pulse Rate Pulse Rate [ 89 Anterior Bilateral Throughout] Pulse Rate [ 109 H Apical] Pulse Rate [ Left Radial] Pulse Rate [ Right Radial] Respiratory 20 Rate Respiratory 20 Rate [Anterior Bilateral Throughout] Blood Pressure 105/65 [Left Arm] Blood Pressure [Right Radial Artery] O2 Sat by Pulse 93 93 Oximetry 06/29/16 19:41 Temperature Pulse Rate Pulse Rate [ Anterior Bilateral Throughout] Pulse Rate [ Apical] Pulse Rate [ Left Radial] Pulse Rate [ Right Radial] Respiratory Rate Respiratory Rate [Anterior Bilateral Throughout] Blood Pressure [Left Arm] Blood Pressure [Right Radial Artery] O2 Sat by Pulse 92 Oximetry Constitutional: no acute distress, alert, asleep Eyes: non-icteric ENT: oropharynx moist Neck: supple, no lymphadenopathy Effort: mildly labored Ascultation: Bilateral: diminished breath sounds, rales (inspiratory in bases) Cardiovascular: regular rate and rhythm Gastrointestinal: normoactive bowel sounds, soft, non-tender, non-distended Integumentary: normal Extremities: no cyanosis, pulses normal, no ischemia or petechiae Neurologic: normal mental status, non-focal exam, pupils equal and round, motor strength normal and Psychiatric: mood appropriate, affect normal CBC and BMP: 06/28/16 06:40 06/29/16 09:19 ABG, PT/INR, D-dimer: ABG POC ABG pH 7.461 (7.35-7.45) H 06/22/16 15:53 POC ABG pCO2 29.7 (35-45) L 06/22/16 15:53 POC ABG pO2 29 (80-105) L 06/22/16 15:53 POC ABG HCO3 21.2 06/22/16 15:53 POC ABG Total CO2 22 06/22/16 15:53 POC ABG O2 Sat 60 06/22/16 15:53 PT/INR, D-dimer PT 14.4 Sec. (12.2-14.9) 06/20/16 14:11 INR 1.13 (0.87-1.13) 06/20/16 14:11 D-Dimer 958.1 ng/mlDDU (0-234) H 06/20/16 14:12 Abnormal lab findings: Abnormal Labs 06/18/16 06/20/16 06/21/16 05:34 14:12 00:31 WBC RBC 3.33 L Hgb 8.9 L Hct 26.9 L MCH 27 L RDW 28.4 H Seg Neuts % (Manual) Lymphocytes % (Manual) Lymphocytes # (Manual) D-Dimer 958.1 H POC ABG pH POC ABG pCO2 POC ABG pO2 Potassium Chloride Carbon Dioxide 19 L BUN 18 H Glucose 143 H POC Glucose Calcium 7.2 L 06/21/16 06/21/16 06/22/16 11:39 16:19 06:22 WBC RBC 3.13 L Hgb 8.2 L Hct 25.1 L MCH 26 L RDW 28.6 H Seg Neuts % (Manual) 88.0 H Lymphocytes % (Manual) 7.0 L Lymphocytes # (Manual) 0.6 L D-Dimer POC ABG pH POC ABG pCO2 POC ABG pO2 Potassium Chloride Carbon Dioxide BUN Glucose POC Glucose 135 H 115 H Calcium 06/22/16 06/22/16 06/22/16 06:22 12:52 15:53 WBC RBC Hgb Hct MCH RDW Seg Neuts % (Manual) Lymphocytes % (Manual) Lymphocytes # (Manual) D-Dimer POC ABG pH 7.461 H POC ABG pCO2 29.7 L POC ABG pO2 29 L Potassium Chloride 109.0 H Carbon Dioxide 21 L BUN Glucose POC Glucose 112 H Calcium 8.2 L 06/27/16 06/27/16 06/28/16 07:03 07:03 06:40 WBC 17.0 H 16.0 H RBC 3.07 L 2.72 L Hgb 8.1 L 7.2 L Hct 25.5 L 22.3 L MCH 26 L 27 L RDW 28.4 H 28.1 H Seg Neuts % (Manual) Lymphocytes % (Manual) Lymphocytes # (Manual) D-Dimer POC ABG pH POC ABG pCO2 POC ABG pO2 Potassium 5.5 H Chloride Carbon Dioxide BUN 23 H Glucose 117 H POC Glucose Calcium 06/28/16 06/29/16 06:40 09:19 WBC RBC Hgb Hct MCH RDW Seg Neuts % (Manual) Lymphocytes % (Manual) Lymphocytes # (Manual) D-Dimer POC ABG pH POC ABG pCO2 POC ABG pO2 Potassium Chloride Carbon Dioxide BUN 28 H 34 H Glucose 110 H 115 H POC Glucose Calcium 8.2 L
[2016-06-29] MEDS: NEURONTIN PO SCH (21:06)
[2016-06-30] MEDS: DUONEB 0.5 MG-3 MG/3 ML SOLN IH SCH ×4 (02:42→20:29)
[2016-06-30] MEDS: HEPARIN SUB-Q SCH ×3 (06:15→22:32)
[2016-06-30] MEDS: PULMICORT IH SCH ×2 (08:11→20:29)
[2016-06-30] MEDS: BROVANA NEBU IH SCH ×2 (08:11→20:28)
[2016-06-30 08:12] LABS: Hemoglobin 7.2 gm/dl (10.1-14.3); Mean Corpuscular HGB Conc 33 % (30-34); Mean Corpuscular Hemoglobin 27 pg (28-32); Mean Corpuscular Volume 82 fl (79-97); Platelet Count 282 K/mm3 (140-440); Red Blood Count 2.68 M/mm3 (3.65-5.03)
[2016-06-30 08:13] LABS: Red Cell Distribution Width 27.7 % (13.2-15.2); White Blood Count 20.9 K/mm3 (4.5-11.0)
[2016-06-30 08:35] LABS: BUN/Creatinine Ratio 40.83; Calcium 8.3 mg/dL (8.4-10.2); Chloride 98.1 mmol/L (98-107); Potassium 4.9 mmol/L (3.6-5.0)
[2016-06-30] MEDS: RANEXA ER PO SCH ×2 (10:36→22:31)
[2016-06-30] MEDS: FEOSOL PO SCH ×3 (10:36→22:31)
[2016-06-30] MEDS: COREG PO SCH ×2 (10:36→22:31)
[2016-06-30] MEDS: HALFPRIN EC PO SCH (10:36)
[2016-06-30] MEDS: PROTONIX PO SCH (10:36)
[2016-06-30] MEDS: DIOVAN PO SCH (10:36)
--- NOTE | 2016-06-30 11:11 | Progress Note ---
Assessment and Plan Acute hypoxic respiratory failure Acute COPD exacerbation Hx of Multivessel coronary artery disease Patient deemed not a candidate for revascularization and recommended only for medical therapy. EF 55-60% on echo 04/2015 Anemia - HCT trending downwards Recommendations: Medical therapy for coronary artery disease. No further cardiac work-up Will sign off Subjective Date of service: 06/30/16 Principal diagnosis: Acute On Chronic ypoxemic Respiratory Failure Interval history: No interval changes Objective Vital Signs Temp Pulse Pulse Pulse Pulse Pulse Resp 06/30/16 09:09 97.5 F L 63 18 06/30/16 08:04 67 20 06/30/16 05:18 97.5 F L 69 20 06/30/16 02:43 71 20 06/30/16 01:00 97.7 F 71 20 06/29/16 22:00 20 06/29/16 21:54 97.4 F L 91 H 22 06/29/16 21:11 91 H 06/29/16 19:55 91 H 06/29/16 19:41 06/29/16 19:40 89 06/29/16 16:51 06/29/16 16:00 97.8 F 109 H 20 06/29/16 14:16 06/29/16 13:52 92 H 06/29/16 13:45 94 H 06/29/16 12:41 97.7 F 90 22 Resp BP BP BP Pulse Ox 06/30/16 09:09 126/65 5 L 06/30/16 08:04 92 06/30/16 05:18 116/59 96 06/30/16 02:43 96 06/30/16 01:00 108/63 98 06/29/16 22:00 06/29/16 21:54 116/62 91 06/29/16 21:11 116/62 06/29/16 19:55 20 06/29/16 19:41 92 06/29/16 19:40 20 06/29/16 16:51 93 06/29/16 16:00 105/65 93 06/29/16 14:16 92 06/29/16 13:52 20 06/29/16 13:45 20 06/29/16 12:41 117/58 95 - Physical Examination General: No Apparent Distress HEENT: Positive: PERRL Neck: Positive: neck supple Cardiac: Positive: Reg Rate and Rhythm Lungs: Positive: Decreased Breath Sounds, Wheezes Neuro: Positive: Grossly Intact Abdomen: Positive: Soft Skin: Positive: Clear Extremities: Absent: edema - Labs and Meds CBC 06/30/16 Range/Units 07:29 WBC 20.9 H (4.5-11.0) K/mm3 RBC 2.68 L (3.65-5.03) M/mm3 Hgb 7.2 L (10.1-14.3) gm/dl Hct 22.0 L (30.3-42.9) % Plt Count 282 (140-440) K/mm3 Comprehensive Metabolic Panel 06/30/16 Range/Units 07:29 Sodium 138 (137-145) mmol/L Potassium 4.9 (3.6-5.0) mmol/L Chloride 98.1 (98-107) mmol/L Carbon Dioxide 26 (22-30) mmol/L BUN 49 H (7-17) mg/dL Creatinine 1.2 (0.7-1.2) mg/dL Glucose 139 H (65-100) mg/dL Calcium 8.3 L (8.4-10.2) mg/dL
[2016-06-30] MEDS ORDERED: NACL 0.9% 500 ML 500 ML IV NR (11:51)
[2016-06-30] MEDS ORDERED: LASIX IV ONE (15:00)
--- NOTE | 2016-06-30 16:34 | Progress Note ---
Assessment and Plan Assessment and plan: The patient is 80-year-old AA female history of COPD on home oxygen and CHF, pretension, atherosclerotic heart disease and GERD who presents for evaluation of dyspnea. The patient reports constant and worsening dyspnea for 2-3 days, exacerbated with attempting to physical activity or lying flat, and improved with rest and sitting up. The patient states that her symptoms are consistent with previous episodes of COPD exacerbation. The patient denies fever, chills, chest pain, but has chronic cough mostly dry but with occasional mucoid sputum on admission patient was started on intensive treatments with high flow oxygen and BiPAP remains a 5 L/m on high flow. Cardiology recommended medical management. Appears to be improving but not quite at baseline. Acute on chronic hypoxic respiratory failure due to COPD exacerbation. She is still on high amount of oxygen. She is BiPAP last night but will try again today. Continues on high flow oxygen 60% 35l/min with sat 97%. We'll attempt to wean down discussed with respiratory therapist. Pulm following. Discussed with Pulm. COPD exacerbation. On solumedrol, Duoneb, supplemental high flow Oxygen. BiPAP prn Coronary artery disease. On Aspirin, Coreg, Diovan, Ranexa. 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 Will give a dose of IV Lasix due to pleural effusion On Coreg, Diovan Hypertension. BP stable. Pleural effusion-stable we'll give Lasix. Anemia of chronic disease -hgb 7.2. will give 1 units PRBC to better optimize oxygen carrying capacity and transfers. stable monitor closely. Large hiatal hernia-multiple clinical candidate for intervention at this time will follow outpatient with surgery. Hyperlipidemia , on Lipitor. DVT prophylaxis.Heparin subcut Full code status Disposition. Patient was denied LTAC by insurance company stating that SNF for handle high oxygen requirements have discussed with case management. In day and not able to hire trandolapril 5 L flow. We will take the patient is down to 10 L.. Discussed with case management and they are working on arrangements. Plan of care discussed with the patient should verbalize understanding not family present at this time for discussion. History Interval history: Patient seen and examined this morning still with shortness of breath Denies any chest pain, nausea, vomiting, diarrhea No fever noted blood pressure controlled No adverse events reported to me by nursing staff Hospitalist Physical - Physical exam Narrative exam: VITAL SIGNS: Reviewed. GENERAL: The patient appeared ill and frail otherwise sitting up in chair with mild respiratory distress vital signs as documented. HEAD: No signs of head trauma. EYES: Pupils are equal. Extraocular motions intact. EARS: Hearing grossly intact. MOUTH: Oropharynx is normal. NECK: No adenopathy, no JVD. CHEST: Chest with bibasilar crackles bilaterally CARDIAC: Regular rate and rhythm. S1 and S2, without murmurs, gallops, or rubs. VASCULAR: 1+ pitting edema bilaterally. Peripheral pulses normal and equal in all extremities. ABDOMEN: Soft, without detectable tenderness. No sign of distention. No rebound or guarding, and no masses palpated. Bowel Sounds normal. MUSCULOSKELETAL: Good range of motion of all major joints. Extremities without clubbing, cyanosis and 1+ pitting edema bilaterally NEUROLOGIC EXAM: Alert and oriented x 3. No focal sensory or strength deficits. Speech normal. Follows commands. PSYCHIATRIC: Mood normal. SKIN: No rash or lesions. - Constitutional Vitals: Temp Pulse Resp BP Pulse Ox 97.8 F 72 18 115/59 99 06/30/16 15:50 06/30/16 15:50 06/30/16 15:50 06/30/16 15:50 06/30/16 15:50 General appearance: Present: no acute distress Results - Labs CBC & Chem 7: 06/30/16 07:29 06/30/16 07:29 Labs: Laboratory Last Values WBC 20.9 K/mm3 (4.5-11.0) H 06/30/16 07:29 RBC 2.68 M/mm3 (3.65-5.03) L 06/30/16 07:29 Hgb 7.2 gm/dl (10.1-14.3) L 06/30/16 07:29 Hct 22.0 % (30.3-42.9) L 06/30/16 07:29 MCV 82 fl (79-97) 06/30/16 07:29 MCH 27 pg (28-32) L 06/30/16 07:29 MCHC 33 % (30-34) 06/30/16 07:29 RDW 27.7 % (13.2-15.2) H 06/30/16 07:29 Plt Count 282 K/mm3 (140-440) 06/30/16 07:29 Add Manual Diff Complete 06/22/16 06:22 Total Counted 100 06/22/16 06:22 Seg Neuts % (Manual) 88.0 % (40.0-70.0) H 06/22/16 06:22 Band Neutrophils % 0 % 06/22/16 06:22 Lymphocytes % (Manual) 7.0 % (13.4-35.0) L 06/22/16 06:22 Reactive Lymphs % (Man) 0 % 06/22/16 06:22 Monocytes % (Manual) 4.0 % (0.0-7.3) 06/22/16 06:22 Eosinophils % (Manual) 1.0 % (0.0-4.3) 06/22/16 06:22 Basophils % (Manual) 0 % (0.0-1.8) 06/22/16 06:22 Metamyelocytes % 0 % 06/22/16 06:22 Myelocytes % 0 % 06/22/16 06:22 Promyelocytes % 0 % 06/22/16 06:22 Blast Cells % 0 % 06/22/16 06:22 Nucleated RBC % Not Reportable 06/22/16 06:22 Seg Neutrophils # Man 7.6 K/mm3 (1.8-7.7) 06/22/16 06:22 Band Neutrophils # 0.0 K/mm3 06/22/16 06:22 Lymphocytes # (Manual) 0.6 K/mm3 (1.2-5.4) L 06/22/16 06:22 Abs React Lymphs (Man) 0.0 K/mm3 06/22/16 06:22 Monocytes # (Manual) 0.3 K/mm3 (0.0-0.8) 06/22/16 06:22 Eosinophils # (Manual) 0.1 K/mm3 (0.0-0.4) 06/22/16 06:22 Basophils # (Manual) 0.0 K/mm3 (0.0-0.1) 06/22/16 06:22 Metamyelocytes # 0.0 K/mm3 06/22/16 06:22 Myelocytes # 0.0 K/mm3 06/22/16 06:22 Promyelocytes # 0.0 K/mm3 06/22/16 06:22 Blast Cells # 0.0 K/mm3 06/22/16 06:22 WBC Morphology Not Reportable 06/22/16 06:22 Hypersegmented Neuts Not Reportable 06/22/16 06:22 Hyposegmented Neuts Not Reportable 06/22/16 06:22 Hypogranular Neuts Not Reportable 06/22/16 06:22 Smudge Cells Not Reportable 06/22/16 06:22 Toxic Granulation Not Reportable 06/22/16 06:22 Toxic Vacuolation Not Reportable 06/22/16 06:22 Dohle Bodies Not Reportable 06/22/16 06:22 Pelger-Huet Anomaly Not Reportable 06/22/16 06:22 Mony Rods Not Reportable 06/22/16 06:22 Platelet Estimate Appears normal 06/22/16 06:22 Clumped Platelets Not Reportable 06/22/16 06:22 Plt Clumps, EDTA Not Reportable 06/22/16 06:22 Large Platelets Not Reportable 06/22/16 06:22 Giant Platelets Not Reportable 06/22/16 06:22 Platelet Satelliting Not Reportable 06/22/16 06:22 Plt Morphology Comment Not Reportable 06/22/16 06:22 RBC Morphology Not Reportable 06/22/16 06:22 Dimorphic RBCs Not Reportable 06/22/16 06:22 Polychromasia Not Reportable 06/22/16 06:22 Hypochromasia 1+ 06/22/16 06:22 Poikilocytosis Not Reportable 06/22/16 06:22 Anisocytosis 3+ 06/22/16 06:22 Microcytosis Not Reportable 06/22/16 06:22 Macrocytosis Not Reportable 06/22/16 06:22 Spherocytes Not Reportable 06/22/16 06:22 Pappenheimer Bodies Not Reportable 06/22/16 06:22 Sickle Cells Not Reportable 06/22/16 06:22 Target Cells Not Reportable 06/22/16 06:22 Tear Drop Cells Not Reportable 06/22/16 06:22 Ovalocytes Few 06/22/16 06:22 Helmet Cells Not Reportable 06/22/16 06:22 [place] Bodies Not Reportable 06/22/16 06:22 [place] Rings Not Reportable 06/22/16 06:22 [place] Cells Not Reportable 06/22/16 06:22 Bite Cells Not Reportable 06/22/16 06:22 Crenated Cell Not Reportable 06/22/16 06:22 Elliptocytes Few 06/22/16 06:22 Acanthocytes (Spur) Not Reportable 06/22/16 06:22 Rouleaux Not Reportable 06/22/16 06:22 Hemoglobin C Crystals Not Reportable 06/22/16 06:22 Schistocytes Not Reportable 06/22/16 06:22 Malaria parasites Not Reportable 06/22/16 06:22 Juan R Bodies Not Reportable 06/22/16 06:22 Hem Pathologist Commnt No 06/22/16 06:22 PT 14.4 Sec. (12.2-14.9) 06/20/16 14:11 INR 1.13 (0.87-1.13) 06/20/16 14:11 D-Dimer 958.1 ng/mlDDU (0-234) H 06/20/16 14:12 POC ABG pH 7.461 (7.35-7.45) H 06/22/16 15:53 POC ABG pCO2 29.7 (35-45) L 06/22/16 15:53 POC ABG pO2 29 (80-105) L 06/22/16 15:53 POC ABG HCO3 21.2 06/22/16 15:53 POC ABG Total CO2 22 06/22/16 15:53 POC ABG O2 Sat 60 06/22/16 15:53 POC ABG Base Excess -3 06/22/16 15:53 FiO2 21 % 06/22/16 15:53 Sodium 138 mmol/L (137-145) 06/30/16 07:29 Potassium 4.9 mmol/L (3.6-5.0) 06/30/16 07:29 Chloride 98.1 mmol/L (98-107) 06/30/16 07:29 Carbon Dioxide 26 mmol/L (22-30) 06/30/16 07:29 Anion Gap 19 mmol/L 06/30/16 07:29 BUN 49 mg/dL (7-17) H 06/30/16 07:29 Creatinine 1.2 mg/dL (0.7-1.2) 06/30/16 07:29 Estimated GFR 53 ml/min 06/30/16 07:29 BUN/Creatinine Ratio 40.83 % 06/30/16 07:29 Glucose 139 mg/dL (65-100) H 06/30/16 07:29 POC Glucose 112 (70-105) H 06/22/16 12:52 Calcium 8.3 mg/dL (8.4-10.2) L 06/30/16 07:29 Troponin T < 0.010 ng/mL (0.00-0.029) 06/17/16 15:59 NT-Pro-B Natriuret Pep 1912 pg/mL (0-900) H 06/17/16 15:59 Blood Type B POSITIVE 06/30/16 12:50 Antibody Screen Negative 06/30/16 12:50 Crossmatch See Detail 06/30/16 12:50
--- NOTE | 2016-06-30 16:36 | Progress Note ---
Assessment and Plan Patient alert, awke Still On high flow O2.FIO2 50% and O2 satuaration 99%.No acute respitatory distress at rest.Recommend to wean slowly from high flow O2. - Patient Problems (1) Acute exacerbation of chronic obstructive pulmonary disease (COPD) Current Visit: Yes Status: Acute Plan to address problem: Patient is on High flow O2 FIO2 50% Albuterol/atrovent aerosol treatments q 12 hours. Continue I/V solumedral. Continue S/C Heparin. (2) Respiratory failure with hypoxia Current Visit: Yes Status: Acute Qualifiers: Chronicity: acute on chronic Qualified Code(s): J96.21 - Acute and chronic respiratory failure with hypoxia Plan to address problem: Continue High flow O2 ,FIO2 50%. Albuterol/atrovent aerosol treatments q 12 hours. Continue I/V solumedral. Continue S/C Heparin. Subjective Date of service: 06/30/16 Principal diagnosis: Acute On Chronic ypoxemic Respiratory Failure Interval history: Patient alert, awke Still On high flow O2.FIO2 50% and O2 satuaration 99%.No acute respitatory distress at rest.Recommend to wean slowly from high flow O2. Objective Vital Signs - 12hr 06/30/16 06/30/16 06/30/16 05:18 08:04 08:11 Temperature 97.5 F L Pulse Rate 67 Pulse Rate [ 72 Anterior Bilateral Throughout] Pulse Rate [ 69 Apical] Pulse Rate [ Left Radial] Respiratory 20 20 Rate Respiratory 20 Rate [Anterior Bilateral Throughout] Blood Pressure 116/59 [Left Arm] O2 Sat by Pulse 96 92 98 Oximetry 06/30/16 06/30/16 06/30/16 08:22 09:09 14:14 Temperature 97.5 F L 97.8 F Pulse Rate Pulse Rate [ 97 H Anterior Bilateral Throughout] Pulse Rate [ Apical] Pulse Rate [ 63 81 Left Radial] Respiratory 18 18 Rate Respiratory 20 Rate [Anterior Bilateral Throughout] Blood Pressure 126/65 183/84 [Left Arm] O2 Sat by Pulse 5 L 95 Oximetry 06/30/16 15:50 Temperature 97.8 F Pulse Rate Pulse Rate [ Anterior Bilateral Throughout] Pulse Rate [ Apical] Pulse Rate [ 72 Left Radial] Respiratory 18 Rate Respiratory Rate [Anterior Bilateral Throughout] Blood Pressure 115/59 [Left Arm] O2 Sat by Pulse 99 Oximetry Constitutional: no acute distress, alert Eyes: non-icteric ENT: oropharynx moist Neck: supple, no lymphadenopathy Effort: mildly labored Ascultation: Bilateral: diminished breath sounds, rales (inspiratory in bases) Cardiovascular: regular rate and rhythm Gastrointestinal: normoactive bowel sounds, soft, non-tender, non-distended Integumentary: normal Extremities: no cyanosis, pulses normal, no ischemia or petechiae Neurologic: normal mental status, non-focal exam, pupils equal and round, motor strength normal and Psychiatric: mood appropriate, affect normal CBC and BMP: 06/30/16 07:29 06/30/16 07:29 ABG, PT/INR, D-dimer: ABG POC ABG pH 7.461 (7.35-7.45) H 06/22/16 15:53 POC ABG pCO2 29.7 (35-45) L 06/22/16 15:53 POC ABG pO2 29 (80-105) L 06/22/16 15:53 POC ABG HCO3 21.2 06/22/16 15:53 POC ABG Total CO2 22 06/22/16 15:53 POC ABG O2 Sat 60 06/22/16 15:53 PT/INR, D-dimer PT 14.4 Sec. (12.2-14.9) 06/20/16 14:11 INR 1.13 (0.87-1.13) 06/20/16 14:11 D-Dimer 958.1 ng/mlDDU (0-234) H 06/20/16 14:12 Abnormal lab findings: Abnormal Labs 06/18/16 06/20/16 06/21/16 05:34 14:12 00:31 WBC RBC 3.33 L Hgb 8.9 L Hct 26.9 L MCH 27 L RDW 28.4 H Seg Neuts % (Manual) Lymphocytes % (Manual) Lymphocytes # (Manual) D-Dimer 958.1 H POC ABG pH POC ABG pCO2 POC ABG pO2 Potassium Chloride Carbon Dioxide 19 L BUN 18 H Glucose 143 H POC Glucose Calcium 7.2 L Crossmatch 06/21/16 06/21/16 06/22/16 11:39 16:19 06:22 WBC RBC 3.13 L Hgb 8.2 L Hct 25.1 L MCH 26 L RDW 28.6 H Seg Neuts % (Manual) 88.0 H Lymphocytes % (Manual) 7.0 L Lymphocytes # (Manual) 0.6 L D-Dimer POC ABG pH POC ABG pCO2 POC ABG pO2 Potassium Chloride Carbon Dioxide BUN Glucose POC Glucose 135 H 115 H Calcium Crossmatch 06/22/16 06/22/16 06/22/16 06:22 12:52 15:53 WBC RBC Hgb Hct MCH RDW Seg Neuts % (Manual) Lymphocytes % (Manual) Lymphocytes # (Manual) D-Dimer POC ABG pH 7.461 H POC ABG pCO2 29.7 L POC ABG pO2 29 L Potassium Chloride 109.0 H Carbon Dioxide 21 L BUN Glucose POC Glucose 112 H Calcium 8.2 L Crossmatch 06/27/16 06/27/16 06/28/16 07:03 07:03 06:40 WBC 17.0 H 16.0 H RBC 3.07 L 2.72 L Hgb 8.1 L 7.2 L Hct 25.5 L 22.3 L MCH 26 L 27 L RDW 28.4 H 28.1 H Seg Neuts % (Manual) Lymphocytes % (Manual) Lymphocytes # (Manual) D-Dimer POC ABG pH POC ABG pCO2 POC ABG pO2 Potassium 5.5 H Chloride Carbon Dioxide BUN 23 H Glucose 117 H POC Glucose Calcium Crossmatch 06/28/16 06/29/16 06/30/16 06:40 09:19 07:29 WBC 20.9 H RBC 2.68 L Hgb 7.2 L Hct 22.0 L MCH 27 L RDW 27.7 H Seg Neuts % (Manual) Lymphocytes % (Manual) Lymphocytes # (Manual) D-Dimer POC ABG pH POC ABG pCO2 POC ABG pO2 Potassium Chloride Carbon Dioxide BUN 28 H 34 H Glucose 110 H 115 H POC Glucose Calcium 8.2 L Crossmatch 06/30/16 06/30/16 07:29 12:50 WBC RBC Hgb Hct MCH RDW Seg Neuts % (Manual) Lymphocytes % (Manual) Lymphocytes # (Manual) D-Dimer POC ABG pH POC ABG pCO2 POC ABG pO2 Potassium Chloride Carbon Dioxide BUN 49 H Glucose 139 H POC Glucose Calcium 8.3 L Crossmatch See Detail
[2016-06-30] MEDS: NEURONTIN PO SCH (22:33)
[2016-07-01] MEDS: DUONEB 0.5 MG-3 MG/3 ML SOLN IH SCH ×4 (02:16→20:34)
[2016-07-01] MEDS: HEPARIN SUB-Q SCH ×3 (06:27→22:40)
[2016-07-01 07:29] LABS: Hematocrit 28.1 % (30.3-42.9); Mean Corpuscular HGB Conc 32 % (30-34); Mean Corpuscular Hemoglobin 27 pg (28-32); Mean Corpuscular Volume 83 fl (79-97); Platelet Count 289 K/mm3 (140-440); Red Blood Count 3.41 M/mm3 (3.65-5.03)
[2016-07-01 07:32] LABS: Red Cell Distribution Width 24.5 % (13.2-15.2)
[2016-07-01] MEDS: BROVANA NEBU IH SCH ×2 (08:18→20:33)
[2016-07-01] MEDS: PULMICORT IH SCH ×2 (08:18→20:36)
[2016-07-01] MEDS: NORCO 5/325 PO PRN ×2 (08:32→13:56)
[2016-07-01] MEDS: FEOSOL PO SCH ×3 (08:32→19:58)
[2016-07-01] MEDS: DIOVAN PO SCH (11:12)
[2016-07-01] MEDS: RANEXA ER PO SCH ×2 (11:12→22:40)
[2016-07-01] MEDS: COREG PO SCH ×2 (11:13→22:40)
[2016-07-01] MEDS: HALFPRIN EC PO SCH (11:13)
[2016-07-01] MEDS: PROTONIX PO SCH (11:13)
--- NOTE | 2016-07-01 11:23 | Progress Note ---
Assessment and Plan - Patient Problems (1) Acute exacerbation of chronic obstructive pulmonary disease (COPD) Current Visit: Yes Status: Acute Plan to address problem: - continue supplemental oxygen and wean to keep O2 Sats >/= 92% - continue bronchodilators and pulmonary toilet - prn BIPAP (historically does not tolerate and risk of barotrauma) - optimize cardiac status per cardiology (2) Chest pain Current Visit: No Status: Acute Qualifiers: Chest pain type: unspecified Qualified Code(s): R07.9 - Chest pain, unspecified Plan to address problem: - resolved (3) Pulmonary fibrosis Current Visit: No Status: Chronic Plan to address problem: - as above Subjective Date of service: 07/01/16 Principal diagnosis: Acute On Chronic ypoxemic Respiratory Failure Interval history: Seen and examined at bedside; 24 hour events reviewed; nursing and respiratory care staff consulted; no adverse overnight events reported to me; family visiting; feels better; on high flow oxygen system at 55% FiO2 Objective Vital Signs - 12hr 06/30/16 07/01/16 07/01/16 23:30 00:00 00:30 Temperature 97.3 F L 98.8 F 99.1 F Pulse Rate 74 68 65 Pulse Rate [ Anterior Bilateral Throughout] Pulse Rate [ Apical] Respiratory 22 20 20 Rate Respiratory Rate [Anterior Bilateral Throughout] Blood Pressure 128/66 139/69 110/57 Blood Pressure [Left Arm] O2 Sat by Pulse 97 97 97 Oximetry 07/01/16 07/01/16 07/01/16 00:46 01:00 04:42 Temperature 99.1 F 99.1 F 97.6 F Pulse Rate 75 Pulse Rate [ Anterior Bilateral Throughout] Pulse Rate [ 74 62 Apical] Respiratory 20 20 22 Rate Respiratory Rate [Anterior Bilateral Throughout] Blood Pressure 133/63 Blood Pressure 128/66 109/59 [Left Arm] O2 Sat by Pulse 97 97 Oximetry 07/01/16 07/01/16 07/01/16 06:21 07:34 08:18 Temperature 97.7 F Pulse Rate 75 Pulse Rate [ 82 Anterior Bilateral Throughout] Pulse Rate [ 82 Apical] Respiratory 20 Rate Respiratory 22 Rate [Anterior Bilateral Throughout] Blood Pressure Blood Pressure 148/63 [Left Arm] O2 Sat by Pulse 95 Oximetry 07/01/16 07/01/16 08:23 08:32 Temperature Pulse Rate Pulse Rate [ 84 Anterior Bilateral Throughout] Pulse Rate [ Apical] Respiratory Rate Respiratory 22 Rate [Anterior Bilateral Throughout] Blood Pressure Blood Pressure [Left Arm] O2 Sat by Pulse 89 Oximetry Constitutional: no acute distress, alert Eyes: non-icteric ENT: oropharynx moist Neck: supple, no lymphadenopathy Effort: mildly labored (but close to her baseline) Ascultation: Bilateral: diminished breath sounds, rales (inspiratory in bases) Cardiovascular: regular rate and rhythm Gastrointestinal: normoactive bowel sounds, soft, non-tender, non-distended Integumentary: normal Extremities: no cyanosis, pulses normal, no ischemia or petechiae Neurologic: normal mental status, non-focal exam, pupils equal and round, motor strength normal and Psychiatric: mood appropriate, affect normal CBC and BMP: 07/01/16 07:10 06/30/16 07:29 ABG, PT/INR, D-dimer: ABG POC ABG pH 7.461 (7.35-7.45) H 06/22/16 15:53 POC ABG pCO2 29.7 (35-45) L 06/22/16 15:53 POC ABG pO2 29 (80-105) L 06/22/16 15:53 POC ABG HCO3 21.2 06/22/16 15:53 POC ABG Total CO2 22 06/22/16 15:53 POC ABG O2 Sat 60 06/22/16 15:53 PT/INR, D-dimer PT 14.4 Sec. (12.2-14.9) 06/20/16 14:11 INR 1.13 (0.87-1.13) 06/20/16 14:11 D-Dimer 958.1 ng/mlDDU (0-234) H 06/20/16 14:12 Abnormal lab findings: Abnormal Labs 06/18/16 06/20/16 06/21/16 05:34 14:12 00:31 WBC RBC 3.33 L Hgb 8.9 L Hct 26.9 L MCH 27 L RDW 28.4 H Seg Neuts % (Manual) Lymphocytes % (Manual) Lymphocytes # (Manual) D-Dimer 958.1 H POC ABG pH POC ABG pCO2 POC ABG pO2 Potassium Chloride Carbon Dioxide 19 L BUN 18 H Glucose 143 H POC Glucose Calcium 7.2 L Crossmatch 06/21/16 06/21/16 06/22/16 11:39 16:19 06:22 WBC RBC 3.13 L Hgb 8.2 L Hct 25.1 L MCH 26 L RDW 28.6 H Seg Neuts % (Manual) 88.0 H Lymphocytes % (Manual) 7.0 L Lymphocytes # (Manual) 0.6 L D-Dimer POC ABG pH POC ABG pCO2 POC ABG pO2 Potassium Chloride Carbon Dioxide BUN Glucose POC Glucose 135 H 115 H Calcium Crossmatch 06/22/16 06/22/16 06/22/16 06:22 12:52 15:53 WBC RBC Hgb Hct MCH RDW Seg Neuts % (Manual) Lymphocytes % (Manual) Lymphocytes # (Manual) D-Dimer POC ABG pH 7.461 H POC ABG pCO2 29.7 L POC ABG pO2 29 L Potassium Chloride 109.0 H Carbon Dioxide 21 L BUN Glucose POC Glucose 112 H Calcium 8.2 L Crossmatch 06/27/16 06/27/16 06/28/16 07:03 07:03 06:40 WBC 17.0 H 16.0 H RBC 3.07 L 2.72 L Hgb 8.1 L 7.2 L Hct 25.5 L 22.3 L MCH 26 L 27 L RDW 28.4 H 28.1 H Seg Neuts % (Manual) Lymphocytes % (Manual) Lymphocytes # (Manual) D-Dimer POC ABG pH POC ABG pCO2 POC ABG pO2 Potassium 5.5 H Chloride Carbon Dioxide BUN 23 H Glucose 117 H POC Glucose Calcium Crossmatch 06/28/16 06/29/16 06/30/16 06:40 09:19 07:29 WBC 20.9 H RBC 2.68 L Hgb 7.2 L Hct 22.0 L MCH 27 L RDW 27.7 H Seg Neuts % (Manual) Lymphocytes % (Manual) Lymphocytes # (Manual) D-Dimer POC ABG pH POC ABG pCO2 POC ABG pO2 Potassium Chloride Carbon Dioxide BUN 28 H 34 H Glucose 110 H 115 H POC Glucose Calcium 8.2 L Crossmatch 06/30/16 06/30/16 07/01/16 07:29 12:50 07:10 WBC 17.0 H RBC 3.41 L Hgb 9.0 L Hct 28.1 L D MCH 27 L RDW 24.5 H Seg Neuts % (Manual) Lymphocytes % (Manual) Lymphocytes # (Manual) D-Dimer POC ABG pH POC ABG pCO2 POC ABG pO2 Potassium Chloride Carbon Dioxide BUN 49 H Glucose 139 H POC Glucose Calcium 8.3 L Crossmatch See Detail
--- NOTE | 2016-07-01 17:24 | Progress Note ---
Assessment and Plan Assessment and plan: The patient is 80-year-old AA female history of COPD on home oxygen and CHF, pretension, atherosclerotic heart disease and GERD who presents for evaluation of dyspnea. The patient reports constant and worsening dyspnea for 2-3 days, exacerbated with attempting to physical activity or lying flat, and improved with rest and sitting up. The patient states that her symptoms are consistent with previous episodes of COPD exacerbation. The patient denies fever, chills, chest pain, but has chronic cough mostly dry but with occasional mucoid sputum on admission patient was started on intensive treatments with high flow oxygen and BiPAP remains a 5 L/m on high flow. Cardiology recommended medical management. Appears to be improving but not quite at baseline. Acute on chronic hypoxic respiratory failure due to COPD exacerbation. She is still on high amount of oxygen. She is BiPAP last night but will try again today. Continues on high flow oxygen 60% 35l/min with sat 97%. Attempts to wean down today was unsuccessful as patient desatted to the 70s. This my professional opinion that this patient will not do well in a [facility] facility will need to go to a long-term acute care facility for gradual weaning. Pulm following. Pulmonary fibrosis-continue as noted above. COPD exacerbation. On solumedrol, Duoneb, supplemental high flow Oxygen. BiPAP prn Coronary artery disease. On Aspirin, Coreg, Diovan, Ranexa. 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 Will give a dose of IV Lasix due to pleural effusion On Coreg, Diovan Hypertension. BP stable. Pleural effusion-stable we'll give Lasix. Anemia of chronic disease -hgb 7.2. will give 1 units PRBC to better optimize oxygen carrying capacity and transfers. stable monitor closely. Large hiatal hernia-multiple clinical candidate for intervention at this time will follow outpatient with surgery. Hyperlipidemia , on Lipitor. DVT prophylaxis.Heparin subcut Full code status Disposition. Patient was denied LTAC by insurance company stating that SNF for handle high oxygen requirements have discussed with case management. In day and not able to hire trandolapril 5 L flow. We will take the patient is down to 10 L.. Discussed with case management and they are working on arrangements. Plan of care discussed with the patient should verbalize understanding. Family at bedside I have updated them on treatment plan. History Interval history: Patient seen and examined this morning still with shortness of breath Denies any chest pain, nausea, vomiting, diarrhea No fever noted blood pressure controlled No adverse events reported to me by nursing staff Hospitalist Physical - Physical exam Narrative exam: VITAL SIGNS: Reviewed. GENERAL: The patient appeared ill and frail otherwise sitting up in chair with mild respiratory distress vital signs as documented. HEAD: No signs of head trauma. EYES: Pupils are equal. Extraocular motions intact. EARS: Hearing grossly intact. MOUTH: Oropharynx is normal. NECK: No adenopathy, no JVD. CHEST: Chest with bibasilar crackles bilaterally CARDIAC: Regular rate and rhythm. S1 and S2, without murmurs, gallops, or rubs. VASCULAR: 1+ pitting edema bilaterally. Peripheral pulses normal and equal in all extremities. ABDOMEN: Soft, without detectable tenderness. No sign of distention. No rebound or guarding, and no masses palpated. Bowel Sounds normal. MUSCULOSKELETAL: Good range of motion of all major joints. Extremities without clubbing, cyanosis and 1+ pitting edema bilaterally NEUROLOGIC EXAM: Alert and oriented x 3. No focal sensory or strength deficits. Speech normal. Follows commands. PSYCHIATRIC: Mood normal. SKIN: No rash or lesions. - Constitutional Vitals: Temp Pulse Resp BP Pulse Ox 96.2 F L 90 20 119/67 94 07/01/16 16:00 07/01/16 16:00 07/01/16 16:00 07/01/16 16:00 07/01/16 16:00 General appearance: Present: no acute distress Results - Labs CBC & Chem 7: 07/01/16 07:10 06/30/16 07:29 Labs: Laboratory Last Values WBC 17.0 K/mm3 (4.5-11.0) H 07/01/16 07:10 RBC 3.41 M/mm3 (3.65-5.03) L 07/01/16 07:10 Hgb 9.0 gm/dl (10.1-14.3) L 07/01/16 07:10 Hct 28.1 % (30.3-42.9) L D 07/01/16 07:10 MCV 83 fl (79-97) 07/01/16 07:10 MCH 27 pg (28-32) L 07/01/16 07:10 MCHC 32 % (30-34) 07/01/16 07:10 RDW 24.5 % (13.2-15.2) H 07/01/16 07:10 Plt Count 289 K/mm3 (140-440) 07/01/16 07:10 Add Manual Diff Complete 06/22/16 06:22 Total Counted 100 06/22/16 06:22 Seg Neuts % (Manual) 88.0 % (40.0-70.0) H 06/22/16 06:22 Band Neutrophils % 0 % 06/22/16 06:22 Lymphocytes % (Manual) 7.0 % (13.4-35.0) L 06/22/16 06:22 Reactive Lymphs % (Man) 0 % 06/22/16 06:22 Monocytes % (Manual) 4.0 % (0.0-7.3) 06/22/16 06:22 Eosinophils % (Manual) 1.0 % (0.0-4.3) 06/22/16 06:22 Basophils % (Manual) 0 % (0.0-1.8) 06/22/16 06:22 Metamyelocytes % 0 % 06/22/16 06:22 Myelocytes % 0 % 06/22/16 06:22 Promyelocytes % 0 % 06/22/16 06:22 Blast Cells % 0 % 06/22/16 06:22 Nucleated RBC % Not Reportable 06/22/16 06:22 Seg Neutrophils # Man 7.6 K/mm3 (1.8-7.7) 06/22/16 06:22 Band Neutrophils # 0.0 K/mm3 06/22/16 06:22 Lymphocytes # (Manual) 0.6 K/mm3 (1.2-5.4) L 06/22/16 06:22 Abs React Lymphs (Man) 0.0 K/mm3 06/22/16 06:22 Monocytes # (Manual) 0.3 K/mm3 (0.0-0.8) 06/22/16 06:22 Eosinophils # (Manual) 0.1 K/mm3 (0.0-0.4) 06/22/16 06:22 Basophils # (Manual) 0.0 K/mm3 (0.0-0.1) 06/22/16 06:22 Metamyelocytes # 0.0 K/mm3 06/22/16 06:22 Myelocytes # 0.0 K/mm3 06/22/16 06:22 Promyelocytes # 0.0 K/mm3 06/22/16 06:22 Blast Cells # 0.0 K/mm3 06/22/16 06:22 WBC Morphology Not Reportable 06/22/16 06:22 Hypersegmented Neuts Not Reportable 06/22/16 06:22 Hyposegmented Neuts Not Reportable 06/22/16 06:22 Hypogranular Neuts Not Reportable 06/22/16 06:22 Smudge Cells Not Reportable 06/22/16 06:22 Toxic Granulation Not Reportable 06/22/16 06:22 Toxic Vacuolation Not Reportable 06/22/16 06:22 Dohle Bodies Not Reportable 06/22/16 06:22 Pelger-Huet Anomaly Not Reportable 06/22/16 06:22 Mony Rods Not Reportable 06/22/16 06:22 Platelet Estimate Appears normal 06/22/16 06:22 Clumped Platelets Not Reportable 06/22/16 06:22 Plt Clumps, EDTA Not Reportable 06/22/16 06:22 Large Platelets Not Reportable 06/22/16 06:22 Giant Platelets Not Reportable 06/22/16 06:22 Platelet Satelliting Not Reportable 06/22/16 06:22 Plt Morphology Comment Not Reportable 06/22/16 06:22 RBC Morphology Not Reportable 06/22/16 06:22 Dimorphic RBCs Not Reportable 06/22/16 06:22 Polychromasia Not Reportable 06/22/16 06:22 Hypochromasia 1+ 06/22/16 06:22 Poikilocytosis Not Reportable 06/22/16 06:22 Anisocytosis 3+ 06/22/16 06:22 Microcytosis Not Reportable 06/22/16 06:22 Macrocytosis Not Reportable 06/22/16 06:22 Spherocytes Not Reportable 06/22/16 06:22 Pappenheimer Bodies Not Reportable 06/22/16 06:22 Sickle Cells Not Reportable 06/22/16 06:22 Target Cells Not Reportable 06/22/16 06:22 Tear Drop Cells Not Reportable 06/22/16 06:22 Ovalocytes Few 06/22/16 06:22 Helmet Cells Not Reportable 06/22/16 06:22 Serna-[place] Bodies Not Reportable 06/22/16 06:22 [place] Rings Not Reportable 06/22/16 06:22 [place] Cells Not Reportable 06/22/16 06:22 Bite Cells Not Reportable 06/22/16 06:22 Crenated Cell Not Reportable 06/22/16 06:22 Elliptocytes Few 06/22/16 06:22 Acanthocytes (Spur) Not Reportable 06/22/16 06:22 Rouleaux Not Reportable 06/22/16 06:22 Hemoglobin C Crystals Not Reportable 06/22/16 06:22 Schistocytes Not Reportable 06/22/16 06:22 Malaria parasites Not Reportable 06/22/16 06:22 Juan R Bodies Not Reportable 06/22/16 06:22 Hem Pathologist Commnt No 06/22/16 06:22 PT 14.4 Sec. (12.2-14.9) 06/20/16 14:11 INR 1.13 (0.87-1.13) 06/20/16 14:11 D-Dimer 958.1 ng/mlDDU (0-234) H 06/20/16 14:12 POC ABG pH 7.461 (7.35-7.45) H 06/22/16 15:53 POC ABG pCO2 29.7 (35-45) L 06/22/16 15:53 POC ABG pO2 29 (80-105) L 06/22/16 15:53 POC ABG HCO3 21.2 06/22/16 15:53 POC ABG Total CO2 22 06/22/16 15:53 POC ABG O2 Sat 60 06/22/16 15:53 POC ABG Base Excess -3 06/22/16 15:53 FiO2 21 % 06/22/16 15:53 Sodium 138 mmol/L (137-145) 06/30/16 07:29 Potassium 4.9 mmol/L (3.6-5.0) 06/30/16 07:29 Chloride 98.1 mmol/L (98-107) 06/30/16 07:29 Carbon Dioxide 26 mmol/L (22-30) 06/30/16 07:29 Anion Gap 19 mmol/L 06/30/16 07:29 BUN 49 mg/dL (7-17) H 06/30/16 07:29 Creatinine 1.2 mg/dL (0.7-1.2) 06/30/16 07:29 Estimated GFR 53 ml/min 06/30/16 07:29 BUN/Creatinine Ratio 40.83 % 06/30/16 07:29 Glucose 139 mg/dL (65-100) H 06/30/16 07:29 POC Glucose 112 (70-105) H 06/22/16 12:52 Calcium 8.3 mg/dL (8.4-10.2) L 06/30/16 07:29 Troponin T < 0.010 ng/mL (0.00-0.029) 06/17/16 15:59 NT-Pro-B Natriuret Pep 1912 pg/mL (0-900) H 06/17/16 15:59 Blood Type B POSITIVE 06/30/16 12:50 Antibody Screen Negative 06/30/16 12:50 Crossmatch See Detail 06/30/16 12:50
[2016-07-01] MEDS: NEURONTIN PO SCH (22:40)
[2016-07-02] MEDS: DUONEB 0.5 MG-3 MG/3 ML SOLN IH SCH ×4 (03:18→21:19)
[2016-07-02] MEDS: HEPARIN SUB-Q SCH ×3 (05:17→21:50)
[2016-07-02 07:32] LABS: Hematocrit 28.6 % (30.3-42.9); Hemoglobin 9.3 gm/dl (10.1-14.3); Mean Corpuscular HGB Conc 32 % (30-34); Mean Corpuscular Hemoglobin 27 pg (28-32); Mean Corpuscular Volume 83 fl (79-97); Platelet Count 283 K/mm3 (140-440); Red Blood Count 3.43 M/mm3 (3.65-5.03); White Blood Count 13.9 K/mm3 (4.5-11.0)
[2016-07-02 07:36] LABS: Red Cell Distribution Width 24.6 % (13.2-15.2)
[2016-07-02 07:44] LABS: Anion Gap 16 mmol/L; Blood Urea Nitrogen 30 mg/dL (7-17); Calcium 8.4 mg/dL (8.4-10.2); Carbon Dioxide 25 mmol/L (22-30); Chloride 100.6 mmol/L (98-107); Glucose 122 mg/dL (65-100); Sodium 137 mmol/L (137-145)
[2016-07-02] MEDS: BROVANA NEBU IH SCH ×2 (09:06→21:20)
[2016-07-02] MEDS: PULMICORT IH SCH ×2 (09:07→21:19)
[2016-07-02] MEDS: PROTONIX PO SCH (10:25)
[2016-07-02] MEDS: COREG PO SCH ×2 (10:26→21:51)
[2016-07-02] MEDS: HALFPRIN EC PO SCH (10:26)
[2016-07-02] MEDS: DIOVAN PO SCH (10:27)
[2016-07-02] MEDS: RANEXA ER PO SCH ×2 (10:27→21:49)
[2016-07-02] MEDS: FEOSOL PO SCH ×3 (10:27→21:49)
--- NOTE | 2016-07-02 11:16 | Progress Note ---
Assessment and Plan - Patient Problems (1) Acute exacerbation of chronic obstructive pulmonary disease (COPD) Current Visit: Yes Status: Acute Plan to address problem: - continue supplemental oxygen and wean to keep O2 Sats >/= 92% - continue bronchodilators and pulmonary toilet - prn BIPAP (historically does not tolerate and risk of barotrauma) - optimize cardiac status per cardiology (2) Chest pain Current Visit: No Status: Acute Qualifiers: Chest pain type: unspecified Qualified Code(s): R07.9 - Chest pain, unspecified Plan to address problem: - resolved (3) Pulmonary fibrosis Current Visit: No Status: Chronic Plan to address problem: - as above Subjective Date of service: 07/02/16 Principal diagnosis: Acute On Chronic ypoxemic Respiratory Failure Interval history: Seen and examined at bedside; 24 hour events reviewed; nursing and respiratory care staff consulted; no adverse overnight events reported to me; remains on supplemental oxygen; denies constitutional symptoms; no gross hemoptysis; no acute chest pains or increased SOB Objective Vital Signs - 12hr 07/02/16 07/02/16 07/02/16 00:41 04:00 08:00 Temperature 97.6 F 97.7 F 97.6 F Pulse Rate Pulse Rate [ Anterior Bilateral Throughout] Pulse Rate [ 56 L Apical] Pulse Rate [ 66 59 L Left Radial] Respiratory 18 18 20 Rate Respiratory Rate [Anterior Bilateral Throughout] Blood Pressure Blood Pressure 143/73 121/67 130/78 [Left Arm] O2 Sat by Pulse 97 98 100 Oximetry 07/02/16 07/02/16 07/02/16 09:04 09:14 09:23 Temperature Pulse Rate Pulse Rate [ 88 90 Anterior Bilateral Throughout] Pulse Rate [ Apical] Pulse Rate [ Left Radial] Respiratory Rate Respiratory 20 18 Rate [Anterior Bilateral Throughout] Blood Pressure Blood Pressure [Left Arm] O2 Sat by Pulse 98 Oximetry 07/02/16 07/02/16 10:26 10:27 Temperature Pulse Rate 90 Pulse Rate [ Anterior Bilateral Throughout] Pulse Rate [ Apical] Pulse Rate [ Left Radial] Respiratory Rate Respiratory Rate [Anterior Bilateral Throughout] Blood Pressure 130/78 130/78 Blood Pressure [Left Arm] O2 Sat by Pulse Oximetry Constitutional: no acute distress, alert Eyes: non-icteric ENT: oropharynx moist Neck: supple, no lymphadenopathy Effort: mildly labored (but close to her baseline) Ascultation: Bilateral: diminished breath sounds, rales (inspiratory in bases) Cardiovascular: regular rate and rhythm Gastrointestinal: normoactive bowel sounds, soft, non-tender, non-distended Integumentary: normal Extremities: no cyanosis, pulses normal, no ischemia or petechiae Neurologic: normal mental status, non-focal exam, pupils equal and round, motor strength normal and Psychiatric: mood appropriate, affect normal CBC and BMP: 07/04/16 06:29 07/04/16 06:29 ABG, PT/INR, D-dimer: ABG POC ABG pH 7.461 (7.35-7.45) H 06/22/16 15:53 POC ABG pCO2 29.7 (35-45) L 06/22/16 15:53 POC ABG pO2 29 (80-105) L 06/22/16 15:53 POC ABG HCO3 21.2 06/22/16 15:53 POC ABG Total CO2 22 06/22/16 15:53 POC ABG O2 Sat 60 06/22/16 15:53 PT/INR, D-dimer PT 14.4 Sec. (12.2-14.9) 06/20/16 14:11 INR 1.13 (0.87-1.13) 06/20/16 14:11 D-Dimer 958.1 ng/mlDDU (0-234) H 06/20/16 14:12 Abnormal lab findings: Abnormal Labs 06/18/16 06/20/16 06/21/16 05:34 14:12 00:31 WBC RBC 3.33 L Hgb 8.9 L Hct 26.9 L MCH 27 L RDW 28.4 H Seg Neuts % (Manual) Lymphocytes % (Manual) Lymphocytes # (Manual) D-Dimer 958.1 H POC ABG pH POC ABG pCO2 POC ABG pO2 Potassium Chloride Carbon Dioxide 19 L BUN 18 H Glucose 143 H POC Glucose Calcium 7.2 L Crossmatch 06/21/16 06/21/16 06/22/16 11:39 16:19 06:22 WBC RBC 3.13 L Hgb 8.2 L Hct 25.1 L MCH 26 L RDW 28.6 H Seg Neuts % (Manual) 88.0 H Lymphocytes % (Manual) 7.0 L Lymphocytes # (Manual) 0.6 L D-Dimer POC ABG pH POC ABG pCO2 POC ABG pO2 Potassium Chloride Carbon Dioxide BUN Glucose POC Glucose 135 H 115 H Calcium Crossmatch 06/22/16 06/22/16 06/22/16 06:22 12:52 15:53 WBC RBC Hgb Hct MCH RDW Seg Neuts % (Manual) Lymphocytes % (Manual) Lymphocytes # (Manual) D-Dimer POC ABG pH 7.461 H POC ABG pCO2 29.7 L POC ABG pO2 29 L Potassium Chloride 109.0 H Carbon Dioxide 21 L BUN Glucose POC Glucose 112 H Calcium 8.2 L Crossmatch 06/27/16 06/27/16 06/28/16 07:03 07:03 06:40 WBC 17.0 H 16.0 H RBC 3.07 L 2.72 L Hgb 8.1 L 7.2 L Hct 25.5 L 22.3 L MCH 26 L 27 L RDW 28.4 H 28.1 H Seg Neuts % (Manual) Lymphocytes % (Manual) Lymphocytes # (Manual) D-Dimer POC ABG pH POC ABG pCO2 POC ABG pO2 Potassium 5.5 H Chloride Carbon Dioxide BUN 23 H Glucose 117 H POC Glucose Calcium Crossmatch 06/28/16 06/29/16 06/30/16 06:40 09:19 07:29 WBC 20.9 H RBC 2.68 L Hgb 7.2 L Hct 22.0 L MCH 27 L RDW 27.7 H Seg Neuts % (Manual) Lymphocytes % (Manual) Lymphocytes # (Manual) D-Dimer POC ABG pH POC ABG pCO2 POC ABG pO2 Potassium Chloride Carbon Dioxide BUN 28 H 34 H Glucose 110 H 115 H POC Glucose Calcium 8.2 L Crossmatch 06/30/16 06/30/16 07/01/16 07:29 12:50 07:10 WBC 17.0 H RBC 3.41 L Hgb 9.0 L Hct 28.1 L D MCH 27 L RDW 24.5 H Seg Neuts % (Manual) Lymphocytes % (Manual) Lymphocytes # (Manual) D-Dimer POC ABG pH POC ABG pCO2 POC ABG pO2 Potassium Chloride Carbon Dioxide BUN 49 H Glucose 139 H POC Glucose Calcium 8.3 L Crossmatch See Detail 07/02/16 07/02/16 06:58 06:58 WBC 13.9 H RBC 3.43 L Hgb 9.3 L Hct 28.6 L MCH 27 L RDW 24.6 H Seg Neuts % (Manual) Lymphocytes % (Manual) Lymphocytes # (Manual) D-Dimer POC ABG pH POC ABG pCO2 POC ABG pO2 Potassium Chloride Carbon Dioxide BUN 30 H Glucose 122 H POC Glucose Calcium Crossmatch
--- NOTE | 2016-07-02 16:14 | Progress Note ---
Assessment and Plan Assessment and plan: The patient is 80-year-old AA female history of COPD on home oxygen and CHF, pretension, atherosclerotic heart disease and GERD who presents for evaluation of dyspnea. The patient reports constant and worsening dyspnea for 2-3 days, exacerbated with attempting to physical activity or lying flat, and improved with rest and sitting up. The patient states that her symptoms are consistent with previous episodes of COPD exacerbation. The patient denies fever, chills, chest pain, but has chronic cough mostly dry but with occasional mucoid sputum on admission patient was started on intensive treatments with high flow oxygen and BiPAP remains a 5 L/m on high flow. Cardiology recommended medical management. Appears to be improving but not quite at baseline. Acute on chronic hypoxic respiratory failure due to COPD exacerbation. She is still on high amount of oxygen. BiPAP at nighttime. Still unable to wean down from 55% oxygen. Continues on high flow oxygen 55% 35l/min with sat 97%. Attempts to wean down today was unsuccessful as patient desatted to the 70s. This my professional opinion that this patient will not do well in a senior care facility will need to go to a long-term acute care facility for gradual weaning. Pulm following. Pulmonary fibrosis-continue as noted above. COPD exacerbation. On solumedrol, Duoneb, supplemental high flow Oxygen. BiPAP prn Coronary artery disease. On Aspirin, Coreg, Diovan, Ranexa. 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 Will give additional dose of IV Lasix due to pleural effusion On Coreg, Diovan Hypertension. BP stable. Pleural effusion-stable we'll give Lasix. Anemia of chronic disease -hgb 7.2. will give 1 units PRBC to better optimize oxygen carrying capacity and transfers. stable monitor closely. Large hiatal hernia-multiple clinical candidate for intervention at this time will follow outpatient with surgery. Hyperlipidemia , on Lipitor. DVT prophylaxis.Heparin subcut Full code status Disposition. Patient was denied LTAC by insurance company stating that SNF for handle high oxygen requirements have discussed with case management. In day and not able to hire trandolapril 5 L flow. We will take the patient is down to 10 L. Discussed with case management and they are working on arrangements. Plan of care discussed with the patient should verbalize understanding. Family at bedside I have updated them on treatment plan. History Interval history: Patient seen and examined this morning still with shortness of breath Denies any chest pain, nausea, vomiting, diarrhea No fever noted blood pressure controlled No adverse events reported to me by nursing staff Hospitalist Physical - Physical exam Narrative exam: VITAL SIGNS: Reviewed. GENERAL: The patient appeared ill and frail otherwise sitting up in bed with mild respiratory distress vital signs as documented. HEAD: No signs of head trauma. EYES: Pupils are equal. Extraocular motions intact. EARS: Hearing grossly intact. MOUTH: Oropharynx is normal. NECK: No adenopathy, no JVD. CHEST: Chest with bibasilar crackles bilaterally CARDIAC: Regular rate and rhythm. S1 and S2, without murmurs, gallops, or rubs. VASCULAR: 1+ pitting edema bilaterally. Peripheral pulses normal and equal in all extremities. ABDOMEN: Soft, without detectable tenderness. No sign of distention. No rebound or guarding, and no masses palpated. Bowel Sounds normal. MUSCULOSKELETAL: Good range of motion of all major joints. Extremities without clubbing, cyanosis and 1+ pitting edema bilaterally NEUROLOGIC EXAM: Alert and oriented x 3. No focal sensory or strength deficits. Speech normal. Follows commands. PSYCHIATRIC: Mood normal. SKIN: No rash or lesions. - Constitutional Vitals: Temp Pulse Resp BP Pulse Ox 97.3 F L 98 H 20 128/62 94 07/02/16 12:00 07/02/16 14:58 07/02/16 14:58 07/02/16 12:00 07/02/16 12:00 General appearance: Present: no acute distress Results - Labs CBC & Chem 7: 07/02/16 06:58 07/02/16 06:58 Labs: Laboratory Last Values WBC 13.9 K/mm3 (4.5-11.0) H 07/02/16 06:58 RBC 3.43 M/mm3 (3.65-5.03) L 07/02/16 06:58 Hgb 9.3 gm/dl (10.1-14.3) L 07/02/16 06:58 Hct 28.6 % (30.3-42.9) L 07/02/16 06:58 MCV 83 fl (79-97) 07/02/16 06:58 MCH 27 pg (28-32) L 07/02/16 06:58 MCHC 32 % (30-34) 07/02/16 06:58 RDW 24.6 % (13.2-15.2) H 07/02/16 06:58 Plt Count 283 K/mm3 (140-440) 07/02/16 06:58 Add Manual Diff Complete 06/22/16 06:22 Total Counted 100 06/22/16 06:22 Seg Neuts % (Manual) 88.0 % (40.0-70.0) H 06/22/16 06:22 Band Neutrophils % 0 % 06/22/16 06:22 Lymphocytes % (Manual) 7.0 % (13.4-35.0) L 06/22/16 06:22 Reactive Lymphs % (Man) 0 % 06/22/16 06:22 Monocytes % (Manual) 4.0 % (0.0-7.3) 06/22/16 06:22 Eosinophils % (Manual) 1.0 % (0.0-4.3) 06/22/16 06:22 Basophils % (Manual) 0 % (0.0-1.8) 06/22/16 06:22 Metamyelocytes % 0 % 06/22/16 06:22 Myelocytes % 0 % 06/22/16 06:22 Promyelocytes % 0 % 06/22/16 06:22 Blast Cells % 0 % 06/22/16 06:22 Nucleated RBC % Not Reportable 06/22/16 06:22 Seg Neutrophils # Man 7.6 K/mm3 (1.8-7.7) 06/22/16 06:22 Band Neutrophils # 0.0 K/mm3 06/22/16 06:22 Lymphocytes # (Manual) 0.6 K/mm3 (1.2-5.4) L 06/22/16 06:22 Abs React Lymphs (Man) 0.0 K/mm3 06/22/16 06:22 Monocytes # (Manual) 0.3 K/mm3 (0.0-0.8) 06/22/16 06:22 Eosinophils # (Manual) 0.1 K/mm3 (0.0-0.4) 06/22/16 06:22 Basophils # (Manual) 0.0 K/mm3 (0.0-0.1) 06/22/16 06:22 Metamyelocytes # 0.0 K/mm3 06/22/16 06:22 Myelocytes # 0.0 K/mm3 06/22/16 06:22 Promyelocytes # 0.0 K/mm3 06/22/16 06:22 Blast Cells # 0.0 K/mm3 06/22/16 06:22 WBC Morphology Not Reportable 06/22/16 06:22 Hypersegmented Neuts Not Reportable 06/22/16 06:22 Hyposegmented Neuts Not Reportable 06/22/16 06:22 Hypogranular Neuts Not Reportable 06/22/16 06:22 Smudge Cells Not Reportable 06/22/16 06:22 Toxic Granulation Not Reportable 06/22/16 06:22 Toxic Vacuolation Not Reportable 06/22/16 06:22 Dohle Bodies Not Reportable 06/22/16 06:22 Pelger-Huet Anomaly Not Reportable 06/22/16 06:22 Mony Rods Not Reportable 06/22/16 06:22 Platelet Estimate Appears normal 06/22/16 06:22 Clumped Platelets Not Reportable 06/22/16 06:22 Plt Clumps, EDTA Not Reportable 06/22/16 06:22 Large Platelets Not Reportable 06/22/16 06:22 Giant Platelets Not Reportable 06/22/16 06:22 Platelet Satelliting Not Reportable 06/22/16 06:22 Plt Morphology Comment Not Reportable 06/22/16 06:22 RBC Morphology Not Reportable 06/22/16 06:22 Dimorphic RBCs Not Reportable 06/22/16 06:22 Polychromasia Not Reportable 06/22/16 06:22 Hypochromasia 1+ 06/22/16 06:22 Poikilocytosis Not Reportable 06/22/16 06:22 Anisocytosis 3+ 06/22/16 06:22 Microcytosis Not Reportable 06/22/16 06:22 Macrocytosis Not Reportable 06/22/16 06:22 Spherocytes Not Reportable 06/22/16 06:22 Pappenheimer Bodies Not Reportable 06/22/16 06:22 Sickle Cells Not Reportable 06/22/16 06:22 Target Cells Not Reportable 06/22/16 06:22 Tear Drop Cells Not Reportable 06/22/16 06:22 Ovalocytes Few 06/22/16 06:22 Helmet Cells Not Reportable 06/22/16 06:22 Serna-Metzger Bodies Not Reportable 06/22/16 06:22 [place] Rings Not Reportable 06/22/16 06:22 [place] Cells Not Reportable 06/22/16 06:22 Bite Cells Not Reportable 06/22/16 06:22 Crenated Cell Not Reportable 06/22/16 06:22 Elliptocytes Few 06/22/16 06:22 Acanthocytes (Spur) Not Reportable 06/22/16 06:22 Rouleaux Not Reportable 06/22/16 06:22 Hemoglobin C Crystals Not Reportable 06/22/16 06:22 Schistocytes Not Reportable 06/22/16 06:22 Malaria parasites Not Reportable 06/22/16 06:22 Juan R Bodies Not Reportable 06/22/16 06:22 Hem Pathologist Commnt No 06/22/16 06:22 PT 14.4 Sec. (12.2-14.9) 06/20/16 14:11 INR 1.13 (0.87-1.13) 06/20/16 14:11 D-Dimer 958.1 ng/mlDDU (0-234) H 06/20/16 14:12 POC ABG pH 7.461 (7.35-7.45) H 06/22/16 15:53 POC ABG pCO2 29.7 (35-45) L 06/22/16 15:53 POC ABG pO2 29 (80-105) L 06/22/16 15:53 POC ABG HCO3 21.2 06/22/16 15:53 POC ABG Total CO2 22 06/22/16 15:53 POC ABG O2 Sat 60 06/22/16 15:53 POC ABG Base Excess -3 06/22/16 15:53 FiO2 21 % 06/22/16 15:53 Sodium 137 mmol/L (137-145) 07/02/16 06:58 Potassium 5.0 mmol/L (3.6-5.0) 07/02/16 06:58 Chloride 100.6 mmol/L (98-107) 07/02/16 06:58 Carbon Dioxide 25 mmol/L (22-30) 07/02/16 06:58 Anion Gap 16 mmol/L 07/02/16 06:58 BUN 30 mg/dL (7-17) H 07/02/16 06:58 Creatinine 1.0 mg/dL (0.7-1.2) 07/02/16 06:58 Estimated GFR > 60 ml/min 07/02/16 06:58 BUN/Creatinine Ratio 30.00 % 07/02/16 06:58 Glucose 122 mg/dL (65-100) H 07/02/16 06:58 POC Glucose 112 (70-105) H 06/22/16 12:52 Calcium 8.4 mg/dL (8.4-10.2) 07/02/16 06:58 Troponin T < 0.010 ng/mL (0.00-0.029) 06/17/16 15:59 NT-Pro-B Natriuret Pep 1912 pg/mL (0-900) H 06/17/16 15:59 Blood Type B POSITIVE 06/30/16 12:50 Antibody Screen Negative 06/30/16 12:50 Crossmatch See Detail 06/30/16 12:50
[2016-07-02] MEDS ORDERED: LASIX IV ONE (17:00)
[2016-07-02] MEDS: NEURONTIN PO SCH (21:49)
[2016-07-03] MEDS: DUONEB 0.5 MG-3 MG/3 ML SOLN IH SCH ×4 (02:24→19:53)
[2016-07-03] MEDS: HEPARIN SUB-Q SCH ×3 (06:32→22:16)
[2016-07-03 06:39] LABS: Hematocrit 32.1 % (30.3-42.9); Hemoglobin 10.3 gm/dl (10.1-14.3); Mean Corpuscular HGB Conc 32 % (30-34); Mean Corpuscular Hemoglobin 27 pg (28-32); Mean Corpuscular Volume 84 fl (79-97); Platelet Count 251 K/mm3 (140-440); Red Blood Count 3.83 M/mm3 (3.65-5.03)
[2016-07-03 06:55] LABS: BUN/Creatinine Ratio 27.69; Calcium 8.9 mg/dL (8.4-10.2); Chloride 97.7 mmol/L (98-107); Potassium 4.7 mmol/L (3.6-5.0)
[2016-07-03 06:57] LABS: Red Cell Distribution Width 24.2 % (13.2-15.2)
[2016-07-03] MEDS: BROVANA NEBU IH SCH ×2 (08:04→20:11)
[2016-07-03] MEDS: PULMICORT IH SCH ×2 (08:04→19:54)
[2016-07-03] MEDS: FEOSOL PO SCH ×3 (09:00→21:34)
[2016-07-03] MEDS: HALFPRIN EC PO SCH (10:00)
[2016-07-03] MEDS: DIOVAN PO SCH (10:00)
[2016-07-03] MEDS: COREG PO SCH ×2 (10:00→21:36)
[2016-07-03] MEDS: RANEXA ER PO SCH ×2 (11:00→21:36)
[2016-07-03] MEDS: PROTONIX PO SCH (11:00)
--- NOTE | 2016-07-03 11:19 | Progress Note ---
Assessment and Plan - Patient Problems (1) Acute exacerbation of chronic obstructive pulmonary disease (COPD) Current Visit: Yes Status: Acute (2) Chest pain Current Visit: No Status: Acute Qualifiers: Chest pain type: unspecified Qualified Code(s): R07.9 - Chest pain, unspecified (3) Pulmonary fibrosis Current Visit: No Status: Chronic Subjective Date of service: 07/03/16 Principal diagnosis: Acute On Chronic ypoxemic Respiratory Failure Interval history: Seen and examined at bedside; 24 hour events reviewed; nursing and respiratory care staff consulted; no adverse overnight events reported to me; Objective Vital Signs - 12hr 07/03/16 07/03/16 07/03/16 00:00 02:25 02:37 Temperature 98.0 F Pulse Rate [ 100 H 103 H Anterior Bilateral Throughout] Pulse Rate [ Apical] Pulse Rate [ 89 Left Radial] Respiratory 18 Rate Respiratory 18 18 Rate [Anterior Bilateral Throughout] Blood Pressure 102/58 [Left Arm] O2 Sat by Pulse 97 Oximetry 07/03/16 07/03/16 07/03/16 05:08 08:00 08:04 Temperature 98.1 F 97.9 F Pulse Rate [ 94 H Anterior Bilateral Throughout] Pulse Rate [ 96 H Apical] Pulse Rate [ 112 H Left Radial] Respiratory 18 20 Rate Respiratory 17 Rate [Anterior Bilateral Throughout] Blood Pressure 102/55 89/58 [Left Arm] O2 Sat by Pulse 98 96 Oximetry 07/03/16 07/03/16 08:06 08:08 Temperature Pulse Rate [ 96 H Anterior Bilateral Throughout] Pulse Rate [ Apical] Pulse Rate [ Left Radial] Respiratory Rate Respiratory 18 Rate [Anterior Bilateral Throughout] Blood Pressure [Left Arm] O2 Sat by Pulse 95 Oximetry Constitutional: no acute distress, alert Eyes: non-icteric ENT: oropharynx moist Neck: supple, no lymphadenopathy Effort: mildly labored (but close to her baseline) Ascultation: Bilateral: diminished breath sounds, rales (inspiratory in bases) Cardiovascular: regular rate and rhythm Gastrointestinal: normoactive bowel sounds, soft, non-tender, non-distended Integumentary: normal Extremities: no cyanosis, pulses normal, no ischemia or petechiae Neurologic: normal mental status, non-focal exam, pupils equal and round, motor strength normal and Psychiatric: mood appropriate, affect normal CBC and BMP: 07/03/16 05:53 07/03/16 05:53 ABG, PT/INR, D-dimer: ABG POC ABG pH 7.461 (7.35-7.45) H 06/22/16 15:53 POC ABG pCO2 29.7 (35-45) L 06/22/16 15:53 POC ABG pO2 29 (80-105) L 06/22/16 15:53 POC ABG HCO3 21.2 06/22/16 15:53 POC ABG Total CO2 22 06/22/16 15:53 POC ABG O2 Sat 60 06/22/16 15:53 PT/INR, D-dimer PT 14.4 Sec. (12.2-14.9) 06/20/16 14:11 INR 1.13 (0.87-1.13) 06/20/16 14:11 D-Dimer 958.1 ng/mlDDU (0-234) H 06/20/16 14:12 Abnormal lab findings: Abnormal Labs 06/18/16 06/20/16 06/21/16 05:34 14:12 00:31 WBC RBC 3.33 L Hgb 8.9 L Hct 26.9 L MCH 27 L RDW 28.4 H Seg Neuts % (Manual) Lymphocytes % (Manual) Lymphocytes # (Manual) D-Dimer 958.1 H POC ABG pH POC ABG pCO2 POC ABG pO2 Potassium Chloride Carbon Dioxide 19 L BUN 18 H Creatinine Glucose 143 H POC Glucose Calcium 7.2 L Crossmatch 06/21/16 06/21/16 06/22/16 11:39 16:19 06:22 WBC RBC 3.13 L Hgb 8.2 L Hct 25.1 L MCH 26 L RDW 28.6 H Seg Neuts % (Manual) 88.0 H Lymphocytes % (Manual) 7.0 L Lymphocytes # (Manual) 0.6 L D-Dimer POC ABG pH POC ABG pCO2 POC ABG pO2 Potassium Chloride Carbon Dioxide BUN Creatinine Glucose POC Glucose 135 H 115 H Calcium Crossmatch 06/22/16 06/22/16 06/22/16 06:22 12:52 15:53 WBC RBC Hgb Hct MCH RDW Seg Neuts % (Manual) Lymphocytes % (Manual) Lymphocytes # (Manual) D-Dimer POC ABG pH 7.461 H POC ABG pCO2 29.7 L POC ABG pO2 29 L Potassium Chloride 109.0 H Carbon Dioxide 21 L BUN Creatinine Glucose POC Glucose 112 H Calcium 8.2 L Crossmatch 06/27/16 06/27/16 06/28/16 07:03 07:03 06:40 WBC 17.0 H 16.0 H RBC 3.07 L 2.72 L Hgb 8.1 L 7.2 L Hct 25.5 L 22.3 L MCH 26 L 27 L RDW 28.4 H 28.1 H Seg Neuts % (Manual) Lymphocytes % (Manual) Lymphocytes # (Manual) D-Dimer POC ABG pH POC ABG pCO2 POC ABG pO2 Potassium 5.5 H Chloride Carbon Dioxide BUN 23 H Creatinine Glucose 117 H POC Glucose Calcium Crossmatch 06/28/16 06/29/16 06/30/16 06:40 09:19 07:29 WBC 20.9 H RBC 2.68 L Hgb 7.2 L Hct 22.0 L MCH 27 L RDW 27.7 H Seg Neuts % (Manual) Lymphocytes % (Manual) Lymphocytes # (Manual) D-Dimer POC ABG pH POC ABG pCO2 POC ABG pO2 Potassium Chloride Carbon Dioxide BUN 28 H 34 H Creatinine Glucose 110 H 115 H POC Glucose Calcium 8.2 L Crossmatch 06/30/16 06/30/16 07/01/16 07:29 12:50 07:10 WBC 17.0 H RBC 3.41 L Hgb 9.0 L Hct 28.1 L D MCH 27 L RDW 24.5 H Seg Neuts % (Manual) Lymphocytes % (Manual) Lymphocytes # (Manual) D-Dimer POC ABG pH POC ABG pCO2 POC ABG pO2 Potassium Chloride Carbon Dioxide BUN 49 H Creatinine Glucose 139 H POC Glucose Calcium 8.3 L Crossmatch See Detail 07/02/16 07/02/16 07/03/16 06:58 06:58 05:53 WBC 13.9 H 26.0 H RBC 3.43 L Hgb 9.3 L Hct 28.6 L MCH 27 L 27 L RDW 24.6 H 24.2 H Seg Neuts % (Manual) Lymphocytes % (Manual) Lymphocytes # (Manual) D-Dimer POC ABG pH POC ABG pCO2 POC ABG pO2 Potassium Chloride Carbon Dioxide BUN 30 H Creatinine Glucose 122 H POC Glucose Calcium Crossmatch 07/03/16 05:53 WBC RBC Hgb Hct MCH RDW Seg Neuts % (Manual) Lymphocytes % (Manual) Lymphocytes # (Manual) D-Dimer POC ABG pH POC ABG pCO2 POC ABG pO2 Potassium Chloride 97.7 L Carbon Dioxide BUN 36 H Creatinine 1.3 H Glucose 135 H POC Glucose Calcium Crossmatch
--- NOTE | 2016-07-03 11:23 | XRay Report ---
Single view chest: Compared to 06/17/16. History: Pneumonia. Findings: Borderline cardiomegaly. Trachea is midline. Chronic interstitial lung changes with probably superimposed air space opacities suggestive of pneumonitis. No significant interval change. Normal CP angles. Impression: No significant interval change. The
[2016-07-03] MEDS: NACL 0.9% 1000 ML 1,000 ML IV SCH (14:19)
--- NOTE | 2016-07-03 15:19 | Progress Note ---
Assessment and Plan Assessment and plan: The patient is 80-year-old AA female history of COPD on home oxygen and CHF, pretension, atherosclerotic heart disease and GERD who presents for evaluation of dyspnea. The patient reports constant and worsening dyspnea for 2-3 days, exacerbated with attempting to physical activity or lying flat, and improved with rest and sitting up. The patient states that her symptoms are consistent with previous episodes of COPD exacerbation. The patient denies fever, chills, chest pain, but has chronic cough mostly dry but with occasional mucoid sputum on admission patient was started on intensive treatments with high flow oxygen and BiPAP remains a 5 L/m on high flow. Cardiology recommended medical management. Appears to be improving but not quite at baseline. Acute on chronic hypoxic respiratory failure due to COPD exacerbation. She is still on high amount of oxygen. BiPAP at nighttime. Still unable to wean down from 55% oxygen. Continues on high flow 35l/min with sat 92%. Attempts to wean down today was unsuccessful as patient desatted to the 70s. This my professional opinion that this patient will not do well in a custodial facility will need to go to a long-term acute care facility for gradual weaning. Pulm following. Marked lethargy/with leukocytosis-reactive we'll check ABG, chest x-ray repeated no acute pathology noted. Vital signs appear stable as mildly hypotensive. We'll give a bolus of fluid to 250 mL. Pulmonary fibrosis-continue as noted above. COPD exacerbation. On solumedrol, Duoneb, supplemental high flow Oxygen. BiPAP prn Coronary artery disease. On Aspirin, Coreg, Diovan, Ranexa. 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 Will give additional dose of IV Lasix due to pleural effusion On Coreg, Diovan Hypertension. BP stable. Acute kidney injury on chronic kidney disease secondary to iatrogenic medication.-If 250 mL of fluids. Pleural effusion-stable we'll give Lasix. Anemia of chronic disease -transfused 1 units PRBC to better optimize oxygen carrying capacity and transfers. stable monitor closely. Large hiatal hernia-multiple clinical candidate for intervention at this time will follow outpatient with surgery. Hyperlipidemia , on Lipitor. DVT prophylaxis.Heparin subcut Full code status Disposition. Patient was denied LTAC by insurance company stating that SNF for handle high oxygen requirements have discussed with case management. In day and not able to hire trandolapril 5 L flow. We will take the patient is down to 10 L. Discussed with case management and they are working on arrangements. Plan of care discussed with the patient should verbalize understanding. Family at bedside I have updated them on treatment plan. Critical care time spent at the bedside 35 minutes. History Interval history: Patient seen and examined this morning still with shortness of breath, this morning was straighten that she does not feel well but could not describe the actual feeling. She did appear flushed. Denies any chest pain, nausea, vomiting, diarrhea No fever noted blood pressure controlled No adverse events reported to me by nursing staff Hospitalist Physical - Physical exam Narrative exam: VITAL SIGNS: Reviewed. GENERAL: The patient appeared ill and frail otherwise sitting up in bed with mild respiratory distress and more lethargic than normal vital signs as documented. HEAD: No signs of head trauma. EYES: Pupils are equal. Extraocular motions intact. EARS: Hearing grossly intact. MOUTH: Oropharynx is normal. NECK: No adenopathy, no JVD. CHEST: Chest with bibasilar crackles bilaterally CARDIAC: Regular rate and rhythm. S1 and S2, without murmurs, gallops, or rubs. VASCULAR: 1+ pitting edema bilaterally. Peripheral pulses normal and equal in all extremities. ABDOMEN: Soft, without detectable tenderness. No sign of distention. No rebound or guarding, and no masses palpated. Bowel Sounds normal. MUSCULOSKELETAL: Good range of motion of all major joints. Extremities without clubbing, cyanosis and 1+ pitting edema bilaterally NEUROLOGIC EXAM: Alert and oriented x 3. Lethargic appearing. No focal sensory or strength deficits. Speech normal. Follows commands. PSYCHIATRIC: Mood normal. SKIN: No rash or lesions. - Constitutional Vitals: Temp Pulse Resp BP Pulse Ox 99.2 F 95 H 16 110/44 89 07/03/16 12:00 07/03/16 13:58 07/03/16 13:58 07/03/16 12:00 07/03/16 12:00 General appearance: Present: no acute distress Results - Labs CBC & Chem 7: 07/03/16 05:53 07/03/16 05:53 Labs: Laboratory Last Values WBC 26.0 K/mm3 (4.5-11.0) H 07/03/16 05:53 RBC 3.83 M/mm3 (3.65-5.03) 07/03/16 05:53 Hgb 10.3 gm/dl (10.1-14.3) 07/03/16 05:53 Hct 32.1 % (30.3-42.9) 07/03/16 05:53 MCV 84 fl (79-97) 07/03/16 05:53 MCH 27 pg (28-32) L 07/03/16 05:53 MCHC 32 % (30-34) 07/03/16 05:53 RDW 24.2 % (13.2-15.2) H 07/03/16 05:53 Plt Count 251 K/mm3 (140-440) 07/03/16 05:53 Add Manual Diff Complete 06/22/16 06:22 Total Counted 100 06/22/16 06:22 Seg Neuts % (Manual) 88.0 % (40.0-70.0) H 06/22/16 06:22 Band Neutrophils % 0 % 06/22/16 06:22 Lymphocytes % (Manual) 7.0 % (13.4-35.0) L 06/22/16 06:22 Reactive Lymphs % (Man) 0 % 06/22/16 06:22 Monocytes % (Manual) 4.0 % (0.0-7.3) 06/22/16 06:22 Eosinophils % (Manual) 1.0 % (0.0-4.3) 06/22/16 06:22 Basophils % (Manual) 0 % (0.0-1.8) 06/22/16 06:22 Metamyelocytes % 0 % 06/22/16 06:22 Myelocytes % 0 % 06/22/16 06:22 Promyelocytes % 0 % 06/22/16 06:22 Blast Cells % 0 % 06/22/16 06:22 Nucleated RBC % Not Reportable 06/22/16 06:22 Seg Neutrophils # Man 7.6 K/mm3 (1.8-7.7) 06/22/16 06:22 Band Neutrophils # 0.0 K/mm3 06/22/16 06:22 Lymphocytes # (Manual) 0.6 K/mm3 (1.2-5.4) L 06/22/16 06:22 Abs React Lymphs (Man) 0.0 K/mm3 06/22/16 06:22 Monocytes # (Manual) 0.3 K/mm3 (0.0-0.8) 06/22/16 06:22 Eosinophils # (Manual) 0.1 K/mm3 (0.0-0.4) 06/22/16 06:22 Basophils # (Manual) 0.0 K/mm3 (0.0-0.1) 06/22/16 06:22 Metamyelocytes # 0.0 K/mm3 06/22/16 06:22 Myelocytes # 0.0 K/mm3 06/22/16 06:22 Promyelocytes # 0.0 K/mm3 06/22/16 06:22 Blast Cells # 0.0 K/mm3 06/22/16 06:22 WBC Morphology Not Reportable 06/22/16 06:22 Hypersegmented Neuts Not Reportable 06/22/16 06:22 Hyposegmented Neuts Not Reportable 06/22/16 06:22 Hypogranular Neuts Not Reportable 06/22/16 06:22 Smudge Cells Not Reportable 06/22/16 06:22 Toxic Granulation Not Reportable 06/22/16 06:22 Toxic Vacuolation Not Reportable 06/22/16 06:22 Dohle Bodies Not Reportable 06/22/16 06:22 Pelger-Huet Anomaly Not Reportable 06/22/16 06:22 Mony Rods Not Reportable 06/22/16 06:22 Platelet Estimate Appears normal 06/22/16 06:22 Clumped Platelets Not Reportable 06/22/16 06:22 Plt Clumps, EDTA Not Reportable 06/22/16 06:22 Large Platelets Not Reportable 06/22/16 06:22 Giant Platelets Not Reportable 06/22/16 06:22 Platelet Satelliting Not Reportable 06/22/16 06:22 Plt Morphology Comment Not Reportable 06/22/16 06:22 RBC Morphology Not Reportable 06/22/16 06:22 Dimorphic RBCs Not Reportable 06/22/16 06:22 Polychromasia Not Reportable 06/22/16 06:22 Hypochromasia 1+ 06/22/16 06:22 Poikilocytosis Not Reportable 06/22/16 06:22 Anisocytosis 3+ 06/22/16 06:22 Microcytosis Not Reportable 06/22/16 06:22 Macrocytosis Not Reportable 06/22/16 06:22 Spherocytes Not Reportable 06/22/16 06:22 Pappenheimer Bodies Not Reportable 06/22/16 06:22 Sickle Cells Not Reportable 06/22/16 06:22 Target Cells Not Reportable 06/22/16 06:22 Tear Drop Cells Not Reportable 06/22/16 06:22 Ovalocytes Few 06/22/16 06:22 Helmet Cells Not Reportable 06/22/16 06:22 [place] Bodies Not Reportable 06/22/16 06:22 [place] Rings Not Reportable 06/22/16 06:22 [place] Cells Not Reportable 06/22/16 06:22 Bite Cells Not Reportable 06/22/16 06:22 Crenated Cell Not Reportable 06/22/16 06:22 Elliptocytes Few 06/22/16 06:22 Acanthocytes (Spur) Not Reportable 06/22/16 06:22 Rouleaux Not Reportable 06/22/16 06:22 Hemoglobin C Crystals Not Reportable 06/22/16 06:22 Schistocytes Not Reportable 06/22/16 06:22 Malaria parasites Not Reportable 06/22/16 06:22 Juan R Bodies Not Reportable 06/22/16 06:22 Hem Pathologist Commnt No 06/22/16 06:22 PT 14.4 Sec. (12.2-14.9) 06/20/16 14:11 INR 1.13 (0.87-1.13) 06/20/16 14:11 D-Dimer 958.1 ng/mlDDU (0-234) H 06/20/16 14:12 POC ABG pH 7.461 (7.35-7.45) H 06/22/16 15:53 POC ABG pCO2 29.7 (35-45) L 06/22/16 15:53 POC ABG pO2 29 (80-105) L 06/22/16 15:53 POC ABG HCO3 21.2 06/22/16 15:53 POC ABG Total CO2 22 06/22/16 15:53 POC ABG O2 Sat 60 06/22/16 15:53 POC ABG Base Excess -3 06/22/16 15:53 FiO2 21 % 06/22/16 15:53 Sodium 137 mmol/L (137-145) 07/03/16 05:53 Potassium 4.7 mmol/L (3.6-5.0) 07/03/16 05:53 Chloride 97.7 mmol/L (98-107) L 07/03/16 05:53 Carbon Dioxide 24 mmol/L (22-30) 07/03/16 05:53 Anion Gap 20 mmol/L 07/03/16 05:53 BUN 36 mg/dL (7-17) H 07/03/16 05:53 Creatinine 1.3 mg/dL (0.7-1.2) H 07/03/16 05:53 Estimated GFR 48 ml/min 07/03/16 05:53 BUN/Creatinine Ratio 27.69 % 07/03/16 05:53 Glucose 135 mg/dL (65-100) H 07/03/16 05:53 POC Glucose 112 (70-105) H 06/22/16 12:52 Calcium 8.9 mg/dL (8.4-10.2) 07/03/16 05:53 Troponin T < 0.010 ng/mL (0.00-0.029) 06/17/16 15:59 NT-Pro-B Natriuret Pep 1912 pg/mL (0-900) H 06/17/16 15:59 Blood Type B POSITIVE 06/30/16 12:50 Antibody Screen Negative 06/30/16 12:50 Crossmatch See Detail 06/30/16 12:50 - Imaging and Cardiology Chest x-ray: image reviewed (interstitial changes noted)
[2016-07-03 18:58] LABS: ISTAT Base Excess 1; ISTAT HCO3 23.5; ISTAT PCO2 28.4 (35-45); ISTAT PH 7.525 (7.35-7.45); ISTAT PO2 34 (80-105); ISTAT SO2 74; ISTAT TCO2 24
[2016-07-03 18:58] LABS: ISTAT Base Excess 3; ISTAT PCO2 32.1 (35-45); ISTAT PH 7.516 (7.35-7.45); ISTAT PO2 66 (80-105); ISTAT SO2 95; ISTAT TCO2 27
--- NOTE | 2016-07-03 20:47 | Event Note ---
Date: 07/03/16 Chart reviewed and patient examined. Patient lethargic and daughter is concerned about change in condition.Assured her that no sedatives were given. That her WBC is high. Will start on empiric abx in the form of Zosyn if patient is not allergic to pcn 's. Informed Dr Harris to f/u tomorrow. ABG/Labs reviewed.
[2016-07-03] MEDS: NEURONTIN PO SCH (21:36)
[2016-07-03] MEDS ORDERED: ZOSYN/NS 4.5GM/100ML 4.5 GM/100 ML VIAL IV SCH (22:00)
[2016-07-03] MEDS ORDERED: MAXIPIME IV SCH (22:00)
[2016-07-03] MEDS ORDERED: NACL 0.9% IV SCH (22:00)
[2016-07-03] MEDS: MAXIPIME/NS 1 GM/100 ML 1 GM/100 ML BAG IV SCH (22:15)
[2016-07-04] MEDS: DUONEB 0.5 MG-3 MG/3 ML SOLN IH SCH ×4 (01:01→20:17)
[2016-07-04] MEDS: MAXIPIME/NS 1 GM/100 ML 1 GM/100 ML BAG IV SCH ×3 (05:17→22:58)
[2016-07-04] MEDS: HEPARIN SUB-Q SCH ×3 (05:18→22:58)
[2016-07-04 07:02] LABS: Hematocrit 28.9 % (30.3-42.9); Hemoglobin 9.3 gm/dl (10.1-14.3); Mean Corpuscular HGB Conc 32 % (30-34); Mean Corpuscular Hemoglobin 27 pg (28-32); Mean Corpuscular Volume 85 fl (79-97); Platelet Count 184 K/mm3 (140-440); Red Blood Count 3.41 M/mm3 (3.65-5.03); White Blood Count 19.7 K/mm3 (4.5-11.0)
[2016-07-04 07:11] LABS: Red Cell Distribution Width 23.2 % (13.2-15.2)
[2016-07-04 07:25] LABS: BUN/Creatinine Ratio 28.66; Calcium 8.2 mg/dL (8.4-10.2); Potassium 5.1 mmol/L (3.6-5.0)
[2016-07-04] MEDS: PULMICORT IH SCH ×2 (07:30→20:17)
[2016-07-04] MEDS: BROVANA NEBU IH SCH ×2 (07:30→20:17)
[2016-07-04] MEDS ORDERED: NACL 0.9% 1000 ML 1,000 ML IV SCH (10:00)
[2016-07-04] MEDS: FEOSOL PO SCH ×3 (10:23→22:00)
[2016-07-04] MEDS: DIOVAN PO SCH (10:23)
[2016-07-04] MEDS: PROTONIX PO SCH (10:23)
[2016-07-04] MEDS: RANEXA ER PO SCH ×2 (10:23→22:00)
[2016-07-04] MEDS: COREG PO SCH ×2 (10:24→22:00)
[2016-07-04] MEDS: HALFPRIN EC PO SCH (10:24)
[2016-07-04 10:44] LABS: ISTAT Base Excess 0; ISTAT HCO3 23.8; ISTAT PCO2 33.4 (35-45); ISTAT PH 7.461 (7.35-7.45); ISTAT PO2 129 (80-105); ISTAT SO2 99; ISTAT TCO2 25
--- NOTE | 2016-07-04 13:25 | Progress Note ---
Assessment and Plan - Patient Problems (1) Acute exacerbation of chronic obstructive pulmonary disease (COPD) Current Visit: Yes Status: Acute (2) Chest pain Current Visit: No Status: Acute Qualifiers: Chest pain type: unspecified Qualified Code(s): R07.9 - Chest pain, unspecified (3) Pulmonary fibrosis Current Visit: No Status: Chronic Subjective Date of service: 07/04/16 Principal diagnosis: Acute On Chronic ypoxemic Respiratory Failure Interval history: Seen and examined at bedside; 24 hour events reviewed; nursing and respiratory care staff consulted; no adverse overnight events reported to me; Objective Vital Signs - 12hr 07/04/16 07/04/16 07/04/16 06:37 07:27 07:30 Temperature 98.0 F 99.6 F Pulse Rate 77 Pulse Rate [ Anterior Bilateral Throughout] Pulse Rate [ 79 Apical] Pulse Rate [ 82 Left Radial] Respiratory 18 28 H 20 Rate Respiratory Rate [Anterior Bilateral Throughout] Blood Pressure 101/58 105/61 [Left Arm] O2 Sat by Pulse 99 100 100 Oximetry 07/04/16 07/04/16 07/04/16 07:31 07:46 09:07 Temperature Pulse Rate Pulse Rate [ 77 77 Anterior Bilateral Throughout] Pulse Rate [ Apical] Pulse Rate [ Left Radial] Respiratory Rate Respiratory 28 H 28 H Rate [Anterior Bilateral Throughout] Blood Pressure [Left Arm] O2 Sat by Pulse 100 Oximetry 07/04/16 07/04/16 10:00 11:50 Temperature Pulse Rate 76 70 Pulse Rate [ Anterior Bilateral Throughout] Pulse Rate [ Apical] Pulse Rate [ Left Radial] Respiratory 20 28 H Rate Respiratory Rate [Anterior Bilateral Throughout] Blood Pressure [Left Arm] O2 Sat by Pulse 98 99 Oximetry Constitutional: no acute distress, alert Eyes: non-icteric ENT: oropharynx moist Neck: supple, no lymphadenopathy Effort: mildly labored (but close to her baseline) Ascultation: Bilateral: diminished breath sounds, rales (inspiratory in bases) Cardiovascular: regular rate and rhythm Gastrointestinal: normoactive bowel sounds, soft, non-tender, non-distended Integumentary: normal Extremities: no cyanosis, pulses normal, no ischemia or petechiae Neurologic: normal mental status, non-focal exam, pupils equal and round, motor strength normal and Psychiatric: mood appropriate, affect normal CBC and BMP: 07/04/16 06:29 07/04/16 06:29 ABG, PT/INR, D-dimer: ABG POC ABG pH 7.461 (7.35-7.45) H 07/04/16 10:32 POC ABG pCO2 33.4 (35-45) L 07/04/16 10:32 POC ABG pO2 129 (80-105) H 07/04/16 10:32 POC ABG HCO3 23.8 07/04/16 10:32 POC ABG Total CO2 25 07/04/16 10:32 POC ABG O2 Sat 99 07/04/16 10:32 PT/INR, D-dimer PT 14.4 Sec. (12.2-14.9) 06/20/16 14:11 INR 1.13 (0.87-1.13) 06/20/16 14:11 D-Dimer 958.1 ng/mlDDU (0-234) H 06/20/16 14:12 Abnormal lab findings: Abnormal Labs 06/18/16 06/20/16 06/21/16 05:34 14:12 00:31 WBC RBC 3.33 L Hgb 8.9 L Hct 26.9 L MCH 27 L RDW 28.4 H Seg Neuts % (Manual) Lymphocytes % (Manual) Lymphocytes # (Manual) D-Dimer 958.1 H POC ABG pH POC ABG pCO2 POC ABG pO2 Potassium Chloride Carbon Dioxide 19 L BUN 18 H Creatinine Glucose 143 H POC Glucose Lactic Acid Calcium 7.2 L Crossmatch 06/21/16 06/21/16 06/22/16 11:39 16:19 06:22 WBC RBC 3.13 L Hgb 8.2 L Hct 25.1 L MCH 26 L RDW 28.6 H Seg Neuts % (Manual) 88.0 H Lymphocytes % (Manual) 7.0 L Lymphocytes # (Manual) 0.6 L D-Dimer POC ABG pH POC ABG pCO2 POC ABG pO2 Potassium Chloride Carbon Dioxide BUN Creatinine Glucose POC Glucose 135 H 115 H Lactic Acid Calcium Crossmatch 06/22/16 06/22/16 06/22/16 06:22 12:52 15:53 WBC RBC Hgb Hct MCH RDW Seg Neuts % (Manual) Lymphocytes % (Manual) Lymphocytes # (Manual) D-Dimer POC ABG pH 7.461 H POC ABG pCO2 29.7 L POC ABG pO2 29 L Potassium Chloride 109.0 H Carbon Dioxide 21 L BUN Creatinine Glucose POC Glucose 112 H Lactic Acid Calcium 8.2 L Crossmatch 06/27/16 06/27/16 06/28/16 07:03 07:03 06:40 WBC 17.0 H 16.0 H RBC 3.07 L 2.72 L Hgb 8.1 L 7.2 L Hct 25.5 L 22.3 L MCH 26 L 27 L RDW 28.4 H 28.1 H Seg Neuts % (Manual) Lymphocytes % (Manual) Lymphocytes # (Manual) D-Dimer POC ABG pH POC ABG pCO2 POC ABG pO2 Potassium 5.5 H Chloride Carbon Dioxide BUN 23 H Creatinine Glucose 117 H POC Glucose Lactic Acid Calcium Crossmatch 06/28/16 06/29/16 06/30/16 06:40 09:19 07:29 WBC 20.9 H RBC 2.68 L Hgb 7.2 L Hct 22.0 L MCH 27 L RDW 27.7 H Seg Neuts % (Manual) Lymphocytes % (Manual) Lymphocytes # (Manual) D-Dimer POC ABG pH POC ABG pCO2 POC ABG pO2 Potassium Chloride Carbon Dioxide BUN 28 H 34 H Creatinine Glucose 110 H 115 H POC Glucose Lactic Acid Calcium 8.2 L Crossmatch 06/30/16 06/30/16 07/01/16 07:29 12:50 07:10 WBC 17.0 H RBC 3.41 L Hgb 9.0 L Hct 28.1 L D MCH 27 L RDW 24.5 H Seg Neuts % (Manual) Lymphocytes % (Manual) Lymphocytes # (Manual) D-Dimer POC ABG pH POC ABG pCO2 POC ABG pO2 Potassium Chloride Carbon Dioxide BUN 49 H Creatinine Glucose 139 H POC Glucose Lactic Acid Calcium 8.3 L Crossmatch See Detail 07/02/16 07/02/16 07/03/16 06:58 06:58 05:53 WBC 13.9 H 26.0 H RBC 3.43 L Hgb 9.3 L Hct 28.6 L MCH 27 L 27 L RDW 24.6 H 24.2 H Seg Neuts % (Manual) Lymphocytes % (Manual) Lymphocytes # (Manual) D-Dimer POC ABG pH POC ABG pCO2 POC ABG pO2 Potassium Chloride Carbon Dioxide BUN 30 H Creatinine Glucose 122 H POC Glucose Lactic Acid Calcium Crossmatch 07/03/16 07/03/16 07/03/16 05:53 13:58 14:12 WBC RBC Hgb Hct MCH RDW Seg Neuts % (Manual) Lymphocytes % (Manual) Lymphocytes # (Manual) D-Dimer POC ABG pH 7.525 H POC ABG pCO2 28.4 L POC ABG pO2 34 L Potassium Chloride 97.7 L Carbon Dioxide BUN 36 H Creatinine 1.3 H Glucose 135 H POC Glucose 182 H Lactic Acid Calcium Crossmatch 07/03/16 07/03/16 07/03/16 16:46 19:43 21:53 WBC RBC Hgb Hct MCH RDW Seg Neuts % (Manual) Lymphocytes % (Manual) Lymphocytes # (Manual) D-Dimer POC ABG pH 7.516 H POC ABG pCO2 32.1 L POC ABG pO2 66 L Potassium Chloride Carbon Dioxide BUN Creatinine Glucose POC Glucose 169 H 166 H Lactic Acid Calcium Crossmatch 07/04/16 07/04/16 07/04/16 06:29 06:29 06:29 WBC 19.7 H RBC 3.41 L Hgb 9.3 L Hct 28.9 L MCH 27 L RDW 23.2 H Seg Neuts % (Manual) Lymphocytes % (Manual) Lymphocytes # (Manual) D-Dimer POC ABG pH POC ABG pCO2 POC ABG pO2 Potassium 5.1 H Chloride Carbon Dioxide 20 L BUN 43 H Creatinine 1.5 H Glucose 181 H POC Glucose Lactic Acid 2.9 H* Calcium 8.2 L Crossmatch 07/04/16 10:32 WBC RBC Hgb Hct MCH RDW Seg Neuts % (Manual) Lymphocytes % (Manual) Lymphocytes # (Manual) D-Dimer POC ABG pH 7.461 H POC ABG pCO2 33.4 L POC ABG pO2 129 H Potassium Chloride Carbon Dioxide BUN Creatinine Glucose POC Glucose Lactic Acid Calcium Crossmatch
[2016-07-04 13:30] LABS: Anisocytosis 1+; Basophils % (Manual) 0 % (0.0-1.8); Blastocytes % (Manual) 0 %; Eosinophils % (Manual) 0 % (0.0-4.3)
[2016-07-04 13:31] LABS: Diff Status Complete; Hypochromasia Few; Platelet Estimate Consistent w Auto
[2016-07-04 14:38] LABS: BUN/Creatinine Ratio 34.61; Calcium 8.2 mg/dL (8.4-10.2); Chloride 101.7 mmol/L (98-107); Potassium 5.5 mmol/L (3.6-5.0)
[2016-07-04] MEDS ORDERED: KIONEX PO ONE (16:36)
--- NOTE | 2016-07-04 16:37 | Progress Note ---
Assessment and Plan Assessment and plan: The patient is 80-year-old AA female history of COPD on home oxygen and CHF, pretension, atherosclerotic heart disease and GERD who presents for evaluation of dyspnea. The patient reports constant and worsening dyspnea for 2-3 days, exacerbated with attempting to physical activity or lying flat, and improved with rest and sitting up. The patient states that her symptoms are consistent with previous episodes of COPD exacerbation. The patient denies fever, chills, chest pain, but has chronic cough mostly dry but with occasional mucoid sputum on admission patient was started on intensive treatments with high flow oxygen and BiPAP remains a 5 L/m on high flow. Cardiology recommended medical management. Appears to be improving but not quite at baseline. Sepsis-possible aspiration per family patient had lots of food particles suctioned out of the back of her throat-lactic acid was elevated. Resume antibiotics as ordered . Will keep nothing by mouth. Speech evaluation in a.m. Aspiration pneumonitis-continue antibiotics Acute on chronic hypoxic respiratory failure due to COPD exacerbation. She is still on high amount of oxygen. BiPAP at nighttime. Still unable to wean down from 55% oxygen. Continues on high flow 35l/min with sat 92%. Attempts to wean down today was unsuccessful as patient desatted to the 70s. This my professional opinion that this patient will not do well in a [facility] facility will need to go to a long-term acute care facility for gradual weaning. Pulm following. Pulmonary fibrosis-continue as noted above. COPD exacerbation. On solumedrol, Duoneb, supplemental high flow Oxygen. BiPAP prn Coronary artery disease. On Aspirin, Coreg, Diovan, Ranexa. 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 Will give additional dose of IV Lasix due to pleural effusion On Coreg, Diovan Hypertension. BP stable. Acute kidney injury on chronic kidney disease secondary to iatrogenic medication.-We'll give 1 L of fluids. Pleural effusion-stable Hyperkalemia-we'll give a dose of Kayexalate Anemia of chronic disease -transfused 1 units PRBC to better optimize oxygen carrying capacity and transfers. stable monitor closely. Large hiatal hernia-multiple clinical candidate for intervention at this time will follow outpatient with surgery. Hyperlipidemia , on Lipitor. DVT prophylaxis.Heparin subcut Full code status Disposition. Consult written no placement and patient's declining status of discussed with the family is quite difficult to wean her off they are thinking about alternatives plans and also measures. We'll continue reevaluating patient Plan of care discussed with the patient should verbalize understanding. Family at bedside I have updated them on treatment plan. Critical care time spent at the bedside 32 minutes. History Interval history: Patient seen and examined this morning on BiPAP. Lethargic. Family states she appears improved today compared to yesterday. No new fever noted Denies any chest pain, nausea, vomiting, diarrhea No adverse events reported to me by nursing staff Hospitalist Physical - Physical exam Narrative exam: VITAL SIGNS: Reviewed. GENERAL: The patient appeared ill and frail otherwise remain in bed with mild respiratory distress and still more lethargic than normal vital signs as documented. HEAD: No signs of head trauma. EYES: Pupils are equal. Extraocular motions intact. EARS: Hearing grossly intact. MOUTH: Oropharynx is normal. NECK: No adenopathy, no JVD. CHEST: Chest with bibasilar crackles bilaterally CARDIAC: Regular rate and rhythm. S1 and S2, without murmurs, gallops, or rubs. VASCULAR: 1+ pitting edema bilaterally. Peripheral pulses normal and equal in all extremities. ABDOMEN: Soft, without detectable tenderness. No sign of distention. No rebound or guarding, and no masses palpated. Bowel Sounds normal. MUSCULOSKELETAL: Good range of motion of all major joints. Extremities without clubbing, cyanosis and 1+ pitting edema bilaterally NEUROLOGIC EXAM: Sleepy but arousable and oriented x 3. Lethargic appearing. No focal sensory or strength deficits. Speech normal. Follows commands. PSYCHIATRIC: Mood normal. SKIN: No rash or lesions. - Constitutional Vitals: Temp Pulse Resp BP Pulse Ox 98.9 F 76 20 100/49 97 07/04/16 12:00 07/04/16 12:00 07/04/16 12:00 07/04/16 12:00 07/04/16 15:50 General appearance: Present: no acute distress Results - Labs CBC & Chem 7: 07/04/16 06:29 07/04/16 13:50 Labs: Laboratory Last Values WBC 19.7 K/mm3 (4.5-11.0) H 07/04/16 06:29 RBC 3.41 M/mm3 (3.65-5.03) L 07/04/16 06:29 Hgb 9.3 gm/dl (10.1-14.3) L 07/04/16 06:29 Hct 28.9 % (30.3-42.9) L 07/04/16 06:29 MCV 85 fl (79-97) 07/04/16 06:29 MCH 27 pg (28-32) L 07/04/16 06:29 MCHC 32 % (30-34) 07/04/16 06:29 RDW 23.2 % (13.2-15.2) H 07/04/16 06:29 Plt Count 184 K/mm3 (140-440) 07/04/16 06:29 Add Manual Diff Complete 07/04/16 06:29 Total Counted 100 07/04/16 06:29 Seg Neuts % (Manual) 95.0 % (40.0-70.0) H 07/04/16 06:29 Band Neutrophils % 0 % 07/04/16 06:29 Lymphocytes % (Manual) 3.0 % (13.4-35.0) L 07/04/16 06:29 Reactive Lymphs % (Man) 0 % 07/04/16 06:29 Monocytes % (Manual) 2.0 % (0.0-7.3) 07/04/16 06:29 Eosinophils % (Manual) 0 % (0.0-4.3) 07/04/16 06:29 Basophils % (Manual) 0 % (0.0-1.8) 07/04/16 06:29 Metamyelocytes % 0 % 07/04/16 06:29 Myelocytes % 0 % 07/04/16 06:29 Promyelocytes % 0 % 07/04/16 06:29 Blast Cells % 0 % 07/04/16 06:29 Nucleated RBC % Not Reportable 07/04/16 06:29 Seg Neutrophils # Man 18.7 K/mm3 (1.8-7.7) H 07/04/16 06:29 Band Neutrophils # 0.0 K/mm3 07/04/16 06:29 Lymphocytes # (Manual) 0.6 K/mm3 (1.2-5.4) L 07/04/16 06:29 Abs React Lymphs (Man) 0.0 K/mm3 07/04/16 06:29 Monocytes # (Manual) 0.4 K/mm3 (0.0-0.8) 07/04/16 06:29 Eosinophils # (Manual) 0.0 K/mm3 (0.0-0.4) 07/04/16 06:29 Basophils # (Manual) 0.0 K/mm3 (0.0-0.1) 07/04/16 06:29 Metamyelocytes # 0.0 K/mm3 07/04/16 06:29 Myelocytes # 0.0 K/mm3 07/04/16 06:29 Promyelocytes # 0.0 K/mm3 07/04/16 06:29 Blast Cells # 0.0 K/mm3 07/04/16 06:29 WBC Morphology Not Reportable 07/04/16 06:29 Hypersegmented Neuts Not Reportable 07/04/16 06:29 Hyposegmented Neuts Not Reportable 07/04/16 06:29 Hypogranular Neuts Not Reportable 07/04/16 06:29 Smudge Cells Not Reportable 07/04/16 06:29 Toxic Granulation Not Reportable 07/04/16 06:29 Toxic Vacuolation Not Reportable 07/04/16 06:29 Dohle Bodies Not Reportable 07/04/16 06:29 Pelger-Huet Anomaly Not Reportable 07/04/16 06:29 Mony Rods Not Reportable 07/04/16 06:29 Platelet Estimate Consistent w auto 07/04/16 06:29 Clumped Platelets Not Reportable 07/04/16 06:29 Plt Clumps, EDTA Not Reportable 07/04/16 06:29 Large Platelets Not Reportable 07/04/16 06:29 Giant Platelets Not Reportable 07/04/16 06:29 Platelet Satelliting Not Reportable 07/04/16 06:29 Plt Morphology Comment Not Reportable 07/04/16 06:29 RBC Morphology Not Reportable 07/04/16 06:29 Dimorphic RBCs Not Reportable 07/04/16 06:29 Polychromasia Not Reportable 07/04/16 06:29 Hypochromasia Few 07/04/16 06:29 Poikilocytosis Not Reportable 07/04/16 06:29 Anisocytosis 1+ 07/04/16 06:29 Microcytosis Not Reportable 07/04/16 06:29 Macrocytosis Not Reportable 07/04/16 06:29 Spherocytes Not Reportable 07/04/16 06:29 Pappenheimer Bodies Not Reportable 07/04/16 06:29 Sickle Cells Not Reportable 07/04/16 06:29 Target Cells Not Reportable 07/04/16 06:29 Tear Drop Cells Not Reportable 07/04/16 06:29 Ovalocytes Not Reportable 07/04/16 06:29 Helmet Cells Not Reportable 07/04/16 06:29 [place] Bodies Not Reportable 07/04/16 06:29 [place] Rings Not Reportable 07/04/16 06:29 [place] Cells Not Reportable 07/04/16 06:29 Bite Cells Not Reportable 07/04/16 06:29 Crenated Cell Not Reportable 07/04/16 06:29 Elliptocytes Not Reportable 07/04/16 06:29 Acanthocytes (Spur) Not Reportable 07/04/16 06:29 Rouleaux Not Reportable 07/04/16 06:29 Hemoglobin C Crystals Not Reportable 07/04/16 06:29 Schistocytes Not Reportable 07/04/16 06:29 Malaria parasites Not Reportable 07/04/16 06:29 Juan R Bodies Not Reportable 07/04/16 06:29 Hem Pathologist Commnt No 07/04/16 06:29 PT 14.4 Sec. (12.2-14.9) 06/20/16 14:11 INR 1.13 (0.87-1.13) 06/20/16 14:11 D-Dimer 958.1 ng/mlDDU (0-234) H 06/20/16 14:12 POC ABG pH 7.461 (7.35-7.45) H 07/04/16 10:32 POC ABG pCO2 33.4 (35-45) L 07/04/16 10:32 POC ABG pO2 129 (80-105) H 07/04/16 10:32 POC ABG HCO3 23.8 07/04/16 10:32 POC ABG Total CO2 25 07/04/16 10:32 POC ABG O2 Sat 99 07/04/16 10:32 POC ABG Base Excess 0 07/04/16 10:32 FiO2 60 % 07/04/16 10:32 Sodium 138 mmol/L (137-145) 07/04/16 13:50 Potassium 5.5 mmol/L (3.6-5.0) H 07/04/16 13:50 Chloride 101.7 mmol/L (98-107) 07/04/16 13:50 Carbon Dioxide 20 mmol/L (22-30) L 07/04/16 13:50 Anion Gap 22 mmol/L 07/04/16 13:50 BUN 45 mg/dL (7-17) H 07/04/16 13:50 Creatinine 1.3 mg/dL (0.7-1.2) H 07/04/16 13:50 Estimated GFR 48 ml/min 07/04/16 13:50 BUN/Creatinine Ratio 34.61 % 07/04/16 13:50 Glucose 126 mg/dL (65-100) H 07/04/16 13:50 POC Glucose 166 (70-105) H 07/03/16 21:53 Lactic Acid 2.0 mmol/L (0.7-2.0) 07/04/16 13:50 Calcium 8.2 mg/dL (8.4-10.2) L 07/04/16 13:50 Troponin T < 0.010 ng/mL (0.00-0.029) 06/17/16 15:59 C-Reactive Protein 15.00 mg/dL (0.00-1.30) H 07/04/16 13:50 NT-Pro-B Natriuret Pep 1912 pg/mL (0-900) H 06/17/16 15:59 Blood Type B POSITIVE 06/30/16 12:50 Antibody Screen Negative 06/30/16 12:50 Crossmatch See Detail 06/30/16 12:50 - Imaging and Cardiology Chest x-ray: image reviewed (concerning for pneumonitis)
[2016-07-04] MEDS: NEURONTIN PO SCH (21:50)
[2016-07-05] MEDS: DUONEB 0.5 MG-3 MG/3 ML SOLN IH SCH ×4 (01:20→20:15)
[2016-07-05] MEDS: MAXIPIME/NS 1 GM/100 ML 1 GM/100 ML BAG IV SCH ×2 (05:19→16:16)
[2016-07-05] MEDS: HEPARIN SUB-Q SCH ×3 (05:28→21:20)
[2016-07-05 07:42] LABS: Hematocrit 27.6 % (30.3-42.9); Hemoglobin 9.1 gm/dl (10.1-14.3); Mean Corpuscular HGB Conc 33 % (30-34); Mean Corpuscular Hemoglobin 28 pg (28-32); Mean Corpuscular Volume 85 fl (79-97); Platelet Count 130 K/mm3 (140-440); Red Blood Count 3.27 M/mm3 (3.65-5.03); White Blood Count 10.5 K/mm3 (4.5-11.0)
[2016-07-05 07:47] LABS: Red Cell Distribution Width 22.6 % (13.2-15.2)
[2016-07-05] MEDS: PULMICORT IH SCH ×2 (07:54→20:15)
[2016-07-05] MEDS: BROVANA NEBU IH SCH ×2 (07:55→20:15)
[2016-07-05 07:57] LABS: BUN/Creatinine Ratio 35.83; Calcium 8.1 mg/dL (8.4-10.2); Chloride 108.6 mmol/L (98-107); Potassium 4.8 mmol/L (3.6-5.0)
[2016-07-05] MEDS: COREG PO SCH ×2 (11:21→22:00)
[2016-07-05] MEDS: FEOSOL PO SCH ×3 (11:21→22:00)
[2016-07-05] MEDS: HALFPRIN EC PO SCH (11:22)
[2016-07-05] MEDS: RANEXA ER PO SCH (11:22)
[2016-07-05] MEDS: DIOVAN PO SCH (11:22)
[2016-07-05] MEDS: PROTONIX PO SCH (11:22)
--- NOTE | 2016-07-05 16:49 | Progress Note ---
Assessment and Plan Assessment and plan: The patient is 80-year-old AA female history of COPD on home oxygen and CHF, pretension, atherosclerotic heart disease and GERD who presents for evaluation of dyspnea. The patient reports constant and worsening dyspnea for 2-3 days, exacerbated with attempting to physical activity or lying flat, and improved with rest and sitting up. The patient states that her symptoms are consistent with previous episodes of COPD exacerbation. The patient denies fever, chills, chest pain, but has chronic cough mostly dry but with occasional mucoid sputum on admission patient was started on intensive treatments with high flow oxygen and BiPAP remains a 5 L/m on high flow. Cardiology recommended medical management. Appears to be improving but not quite at baseline. Sepsis-possible aspiration per family patient had lots of food particles suctioned out of the back of her throat-lactic acid was elevated. Resume antibiotics as ordered . Resume diet based on speech evaluation Aspiration pneumonitis-continue antibiotics. Improving. White count is down no further fever noted. Acute on chronic hypoxic respiratory failure due to COPD exacerbation. She is still on high amount of oxygen. BiPAP at nighttime. Still unable to wean down from 55% oxygen. Continues on high flow 35l/min with sat 92%. Attempts to wean down today was unsuccessful as patient desatted to the 70s. This my professional opinion that this patient will not do well in a retirement facility will need to go to a long-term acute care facility for gradual weaning. Pulm following. Pulmonary fibrosis-continue as noted above. COPD exacerbation. On solumedrol, Duoneb, supplemental high flow Oxygen. BiPAP prn Coronary artery disease. On Aspirin, Coreg, Diovan, Ranexa. 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 Will give additional dose of IV Lasix due to pleural effusion On Coreg, Diovan Hypertension. BP stable. Acute kidney injury on chronic kidney disease secondary to iatrogenic medication.-We'll give 1 L of fluids. Pleural effusion-stable Hyperkalemia-we'll give a dose of Kayexalate Anemia of chronic disease -transfused 1 units PRBC to better optimize oxygen carrying capacity and transfers. stable monitor closely. Large hiatal hernia-multiple clinical candidate for intervention at this time will follow outpatient with surgery. Hyperlipidemia , on Lipitor. DVT prophylaxis.Heparin subcut Full code status Disposition. Consult written no placement and patient's declining status of discussed with the family is quite difficult to wean her off they are thinking about alternatives plans and also measures. We'll continue reevaluating patient Plan of care discussed with the patient should verbalize understanding. Family at bedside I have updated them on treatment plan. Critical care time spent at the bedside 32 minutes. History Interval history: Patient seen and examined this morning back on high flow oxygen flow. Improving compared to yesterday. Family at bedside. She denies any complaints at this time except pressure as of breath. She was a bit confused this morning but reoriented and was fine. Denies any chest pain, nausea, vomiting, diarrhea No adverse events reported to me by nursing staff Hospitalist Physical - Physical exam Narrative exam: VITAL SIGNS: Reviewed. GENERAL: The patient appeared ill and frail otherwise remain in bed with mild respiratory distress and vital signs as documented. HEAD: No signs of head trauma. EYES: Pupils are equal. Extraocular motions intact. EARS: Hearing grossly intact. MOUTH: Oropharynx is normal. NECK: No adenopathy, no JVD. CHEST: Chest with bibasilar crackles bilaterally CARDIAC: Regular rate and rhythm. S1 and S2, without murmurs, gallops, or rubs. VASCULAR: 1+ pitting edema bilaterally. Peripheral pulses normal and equal in all extremities. ABDOMEN: Soft, without detectable tenderness. No sign of distention. No rebound or guarding, and no masses palpated. Bowel Sounds normal. MUSCULOSKELETAL: Good range of motion of all major joints. Extremities without clubbing, cyanosis and 1+ pitting edema bilaterally NEUROLOGIC EXAM: Sleepy but arousable and oriented x 3. No focal sensory or strength deficits. Speech normal. Follows commands. PSYCHIATRIC: Mood normal. SKIN: No rash or lesions. - Constitutional Vitals: Temp Pulse Resp BP Pulse Ox 98.5 F 51 L 20 123/60 93 07/05/16 08:50 07/05/16 14:00 07/05/16 14:00 07/05/16 08:50 07/05/16 08:50 General appearance: Present: no acute distress Results - Labs CBC & Chem 7: 07/05/16 06:38 07/05/16 06:47 Labs: Laboratory Last Values WBC 10.5 K/mm3 (4.5-11.0) 07/05/16 06:38 RBC 3.27 M/mm3 (3.65-5.03) L 07/05/16 06:38 Hgb 9.1 gm/dl (10.1-14.3) L 07/05/16 06:38 Hct 27.6 % (30.3-42.9) L 07/05/16 06:38 MCV 85 fl (79-97) 07/05/16 06:38 MCH 28 pg (28-32) 07/05/16 06:38 MCHC 33 % (30-34) 07/05/16 06:38 RDW 22.6 % (13.2-15.2) H 07/05/16 06:38 Plt Count 130 K/mm3 (140-440) L 07/05/16 06:38 Add Manual Diff Complete 07/04/16 06:29 Total Counted 100 07/04/16 06:29 Seg Neuts % (Manual) 95.0 % (40.0-70.0) H 07/04/16 06:29 Band Neutrophils % 0 % 07/04/16 06:29 Lymphocytes % (Manual) 3.0 % (13.4-35.0) L 07/04/16 06:29 Reactive Lymphs % (Man) 0 % 07/04/16 06:29 Monocytes % (Manual) 2.0 % (0.0-7.3) 07/04/16 06:29 Eosinophils % (Manual) 0 % (0.0-4.3) 07/04/16 06:29 Basophils % (Manual) 0 % (0.0-1.8) 07/04/16 06:29 Metamyelocytes % 0 % 07/04/16 06:29 Myelocytes % 0 % 07/04/16 06:29 Promyelocytes % 0 % 07/04/16 06:29 Blast Cells % 0 % 07/04/16 06:29 Nucleated RBC % Not Reportable 07/04/16 06:29 Seg Neutrophils # Man 18.7 K/mm3 (1.8-7.7) H 07/04/16 06:29 Band Neutrophils # 0.0 K/mm3 07/04/16 06:29 Lymphocytes # (Manual) 0.6 K/mm3 (1.2-5.4) L 07/04/16 06:29 Abs React Lymphs (Man) 0.0 K/mm3 07/04/16 06:29 Monocytes # (Manual) 0.4 K/mm3 (0.0-0.8) 07/04/16 06:29 Eosinophils # (Manual) 0.0 K/mm3 (0.0-0.4) 07/04/16 06:29 Basophils # (Manual) 0.0 K/mm3 (0.0-0.1) 07/04/16 06:29 Metamyelocytes # 0.0 K/mm3 07/04/16 06:29 Myelocytes # 0.0 K/mm3 07/04/16 06:29 Promyelocytes # 0.0 K/mm3 07/04/16 06:29 Blast Cells # 0.0 K/mm3 07/04/16 06:29 WBC Morphology Not Reportable 07/04/16 06:29 Hypersegmented Neuts Not Reportable 07/04/16 06:29 Hyposegmented Neuts Not Reportable 07/04/16 06:29 Hypogranular Neuts Not Reportable 07/04/16 06:29 Smudge Cells Not Reportable 07/04/16 06:29 Toxic Granulation Not Reportable 07/04/16 06:29 Toxic Vacuolation Not Reportable 07/04/16 06:29 Dohle Bodies Not Reportable 07/04/16 06:29 Pelger-Huet Anomaly Not Reportable 07/04/16 06:29 Mony Rods Not Reportable 07/04/16 06:29 Platelet Estimate Consistent w auto 07/04/16 06:29 Clumped Platelets Not Reportable 07/04/16 06:29 Plt Clumps, EDTA Not Reportable 07/04/16 06:29 Large Platelets Not Reportable 07/04/16 06:29 Giant Platelets Not Reportable 07/04/16 06:29 Platelet Satelliting Not Reportable 07/04/16 06:29 Plt Morphology Comment Not Reportable 07/04/16 06:29 RBC Morphology Not Reportable 07/04/16 06:29 Dimorphic RBCs Not Reportable 07/04/16 06:29 Polychromasia Not Reportable 07/04/16 06:29 Hypochromasia Few 07/04/16 06:29 Poikilocytosis Not Reportable 07/04/16 06:29 Anisocytosis 1+ 07/04/16 06:29 Microcytosis Not Reportable 07/04/16 06:29 Macrocytosis Not Reportable 07/04/16 06:29 Spherocytes Not Reportable 07/04/16 06:29 Pappenheimer Bodies Not Reportable 07/04/16 06:29 Sickle Cells Not Reportable 07/04/16 06:29 Target Cells Not Reportable 07/04/16 06:29 Tear Drop Cells Not Reportable 07/04/16 06:29 Ovalocytes Not Reportable 07/04/16 06:29 Helmet Cells Not Reportable 07/04/16 06:29 [place] Bodies Not Reportable 07/04/16 06:29 [place] Rings Not Reportable 07/04/16 06:29 [place] Cells Not Reportable 07/04/16 06:29 Bite Cells Not Reportable 07/04/16 06:29 Crenated Cell Not Reportable 07/04/16 06:29 Elliptocytes Not Reportable 07/04/16 06:29 Acanthocytes (Spur) Not Reportable 07/04/16 06:29 Rouleaux Not Reportable 07/04/16 06:29 Hemoglobin C Crystals Not Reportable 07/04/16 06:29 Schistocytes Not Reportable 07/04/16 06:29 Malaria parasites Not Reportable 07/04/16 06:29 Juan R Bodies Not Reportable 07/04/16 06:29 Hem Pathologist Commnt No 07/04/16 06:29 PT 14.4 Sec. (12.2-14.9) 06/20/16 14:11 INR 1.13 (0.87-1.13) 06/20/16 14:11 D-Dimer 958.1 ng/mlDDU (0-234) H 06/20/16 14:12 POC ABG pH 7.461 (7.35-7.45) H 07/04/16 10:32 POC ABG pCO2 33.4 (35-45) L 07/04/16 10:32 POC ABG pO2 129 (80-105) H 07/04/16 10:32 POC ABG HCO3 23.8 07/04/16 10:32 POC ABG Total CO2 25 07/04/16 10:32 POC ABG O2 Sat 99 07/04/16 10:32 POC ABG Base Excess 0 07/04/16 10:32 FiO2 60 % 07/04/16 10:32 Sodium 142 mmol/L (137-145) 07/05/16 06:47 Potassium 4.8 mmol/L (3.6-5.0) 07/05/16 06:47 Chloride 108.6 mmol/L (98-107) H 07/05/16 06:47 Carbon Dioxide 21 mmol/L (22-30) L 07/05/16 06:47 Anion Gap 17 mmol/L 07/05/16 06:47 BUN 43 mg/dL (7-17) H 07/05/16 06:47 Creatinine 1.2 mg/dL (0.7-1.2) 07/05/16 06:47 Estimated GFR 53 ml/min 07/05/16 06:47 BUN/Creatinine Ratio 35.83 % 07/05/16 06:47 Glucose 126 mg/dL (65-100) H 07/05/16 06:47 POC Glucose 175 (70-105) H 07/05/16 13:10 Lactic Acid 2.0 mmol/L (0.7-2.0) 07/04/16 13:50 Calcium 8.1 mg/dL (8.4-10.2) L 07/05/16 06:47 Troponin T < 0.010 ng/mL (0.00-0.029) 06/17/16 15:59 C-Reactive Protein 15.00 mg/dL (0.00-1.30) H 07/04/16 13:50 NT-Pro-B Natriuret Pep 1912 pg/mL (0-900) H 06/17/16 15:59 Blood Type B POSITIVE 06/30/16 12:50 Antibody Screen Negative 06/30/16 12:50 Crossmatch See Detail 06/30/16 12:50
--- NOTE | 2016-07-05 19:26 | Progress Note ---
Assessment and Plan Patient alert, awke Still On high flow O2.FIO2 50% and O2 satuaration 98%.No acute respitatory distress at rest.Recommend to wean slowly from high flow O2. - Patient Problems (1) Acute exacerbation of chronic obstructive pulmonary disease (COPD) Current Visit: Yes Status: Acute Plan to address problem: Patient is on High flow O2 FIO2 50% Albuterol/atrovent aerosol treatments q 12 hours. Continue I/V solumedral. Continue S/C Heparin. (2) Respiratory failure with hypoxia Current Visit: Yes Status: Acute Qualifiers: Chronicity: acute on chronic Qualified Code(s): J96.21 - Acute and chronic respiratory failure with hypoxia Plan to address problem: Continue High flow O2 ,FIO2 50%. Albuterol/atrovent aerosol treatments q 12 hours. Continue I/V solumedral. Continue S/C Heparin. Subjective Date of service: 07/05/16 Principal diagnosis: Acute On Chronic ypoxemic Respiratory Failure Interval history: Patient alert, awke Still On high flow O2.FIO2 50% and O2 satuaration 98%.No acute respitatory distress at rest.Recommend to wean slowly from high flow O2. Objective Vital Signs - 12hr 07/05/16 07/05/16 07/05/16 07:55 08:10 08:50 Temperature 98.5 F Pulse Rate [ 97 H 78 Anterior Bilateral Throughout] Pulse Rate [ 72 Left Radial] Respiratory 20 Rate Respiratory 24 20 Rate [Anterior Bilateral Throughout] Blood Pressure 123/60 [Left Arm] O2 Sat by Pulse 96 93 Oximetry 07/05/16 07/05/16 13:48 14:00 Temperature Pulse Rate [ 82 51 L Anterior Bilateral Throughout] Pulse Rate [ Left Radial] Respiratory Rate Respiratory 20 20 Rate [Anterior Bilateral Throughout] Blood Pressure [Left Arm] O2 Sat by Pulse Oximetry Constitutional: no acute distress, alert Eyes: non-icteric ENT: oropharynx moist Neck: supple, no lymphadenopathy Effort: mildly labored (but close to her baseline) Ascultation: Bilateral: diminished breath sounds, rales (inspiratory in bases) Cardiovascular: regular rate and rhythm Gastrointestinal: normoactive bowel sounds, soft, non-tender, non-distended Integumentary: normal Extremities: no cyanosis, pulses normal, no ischemia or petechiae Neurologic: normal mental status, non-focal exam, pupils equal and round, motor strength normal and Psychiatric: mood appropriate, affect normal CBC and BMP: 07/05/16 06:38 07/05/16 06:47 ABG, PT/INR, D-dimer: ABG POC ABG pH 7.461 (7.35-7.45) H 07/04/16 10:32 POC ABG pCO2 33.4 (35-45) L 07/04/16 10:32 POC ABG pO2 129 (80-105) H 07/04/16 10:32 POC ABG HCO3 23.8 07/04/16 10:32 POC ABG Total CO2 25 07/04/16 10:32 POC ABG O2 Sat 99 07/04/16 10:32 PT/INR, D-dimer PT 14.4 Sec. (12.2-14.9) 06/20/16 14:11 INR 1.13 (0.87-1.13) 06/20/16 14:11 D-Dimer 958.1 ng/mlDDU (0-234) H 06/20/16 14:12 Abnormal lab findings: Abnormal Labs 06/18/16 06/20/16 06/21/16 05:34 14:12 00:31 WBC RBC 3.33 L Hgb 8.9 L Hct 26.9 L MCH 27 L RDW 28.4 H Plt Count Seg Neuts % (Manual) Lymphocytes % (Manual) Seg Neutrophils # Man Lymphocytes # (Manual) D-Dimer 958.1 H POC ABG pH POC ABG pCO2 POC ABG pO2 Potassium Chloride Carbon Dioxide 19 L BUN 18 H Creatinine Glucose 143 H POC Glucose Lactic Acid Calcium 7.2 L C-Reactive Protein Crossmatch 06/21/16 06/21/16 06/22/16 11:39 16:19 06:22 WBC RBC 3.13 L Hgb 8.2 L Hct 25.1 L MCH 26 L RDW 28.6 H Plt Count Seg Neuts % (Manual) 88.0 H Lymphocytes % (Manual) 7.0 L Seg Neutrophils # Man Lymphocytes # (Manual) 0.6 L D-Dimer POC ABG pH POC ABG pCO2 POC ABG pO2 Potassium Chloride Carbon Dioxide BUN Creatinine Glucose POC Glucose 135 H 115 H Lactic Acid Calcium C-Reactive Protein Crossmatch 06/22/16 06/22/16 06/22/16 06:22 12:52 15:53 WBC RBC Hgb Hct MCH RDW Plt Count Seg Neuts % (Manual) Lymphocytes % (Manual) Seg Neutrophils # Man Lymphocytes # (Manual) D-Dimer POC ABG pH 7.461 H POC ABG pCO2 29.7 L POC ABG pO2 29 L Potassium Chloride 109.0 H Carbon Dioxide 21 L BUN Creatinine Glucose POC Glucose 112 H Lactic Acid Calcium 8.2 L C-Reactive Protein Crossmatch 06/27/16 06/27/16 06/28/16 07:03 07:03 06:40 WBC 17.0 H 16.0 H RBC 3.07 L 2.72 L Hgb 8.1 L 7.2 L Hct 25.5 L 22.3 L MCH 26 L 27 L RDW 28.4 H 28.1 H Plt Count Seg Neuts % (Manual) Lymphocytes % (Manual) Seg Neutrophils # Man Lymphocytes # (Manual) D-Dimer POC ABG pH POC ABG pCO2 POC ABG pO2 Potassium 5.5 H Chloride Carbon Dioxide BUN 23 H Creatinine Glucose 117 H POC Glucose Lactic Acid Calcium C-Reactive Protein Crossmatch 06/28/16 06/29/16 06/30/16 06:40 09:19 07:29 WBC 20.9 H RBC 2.68 L Hgb 7.2 L Hct 22.0 L MCH 27 L RDW 27.7 H Plt Count Seg Neuts % (Manual) Lymphocytes % (Manual) Seg Neutrophils # Man Lymphocytes # (Manual) D-Dimer POC ABG pH POC ABG pCO2 POC ABG pO2 Potassium Chloride Carbon Dioxide BUN 28 H 34 H Creatinine Glucose 110 H 115 H POC Glucose Lactic Acid Calcium 8.2 L C-Reactive Protein Crossmatch 06/30/16 06/30/16 07/01/16 07:29 12:50 07:10 WBC 17.0 H RBC 3.41 L Hgb 9.0 L Hct 28.1 L D MCH 27 L RDW 24.5 H Plt Count Seg Neuts % (Manual) Lymphocytes % (Manual) Seg Neutrophils # Man Lymphocytes # (Manual) D-Dimer POC ABG pH POC ABG pCO2 POC ABG pO2 Potassium Chloride Carbon Dioxide BUN 49 H Creatinine Glucose 139 H POC Glucose Lactic Acid Calcium 8.3 L C-Reactive Protein Crossmatch See Detail 07/02/16 07/02/16 07/03/16 06:58 06:58 05:53 WBC 13.9 H 26.0 H RBC 3.43 L Hgb 9.3 L Hct 28.6 L MCH 27 L 27 L RDW 24.6 H 24.2 H Plt Count Seg Neuts % (Manual) Lymphocytes % (Manual) Seg Neutrophils # Man Lymphocytes # (Manual) D-Dimer POC ABG pH POC ABG pCO2 POC ABG pO2 Potassium Chloride Carbon Dioxide BUN 30 H Creatinine Glucose 122 H POC Glucose Lactic Acid Calcium C-Reactive Protein Crossmatch 07/03/16 07/03/16 07/03/16 05:53 13:58 14:12 WBC RBC Hgb Hct MCH RDW Plt Count Seg Neuts % (Manual) Lymphocytes % (Manual) Seg Neutrophils # Man Lymphocytes # (Manual) D-Dimer POC ABG pH 7.525 H POC ABG pCO2 28.4 L POC ABG pO2 34 L Potassium Chloride 97.7 L Carbon Dioxide BUN 36 H Creatinine 1.3 H Glucose 135 H POC Glucose 182 H Lactic Acid Calcium C-Reactive Protein Crossmatch 07/03/16 07/03/16 07/03/16 16:46 19:43 21:53 WBC RBC Hgb Hct MCH RDW Plt Count Seg Neuts % (Manual) Lymphocytes % (Manual) Seg Neutrophils # Man Lymphocytes # (Manual) D-Dimer POC ABG pH 7.516 H POC ABG pCO2 32.1 L POC ABG pO2 66 L Potassium Chloride Carbon Dioxide BUN Creatinine Glucose POC Glucose 169 H 166 H Lactic Acid Calcium C-Reactive Protein Crossmatch 07/04/16 07/04/16 07/04/16 06:29 06:29 06:29 WBC 19.7 H RBC 3.41 L Hgb 9.3 L Hct 28.9 L MCH 27 L RDW 23.2 H Plt Count Seg Neuts % (Manual) 95.0 H Lymphocytes % (Manual) 3.0 L Seg Neutrophils # Man 18.7 H Lymphocytes # (Manual) 0.6 L D-Dimer POC ABG pH POC ABG pCO2 POC ABG pO2 Potassium 5.1 H Chloride Carbon Dioxide 20 L BUN 43 H Creatinine 1.5 H Glucose 181 H POC Glucose Lactic Acid 2.9 H* Calcium 8.2 L C-Reactive Protein Crossmatch 07/04/16 07/04/16 07/04/16 07:35 10:32 11:25 WBC RBC Hgb Hct MCH RDW Plt Count Seg Neuts % (Manual) Lymphocytes % (Manual) Seg Neutrophils # Man Lymphocytes # (Manual) D-Dimer POC ABG pH 7.461 H POC ABG pCO2 33.4 L POC ABG pO2 129 H Potassium Chloride Carbon Dioxide BUN Creatinine Glucose POC Glucose 158 H 156 H Lactic Acid Calcium C-Reactive Protein Crossmatch 07/04/16 07/04/16 07/04/16 13:50 13:50 16:19 WBC RBC Hgb Hct MCH RDW Plt Count Seg Neuts % (Manual) Lymphocytes % (Manual) Seg Neutrophils # Man Lymphocytes # (Manual) D-Dimer POC ABG pH POC ABG pCO2 POC ABG pO2 Potassium 5.5 H Chloride Carbon Dioxide 20 L BUN 45 H Creatinine 1.3 H Glucose 126 H POC Glucose 134 H Lactic Acid Calcium 8.2 L C-Reactive Protein 15.00 H Crossmatch 07/04/16 07/05/16 07/05/16 22:32 06:38 06:47 WBC RBC 3.27 L Hgb 9.1 L Hct 27.6 L MCH RDW 22.6 H Plt Count 130 L Seg Neuts % (Manual) Lymphocytes % (Manual) Seg Neutrophils # Man Lymphocytes # (Manual) D-Dimer POC ABG pH POC ABG pCO2 POC ABG pO2 Potassium Chloride 108.6 H Carbon Dioxide 21 L BUN 43 H Creatinine Glucose 126 H POC Glucose 197 H Lactic Acid Calcium 8.1 L C-Reactive Protein Crossmatch 07/05/16 13:10 WBC RBC Hgb Hct MCH RDW Plt Count Seg Neuts % (Manual) Lymphocytes % (Manual) Seg Neutrophils # Man Lymphocytes # (Manual) D-Dimer POC ABG pH POC ABG pCO2 POC ABG pO2 Potassium Chloride Carbon Dioxide BUN Creatinine Glucose POC Glucose 175 H Lactic Acid Calcium C-Reactive Protein Crossmatch Chest x-ray: report reviewed (Interstitial lung disease with superimposed lung opacities.)
[2016-07-06] MEDS: DUONEB 0.5 MG-3 MG/3 ML SOLN IH SCH ×4 (01:40→20:36)
[2016-07-06] MEDS: MAXIPIME/NS 1 GM/100 ML 1 GM/100 ML BAG IV SCH ×4 (05:30→22:40)
[2016-07-06] MEDS: HEPARIN SUB-Q SCH ×3 (05:30→22:41)
[2016-07-06] MEDS: NEURONTIN PO SCH ×2 (05:33→22:39)
[2016-07-06] MEDS: RANEXA ER PO SCH ×3 (05:33→22:39)
[2016-07-06] MEDS: PULMICORT IH SCH ×2 (08:03→20:32)
[2016-07-06] MEDS: BROVANA NEBU IH SCH ×2 (08:03→20:32)
[2016-07-06] MEDS: FEOSOL PO SCH ×3 (08:35→21:10)
[2016-07-06 09:02] LABS: Hematocrit 25.9 % (30.3-42.9); Hemoglobin 8.5 gm/dl (10.1-14.3); Mean Corpuscular HGB Conc 33 % (30-34); Mean Corpuscular Hemoglobin 28 pg (28-32); Mean Corpuscular Volume 85 fl (79-97); Platelet Count 125 K/mm3 (140-440); Red Blood Count 3.04 M/mm3 (3.65-5.03); White Blood Count 8.7 K/mm3 (4.5-11.0)
[2016-07-06 09:13] LABS: BUN/Creatinine Ratio 39.09; Calcium 8.6 mg/dL (8.4-10.2); Chloride 113.3 mmol/L (98-107); Potassium 4.8 mmol/L (3.6-5.0)
[2016-07-06 09:20] LABS: Red Cell Distribution Width 22.5 % (13.2-15.2)
--- NOTE | 2016-07-06 09:58 | Fluoroscopy Report ---
MODIFIED BARIUM SWALLOW INDICATION: Possible aspiration. COMPARISON: None similar. FINDINGS: Fluoroscopy provided by radiologist for speech therapist to assess the swallowing mechanism. Food items of various consistencies given. Penetration/aspiration noted. Partly edentulous jaw. Cervical spondylosis. IMPRESSION: Successful modified barium swallow. Please refer to detailed report from speech pathologist. Thank you for the opportunity to participate in this patient's care.
[2016-07-06] MEDS: COREG PO SCH ×2 (10:39→22:40)
[2016-07-06] MEDS: HALFPRIN EC PO SCH (10:39)
[2016-07-06] MEDS: DIOVAN PO SCH (10:39)
[2016-07-06] MEDS: PEPCID IV SCH (10:39)
[2016-07-06] MEDS: PROTONIX PO SCH (10:39)
--- NOTE | 2016-07-06 18:30 | Progress Note ---
Assessment and Plan - Patient Problems (1) Acute and chronic respiratory failure ([id number]) Current Visit: No Status: Acute Qualifiers: Respiratory failure complication: hypoxia and hypercapnia Qualified Code(s) : J96.21 - Acute and chronic respiratory failure with hypoxia; J96.22 - Acute and chronic respiratory failure with hypercapnia Plan to address problem: Pulmonary consulted: Supportive care, supplemental oxygen, nebs, aspiration precautions, pulmonary toilet, early ambulation. (2) Aspiration pneumonia Current Visit: Yes Status: Acute Qualifiers: Aspiration pneumonia type: A Laterality: L Lung location: L Plan to address problem: Pneumonia Protocol: IV abx, supportive care, nebs, pulmonary toilet (3) Acute exacerbation of chronic obstructive pulmonary disease Current Visit: No Status: Acute Plan to address problem: Pulmonary consulted: Continue current care, IV abx, supplemental oxygen, nebs, aspiration precautions, NIPPV as clinically indicated (4) Hypertension Current Visit: Yes Status: Chronic Qualifiers: Hypertension type: H Plan to address problem: Monitor BP q shift, continue current care (5) Debility Current Visit: Yes Status: Acute Plan to address problem: PT when medically stable. (6) DVT prophylaxis Current Visit: No Status: Acute History Interval history: Pt resting in bed, Pt denies pain, No reported nursing events. Pt daughter at bedside. Discussed care plan with family. Hospitalist Physical - Constitutional Vitals: Temp Pulse Resp BP Pulse Ox 97.3 F L 78 20 123/63 93 07/06/16 16:30 07/06/16 16:30 07/06/16 16:30 07/06/16 16:30 07/06/16 16:30 General appearance: Present: no acute distress - EENT Eyes: Present: PERRL ENT: hearing intact - Neck Neck: Present: supple - Respiratory Respiratory: bilateral: diminished - Cardiovascular Rhythm: regular Heart Sounds: Present: S1 & S2 - Extremities Extremities: no ischemia Peripheral Pulses: within normal limits - Abdominal General gastrointestinal: soft, non-tender, non-distended - Integumentary Integumentary: Present: clear, dry - Psychiatric Psychiatric: appropriate mood/affect, cooperative - Neurologic Neurologic: CNII-XII intact Results - Labs CBC & Chem 7: 07/06/16 07:11 07/06/16 07:11 Labs: Laboratory Last Values WBC 8.7 K/mm3 (4.5-11.0) 07/06/16 07:11 RBC 3.04 M/mm3 (3.65-5.03) L 07/06/16 07:11 Hgb 8.5 gm/dl (10.1-14.3) L 07/06/16 07:11 Hct 25.9 % (30.3-42.9) L 07/06/16 07:11 MCV 85 fl (79-97) 07/06/16 07:11 MCH 28 pg (28-32) 07/06/16 07:11 MCHC 33 % (30-34) 07/06/16 07:11 RDW 22.5 % (13.2-15.2) H 07/06/16 07:11 Plt Count 125 K/mm3 (140-440) L 07/06/16 07:11 Add Manual Diff Complete 07/04/16 06:29 Total Counted 100 07/04/16 06:29 Seg Neuts % (Manual) 95.0 % (40.0-70.0) H 07/04/16 06:29 Band Neutrophils % 0 % 07/04/16 06:29 Lymphocytes % (Manual) 3.0 % (13.4-35.0) L 07/04/16 06:29 Reactive Lymphs % (Man) 0 % 07/04/16 06:29 Monocytes % (Manual) 2.0 % (0.0-7.3) 07/04/16 06:29 Eosinophils % (Manual) 0 % (0.0-4.3) 07/04/16 06:29 Basophils % (Manual) 0 % (0.0-1.8) 07/04/16 06:29 Metamyelocytes % 0 % 07/04/16 06:29 Myelocytes % 0 % 07/04/16 06:29 Promyelocytes % 0 % 07/04/16 06:29 Blast Cells % 0 % 07/04/16 06:29 Nucleated RBC % Not Reportable 07/04/16 06:29 Seg Neutrophils # Man 18.7 K/mm3 (1.8-7.7) H 07/04/16 06:29 Band Neutrophils # 0.0 K/mm3 07/04/16 06:29 Lymphocytes # (Manual) 0.6 K/mm3 (1.2-5.4) L 07/04/16 06:29 Abs React Lymphs (Man) 0.0 K/mm3 07/04/16 06:29 Monocytes # (Manual) 0.4 K/mm3 (0.0-0.8) 07/04/16 06:29 Eosinophils # (Manual) 0.0 K/mm3 (0.0-0.4) 07/04/16 06:29 Basophils # (Manual) 0.0 K/mm3 (0.0-0.1) 07/04/16 06:29 Metamyelocytes # 0.0 K/mm3 07/04/16 06:29 Myelocytes # 0.0 K/mm3 07/04/16 06:29 Promyelocytes # 0.0 K/mm3 07/04/16 06:29 Blast Cells # 0.0 K/mm3 07/04/16 06:29 WBC Morphology Not Reportable 07/04/16 06:29 Hypersegmented Neuts Not Reportable 07/04/16 06:29 Hyposegmented Neuts Not Reportable 07/04/16 06:29 Hypogranular Neuts Not Reportable 07/04/16 06:29 Smudge Cells Not Reportable 07/04/16 06:29 Toxic Granulation Not Reportable 07/04/16 06:29 Toxic Vacuolation Not Reportable 07/04/16 06:29 Dohle Bodies Not Reportable 07/04/16 06:29 Pelger-Huet Anomaly Not Reportable 07/04/16 06:29 Mony Rods Not Reportable 07/04/16 06:29 Platelet Estimate Consistent w auto 07/04/16 06:29 Clumped Platelets Not Reportable 07/04/16 06:29 Plt Clumps, EDTA Not Reportable 07/04/16 06:29 Large Platelets Not Reportable 07/04/16 06:29 Giant Platelets Not Reportable 07/04/16 06:29 Platelet Satelliting Not Reportable 07/04/16 06:29 Plt Morphology Comment Not Reportable 07/04/16 06:29 RBC Morphology Not Reportable 07/04/16 06:29 Dimorphic RBCs Not Reportable 07/04/16 06:29 Polychromasia Not Reportable 07/04/16 06:29 Hypochromasia Few 07/04/16 06:29 Poikilocytosis Not Reportable 07/04/16 06:29 Anisocytosis 1+ 07/04/16 06:29 Microcytosis Not Reportable 07/04/16 06:29 Macrocytosis Not Reportable 07/04/16 06:29 Spherocytes Not Reportable 07/04/16 06:29 Pappenheimer Bodies Not Reportable 07/04/16 06:29 Sickle Cells Not Reportable 07/04/16 06:29 Target Cells Not Reportable 07/04/16 06:29 Tear Drop Cells Not Reportable 07/04/16 06:29 Ovalocytes Not Reportable 07/04/16 06:29 Helmet Cells Not Reportable 07/04/16 06:29 [place] Bodies Not Reportable 07/04/16 06:29 [place] Rings Not Reportable 07/04/16 06:29 [place] Cells Not Reportable 07/04/16 06:29 Bite Cells Not Reportable 07/04/16 06:29 Crenated Cell Not Reportable 07/04/16 06:29 Elliptocytes Not Reportable 07/04/16 06:29 Acanthocytes (Spur) Not Reportable 07/04/16 06:29 Rouleaux Not Reportable 07/04/16 06:29 Hemoglobin C Crystals Not Reportable 07/04/16 06:29 Schistocytes Not Reportable 07/04/16 06:29 Malaria parasites Not Reportable 07/04/16 06:29 Juan R Bodies Not Reportable 07/04/16 06:29 Hem Pathologist Commnt No 07/04/16 06:29 PT 14.4 Sec. (12.2-14.9) 06/20/16 14:11 INR 1.13 (0.87-1.13) 06/20/16 14:11 D-Dimer 958.1 ng/mlDDU (0-234) H 06/20/16 14:12 POC ABG pH 7.461 (7.35-7.45) H 07/04/16 10:32 POC ABG pCO2 33.4 (35-45) L 07/04/16 10:32 POC ABG pO2 129 (80-105) H 07/04/16 10:32 POC ABG HCO3 23.8 07/04/16 10:32 POC ABG Total CO2 25 07/04/16 10:32 POC ABG O2 Sat 99 07/04/16 10:32 POC ABG Base Excess 0 07/04/16 10:32 FiO2 60 % 07/04/16 10:32 Sodium 149 mmol/L (137-145) H 07/06/16 07:11 Potassium 4.8 mmol/L (3.6-5.0) 07/06/16 07:11 Chloride 113.3 mmol/L (98-107) H 07/06/16 07:11 Carbon Dioxide 21 mmol/L (22-30) L 07/06/16 07:11 Anion Gap 20 mmol/L 07/06/16 07:11 BUN 43 mg/dL (7-17) H 07/06/16 07:11 Creatinine 1.1 mg/dL (0.7-1.2) 07/06/16 07:11 Estimated GFR 58 ml/min 07/06/16 07:11 BUN/Creatinine Ratio 39.09 % 07/06/16 07:11 Glucose 154 mg/dL (65-100) H 07/06/16 07:11 POC Glucose 206 (70-105) H 07/06/16 16:43 Lactic Acid 2.0 mmol/L (0.7-2.0) 07/04/16 13:50 Calcium 8.6 mg/dL (8.4-10.2) 07/06/16 07:11 Troponin T < 0.010 ng/mL (0.00-0.029) 06/17/16 15:59 C-Reactive Protein 15.00 mg/dL (0.00-1.30) H 07/04/16 13:50 NT-Pro-B Natriuret Pep 1912 pg/mL (0-900) H 06/17/16 15:59 Blood Type B POSITIVE 06/30/16 12:50 Antibody Screen Negative 06/30/16 12:50 Crossmatch See Detail 06/30/16 12:50
--- NOTE | 2016-07-06 19:26 | Progress Note ---
Assessment and Plan Patient alert, awke. Patients O 2 requirements coming down.Patient presently on FIO2 40% and O2 satuaration 97%.No acute respitatory distress at rest.Recommend to wean slowly from high flow O2. - Patient Problems (1) Acute exacerbation of chronic obstructive pulmonary disease (COPD) Current Visit: Yes Status: Acute Plan to address problem: Patient is on High flow O2 FIO2 40% Albuterol/atrovent aerosol treatments q 12 hours. Continue I/V solumedral. Continue S/C Heparin. (2) Respiratory failure with hypoxia Current Visit: Yes Status: Acute Qualifiers: Chronicity: acute on chronic Qualified Code(s): J96.21 - Acute and chronic respiratory failure with hypoxia Plan to address problem: Continue High flow O2 ,FIO2 40%. Albuterol/atrovent aerosol treatments q 12 hours. Continue I/V solumedral. Continue S/C Heparin. Subjective Date of service: 07/06/16 Principal diagnosis: Acute On Chronic ypoxemic Respiratory Failure Interval history: Patient alert, awke. Patients O 2 requirements coming down.Patient presently on FIO2 40% and O2 satuaration 97%.No acute respitatory distress at rest.Recommend to wean slowly from high flow O2. Objective Vital Signs - 12hr 07/06/16 07/06/16 07/06/16 07:30 08:03 08:15 Temperature 97.3 F L Pulse Rate Pulse Rate [ 50 L 54 L Anterior Bilateral Throughout] Pulse Rate [ 87 Apical] Respiratory 24 Rate Respiratory 18 20 Rate [Anterior Bilateral Throughout] Blood Pressure 130/77 [Left Arm] O2 Sat by Pulse 92 96 Oximetry 07/06/16 07/06/16 07/06/16 10:00 11:30 13:52 Temperature 97.5 F L Pulse Rate 80 Pulse Rate [ 52 L Anterior Bilateral Throughout] Pulse Rate [ 94 H Apical] Respiratory 34 H 20 Rate Respiratory 20 Rate [Anterior Bilateral Throughout] Blood Pressure 131/68 [Left Arm] O2 Sat by Pulse 94 91 Oximetry 07/06/16 07/06/16 14:02 16:30 Temperature 97.3 F L Pulse Rate Pulse Rate [ 55 L Anterior Bilateral Throughout] Pulse Rate [ 78 Apical] Respiratory 20 Rate Respiratory 20 Rate [Anterior Bilateral Throughout] Blood Pressure 123/63 [Left Arm] O2 Sat by Pulse 93 Oximetry Constitutional: no acute distress, alert Eyes: non-icteric ENT: oropharynx moist Neck: supple, no lymphadenopathy Effort: mildly labored (but close to her baseline) Ascultation: Bilateral: diminished breath sounds, rales (inspiratory in bases) Cardiovascular: regular rate and rhythm Gastrointestinal: normoactive bowel sounds, soft, non-tender, non-distended Integumentary: normal Extremities: no cyanosis, pulses normal, no ischemia or petechiae Neurologic: normal mental status, non-focal exam, pupils equal and round, motor strength normal and Psychiatric: mood appropriate, affect normal CBC and BMP: 07/06/16 07:11 07/06/16 07:11 ABG, PT/INR, D-dimer: ABG POC ABG pH 7.461 (7.35-7.45) H 07/04/16 10:32 POC ABG pCO2 33.4 (35-45) L 07/04/16 10:32 POC ABG pO2 129 (80-105) H 07/04/16 10:32 POC ABG HCO3 23.8 07/04/16 10:32 POC ABG Total CO2 25 07/04/16 10:32 POC ABG O2 Sat 99 07/04/16 10:32 PT/INR, D-dimer PT 14.4 Sec. (12.2-14.9) 06/20/16 14:11 INR 1.13 (0.87-1.13) 06/20/16 14:11 D-Dimer 958.1 ng/mlDDU (0-234) H 06/20/16 14:12 Abnormal lab findings: Abnormal Labs 06/18/16 06/20/16 06/21/16 05:34 14:12 00:31 WBC RBC 3.33 L Hgb 8.9 L Hct 26.9 L MCH 27 L RDW 28.4 H Plt Count Seg Neuts % (Manual) Lymphocytes % (Manual) Seg Neutrophils # Man Lymphocytes # (Manual) D-Dimer 958.1 H POC ABG pH POC ABG pCO2 POC ABG pO2 Sodium Potassium Chloride Carbon Dioxide 19 L BUN 18 H Creatinine Glucose 143 H POC Glucose Lactic Acid Calcium 7.2 L C-Reactive Protein Crossmatch 06/21/16 06/21/16 06/22/16 11:39 16:19 06:22 WBC RBC 3.13 L Hgb 8.2 L Hct 25.1 L MCH 26 L RDW 28.6 H Plt Count Seg Neuts % (Manual) 88.0 H Lymphocytes % (Manual) 7.0 L Seg Neutrophils # Man Lymphocytes # (Manual) 0.6 L D-Dimer POC ABG pH POC ABG pCO2 POC ABG pO2 Sodium Potassium Chloride Carbon Dioxide BUN Creatinine Glucose POC Glucose 135 H 115 H Lactic Acid Calcium C-Reactive Protein Crossmatch 06/22/16 06/22/16 06/22/16 06:22 12:52 15:53 WBC RBC Hgb Hct MCH RDW Plt Count Seg Neuts % (Manual) Lymphocytes % (Manual) Seg Neutrophils # Man Lymphocytes # (Manual) D-Dimer POC ABG pH 7.461 H POC ABG pCO2 29.7 L POC ABG pO2 29 L Sodium Potassium Chloride 109.0 H Carbon Dioxide 21 L BUN Creatinine Glucose POC Glucose 112 H Lactic Acid Calcium 8.2 L C-Reactive Protein Crossmatch 06/27/16 06/27/16 06/28/16 07:03 07:03 06:40 WBC 17.0 H 16.0 H RBC 3.07 L 2.72 L Hgb 8.1 L 7.2 L Hct 25.5 L 22.3 L MCH 26 L 27 L RDW 28.4 H 28.1 H Plt Count Seg Neuts % (Manual) Lymphocytes % (Manual) Seg Neutrophils # Man Lymphocytes # (Manual) D-Dimer POC ABG pH POC ABG pCO2 POC ABG pO2 Sodium Potassium 5.5 H Chloride Carbon Dioxide BUN 23 H Creatinine Glucose 117 H POC Glucose Lactic Acid Calcium C-Reactive Protein Crossmatch 06/28/16 06/29/16 06/30/16 06:40 09:19 07:29 WBC 20.9 H RBC 2.68 L Hgb 7.2 L Hct 22.0 L MCH 27 L RDW 27.7 H Plt Count Seg Neuts % (Manual) Lymphocytes % (Manual) Seg Neutrophils # Man Lymphocytes # (Manual) D-Dimer POC ABG pH POC ABG pCO2 POC ABG pO2 Sodium Potassium Chloride Carbon Dioxide BUN 28 H 34 H Creatinine Glucose 110 H 115 H POC Glucose Lactic Acid Calcium 8.2 L C-Reactive Protein Crossmatch 06/30/16 06/30/16 07/01/16 07:29 12:50 07:10 WBC 17.0 H RBC 3.41 L Hgb 9.0 L Hct 28.1 L D MCH 27 L RDW 24.5 H Plt Count Seg Neuts % (Manual) Lymphocytes % (Manual) Seg Neutrophils # Man Lymphocytes # (Manual) D-Dimer POC ABG pH POC ABG pCO2 POC ABG pO2 Sodium Potassium Chloride Carbon Dioxide BUN 49 H Creatinine Glucose 139 H POC Glucose Lactic Acid Calcium 8.3 L C-Reactive Protein Crossmatch See Detail 07/02/16 07/02/16 07/03/16 06:58 06:58 05:53 WBC 13.9 H 26.0 H RBC 3.43 L Hgb 9.3 L Hct 28.6 L MCH 27 L 27 L RDW 24.6 H 24.2 H Plt Count Seg Neuts % (Manual) Lymphocytes % (Manual) Seg Neutrophils # Man Lymphocytes # (Manual) D-Dimer POC ABG pH POC ABG pCO2 POC ABG pO2 Sodium Potassium Chloride Carbon Dioxide BUN 30 H Creatinine Glucose 122 H POC Glucose Lactic Acid Calcium C-Reactive Protein Crossmatch 07/03/16 07/03/16 07/03/16 05:53 13:58 14:12 WBC RBC Hgb Hct MCH RDW Plt Count Seg Neuts % (Manual) Lymphocytes % (Manual) Seg Neutrophils # Man Lymphocytes # (Manual) D-Dimer POC ABG pH 7.525 H POC ABG pCO2 28.4 L POC ABG pO2 34 L Sodium Potassium Chloride 97.7 L Carbon Dioxide BUN 36 H Creatinine 1.3 H Glucose 135 H POC Glucose 182 H Lactic Acid Calcium C-Reactive Protein Crossmatch 07/03/16 07/03/16 07/03/16 16:46 19:43 21:53 WBC RBC Hgb Hct MCH RDW Plt Count Seg Neuts % (Manual) Lymphocytes % (Manual) Seg Neutrophils # Man Lymphocytes # (Manual) D-Dimer POC ABG pH 7.516 H POC ABG pCO2 32.1 L POC ABG pO2 66 L Sodium Potassium Chloride Carbon Dioxide BUN Creatinine Glucose POC Glucose 169 H 166 H Lactic Acid Calcium C-Reactive Protein Crossmatch 07/04/16 07/04/16 07/04/16 06:29 06:29 06:29 WBC 19.7 H RBC 3.41 L Hgb 9.3 L Hct 28.9 L MCH 27 L RDW 23.2 H Plt Count Seg Neuts % (Manual) 95.0 H Lymphocytes % (Manual) 3.0 L Seg Neutrophils # Man 18.7 H Lymphocytes # (Manual) 0.6 L D-Dimer POC ABG pH POC ABG pCO2 POC ABG pO2 Sodium Potassium 5.1 H Chloride Carbon Dioxide 20 L BUN 43 H Creatinine 1.5 H Glucose 181 H POC Glucose Lactic Acid 2.9 H* Calcium 8.2 L C-Reactive Protein Crossmatch 07/04/16 07/04/16 07/04/16 07:35 10:32 11:25 WBC RBC Hgb Hct MCH RDW Plt Count Seg Neuts % (Manual) Lymphocytes % (Manual) Seg Neutrophils # Man Lymphocytes # (Manual) D-Dimer POC ABG pH 7.461 H POC ABG pCO2 33.4 L POC ABG pO2 129 H Sodium Potassium Chloride Carbon Dioxide BUN Creatinine Glucose POC Glucose 158 H 156 H Lactic Acid Calcium C-Reactive Protein Crossmatch 07/04/16 07/04/16 07/04/16 13:50 13:50 16:19 WBC RBC Hgb Hct MCH RDW Plt Count Seg Neuts % (Manual) Lymphocytes % (Manual) Seg Neutrophils # Man Lymphocytes # (Manual) D-Dimer POC ABG pH POC ABG pCO2 POC ABG pO2 Sodium Potassium 5.5 H Chloride Carbon Dioxide 20 L BUN 45 H Creatinine 1.3 H Glucose 126 H POC Glucose 134 H Lactic Acid Calcium 8.2 L C-Reactive Protein 15.00 H Crossmatch 07/04/16 07/05/16 07/05/16 22:32 06:38 06:47 WBC RBC 3.27 L Hgb 9.1 L Hct 27.6 L MCH RDW 22.6 H Plt Count 130 L Seg Neuts % (Manual) Lymphocytes % (Manual) Seg Neutrophils # Man Lymphocytes # (Manual) D-Dimer POC ABG pH POC ABG pCO2 POC ABG pO2 Sodium Potassium Chloride 108.6 H Carbon Dioxide 21 L BUN 43 H Creatinine Glucose 126 H POC Glucose 197 H Lactic Acid Calcium 8.1 L C-Reactive Protein Crossmatch 07/05/16 07/05/16 07/05/16 13:10 16:22 22:29 WBC RBC Hgb Hct MCH RDW Plt Count Seg Neuts % (Manual) Lymphocytes % (Manual) Seg Neutrophils # Man Lymphocytes # (Manual) D-Dimer POC ABG pH POC ABG pCO2 POC ABG pO2 Sodium Potassium Chloride Carbon Dioxide BUN Creatinine Glucose POC Glucose 175 H 195 H 183 H Lactic Acid Calcium C-Reactive Protein Crossmatch 07/06/16 07/06/16 07/06/16 07:11 07:11 07:36 WBC RBC 3.04 L Hgb 8.5 L Hct 25.9 L MCH RDW 22.5 H Plt Count 125 L Seg Neuts % (Manual) Lymphocytes % (Manual) Seg Neutrophils # Man Lymphocytes # (Manual) D-Dimer POC ABG pH POC ABG pCO2 POC ABG pO2 Sodium 149 H Potassium Chloride 113.3 H Carbon Dioxide 21 L BUN 43 H Creatinine Glucose 154 H POC Glucose 175 H Lactic Acid Calcium C-Reactive Protein Crossmatch 07/06/16 07/06/16 11:58 16:43 WBC RBC Hgb Hct MCH RDW Plt Count Seg Neuts % (Manual) Lymphocytes % (Manual) Seg Neutrophils # Man Lymphocytes # (Manual) D-Dimer POC ABG pH POC ABG pCO2 POC ABG pO2 Sodium Potassium Chloride Carbon Dioxide BUN Creatinine Glucose POC Glucose 287 H 206 H Lactic Acid Calcium C-Reactive Protein Crossmatch
[2016-07-07] MEDS: DUONEB 0.5 MG-3 MG/3 ML SOLN IH SCH ×4 (01:55→21:43)
[2016-07-07] MEDS: HEPARIN SUB-Q SCH ×3 (06:30→21:16)
[2016-07-07] MEDS: MAXIPIME/NS 1 GM/100 ML 1 GM/100 ML BAG IV SCH ×3 (06:47→21:15)
[2016-07-07] MEDS: PULMICORT IH SCH ×2 (07:15→21:43)
[2016-07-07] MEDS: BROVANA NEBU IH SCH ×2 (07:15→21:43)
[2016-07-07] MEDS: PROTONIX PO SCH ×2 (07:16→10:49)
[2016-07-07] MEDS: FEOSOL PO SCH ×3 (10:16→21:16)
[2016-07-07] MEDS: PEPCID IV SCH (10:45)
[2016-07-07] MEDS: DIOVAN PO SCH (10:45)
[2016-07-07] MEDS: PEPCID PO SCH (10:48)
[2016-07-07] MEDS: HALFPRIN EC PO SCH (10:48)
[2016-07-07 10:49] LABS: BUN/Creatinine Ratio 35.83; Calcium 8.8 mg/dL (8.4-10.2); Chloride 110.9 mmol/L (98-107); Potassium 4.3 mmol/L (3.6-5.0)
[2016-07-07] MEDS: COREG PO SCH ×2 (10:49→21:17)
[2016-07-07] MEDS: RANEXA ER PO SCH ×2 (10:49→21:16)
--- NOTE | 2016-07-07 14:35 | Progress Note ---
Assessment and Plan Assessment and plan: Acute on chronic respiratory failure due to COPD exacerbation. She is still on high amount of oxygen - on high flow Oxygen. COPD exacerbation. On solumedrol, Duoneb, supplemental high flow Oxygen. BiPAP prn Coronary artery disease. On Aspirin, Coreg, Diovan, Ranexa. 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 On Coreg, Diovan Hypertension. BP stable. Hyperlipidemia , on Lipitor. DVT prophylaxis.Heparin subcut Full code status Disposition. patient was to go to LTAC, however , was informed by case management that Insurance denied LTAC transfer. I did peer to peer and discussed with Physican at [email or web address] and he states Patient can go to SNF that can handle high amounts of Oxygen requirement. Discussed with case management and they are working on arrangements to appeal LTAC placement. History Interval history: still has shortness of breath, no chest pain, Hospitalist Physical - Physical exam Narrative exam: Gen: not in acute distress, obese, on high flow Oxygen HEENT: normocephalic,atraumatic Neck :supple, no JVD Lungs: Decreased breath sounds, rhonchi bilaterally Heart: S1 and S2 regular, no murmurs no gallops, Abdomen: soft, non-tender, non-di stended, normal bowel sounds Extremities: no edema, no clubbing or cyanosis Neuro: Awake alert oriented x 3, non focal Psych: Normal mood - Constitutional Vitals: Temp Pulse Resp BP Pulse Ox 97.0 F L 74 18 103/54 92 07/07/16 13:00 07/07/16 13:00 07/07/16 13:00 07/07/16 13:00 07/07/16 07:30 General appearance: Present: no acute distress Results - Labs CBC & Chem 7: 07/06/16 07:11 07/08/16 06:39 Labs: Laboratory Last Values WBC 8.7 K/mm3 (4.5-11.0) 07/06/16 07:11 RBC 3.04 M/mm3 (3.65-5.03) L 07/06/16 07:11 Hgb 8.5 gm/dl (10.1-14.3) L 07/06/16 07:11 Hct 25.9 % (30.3-42.9) L 07/06/16 07:11 MCV 85 fl (79-97) 07/06/16 07:11 MCH 28 pg (28-32) 07/06/16 07:11 MCHC 33 % (30-34) 07/06/16 07:11 RDW 22.5 % (13.2-15.2) H 07/06/16 07:11 Plt Count 125 K/mm3 (140-440) L 07/06/16 07:11 Add Manual Diff Complete 07/04/16 06:29 Total Counted 100 07/04/16 06:29 Seg Neuts % (Manual) 95.0 % (40.0-70.0) H 07/04/16 06:29 Band Neutrophils % 0 % 07/04/16 06:29 Lymphocytes % (Manual) 3.0 % (13.4-35.0) L 07/04/16 06:29 Reactive Lymphs % (Man) 0 % 07/04/16 06:29 Monocytes % (Manual) 2.0 % (0.0-7.3) 07/04/16 06:29 Eosinophils % (Manual) 0 % (0.0-4.3) 07/04/16 06:29 Basophils % (Manual) 0 % (0.0-1.8) 07/04/16 06:29 Metamyelocytes % 0 % 07/04/16 06:29 Myelocytes % 0 % 07/04/16 06:29 Promyelocytes % 0 % 07/04/16 06:29 Blast Cells % 0 % 07/04/16 06:29 Nucleated RBC % Not Reportable 07/04/16 06:29 Seg Neutrophils # Man 18.7 K/mm3 (1.8-7.7) H 07/04/16 06:29 Band Neutrophils # 0.0 K/mm3 07/04/16 06:29 Lymphocytes # (Manual) 0.6 K/mm3 (1.2-5.4) L 07/04/16 06:29 Abs React Lymphs (Man) 0.0 K/mm3 07/04/16 06:29 Monocytes # (Manual) 0.4 K/mm3 (0.0-0.8) 07/04/16 06:29 Eosinophils # (Manual) 0.0 K/mm3 (0.0-0.4) 07/04/16 06:29 Basophils # (Manual) 0.0 K/mm3 (0.0-0.1) 07/04/16 06:29 Metamyelocytes # 0.0 K/mm3 07/04/16 06:29 Myelocytes # 0.0 K/mm3 07/04/16 06:29 Promyelocytes # 0.0 K/mm3 07/04/16 06:29 Blast Cells # 0.0 K/mm3 07/04/16 06:29 WBC Morphology Not Reportable 07/04/16 06:29 Hypersegmented Neuts Not Reportable 07/04/16 06:29 Hyposegmented Neuts Not Reportable 07/04/16 06:29 Hypogranular Neuts Not Reportable 07/04/16 06:29 Smudge Cells Not Reportable 07/04/16 06:29 Toxic Granulation Not Reportable 07/04/16 06:29 Toxic Vacuolation Not Reportable 07/04/16 06:29 Dohle Bodies Not Reportable 07/04/16 06:29 Pelger-Huet Anomaly Not Reportable 07/04/16 06:29 Mony Rods Not Reportable 07/04/16 06:29 Platelet Estimate Consistent w auto 07/04/16 06:29 Clumped Platelets Not Reportable 07/04/16 06:29 Plt Clumps, EDTA Not Reportable 07/04/16 06:29 Large Platelets Not Reportable 07/04/16 06:29 Giant Platelets Not Reportable 07/04/16 06:29 Platelet Satelliting Not Reportable 07/04/16 06:29 Plt Morphology Comment Not Reportable 07/04/16 06:29 RBC Morphology Not Reportable 07/04/16 06:29 Dimorphic RBCs Not Reportable 07/04/16 06:29 Polychromasia Not Reportable 07/04/16 06:29 Hypochromasia Few 07/04/16 06:29 Poikilocytosis Not Reportable 07/04/16 06:29 Anisocytosis 1+ 07/04/16 06:29 Microcytosis Not Reportable 07/04/16 06:29 Macrocytosis Not Reportable 07/04/16 06:29 Spherocytes Not Reportable 07/04/16 06:29 Pappenheimer Bodies Not Reportable 07/04/16 06:29 Sickle Cells Not Reportable 07/04/16 06:29 Target Cells Not Reportable 07/04/16 06:29 Tear Drop Cells Not Reportable 07/04/16 06:29 Ovalocytes Not Reportable 07/04/16 06:29 Helmet Cells Not Reportable 07/04/16 06:29 [place] Bodies Not Reportable 07/04/16 06:29 [place] Rings Not Reportable 07/04/16 06:29 [place] Cells Not Reportable 07/04/16 06:29 Bite Cells Not Reportable 07/04/16 06:29 Crenated Cell Not Reportable 07/04/16 06:29 Elliptocytes Not Reportable 07/04/16 06:29 Acanthocytes (Spur) Not Reportable 07/04/16 06:29 Rouleaux Not Reportable 07/04/16 06:29 Hemoglobin C Crystals Not Reportable 07/04/16 06:29 Schistocytes Not Reportable 07/04/16 06:29 Malaria parasites Not Reportable 07/04/16 06:29 Juan R Bodies Not Reportable 07/04/16 06:29 Hem Pathologist Commnt No 07/04/16 06:29 PT 14.4 Sec. (12.2-14.9) 06/20/16 14:11 INR 1.13 (0.87-1.13) 06/20/16 14:11 D-Dimer 958.1 ng/mlDDU (0-234) H 06/20/16 14:12 POC ABG pH 7.461 (7.35-7.45) H 07/04/16 10:32 POC ABG pCO2 33.4 (35-45) L 07/04/16 10:32 POC ABG pO2 129 (80-105) H 07/04/16 10:32 POC ABG HCO3 23.8 07/04/16 10:32 POC ABG Total CO2 25 07/04/16 10:32 POC ABG O2 Sat 99 07/04/16 10:32 POC ABG Base Excess 0 07/04/16 10:32 FiO2 60 % 07/04/16 10:32 Sodium 146 mmol/L (137-145) H 07/07/16 10:02 Potassium 4.3 mmol/L (3.6-5.0) 07/07/16 10:02 Chloride 110.9 mmol/L (98-107) H 07/07/16 10:02 Carbon Dioxide 20 mmol/L (22-30) L 07/07/16 10:02 Anion Gap 19 mmol/L 07/07/16 10:02 BUN 43 mg/dL (7-17) H 07/07/16 10:02 Creatinine 1.2 mg/dL (0.7-1.2) 07/07/16 10:02 Estimated GFR 53 ml/min 07/07/16 10:02 BUN/Creatinine Ratio 35.83 % 07/07/16 10:02 Glucose 215 mg/dL (65-100) H 07/07/16 10:02 POC Glucose 245 (70-105) H 07/07/16 12:30 Lactic Acid 2.0 mmol/L (0.7-2.0) 07/04/16 13:50 Calcium 8.8 mg/dL (8.4-10.2) 07/07/16 10:02 Troponin T < 0.010 ng/mL (0.00-0.029) 06/17/16 15:59 C-Reactive Protein 15.00 mg/dL (0.00-1.30) H 07/04/16 13:50 NT-Pro-B Natriuret Pep 1912 pg/mL (0-900) H 06/17/16 15:59 Blood Type B POSITIVE 06/30/16 12:50 Antibody Screen Negative 06/30/16 12:50 Crossmatch See Detail 06/30/16 12:50
--- NOTE | 2016-07-07 19:17 | Progress Note ---
Assessment and Plan Patient alert, awke. Patients O 2 requirements coming down.Patient presently on FIO2 40% and O2 satuaration 94%.No acute respitatory distress at rest.Recommend to wean slowly from high flow O2. - Patient Problems (1) Acute exacerbation of chronic obstructive pulmonary disease (COPD) Current Visit: Yes Status: Acute Plan to address problem: Patient is on High flow O2 FIO2 40% Albuterol/atrovent aerosol treatments q 12 hours. Continue I/V solumedral. Continue S/C Heparin. (2) Respiratory failure with hypoxia Current Visit: Yes Status: Acute Qualifiers: Chronicity: acute on chronic Qualified Code(s): J96.21 - Acute and chronic respiratory failure with hypoxia Plan to address problem: Continue High flow O2 ,FIO2 40%. Albuterol/atrovent aerosol treatments q 12 hours. Continue I/V solumedral. Continue S/C Heparin. Subjective Date of service: 07/07/16 Principal diagnosis: Acute On Chronic ypoxemic Respiratory Failure Interval history: Patient alert, awke. Patients O 2 requirements coming down.Patient presently on FIO2 40% and O2 satuaration 94%.No acute respitatory distress at rest.Recommend to wean slowly from high flow O2. Objective Vital Signs - 12hr 07/07/16 07/07/16 07/07/16 07:15 07:25 07:30 Temperature 97.0 F L Pulse Rate [ 55 L 57 L Anterior Bilateral Throughout] Pulse Rate [ 71 Apical] Respiratory 18 Rate Respiratory 20 20 Rate [Anterior Bilateral Throughout] Blood Pressure Blood Pressure 121/62 [Left Arm] O2 Sat by Pulse 94 92 Oximetry 07/07/16 07/07/16 07/07/16 10:45 10:49 13:00 Temperature 97.0 F L Pulse Rate [ Anterior Bilateral Throughout] Pulse Rate [ 74 Apical] Respiratory 18 Rate Respiratory Rate [Anterior Bilateral Throughout] Blood Pressure 109/58 109/58 Blood Pressure 103/54 [Left Arm] O2 Sat by Pulse Oximetry 07/07/16 07/07/16 13:27 13:37 Temperature Pulse Rate [ 82 72 Anterior Bilateral Throughout] Pulse Rate [ Apical] Respiratory Rate Respiratory 20 20 Rate [Anterior Bilateral Throughout] Blood Pressure Blood Pressure [Left Arm] O2 Sat by Pulse Oximetry Constitutional: no acute distress, alert Eyes: non-icteric ENT: oropharynx moist Neck: supple, no lymphadenopathy Effort: mildly labored (but close to her baseline) Ascultation: Bilateral: diminished breath sounds, rales (inspiratory in bases) Cardiovascular: regular rate and rhythm Gastrointestinal: normoactive bowel sounds, soft, non-tender, non-distended Integumentary: normal Extremities: no cyanosis, pulses normal, no ischemia or petechiae Neurologic: normal mental status, non-focal exam, pupils equal and round, motor strength normal and Psychiatric: mood appropriate, affect normal CBC and BMP: 07/06/16 07:11 07/07/16 10:02 ABG, PT/INR, D-dimer: ABG POC ABG pH 7.461 (7.35-7.45) H 07/04/16 10:32 POC ABG pCO2 33.4 (35-45) L 07/04/16 10:32 POC ABG pO2 129 (80-105) H 07/04/16 10:32 POC ABG HCO3 23.8 07/04/16 10:32 POC ABG Total CO2 25 07/04/16 10:32 POC ABG O2 Sat 99 07/04/16 10:32 PT/INR, D-dimer PT 14.4 Sec. (12.2-14.9) 06/20/16 14:11 INR 1.13 (0.87-1.13) 06/20/16 14:11 D-Dimer 958.1 ng/mlDDU (0-234) H 06/20/16 14:12 Abnormal lab findings: Abnormal Labs 06/18/16 06/20/16 06/21/16 05:34 14:12 00:31 WBC RBC 3.33 L Hgb 8.9 L Hct 26.9 L MCH 27 L RDW 28.4 H Plt Count Seg Neuts % (Manual) Lymphocytes % (Manual) Seg Neutrophils # Man Lymphocytes # (Manual) D-Dimer 958.1 H POC ABG pH POC ABG pCO2 POC ABG pO2 Sodium Potassium Chloride Carbon Dioxide 19 L BUN 18 H Creatinine Glucose 143 H POC Glucose Lactic Acid Calcium 7.2 L C-Reactive Protein Crossmatch 06/21/16 06/21/16 06/22/16 11:39 16:19 06:22 WBC RBC 3.13 L Hgb 8.2 L Hct 25.1 L MCH 26 L RDW 28.6 H Plt Count Seg Neuts % (Manual) 88.0 H Lymphocytes % (Manual) 7.0 L Seg Neutrophils # Man Lymphocytes # (Manual) 0.6 L D-Dimer POC ABG pH POC ABG pCO2 POC ABG pO2 Sodium Potassium Chloride Carbon Dioxide BUN Creatinine Glucose POC Glucose 135 H 115 H Lactic Acid Calcium C-Reactive Protein Crossmatch 06/22/16 06/22/16 06/22/16 06:22 12:52 15:53 WBC RBC Hgb Hct MCH RDW Plt Count Seg Neuts % (Manual) Lymphocytes % (Manual) Seg Neutrophils # Man Lymphocytes # (Manual) D-Dimer POC ABG pH 7.461 H POC ABG pCO2 29.7 L POC ABG pO2 29 L Sodium Potassium Chloride 109.0 H Carbon Dioxide 21 L BUN Creatinine Glucose POC Glucose 112 H Lactic Acid Calcium 8.2 L C-Reactive Protein Crossmatch 06/27/16 06/27/16 06/28/16 07:03 07:03 06:40 WBC 17.0 H 16.0 H RBC 3.07 L 2.72 L Hgb 8.1 L 7.2 L Hct 25.5 L 22.3 L MCH 26 L 27 L RDW 28.4 H 28.1 H Plt Count Seg Neuts % (Manual) Lymphocytes % (Manual) Seg Neutrophils # Man Lymphocytes # (Manual) D-Dimer POC ABG pH POC ABG pCO2 POC ABG pO2 Sodium Potassium 5.5 H Chloride Carbon Dioxide BUN 23 H Creatinine Glucose 117 H POC Glucose Lactic Acid Calcium C-Reactive Protein Crossmatch 06/28/16 06/29/16 06/30/16 06:40 09:19 07:29 WBC 20.9 H RBC 2.68 L Hgb 7.2 L Hct 22.0 L MCH 27 L RDW 27.7 H Plt Count Seg Neuts % (Manual) Lymphocytes % (Manual) Seg Neutrophils # Man Lymphocytes # (Manual) D-Dimer POC ABG pH POC ABG pCO2 POC ABG pO2 Sodium Potassium Chloride Carbon Dioxide BUN 28 H 34 H Creatinine Glucose 110 H 115 H POC Glucose Lactic Acid Calcium 8.2 L C-Reactive Protein Crossmatch 06/30/16 06/30/16 07/01/16 07:29 12:50 07:10 WBC 17.0 H RBC 3.41 L Hgb 9.0 L Hct 28.1 L D MCH 27 L RDW 24.5 H Plt Count Seg Neuts % (Manual) Lymphocytes % (Manual) Seg Neutrophils # Man Lymphocytes # (Manual) D-Dimer POC ABG pH POC ABG pCO2 POC ABG pO2 Sodium Potassium Chloride Carbon Dioxide BUN 49 H Creatinine Glucose 139 H POC Glucose Lactic Acid Calcium 8.3 L C-Reactive Protein Crossmatch See Detail 07/02/16 07/02/16 07/03/16 06:58 06:58 05:53 WBC 13.9 H 26.0 H RBC 3.43 L Hgb 9.3 L Hct 28.6 L MCH 27 L 27 L RDW 24.6 H 24.2 H Plt Count Seg Neuts % (Manual) Lymphocytes % (Manual) Seg Neutrophils # Man Lymphocytes # (Manual) D-Dimer POC ABG pH POC ABG pCO2 POC ABG pO2 Sodium Potassium Chloride Carbon Dioxide BUN 30 H Creatinine Glucose 122 H POC Glucose Lactic Acid Calcium C-Reactive Protein Crossmatch 07/03/16 07/03/16 07/03/16 05:53 13:58 14:12 WBC RBC Hgb Hct MCH RDW Plt Count Seg Neuts % (Manual) Lymphocytes % (Manual) Seg Neutrophils # Man Lymphocytes # (Manual) D-Dimer POC ABG pH 7.525 H POC ABG pCO2 28.4 L POC ABG pO2 34 L Sodium Potassium Chloride 97.7 L Carbon Dioxide BUN 36 H Creatinine 1.3 H Glucose 135 H POC Glucose 182 H Lactic Acid Calcium C-Reactive Protein Crossmatch 07/03/16 07/03/16 07/03/16 16:46 19:43 21:53 WBC RBC Hgb Hct MCH RDW Plt Count Seg Neuts % (Manual) Lymphocytes % (Manual) Seg Neutrophils # Man Lymphocytes # (Manual) D-Dimer POC ABG pH 7.516 H POC ABG pCO2 32.1 L POC ABG pO2 66 L Sodium Potassium Chloride Carbon Dioxide BUN Creatinine Glucose POC Glucose 169 H 166 H Lactic Acid Calcium C-Reactive Protein Crossmatch 07/04/16 07/04/16 07/04/16 06:29 06:29 06:29 WBC 19.7 H RBC 3.41 L Hgb 9.3 L Hct 28.9 L MCH 27 L RDW 23.2 H Plt Count Seg Neuts % (Manual) 95.0 H Lymphocytes % (Manual) 3.0 L Seg Neutrophils # Man 18.7 H Lymphocytes # (Manual) 0.6 L D-Dimer POC ABG pH POC ABG pCO2 POC ABG pO2 Sodium Potassium 5.1 H Chloride Carbon Dioxide 20 L BUN 43 H Creatinine 1.5 H Glucose 181 H POC Glucose Lactic Acid 2.9 H* Calcium 8.2 L C-Reactive Protein Crossmatch 07/04/16 07/04/16 07/04/16 07:35 10:32 11:25 WBC RBC Hgb Hct MCH RDW Plt Count Seg Neuts % (Manual) Lymphocytes % (Manual) Seg Neutrophils # Man Lymphocytes # (Manual) D-Dimer POC ABG pH 7.461 H POC ABG pCO2 33.4 L POC ABG pO2 129 H Sodium Potassium Chloride Carbon Dioxide BUN Creatinine Glucose POC Glucose 158 H 156 H Lactic Acid Calcium C-Reactive Protein Crossmatch 07/04/16 07/04/16 07/04/16 13:50 13:50 16:19 WBC RBC Hgb Hct MCH RDW Plt Count Seg Neuts % (Manual) Lymphocytes % (Manual) Seg Neutrophils # Man Lymphocytes # (Manual) D-Dimer POC ABG pH POC ABG pCO2 POC ABG pO2 Sodium Potassium 5.5 H Chloride Carbon Dioxide 20 L BUN 45 H Creatinine 1.3 H Glucose 126 H POC Glucose 134 H Lactic Acid Calcium 8.2 L C-Reactive Protein 15.00 H Crossmatch 07/04/16 07/05/16 07/05/16 22:32 06:38 06:47 WBC RBC 3.27 L Hgb 9.1 L Hct 27.6 L MCH RDW 22.6 H Plt Count 130 L Seg Neuts % (Manual) Lymphocytes % (Manual) Seg Neutrophils # Man Lymphocytes # (Manual) D-Dimer POC ABG pH POC ABG pCO2 POC ABG pO2 Sodium Potassium Chloride 108.6 H Carbon Dioxide 21 L BUN 43 H Creatinine Glucose 126 H POC Glucose 197 H Lactic Acid Calcium 8.1 L C-Reactive Protein Crossmatch 07/05/16 07/05/16 07/05/16 13:10 16:22 22:29 WBC RBC Hgb Hct MCH RDW Plt Count Seg Neuts % (Manual) Lymphocytes % (Manual) Seg Neutrophils # Man Lymphocytes # (Manual) D-Dimer POC ABG pH POC ABG pCO2 POC ABG pO2 Sodium Potassium Chloride Carbon Dioxide BUN Creatinine Glucose POC Glucose 175 H 195 H 183 H Lactic Acid Calcium C-Reactive Protein Crossmatch 07/06/16 07/06/16 07/06/16 07:11 07:11 07:36 WBC RBC 3.04 L Hgb 8.5 L Hct 25.9 L MCH RDW 22.5 H Plt Count 125 L Seg Neuts % (Manual) Lymphocytes % (Manual) Seg Neutrophils # Man Lymphocytes # (Manual) D-Dimer POC ABG pH POC ABG pCO2 POC ABG pO2 Sodium 149 H Potassium Chloride 113.3 H Carbon Dioxide 21 L BUN 43 H Creatinine Glucose 154 H POC Glucose 175 H Lactic Acid Calcium C-Reactive Protein Crossmatch 07/06/16 07/06/16 07/06/16 11:58 16:43 22:07 WBC RBC Hgb Hct MCH RDW Plt Count Seg Neuts % (Manual) Lymphocytes % (Manual) Seg Neutrophils # Man Lymphocytes # (Manual) D-Dimer POC ABG pH POC ABG pCO2 POC ABG pO2 Sodium Potassium Chloride Carbon Dioxide BUN Creatinine Glucose POC Glucose 287 H 206 H 169 H Lactic Acid Calcium C-Reactive Protein Crossmatch 07/07/16 07/07/16 07/07/16 07:40 10:02 12:30 WBC RBC Hgb Hct MCH RDW Plt Count Seg Neuts % (Manual) Lymphocytes % (Manual) Seg Neutrophils # Man Lymphocytes # (Manual) D-Dimer POC ABG pH POC ABG pCO2 POC ABG pO2 Sodium 146 H Potassium Chloride 110.9 H Carbon Dioxide 20 L BUN 43 H Creatinine Glucose 215 H POC Glucose 138 H 245 H Lactic Acid Calcium C-Reactive Protein Crossmatch 07/07/16 16:40 WBC RBC Hgb Hct MCH RDW Plt Count Seg Neuts % (Manual) Lymphocytes % (Manual) Seg Neutrophils # Man Lymphocytes # (Manual) D-Dimer POC ABG pH POC ABG pCO2 POC ABG pO2 Sodium Potassium Chloride Carbon Dioxide BUN Creatinine Glucose POC Glucose 197 H Lactic Acid Calcium C-Reactive Protein Crossmatch
[2016-07-07] MEDS: NEURONTIN PO SCH (21:16)
[2016-07-08] MEDS: DUONEB 0.5 MG-3 MG/3 ML SOLN IH SCH ×4 (02:37→20:08)
[2016-07-08] MEDS: HEPARIN SUB-Q SCH ×3 (06:21→22:09)
[2016-07-08] MEDS: MAXIPIME/NS 1 GM/100 ML 1 GM/100 ML BAG IV SCH ×3 (06:22→22:09)
[2016-07-08 07:39] LABS: Anion Gap 20 mmol/L; Blood Urea Nitrogen 39 mg/dL (7-17); Calcium 8.7 mg/dL (8.4-10.2); Carbon Dioxide 21 mmol/L (22-30); Chloride 116.1 mmol/L (98-107); Glucose 153 mg/dL (65-100); Potassium 4.8 mmol/L (3.6-5.0); Sodium 152 mmol/L (137-145)
[2016-07-08] MEDS: BROVANA NEBU IH SCH ×2 (08:25→20:08)
[2016-07-08] MEDS: PULMICORT IH SCH ×2 (08:25→20:08)
[2016-07-08] MEDS: FEOSOL PO SCH ×3 (08:51→20:26)
--- NOTE | 2016-07-08 10:01 | Progress Note ---
Assessment and Plan - Patient Problems (1) Acute exacerbation of chronic obstructive pulmonary disease (COPD) Current Visit: Yes Status: Acute (2) Chest pain Current Visit: No Status: Acute Qualifiers: Chest pain type: unspecified Qualified Code(s): R07.9 - Chest pain, unspecified (3) Pulmonary fibrosis Current Visit: No Status: Chronic Subjective Date of service: 07/08/16 Principal diagnosis: Acute On Chronic ypoxemic Respiratory Failure Interval history: Seen and examined at bedside; 24 hour events reviewed; nursing and respiratory care staff consulted; no adverse overnight events reported to me; Objective Vital Signs - 12hr 07/08/16 07/08/16 07/08/16 00:57 02:37 02:49 Temperature 98.2 F Pulse Rate [ 79 71 Anterior Bilateral Throughout] Pulse Rate [ 72 Apical] Respiratory 24 Rate Respiratory 23 21 Rate [Anterior Bilateral Throughout] Blood Pressure 107/63 [Left Arm] O2 Sat by Pulse 95 Oximetry 07/08/16 07/08/16 07/08/16 05:16 07:27 08:26 Temperature 97.6 F 96.7 F L Pulse Rate [ 76 Anterior Bilateral Throughout] Pulse Rate [ 64 73 Apical] Respiratory 24 20 Rate Respiratory 20 Rate [Anterior Bilateral Throughout] Blood Pressure 114/64 120/65 [Left Arm] O2 Sat by Pulse 95 91 94 Oximetry 07/08/16 08:41 Temperature Pulse Rate [ 78 Anterior Bilateral Throughout] Pulse Rate [ Apical] Respiratory Rate Respiratory 20 Rate [Anterior Bilateral Throughout] Blood Pressure [Left Arm] O2 Sat by Pulse Oximetry Constitutional: no acute distress, alert Eyes: non-icteric ENT: oropharynx moist Neck: supple, no lymphadenopathy Effort: mildly labored (but close to her baseline) Ascultation: Bilateral: diminished breath sounds, rales (inspiratory in bases) Cardiovascular: regular rate and rhythm Gastrointestinal: normoactive bowel sounds, soft, non-tender, non-distended Integumentary: normal Extremities: no cyanosis, pulses normal, no ischemia or petechiae Neurologic: normal mental status, non-focal exam, pupils equal and round, motor strength normal and Psychiatric: mood appropriate, affect normal CBC and BMP: 07/06/16 07:11 07/08/16 06:39 ABG, PT/INR, D-dimer: ABG POC ABG pH 7.461 (7.35-7.45) H 07/04/16 10:32 POC ABG pCO2 33.4 (35-45) L 07/04/16 10:32 POC ABG pO2 129 (80-105) H 07/04/16 10:32 POC ABG HCO3 23.8 07/04/16 10:32 POC ABG Total CO2 25 07/04/16 10:32 POC ABG O2 Sat 99 07/04/16 10:32 PT/INR, D-dimer PT 14.4 Sec. (12.2-14.9) 06/20/16 14:11 INR 1.13 (0.87-1.13) 06/20/16 14:11 D-Dimer 958.1 ng/mlDDU (0-234) H 06/20/16 14:12 Abnormal lab findings: Abnormal Labs 06/18/16 06/20/16 06/21/16 05:34 14:12 00:31 WBC RBC 3.33 L Hgb 8.9 L Hct 26.9 L MCH 27 L RDW 28.4 H Plt Count Seg Neuts % (Manual) Lymphocytes % (Manual) Seg Neutrophils # Man Lymphocytes # (Manual) D-Dimer 958.1 H POC ABG pH POC ABG pCO2 POC ABG pO2 Sodium Potassium Chloride Carbon Dioxide 19 L BUN 18 H Creatinine Glucose 143 H POC Glucose Lactic Acid Calcium 7.2 L C-Reactive Protein Crossmatch 06/21/16 06/21/16 06/22/16 11:39 16:19 06:22 WBC RBC 3.13 L Hgb 8.2 L Hct 25.1 L MCH 26 L RDW 28.6 H Plt Count Seg Neuts % (Manual) 88.0 H Lymphocytes % (Manual) 7.0 L Seg Neutrophils # Man Lymphocytes # (Manual) 0.6 L D-Dimer POC ABG pH POC ABG pCO2 POC ABG pO2 Sodium Potassium Chloride Carbon Dioxide BUN Creatinine Glucose POC Glucose 135 H 115 H Lactic Acid Calcium C-Reactive Protein Crossmatch 06/22/16 06/22/16 06/22/16 06:22 12:52 15:53 WBC RBC Hgb Hct MCH RDW Plt Count Seg Neuts % (Manual) Lymphocytes % (Manual) Seg Neutrophils # Man Lymphocytes # (Manual) D-Dimer POC ABG pH 7.461 H POC ABG pCO2 29.7 L POC ABG pO2 29 L Sodium Potassium Chloride 109.0 H Carbon Dioxide 21 L BUN Creatinine Glucose POC Glucose 112 H Lactic Acid Calcium 8.2 L C-Reactive Protein Crossmatch 06/27/16 06/27/16 06/28/16 07:03 07:03 06:40 WBC 17.0 H 16.0 H RBC 3.07 L 2.72 L Hgb 8.1 L 7.2 L Hct 25.5 L 22.3 L MCH 26 L 27 L RDW 28.4 H 28.1 H Plt Count Seg Neuts % (Manual) Lymphocytes % (Manual) Seg Neutrophils # Man Lymphocytes # (Manual) D-Dimer POC ABG pH POC ABG pCO2 POC ABG pO2 Sodium Potassium 5.5 H Chloride Carbon Dioxide BUN 23 H Creatinine Glucose 117 H POC Glucose Lactic Acid Calcium C-Reactive Protein Crossmatch 06/28/16 06/29/16 06/30/16 06:40 09:19 07:29 WBC 20.9 H RBC 2.68 L Hgb 7.2 L Hct 22.0 L MCH 27 L RDW 27.7 H Plt Count Seg Neuts % (Manual) Lymphocytes % (Manual) Seg Neutrophils # Man Lymphocytes # (Manual) D-Dimer POC ABG pH POC ABG pCO2 POC ABG pO2 Sodium Potassium Chloride Carbon Dioxide BUN 28 H 34 H Creatinine Glucose 110 H 115 H POC Glucose Lactic Acid Calcium 8.2 L C-Reactive Protein Crossmatch 06/30/16 06/30/16 07/01/16 07:29 12:50 07:10 WBC 17.0 H RBC 3.41 L Hgb 9.0 L Hct 28.1 L D MCH 27 L RDW 24.5 H Plt Count Seg Neuts % (Manual) Lymphocytes % (Manual) Seg Neutrophils # Man Lymphocytes # (Manual) D-Dimer POC ABG pH POC ABG pCO2 POC ABG pO2 Sodium Potassium Chloride Carbon Dioxide BUN 49 H Creatinine Glucose 139 H POC Glucose Lactic Acid Calcium 8.3 L C-Reactive Protein Crossmatch See Detail 07/02/16 07/02/16 07/03/16 06:58 06:58 05:53 WBC 13.9 H 26.0 H RBC 3.43 L Hgb 9.3 L Hct 28.6 L MCH 27 L 27 L RDW 24.6 H 24.2 H Plt Count Seg Neuts % (Manual) Lymphocytes % (Manual) Seg Neutrophils # Man Lymphocytes # (Manual) D-Dimer POC ABG pH POC ABG pCO2 POC ABG pO2 Sodium Potassium Chloride Carbon Dioxide BUN 30 H Creatinine Glucose 122 H POC Glucose Lactic Acid Calcium C-Reactive Protein Crossmatch 07/03/16 07/03/16 07/03/16 05:53 13:58 14:12 WBC RBC Hgb Hct MCH RDW Plt Count Seg Neuts % (Manual) Lymphocytes % (Manual) Seg Neutrophils # Man Lymphocytes # (Manual) D-Dimer POC ABG pH 7.525 H POC ABG pCO2 28.4 L POC ABG pO2 34 L Sodium Potassium Chloride 97.7 L Carbon Dioxide BUN 36 H Creatinine 1.3 H Glucose 135 H POC Glucose 182 H Lactic Acid Calcium C-Reactive Protein Crossmatch 07/03/16 07/03/16 07/03/16 16:46 19:43 21:53 WBC RBC Hgb Hct MCH RDW Plt Count Seg Neuts % (Manual) Lymphocytes % (Manual) Seg Neutrophils # Man Lymphocytes # (Manual) D-Dimer POC ABG pH 7.516 H POC ABG pCO2 32.1 L POC ABG pO2 66 L Sodium Potassium Chloride Carbon Dioxide BUN Creatinine Glucose POC Glucose 169 H 166 H Lactic Acid Calcium C-Reactive Protein Crossmatch 07/04/16 07/04/16 07/04/16 06:29 06:29 06:29 WBC 19.7 H RBC 3.41 L Hgb 9.3 L Hct 28.9 L MCH 27 L RDW 23.2 H Plt Count Seg Neuts % (Manual) 95.0 H Lymphocytes % (Manual) 3.0 L Seg Neutrophils # Man 18.7 H Lymphocytes # (Manual) 0.6 L D-Dimer POC ABG pH POC ABG pCO2 POC ABG pO2 Sodium Potassium 5.1 H Chloride Carbon Dioxide 20 L BUN 43 H Creatinine 1.5 H Glucose 181 H POC Glucose Lactic Acid 2.9 H* Calcium 8.2 L C-Reactive Protein Crossmatch 07/04/16 07/04/16 07/04/16 07:35 10:32 11:25 WBC RBC Hgb Hct MCH RDW Plt Count Seg Neuts % (Manual) Lymphocytes % (Manual) Seg Neutrophils # Man Lymphocytes # (Manual) D-Dimer POC ABG pH 7.461 H POC ABG pCO2 33.4 L POC ABG pO2 129 H Sodium Potassium Chloride Carbon Dioxide BUN Creatinine Glucose POC Glucose 158 H 156 H Lactic Acid Calcium C-Reactive Protein Crossmatch 07/04/16 07/04/16 07/04/16 13:50 13:50 16:19 WBC RBC Hgb Hct MCH RDW Plt Count Seg Neuts % (Manual) Lymphocytes % (Manual) Seg Neutrophils # Man Lymphocytes # (Manual) D-Dimer POC ABG pH POC ABG pCO2 POC ABG pO2 Sodium Potassium 5.5 H Chloride Carbon Dioxide 20 L BUN 45 H Creatinine 1.3 H Glucose 126 H POC Glucose 134 H Lactic Acid Calcium 8.2 L C-Reactive Protein 15.00 H Crossmatch 07/04/16 07/05/16 07/05/16 22:32 06:38 06:47 WBC RBC 3.27 L Hgb 9.1 L Hct 27.6 L MCH RDW 22.6 H Plt Count 130 L Seg Neuts % (Manual) Lymphocytes % (Manual) Seg Neutrophils # Man Lymphocytes # (Manual) D-Dimer POC ABG pH POC ABG pCO2 POC ABG pO2 Sodium Potassium Chloride 108.6 H Carbon Dioxide 21 L BUN 43 H Creatinine Glucose 126 H POC Glucose 197 H Lactic Acid Calcium 8.1 L C-Reactive Protein Crossmatch 07/05/16 07/05/16 07/05/16 13:10 16:22 22:29 WBC RBC Hgb Hct MCH RDW Plt Count Seg Neuts % (Manual) Lymphocytes % (Manual) Seg Neutrophils # Man Lymphocytes # (Manual) D-Dimer POC ABG pH POC ABG pCO2 POC ABG pO2 Sodium Potassium Chloride Carbon Dioxide BUN Creatinine Glucose POC Glucose 175 H 195 H 183 H Lactic Acid Calcium C-Reactive Protein Crossmatch 07/06/16 07/06/16 07/06/16 07:11 07:11 07:36 WBC RBC 3.04 L Hgb 8.5 L Hct 25.9 L MCH RDW 22.5 H Plt Count 125 L Seg Neuts % (Manual) Lymphocytes % (Manual) Seg Neutrophils # Man Lymphocytes # (Manual) D-Dimer POC ABG pH POC ABG pCO2 POC ABG pO2 Sodium 149 H Potassium Chloride 113.3 H Carbon Dioxide 21 L BUN 43 H Creatinine Glucose 154 H POC Glucose 175 H Lactic Acid Calcium C-Reactive Protein Crossmatch 07/06/16 07/06/16 07/06/16 11:58 16:43 22:07 WBC RBC Hgb Hct MCH RDW Plt Count Seg Neuts % (Manual) Lymphocytes % (Manual) Seg Neutrophils # Man Lymphocytes # (Manual) D-Dimer POC ABG pH POC ABG pCO2 POC ABG pO2 Sodium Potassium Chloride Carbon Dioxide BUN Creatinine Glucose POC Glucose 287 H 206 H 169 H Lactic Acid Calcium C-Reactive Protein Crossmatch 07/07/16 07/07/16 07/07/16 07:40 10:02 12:30 WBC RBC Hgb Hct MCH RDW Plt Count Seg Neuts % (Manual) Lymphocytes % (Manual) Seg Neutrophils # Man Lymphocytes # (Manual) D-Dimer POC ABG pH POC ABG pCO2 POC ABG pO2 Sodium 146 H Potassium Chloride 110.9 H Carbon Dioxide 20 L BUN 43 H Creatinine Glucose 215 H POC Glucose 138 H 245 H Lactic Acid Calcium C-Reactive Protein Crossmatch 07/07/16 07/07/16 07/08/16 16:40 21:32 06:39 WBC RBC Hgb Hct MCH RDW Plt Count Seg Neuts % (Manual) Lymphocytes % (Manual) Seg Neutrophils # Man Lymphocytes # (Manual) D-Dimer POC ABG pH POC ABG pCO2 POC ABG pO2 Sodium 152 H Potassium Chloride 116.1 H Carbon Dioxide 21 L BUN 39 H Creatinine Glucose 153 H POC Glucose 197 H 117 H Lactic Acid Calcium C-Reactive Protein Crossmatch
[2016-07-08] MEDS: HALFPRIN EC PO SCH (15:06)
[2016-07-08] MEDS: RANEXA ER PO SCH ×2 (15:07→22:30)
[2016-07-08] MEDS: COREG PO SCH ×2 (15:08→22:30)
[2016-07-08] MEDS: PROTONIX PO SCH (15:08)
[2016-07-08] MEDS: PEPCID PO SCH (15:08)
[2016-07-08] MEDS: DIOVAN PO SCH (15:09)
--- NOTE | 2016-07-08 15:20 | Progress Note ---
Assessment and Plan Assessment and plan: Acute on chronic respiratory failure due to COPD exacerbation. She is still on high amount of oxygen - on high flow Oxygen. Saturation 94% on 40% FiO2 corresponding to 35 L/minute COPD exacerbation. On solumedrol, Duoneb, supplemental high flow Oxygen. BiPAP prn Coronary artery disease. On Aspirin, Coreg, Diovan, Ranexa. Follows with instructional facilitator Chronic systolic CHF. On Coreg, Diovan Hypertension. BP stable. Hyperlipidemia , on Lipitor. DVT prophylaxis.Heparin subcut Full code status Disposition. patient was to go to LTAC, however , was informed by case management that Insurance denied LTAC transfer. I did peer to peer and discussed with Physican at Insurance company and he states Patient can go to SNF that can handle high amounts of Oxygen requirement. Discussed with case management and they are working on arrangements to appeal LTAC placement. History Interval history: still has shortness of breath, no chest pain, no fever Hospitalist Physical - Physical exam Narrative exam: Gen: not in acute distress, obese, on high flow Oxygen HEENT: normocephalic,atraumatic Neck :supple, no JVD Lungs: Decreased breath sounds, rhonchi bilaterally Heart: S1 and S2 regular, no murmurs no gallops, Abdomen: soft, non-tender, non-di stended, normal bowel sounds Extremities: no edema, no clubbing or cyanosis Neuro: Awake alert oriented x 3, non focal - Constitutional Vitals: Temp Pulse Resp BP Pulse Ox 97.5 F L 100 H 16 111/62 95 07/08/16 11:30 07/08/16 15:09 07/08/16 14:21 07/08/16 11:30 07/08/16 11:30 General appearance: Present: no acute distress Results - Labs CBC & Chem 7: 07/06/16 07:11 07/10/16 07:24 Labs: Laboratory Last Values WBC 8.7 K/mm3 (4.5-11.0) 07/06/16 07:11 RBC 3.04 M/mm3 (3.65-5.03) L 07/06/16 07:11 Hgb 8.5 gm/dl (10.1-14.3) L 07/06/16 07:11 Hct 25.9 % (30.3-42.9) L 07/06/16 07:11 MCV 85 fl (79-97) 07/06/16 07:11 MCH 28 pg (28-32) 07/06/16 07:11 MCHC 33 % (30-34) 07/06/16 07:11 RDW 22.5 % (13.2-15.2) H 07/06/16 07:11 Plt Count 125 K/mm3 (140-440) L 07/06/16 07:11 Add Manual Diff Complete 07/04/16 06:29 Total Counted 100 07/04/16 06:29 Seg Neuts % (Manual) 95.0 % (40.0-70.0) H 07/04/16 06:29 Band Neutrophils % 0 % 07/04/16 06:29 Lymphocytes % (Manual) 3.0 % (13.4-35.0) L 07/04/16 06:29 Reactive Lymphs % (Man) 0 % 07/04/16 06:29 Monocytes % (Manual) 2.0 % (0.0-7.3) 07/04/16 06:29 Eosinophils % (Manual) 0 % (0.0-4.3) 07/04/16 06:29 Basophils % (Manual) 0 % (0.0-1.8) 07/04/16 06:29 Metamyelocytes % 0 % 07/04/16 06:29 Myelocytes % 0 % 07/04/16 06:29 Promyelocytes % 0 % 07/04/16 06:29 Blast Cells % 0 % 07/04/16 06:29 Nucleated RBC % Not Reportable 07/04/16 06:29 Seg Neutrophils # Man 18.7 K/mm3 (1.8-7.7) H 07/04/16 06:29 Band Neutrophils # 0.0 K/mm3 07/04/16 06:29 Lymphocytes # (Manual) 0.6 K/mm3 (1.2-5.4) L 07/04/16 06:29 Abs React Lymphs (Man) 0.0 K/mm3 07/04/16 06:29 Monocytes # (Manual) 0.4 K/mm3 (0.0-0.8) 07/04/16 06:29 Eosinophils # (Manual) 0.0 K/mm3 (0.0-0.4) 07/04/16 06:29 Basophils # (Manual) 0.0 K/mm3 (0.0-0.1) 07/04/16 06:29 Metamyelocytes # 0.0 K/mm3 07/04/16 06:29 Myelocytes # 0.0 K/mm3 07/04/16 06:29 Promyelocytes # 0.0 K/mm3 07/04/16 06:29 Blast Cells # 0.0 K/mm3 07/04/16 06:29 WBC Morphology Not Reportable 07/04/16 06:29 Hypersegmented Neuts Not Reportable 07/04/16 06:29 Hyposegmented Neuts Not Reportable 07/04/16 06:29 Hypogranular Neuts Not Reportable 07/04/16 06:29 Smudge Cells Not Reportable 07/04/16 06:29 Toxic Granulation Not Reportable 07/04/16 06:29 Toxic Vacuolation Not Reportable 07/04/16 06:29 Dohle Bodies Not Reportable 07/04/16 06:29 Pelger-Huet Anomaly Not Reportable 07/04/16 06:29 Mony Rods Not Reportable 07/04/16 06:29 Platelet Estimate Consistent w auto 07/04/16 06:29 Clumped Platelets Not Reportable 07/04/16 06:29 Plt Clumps, EDTA Not Reportable 07/04/16 06:29 Large Platelets Not Reportable 07/04/16 06:29 Giant Platelets Not Reportable 07/04/16 06:29 Platelet Satelliting Not Reportable 07/04/16 06:29 Plt Morphology Comment Not Reportable 07/04/16 06:29 RBC Morphology Not Reportable 07/04/16 06:29 Dimorphic RBCs Not Reportable 07/04/16 06:29 Polychromasia Not Reportable 07/04/16 06:29 Hypochromasia Few 07/04/16 06:29 Poikilocytosis Not Reportable 07/04/16 06:29 Anisocytosis 1+ 07/04/16 06:29 Microcytosis Not Reportable 07/04/16 06:29 Macrocytosis Not Reportable 07/04/16 06:29 Spherocytes Not Reportable 07/04/16 06:29 Pappenheimer Bodies Not Reportable 07/04/16 06:29 Sickle Cells Not Reportable 07/04/16 06:29 Target Cells Not Reportable 07/04/16 06:29 Tear Drop Cells Not Reportable 07/04/16 06:29 Ovalocytes Not Reportable 07/04/16 06:29 Helmet Cells Not Reportable 07/04/16 06:29 [place] Bodies Not Reportable 07/04/16 06:29 [place] Rings Not Reportable 07/04/16 06:29 [place] Cells Not Reportable 07/04/16 06:29 Bite Cells Not Reportable 07/04/16 06:29 Crenated Cell Not Reportable 07/04/16 06:29 Elliptocytes Not Reportable 07/04/16 06:29 Acanthocytes (Spur) Not Reportable 07/04/16 06:29 Rouleaux Not Reportable 07/04/16 06:29 Hemoglobin C Crystals Not Reportable 07/04/16 06:29 Schistocytes Not Reportable 07/04/16 06:29 Malaria parasites Not Reportable 07/04/16 06:29 Juan R Bodies Not Reportable 07/04/16 06:29 Hem Pathologist Commnt No 07/04/16 06:29 PT 14.4 Sec. (12.2-14.9) 06/20/16 14:11 INR 1.13 (0.87-1.13) 06/20/16 14:11 D-Dimer 958.1 ng/mlDDU (0-234) H 06/20/16 14:12 POC ABG pH 7.461 (7.35-7.45) H 07/04/16 10:32 POC ABG pCO2 33.4 (35-45) L 07/04/16 10:32 POC ABG pO2 129 (80-105) H 07/04/16 10:32 POC ABG HCO3 23.8 07/04/16 10:32 POC ABG Total CO2 25 07/04/16 10:32 POC ABG O2 Sat 99 07/04/16 10:32 POC ABG Base Excess 0 07/04/16 10:32 FiO2 60 % 07/04/16 10:32 Sodium 152 mmol/L (137-145) H 07/08/16 06:39 Potassium 4.8 mmol/L (3.6-5.0) 07/08/16 06:39 Chloride 116.1 mmol/L (98-107) H 07/08/16 06:39 Carbon Dioxide 21 mmol/L (22-30) L 07/08/16 06:39 Anion Gap 20 mmol/L 07/08/16 06:39 BUN 39 mg/dL (7-17) H 07/08/16 06:39 Creatinine 1.0 mg/dL (0.7-1.2) 07/08/16 06:39 Estimated GFR > 60 ml/min 07/08/16 06:39 BUN/Creatinine Ratio 39.00 % 07/08/16 06:39 Glucose 153 mg/dL (65-100) H 07/08/16 06:39 POC Glucose 117 (70-105) H 07/07/16 21:32 Lactic Acid 2.0 mmol/L (0.7-2.0) 07/04/16 13:50 Calcium 8.7 mg/dL (8.4-10.2) 07/08/16 06:39 Troponin T < 0.010 ng/mL (0.00-0.029) 06/17/16 15:59 C-Reactive Protein 15.00 mg/dL (0.00-1.30) H 07/04/16 13:50 NT-Pro-B Natriuret Pep 1912 pg/mL (0-900) H 06/17/16 15:59 Blood Type B POSITIVE 06/30/16 12:50 Antibody Screen Negative 06/30/16 12:50 Crossmatch See Detail 06/30/16 12:50
[2016-07-08] MEDS: NEURONTIN PO SCH (22:12)
[2016-07-09] MEDS: DUONEB 0.5 MG-3 MG/3 ML SOLN IH SCH ×4 (01:45→20:45)
[2016-07-09] MEDS: HEPARIN SUB-Q SCH ×3 (05:10→22:30)
[2016-07-09] MEDS: MAXIPIME/NS 1 GM/100 ML 1 GM/100 ML BAG IV SCH ×3 (05:11→22:27)
[2016-07-09] MEDS: D5W 1,000 ML IV SCH (06:28)
[2016-07-09] MEDS: PULMICORT IH SCH ×2 (07:51→20:45)
[2016-07-09] MEDS: BROVANA NEBU IH SCH ×2 (07:51→20:45)
--- NOTE | 2016-07-09 08:03 | XRay Report ---
Single view chest: Compared to 07/03/16. History: Oxygen saturation decrease. Findings: Chronic interstitial lung changes bilaterally without significant interval change. No change in cardiopulmonary findings. Impression: No significant interval change.
[2016-07-09] MEDS: NORCO 5/325 PO PRN ×2 (11:02→18:09)
[2016-07-09] MEDS: PROTONIX PO SCH (11:03)
[2016-07-09] MEDS: COREG PO SCH ×2 (11:03→22:31)
[2016-07-09] MEDS: RANEXA ER PO SCH ×2 (11:03→22:29)
[2016-07-09] MEDS: PEPCID PO SCH (11:03)
[2016-07-09] MEDS: DIOVAN PO SCH (11:03)
[2016-07-09] MEDS: FEOSOL PO SCH ×3 (11:03→22:29)
[2016-07-09] MEDS: HALFPRIN EC PO SCH (11:03)
--- NOTE | 2016-07-09 11:09 | Progress Note ---
Assessment and Plan - Patient Problems (1) Acute exacerbation of chronic obstructive pulmonary disease (COPD) Current Visit: Yes Status: Acute (2) Chest pain Current Visit: No Status: Acute Qualifiers: Chest pain type: unspecified Qualified Code(s): R07.9 - Chest pain, unspecified (3) Pulmonary fibrosis Current Visit: No Status: Chronic Subjective Date of service: 07/09/16 Principal diagnosis: Acute On Chronic ypoxemic Respiratory Failure Interval history: Seen and examined at bedside; 24 hour events reviewed; nursing and respiratory care staff consulted; no adverse overnight events reported to me; Objective Vital Signs - 12hr 07/09/16 07/09/16 07/09/16 00:15 04:05 07:30 Temperature 97.9 F 97.4 F L 97.4 F L Pulse Rate Pulse Rate [ 44 L 53 L 68 Apical] Respiratory 22 20 20 Rate Blood Pressure Blood Pressure 172/79 162/81 [Left Arm] Blood Pressure 137/65 [Right Radial Artery] O2 Sat by Pulse 99 92 Oximetry 07/09/16 11:03 Temperature Pulse Rate 68 Pulse Rate [ Apical] Respiratory Rate Blood Pressure 162/81 Blood Pressure [Left Arm] Blood Pressure [Right Radial Artery] O2 Sat by Pulse Oximetry Constitutional: no acute distress, alert Eyes: non-icteric ENT: oropharynx moist Neck: supple, no lymphadenopathy Effort: mildly labored (but close to her baseline) Ascultation: Bilateral: diminished breath sounds, rales (inspiratory in bases) Cardiovascular: regular rate and rhythm Gastrointestinal: normoactive bowel sounds, soft, non-tender, non-distended Integumentary: normal Extremities: no cyanosis, pulses normal, no ischemia or petechiae Neurologic: normal mental status, non-focal exam, pupils equal and round, motor strength normal and Psychiatric: mood appropriate, affect normal CBC and BMP: 07/06/16 07:11 07/08/16 06:39 ABG, PT/INR, D-dimer: ABG POC ABG pH 7.461 (7.35-7.45) H 07/04/16 10:32 POC ABG pCO2 33.4 (35-45) L 07/04/16 10:32 POC ABG pO2 129 (80-105) H 07/04/16 10:32 POC ABG HCO3 23.8 07/04/16 10:32 POC ABG Total CO2 25 07/04/16 10:32 POC ABG O2 Sat 99 07/04/16 10:32 PT/INR, D-dimer PT 14.4 Sec. (12.2-14.9) 06/20/16 14:11 INR 1.13 (0.87-1.13) 06/20/16 14:11 D-Dimer 958.1 ng/mlDDU (0-234) H 06/20/16 14:12 Abnormal lab findings: Abnormal Labs 06/18/16 06/20/16 06/21/16 05:34 14:12 00:31 WBC RBC 3.33 L Hgb 8.9 L Hct 26.9 L MCH 27 L RDW 28.4 H Plt Count Seg Neuts % (Manual) Lymphocytes % (Manual) Seg Neutrophils # Man Lymphocytes # (Manual) D-Dimer 958.1 H POC ABG pH POC ABG pCO2 POC ABG pO2 Sodium Potassium Chloride Carbon Dioxide 19 L BUN 18 H Creatinine Glucose 143 H POC Glucose Lactic Acid Calcium 7.2 L C-Reactive Protein Crossmatch 06/21/16 06/21/16 06/22/16 11:39 16:19 06:22 WBC RBC 3.13 L Hgb 8.2 L Hct 25.1 L MCH 26 L RDW 28.6 H Plt Count Seg Neuts % (Manual) 88.0 H Lymphocytes % (Manual) 7.0 L Seg Neutrophils # Man Lymphocytes # (Manual) 0.6 L D-Dimer POC ABG pH POC ABG pCO2 POC ABG pO2 Sodium Potassium Chloride Carbon Dioxide BUN Creatinine Glucose POC Glucose 135 H 115 H Lactic Acid Calcium C-Reactive Protein Crossmatch 06/22/16 06/22/16 06/22/16 06:22 12:52 15:53 WBC RBC Hgb Hct MCH RDW Plt Count Seg Neuts % (Manual) Lymphocytes % (Manual) Seg Neutrophils # Man Lymphocytes # (Manual) D-Dimer POC ABG pH 7.461 H POC ABG pCO2 29.7 L POC ABG pO2 29 L Sodium Potassium Chloride 109.0 H Carbon Dioxide 21 L BUN Creatinine Glucose POC Glucose 112 H Lactic Acid Calcium 8.2 L C-Reactive Protein Crossmatch 06/27/16 06/27/16 06/28/16 07:03 07:03 06:40 WBC 17.0 H 16.0 H RBC 3.07 L 2.72 L Hgb 8.1 L 7.2 L Hct 25.5 L 22.3 L MCH 26 L 27 L RDW 28.4 H 28.1 H Plt Count Seg Neuts % (Manual) Lymphocytes % (Manual) Seg Neutrophils # Man Lymphocytes # (Manual) D-Dimer POC ABG pH POC ABG pCO2 POC ABG pO2 Sodium Potassium 5.5 H Chloride Carbon Dioxide BUN 23 H Creatinine Glucose 117 H POC Glucose Lactic Acid Calcium C-Reactive Protein Crossmatch 06/28/16 06/29/16 06/30/16 06:40 09:19 07:29 WBC 20.9 H RBC 2.68 L Hgb 7.2 L Hct 22.0 L MCH 27 L RDW 27.7 H Plt Count Seg Neuts % (Manual) Lymphocytes % (Manual) Seg Neutrophils # Man Lymphocytes # (Manual) D-Dimer POC ABG pH POC ABG pCO2 POC ABG pO2 Sodium Potassium Chloride Carbon Dioxide BUN 28 H 34 H Creatinine Glucose 110 H 115 H POC Glucose Lactic Acid Calcium 8.2 L C-Reactive Protein Crossmatch 06/30/16 06/30/16 07/01/16 07:29 12:50 07:10 WBC 17.0 H RBC 3.41 L Hgb 9.0 L Hct 28.1 L D MCH 27 L RDW 24.5 H Plt Count Seg Neuts % (Manual) Lymphocytes % (Manual) Seg Neutrophils # Man Lymphocytes # (Manual) D-Dimer POC ABG pH POC ABG pCO2 POC ABG pO2 Sodium Potassium Chloride Carbon Dioxide BUN 49 H Creatinine Glucose 139 H POC Glucose Lactic Acid Calcium 8.3 L C-Reactive Protein Crossmatch See Detail 07/02/16 07/02/16 07/03/16 06:58 06:58 05:53 WBC 13.9 H 26.0 H RBC 3.43 L Hgb 9.3 L Hct 28.6 L MCH 27 L 27 L RDW 24.6 H 24.2 H Plt Count Seg Neuts % (Manual) Lymphocytes % (Manual) Seg Neutrophils # Man Lymphocytes # (Manual) D-Dimer POC ABG pH POC ABG pCO2 POC ABG pO2 Sodium Potassium Chloride Carbon Dioxide BUN 30 H Creatinine Glucose 122 H POC Glucose Lactic Acid Calcium C-Reactive Protein Crossmatch 07/03/16 07/03/16 07/03/16 05:53 13:58 14:12 WBC RBC Hgb Hct MCH RDW Plt Count Seg Neuts % (Manual) Lymphocytes % (Manual) Seg Neutrophils # Man Lymphocytes # (Manual) D-Dimer POC ABG pH 7.525 H POC ABG pCO2 28.4 L POC ABG pO2 34 L Sodium Potassium Chloride 97.7 L Carbon Dioxide BUN 36 H Creatinine 1.3 H Glucose 135 H POC Glucose 182 H Lactic Acid Calcium C-Reactive Protein Crossmatch 07/03/16 07/03/16 07/03/16 16:46 19:43 21:53 WBC RBC Hgb Hct MCH RDW Plt Count Seg Neuts % (Manual) Lymphocytes % (Manual) Seg Neutrophils # Man Lymphocytes # (Manual) D-Dimer POC ABG pH 7.516 H POC ABG pCO2 32.1 L POC ABG pO2 66 L Sodium Potassium Chloride Carbon Dioxide BUN Creatinine Glucose POC Glucose 169 H 166 H Lactic Acid Calcium C-Reactive Protein Crossmatch 07/04/16 07/04/16 07/04/16 06:29 06:29 06:29 WBC 19.7 H RBC 3.41 L Hgb 9.3 L Hct 28.9 L MCH 27 L RDW 23.2 H Plt Count Seg Neuts % (Manual) 95.0 H Lymphocytes % (Manual) 3.0 L Seg Neutrophils # Man 18.7 H Lymphocytes # (Manual) 0.6 L D-Dimer POC ABG pH POC ABG pCO2 POC ABG pO2 Sodium Potassium 5.1 H Chloride Carbon Dioxide 20 L BUN 43 H Creatinine 1.5 H Glucose 181 H POC Glucose Lactic Acid 2.9 H* Calcium 8.2 L C-Reactive Protein Crossmatch 07/04/16 07/04/16 07/04/16 07:35 10:32 11:25 WBC RBC Hgb Hct MCH RDW Plt Count Seg Neuts % (Manual) Lymphocytes % (Manual) Seg Neutrophils # Man Lymphocytes # (Manual) D-Dimer POC ABG pH 7.461 H POC ABG pCO2 33.4 L POC ABG pO2 129 H Sodium Potassium Chloride Carbon Dioxide BUN Creatinine Glucose POC Glucose 158 H 156 H Lactic Acid Calcium C-Reactive Protein Crossmatch 07/04/16 07/04/16 07/04/16 13:50 13:50 16:19 WBC RBC Hgb Hct MCH RDW Plt Count Seg Neuts % (Manual) Lymphocytes % (Manual) Seg Neutrophils # Man Lymphocytes # (Manual) D-Dimer POC ABG pH POC ABG pCO2 POC ABG pO2 Sodium Potassium 5.5 H Chloride Carbon Dioxide 20 L BUN 45 H Creatinine 1.3 H Glucose 126 H POC Glucose 134 H Lactic Acid Calcium 8.2 L C-Reactive Protein 15.00 H Crossmatch 07/04/16 07/05/16 07/05/16 22:32 06:38 06:47 WBC RBC 3.27 L Hgb 9.1 L Hct 27.6 L MCH RDW 22.6 H Plt Count 130 L Seg Neuts % (Manual) Lymphocytes % (Manual) Seg Neutrophils # Man Lymphocytes # (Manual) D-Dimer POC ABG pH POC ABG pCO2 POC ABG pO2 Sodium Potassium Chloride 108.6 H Carbon Dioxide 21 L BUN 43 H Creatinine Glucose 126 H POC Glucose 197 H Lactic Acid Calcium 8.1 L C-Reactive Protein Crossmatch 07/05/16 07/05/16 07/05/16 13:10 16:22 22:29 WBC RBC Hgb Hct MCH RDW Plt Count Seg Neuts % (Manual) Lymphocytes % (Manual) Seg Neutrophils # Man Lymphocytes # (Manual) D-Dimer POC ABG pH POC ABG pCO2 POC ABG pO2 Sodium Potassium Chloride Carbon Dioxide BUN Creatinine Glucose POC Glucose 175 H 195 H 183 H Lactic Acid Calcium C-Reactive Protein Crossmatch 07/06/16 07/06/16 07/06/16 07:11 07:11 07:36 WBC RBC 3.04 L Hgb 8.5 L Hct 25.9 L MCH RDW 22.5 H Plt Count 125 L Seg Neuts % (Manual) Lymphocytes % (Manual) Seg Neutrophils # Man Lymphocytes # (Manual) D-Dimer POC ABG pH POC ABG pCO2 POC ABG pO2 Sodium 149 H Potassium Chloride 113.3 H Carbon Dioxide 21 L BUN 43 H Creatinine Glucose 154 H POC Glucose 175 H Lactic Acid Calcium C-Reactive Protein Crossmatch 07/06/16 07/06/16 07/06/16 11:58 16:43 22:07 WBC RBC Hgb Hct MCH RDW Plt Count Seg Neuts % (Manual) Lymphocytes % (Manual) Seg Neutrophils # Man Lymphocytes # (Manual) D-Dimer POC ABG pH POC ABG pCO2 POC ABG pO2 Sodium Potassium Chloride Carbon Dioxide BUN Creatinine Glucose POC Glucose 287 H 206 H 169 H Lactic Acid Calcium C-Reactive Protein Crossmatch 07/07/16 07/07/16 07/07/16 07:40 10:02 12:30 WBC RBC Hgb Hct MCH RDW Plt Count Seg Neuts % (Manual) Lymphocytes % (Manual) Seg Neutrophils # Man Lymphocytes # (Manual) D-Dimer POC ABG pH POC ABG pCO2 POC ABG pO2 Sodium 146 H Potassium Chloride 110.9 H Carbon Dioxide 20 L BUN 43 H Creatinine Glucose 215 H POC Glucose 138 H 245 H Lactic Acid Calcium C-Reactive Protein Crossmatch 07/07/16 07/07/16 07/08/16 16:40 21:32 06:39 WBC RBC Hgb Hct MCH RDW Plt Count Seg Neuts % (Manual) Lymphocytes % (Manual) Seg Neutrophils # Man Lymphocytes # (Manual) D-Dimer POC ABG pH POC ABG pCO2 POC ABG pO2 Sodium 152 H Potassium Chloride 116.1 H Carbon Dioxide 21 L BUN 39 H Creatinine Glucose 153 H POC Glucose 197 H 117 H Lactic Acid Calcium C-Reactive Protein Crossmatch 07/08/16 07/08/16 07/08/16 07:20 11:38 15:27 WBC RBC Hgb Hct MCH RDW Plt Count Seg Neuts % (Manual) Lymphocytes % (Manual) Seg Neutrophils # Man Lymphocytes # (Manual) D-Dimer POC ABG pH POC ABG pCO2 POC ABG pO2 Sodium Potassium Chloride Carbon Dioxide BUN Creatinine Glucose POC Glucose 162 H 189 H 138 H Lactic Acid Calcium C-Reactive Protein Crossmatch 07/08/16 21:52 WBC RBC Hgb Hct MCH RDW Plt Count Seg Neuts % (Manual) Lymphocytes % (Manual) Seg Neutrophils # Man Lymphocytes # (Manual) D-Dimer POC ABG pH POC ABG pCO2 POC ABG pO2 Sodium Potassium Chloride Carbon Dioxide BUN Creatinine Glucose POC Glucose 175 H Lactic Acid Calcium C-Reactive Protein Crossmatch
--- NOTE | 2016-07-09 16:35 | Progress Note ---
Assessment and Plan Assessment and plan: Acute on chronic respiratory failure due to COPD exacerbation. Today on oxygen by nasal cannula at 5 L/minute with oxygen saturation of 95% COPD exacerbation. On solumedrol, Duoneb, supplemental high flow Oxygen. BiPAP prn. Used BiPAP last night Coronary artery disease. On Aspirin, Coreg, Diovan, Ranexa. 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 On Coreg, Diovan Hypertension. BP stable. Hyperlipidemia , on Lipitor. DVT prophylaxis.Heparin subcut Full code status Disposition. patient was to go to LTAC, however , was informed by case management that Insurance denied LTAC transfer. I did peer to peer and discussed with Physican at Insurance company and he states Patient can go to SNF that can handle high amounts of Oxygen requirement. Discussed with case management and they are working on arrangements to appeal LTAC placement. History Interval history: still has shortness of breath, no chest pain, no fever Hospitalist Physical - Physical exam Narrative exam: Gen: not in acute distress, obese, still on high flow Oxygen HEENT: normocephalic,atraumatic Neck :supple, no JVD Lungs: Decreased breath sounds bilaterally, rhonchi bilaterally Heart: S1 and S2 regular, no murmurs no gallops, Abdomen: soft, non-tender, non-di stended, normal bowel sounds Extremities: no edema, no clubbing or cyanosis Neuro: Awake alert oriented x 3, non focal - Constitutional Vitals: Temp Pulse Resp BP Pulse Ox 97.6 F 66 20 130/72 96 07/09/16 12:00 07/09/16 13:38 07/09/16 13:38 07/09/16 12:00 07/09/16 12:00 General appearance: Present: no acute distress Results - Labs CBC & Chem 7: 07/06/16 07:11 07/10/16 07:24 Labs: Laboratory Last Values WBC 8.7 K/mm3 (4.5-11.0) 07/06/16 07:11 RBC 3.04 M/mm3 (3.65-5.03) L 07/06/16 07:11 Hgb 8.5 gm/dl (10.1-14.3) L 07/06/16 07:11 Hct 25.9 % (30.3-42.9) L 07/06/16 07:11 MCV 85 fl (79-97) 07/06/16 07:11 MCH 28 pg (28-32) 07/06/16 07:11 MCHC 33 % (30-34) 07/06/16 07:11 RDW 22.5 % (13.2-15.2) H 07/06/16 07:11 Plt Count 125 K/mm3 (140-440) L 07/06/16 07:11 Add Manual Diff Complete 07/04/16 06:29 Total Counted 100 07/04/16 06:29 Seg Neuts % (Manual) 95.0 % (40.0-70.0) H 07/04/16 06:29 Band Neutrophils % 0 % 07/04/16 06:29 Lymphocytes % (Manual) 3.0 % (13.4-35.0) L 07/04/16 06:29 Reactive Lymphs % (Man) 0 % 07/04/16 06:29 Monocytes % (Manual) 2.0 % (0.0-7.3) 07/04/16 06:29 Eosinophils % (Manual) 0 % (0.0-4.3) 07/04/16 06:29 Basophils % (Manual) 0 % (0.0-1.8) 07/04/16 06:29 Metamyelocytes % 0 % 07/04/16 06:29 Myelocytes % 0 % 07/04/16 06:29 Promyelocytes % 0 % 07/04/16 06:29 Blast Cells % 0 % 07/04/16 06:29 Nucleated RBC % Not Reportable 07/04/16 06:29 Seg Neutrophils # Man 18.7 K/mm3 (1.8-7.7) H 07/04/16 06:29 Band Neutrophils # 0.0 K/mm3 07/04/16 06:29 Lymphocytes # (Manual) 0.6 K/mm3 (1.2-5.4) L 07/04/16 06:29 Abs React Lymphs (Man) 0.0 K/mm3 07/04/16 06:29 Monocytes # (Manual) 0.4 K/mm3 (0.0-0.8) 07/04/16 06:29 Eosinophils # (Manual) 0.0 K/mm3 (0.0-0.4) 07/04/16 06:29 Basophils # (Manual) 0.0 K/mm3 (0.0-0.1) 07/04/16 06:29 Metamyelocytes # 0.0 K/mm3 07/04/16 06:29 Myelocytes # 0.0 K/mm3 07/04/16 06:29 Promyelocytes # 0.0 K/mm3 07/04/16 06:29 Blast Cells # 0.0 K/mm3 07/04/16 06:29 WBC Morphology Not Reportable 07/04/16 06:29 Hypersegmented Neuts Not Reportable 07/04/16 06:29 Hyposegmented Neuts Not Reportable 07/04/16 06:29 Hypogranular Neuts Not Reportable 07/04/16 06:29 Smudge Cells Not Reportable 07/04/16 06:29 Toxic Granulation Not Reportable 07/04/16 06:29 Toxic Vacuolation Not Reportable 07/04/16 06:29 Dohle Bodies Not Reportable 07/04/16 06:29 Pelger-Huet Anomaly Not Reportable 07/04/16 06:29 Mony Rods Not Reportable 07/04/16 06:29 Platelet Estimate Consistent w auto 07/04/16 06:29 Clumped Platelets Not Reportable 07/04/16 06:29 Plt Clumps, EDTA Not Reportable 07/04/16 06:29 Large Platelets Not Reportable 07/04/16 06:29 Giant Platelets Not Reportable 07/04/16 06:29 Platelet Satelliting Not Reportable 07/04/16 06:29 Plt Morphology Comment Not Reportable 07/04/16 06:29 RBC Morphology Not Reportable 07/04/16 06:29 Dimorphic RBCs Not Reportable 07/04/16 06:29 Polychromasia Not Reportable 07/04/16 06:29 Hypochromasia Few 07/04/16 06:29 Poikilocytosis Not Reportable 07/04/16 06:29 Anisocytosis 1+ 07/04/16 06:29 Microcytosis Not Reportable 07/04/16 06:29 Macrocytosis Not Reportable 07/04/16 06:29 Spherocytes Not Reportable 07/04/16 06:29 Pappenheimer Bodies Not Reportable 07/04/16 06:29 Sickle Cells Not Reportable 07/04/16 06:29 Target Cells Not Reportable 07/04/16 06:29 Tear Drop Cells Not Reportable 07/04/16 06:29 Ovalocytes Not Reportable 07/04/16 06:29 Helmet Cells Not Reportable 07/04/16 06:29 [place] Bodies Not Reportable 07/04/16 06:29 [place] Rings Not Reportable 07/04/16 06:29 [place] Cells Not Reportable 07/04/16 06:29 Bite Cells Not Reportable 07/04/16 06:29 Crenated Cell Not Reportable 07/04/16 06:29 Elliptocytes Not Reportable 07/04/16 06:29 Acanthocytes (Spur) Not Reportable 07/04/16 06:29 Rouleaux Not Reportable 07/04/16 06:29 Hemoglobin C Crystals Not Reportable 07/04/16 06:29 Schistocytes Not Reportable 07/04/16 06:29 Malaria parasites Not Reportable 07/04/16 06:29 Juan R Bodies Not Reportable 07/04/16 06:29 Hem Pathologist Commnt No 07/04/16 06:29 PT 14.4 Sec. (12.2-14.9) 06/20/16 14:11 INR 1.13 (0.87-1.13) 06/20/16 14:11 D-Dimer 958.1 ng/mlDDU (0-234) H 06/20/16 14:12 POC ABG pH 7.461 (7.35-7.45) H 07/04/16 10:32 POC ABG pCO2 33.4 (35-45) L 07/04/16 10:32 POC ABG pO2 129 (80-105) H 07/04/16 10:32 POC ABG HCO3 23.8 07/04/16 10:32 POC ABG Total CO2 25 07/04/16 10:32 POC ABG O2 Sat 99 07/04/16 10:32 POC ABG Base Excess 0 07/04/16 10:32 FiO2 60 % 07/04/16 10:32 Sodium 152 mmol/L (137-145) H 07/08/16 06:39 Potassium 4.8 mmol/L (3.6-5.0) 07/08/16 06:39 Chloride 116.1 mmol/L (98-107) H 07/08/16 06:39 Carbon Dioxide 21 mmol/L (22-30) L 07/08/16 06:39 Anion Gap 20 mmol/L 07/08/16 06:39 BUN 39 mg/dL (7-17) H 07/08/16 06:39 Creatinine 1.0 mg/dL (0.7-1.2) 07/08/16 06:39 Estimated GFR > 60 ml/min 07/08/16 06:39 BUN/Creatinine Ratio 39.00 % 07/08/16 06:39 Glucose 153 mg/dL (65-100) H 07/08/16 06:39 POC Glucose 158 (70-105) H 07/09/16 13:55 Lactic Acid 2.0 mmol/L (0.7-2.0) 07/04/16 13:50 Calcium 8.7 mg/dL (8.4-10.2) 07/08/16 06:39 Troponin T < 0.010 ng/mL (0.00-0.029) 06/17/16 15:59 C-Reactive Protein 15.00 mg/dL (0.00-1.30) H 07/04/16 13:50 NT-Pro-B Natriuret Pep 1912 pg/mL (0-900) H 06/17/16 15:59 Blood Type B POSITIVE 06/30/16 12:50 Antibody Screen Negative 06/30/16 12:50 Crossmatch See Detail 06/30/16 12:50
[2016-07-09] MEDS: NEURONTIN PO SCH (22:29)
[2016-07-10] MEDS: DUONEB 0.5 MG-3 MG/3 ML SOLN IH SCH ×4 (02:00→21:23)
[2016-07-10] MEDS: D5W 1,000 ML IV SCH ×2 (05:48→18:43)
[2016-07-10] MEDS: HEPARIN SUB-Q SCH ×3 (05:49→22:41)
[2016-07-10] MEDS: MAXIPIME/NS 1 GM/100 ML 1 GM/100 ML BAG IV SCH ×3 (05:49→22:37)
[2016-07-10 08:17] LABS: Anion Gap 22 mmol/L; BUN/Creatinine Ratio 34.44; Blood Urea Nitrogen 31 mg/dL (7-17); Calcium 8.8 mg/dL (8.4-10.2); Carbon Dioxide 17 mmol/L (22-30); Chloride 118.4 mmol/L (98-107); Glucose 125 mg/dL (65-100); Potassium 5.1 mmol/L (3.6-5.0); Sodium 152 mmol/L (137-145)
[2016-07-10] MEDS: BROVANA NEBU IH SCH ×2 (08:32→19:44)
[2016-07-10] MEDS: PULMICORT IH SCH ×2 (08:32→19:44)
[2016-07-10] MEDS: FEOSOL PO SCH ×3 (09:26→22:29)
[2016-07-10] MEDS: DIOVAN PO SCH (09:26)
[2016-07-10] MEDS: RANEXA ER PO SCH ×2 (09:26→22:30)
[2016-07-10] MEDS: PROTONIX PO SCH (09:27)
[2016-07-10] MEDS: NORCO 5/325 PO PRN ×2 (09:27→15:20)
[2016-07-10] MEDS: PEPCID PO SCH (09:27)
[2016-07-10] MEDS: COREG PO SCH ×2 (09:27→22:29)
[2016-07-10] MEDS: HALFPRIN EC PO SCH (09:27)
[2016-07-10] MEDS ORDERED: KIONEX PO ONE (09:46)
--- NOTE | 2016-07-10 13:03 | Progress Note ---
Assessment and Plan Assessment and plan: Acute on chronic respiratory failure due to COPD exacerbation. Today on oxygen by nasal cannula at 5 L/minute with oxygen saturation of 97% COPD exacerbation. On solumedrol, Duoneb, supplemental Oxygen. BiPAP prn. Used BiPAP last night Coronary artery disease. On Aspirin, Coreg, Diovan, Ranexa. Follows with social research assistant Chronic systolic CHF. On Coreg, Diovan Hypertension. BP stable. Hyperlipidemia , on Lipitor. DVT prophylaxis.Heparin subcut Full code status Disposition. patient was to go to LTAC, however , was informed by case management that Insurance denied LTAC transfer. I did peer to peer and discussed with Physican at Insurance company and he states Patient can go to SNF that can handle high amounts of Oxygen requirement. Discussed with case management and they are working on arrangements to appeal LTAC placement. History Interval history: still has shortness of breath, no chest pain, no fever Hospitalist Physical - Physical exam Narrative exam: Gen: not in acute distress, obese, still on high flow Oxygen HEENT: normocephalic,atraumatic Neck :supple, no JVD Lungs: Decreased breath sounds bilaterally, rhonchi bilaterally Heart: S1 and S2 regular, no murmurs no gallops, Abdomen: soft, non-tender, non-distended, normal bowel sounds Extremities: no edema, no clubbing or cyanosis Neuro: Awake alert - Constitutional Vitals: Temp Pulse Resp BP Pulse Ox 97.7 F 108 H 20 144/87 92 07/10/16 08:25 07/10/16 10:00 07/10/16 10:00 07/10/16 08:25 07/10/16 10:00 General appearance: Present: no acute distress Results - Labs CBC & Chem 7: 07/06/16 07:11 07/10/16 07:24 Labs: Laboratory Last Values WBC 8.7 K/mm3 (4.5-11.0) 07/06/16 07:11 RBC 3.04 M/mm3 (3.65-5.03) L 07/06/16 07:11 Hgb 8.5 gm/dl (10.1-14.3) L 07/06/16 07:11 Hct 25.9 % (30.3-42.9) L 07/06/16 07:11 MCV 85 fl (79-97) 07/06/16 07:11 MCH 28 pg (28-32) 07/06/16 07:11 MCHC 33 % (30-34) 07/06/16 07:11 RDW 22.5 % (13.2-15.2) H 07/06/16 07:11 Plt Count 125 K/mm3 (140-440) L 07/06/16 07:11 Add Manual Diff Complete 07/04/16 06:29 Total Counted 100 07/04/16 06:29 Seg Neuts % (Manual) 95.0 % (40.0-70.0) H 07/04/16 06:29 Band Neutrophils % 0 % 07/04/16 06:29 Lymphocytes % (Manual) 3.0 % (13.4-35.0) L 07/04/16 06:29 Reactive Lymphs % (Man) 0 % 07/04/16 06:29 Monocytes % (Manual) 2.0 % (0.0-7.3) 07/04/16 06:29 Eosinophils % (Manual) 0 % (0.0-4.3) 07/04/16 06:29 Basophils % (Manual) 0 % (0.0-1.8) 07/04/16 06:29 Metamyelocytes % 0 % 07/04/16 06:29 Myelocytes % 0 % 07/04/16 06:29 Promyelocytes % 0 % 07/04/16 06:29 Blast Cells % 0 % 07/04/16 06:29 Nucleated RBC % Not Reportable 07/04/16 06:29 Seg Neutrophils # Man 18.7 K/mm3 (1.8-7.7) H 07/04/16 06:29 Band Neutrophils # 0.0 K/mm3 07/04/16 06:29 Lymphocytes # (Manual) 0.6 K/mm3 (1.2-5.4) L 07/04/16 06:29 Abs React Lymphs (Man) 0.0 K/mm3 07/04/16 06:29 Monocytes # (Manual) 0.4 K/mm3 (0.0-0.8) 07/04/16 06:29 Eosinophils # (Manual) 0.0 K/mm3 (0.0-0.4) 07/04/16 06:29 Basophils # (Manual) 0.0 K/mm3 (0.0-0.1) 07/04/16 06:29 Metamyelocytes # 0.0 K/mm3 07/04/16 06:29 Myelocytes # 0.0 K/mm3 07/04/16 06:29 Promyelocytes # 0.0 K/mm3 07/04/16 06:29 Blast Cells # 0.0 K/mm3 07/04/16 06:29 WBC Morphology Not Reportable 07/04/16 06:29 Hypersegmented Neuts Not Reportable 07/04/16 06:29 Hyposegmented Neuts Not Reportable 07/04/16 06:29 Hypogranular Neuts Not Reportable 07/04/16 06:29 Smudge Cells Not Reportable 07/04/16 06:29 Toxic Granulation Not Reportable 07/04/16 06:29 Toxic Vacuolation Not Reportable 07/04/16 06:29 Dohle Bodies Not Reportable 07/04/16 06:29 Pelger-Huet Anomaly Not Reportable 07/04/16 06:29 Mony Rods Not Reportable 07/04/16 06:29 Platelet Estimate Consistent w auto 07/04/16 06:29 Clumped Platelets Not Reportable 07/04/16 06:29 Plt Clumps, EDTA Not Reportable 07/04/16 06:29 Large Platelets Not Reportable 07/04/16 06:29 Giant Platelets Not Reportable 07/04/16 06:29 Platelet Satelliting Not Reportable 07/04/16 06:29 Plt Morphology Comment Not Reportable 07/04/16 06:29 RBC Morphology Not Reportable 07/04/16 06:29 Dimorphic RBCs Not Reportable 07/04/16 06:29 Polychromasia Not Reportable 07/04/16 06:29 Hypochromasia Few 07/04/16 06:29 Poikilocytosis Not Reportable 07/04/16 06:29 Anisocytosis 1+ 07/04/16 06:29 Microcytosis Not Reportable 07/04/16 06:29 Macrocytosis Not Reportable 07/04/16 06:29 Spherocytes Not Reportable 07/04/16 06:29 Pappenheimer Bodies Not Reportable 07/04/16 06:29 Sickle Cells Not Reportable 07/04/16 06:29 Target Cells Not Reportable 07/04/16 06:29 Tear Drop Cells Not Reportable 07/04/16 06:29 Ovalocytes Not Reportable 07/04/16 06:29 Helmet Cells Not Reportable 07/04/16 06:29 Serna-Halsey Bodies Not Reportable 07/04/16 06:29 [place] Rings Not Reportable 07/04/16 06:29 Tayler Cells Not Reportable 07/04/16 06:29 Bite Cells Not Reportable 07/04/16 06:29 Crenated Cell Not Reportable 07/04/16 06:29 Elliptocytes Not Reportable 07/04/16 06:29 Acanthocytes (Spur) Not Reportable 07/04/16 06:29 Rouleaux Not Reportable 07/04/16 06:29 Hemoglobin C Crystals Not Reportable 07/04/16 06:29 Schistocytes Not Reportable 07/04/16 06:29 Malaria parasites Not Reportable 07/04/16 06:29 Juan R Bodies Not Reportable 07/04/16 06:29 Hem Pathologist Commnt No 07/04/16 06:29 PT 14.4 Sec. (12.2-14.9) 06/20/16 14:11 INR 1.13 (0.87-1.13) 06/20/16 14:11 D-Dimer 958.1 ng/mlDDU (0-234) H 06/20/16 14:12 POC ABG pH 7.461 (7.35-7.45) H 07/04/16 10:32 POC ABG pCO2 33.4 (35-45) L 07/04/16 10:32 POC ABG pO2 129 (80-105) H 07/04/16 10:32 POC ABG HCO3 23.8 07/04/16 10:32 POC ABG Total CO2 25 07/04/16 10:32 POC ABG O2 Sat 99 07/04/16 10:32 POC ABG Base Excess 0 07/04/16 10:32 FiO2 60 % 07/04/16 10:32 Sodium 152 mmol/L (137-145) H 07/10/16 07:24 Potassium 5.1 mmol/L (3.6-5.0) H 07/10/16 07:24 Chloride 118.4 mmol/L (98-107) H 07/10/16 07:24 Carbon Dioxide 17 mmol/L (22-30) L 07/10/16 07:24 Anion Gap 22 mmol/L 07/10/16 07:24 BUN 31 mg/dL (7-17) H 07/10/16 07:24 Creatinine 0.9 mg/dL (0.7-1.2) 07/10/16 07:24 Estimated GFR > 60 ml/min 07/10/16 07:24 BUN/Creatinine Ratio 34.44 % 07/10/16 07:24 Glucose 125 mg/dL (65-100) H 07/10/16 07:24 POC Glucose 115 (70-105) H 07/10/16 12:11 Lactic Acid 2.0 mmol/L (0.7-2.0) 07/04/16 13:50 Calcium 8.8 mg/dL (8.4-10.2) 07/10/16 07:24 Troponin T < 0.010 ng/mL (0.00-0.029) 06/17/16 15:59 C-Reactive Protein 15.00 mg/dL (0.00-1.30) H 07/04/16 13:50 NT-Pro-B Natriuret Pep 1912 pg/mL (0-900) H 06/17/16 15:59 Blood Type B POSITIVE 06/30/16 12:50 Antibody Screen Negative 06/30/16 12:50 Crossmatch See Detail 06/30/16 12:50
--- NOTE | 2016-07-10 14:26 | Progress Note ---
Assessment and Plan Patient sleeping on high flow O2.. Patient presently on 6 litres O2.O2 satuaration 92%. Patient weak. No acute respiratory distress. - Patient Problems (1) Acute exacerbation of chronic obstructive pulmonary disease (COPD) Current Visit: Yes Status: Acute Plan to address problem: Patient is on High flow O2 . On 6 litrs O2. Albuterol/atrovent aerosol treatments q 12 hours. Continue I/V solumedral. Continue S/C Heparin. (2) Respiratory failure with hypoxia Current Visit: Yes Status: Acute Qualifiers: Chronicity: acute on chronic Qualified Code(s): J96.21 - Acute and chronic respiratory failure with hypoxia Plan to address problem: Continue High flow O2 . Patient is on 6 litres O2. Albuterol/atrovent aerosol treatments q 12 hours. Continue I/V solumedral. Continue S/C Heparin. Subjective Date of service: 07/10/16 Principal diagnosis: Acute On Chronic ypoxemic Respiratory Failure Interval history: Patient sleeping on high flow O2.. Patient presently on 6 litres O2.O2 satuaration 92%. Patient weak. No acute respiratory distress. Objective Vital Signs - 12hr 07/10/16 07/10/16 07/10/16 04:00 08:25 08:32 Temperature 98.3 F 97.7 F Pulse Rate Pulse Rate [ 89 Left Radial] Pulse Rate [ 98 H Right Radial] Respiratory 18 20 Rate Blood Pressure 112/69 [Left Arm] Blood Pressure 144/87 [Right Radial Artery] O2 Sat by Pulse 97 99 97 Oximetry 07/10/16 10:00 Temperature Pulse Rate 108 H Pulse Rate [ Left Radial] Pulse Rate [ Right Radial] Respiratory 20 Rate Blood Pressure [Left Arm] Blood Pressure [Right Radial Artery] O2 Sat by Pulse 92 Oximetry Constitutional: no acute distress, alert Eyes: non-icteric ENT: oropharynx moist Neck: supple, no lymphadenopathy Effort: mildly labored (but close to her baseline) Ascultation: Bilateral: diminished breath sounds, rales (inspiratory in bases) Cardiovascular: regular rate and rhythm Gastrointestinal: normoactive bowel sounds, soft, non-tender, non-distended Integumentary: normal Extremities: no cyanosis, pulses normal, no ischemia or petechiae Neurologic: normal mental status, non-focal exam, pupils equal and round, motor strength normal and Psychiatric: mood appropriate, affect normal CBC and BMP: 07/06/16 07:11 07/10/16 07:24 ABG, PT/INR, D-dimer: ABG POC ABG pH 7.461 (7.35-7.45) H 07/04/16 10:32 POC ABG pCO2 33.4 (35-45) L 07/04/16 10:32 POC ABG pO2 129 (80-105) H 07/04/16 10:32 POC ABG HCO3 23.8 07/04/16 10:32 POC ABG Total CO2 25 07/04/16 10:32 POC ABG O2 Sat 99 07/04/16 10:32 PT/INR, D-dimer PT 14.4 Sec. (12.2-14.9) 06/20/16 14:11 INR 1.13 (0.87-1.13) 06/20/16 14:11 D-Dimer 958.1 ng/mlDDU (0-234) H 06/20/16 14:12 Abnormal lab findings: Abnormal Labs 06/18/16 06/20/16 06/21/16 05:34 14:12 00:31 WBC RBC 3.33 L Hgb 8.9 L Hct 26.9 L MCH 27 L RDW 28.4 H Plt Count Seg Neuts % (Manual) Lymphocytes % (Manual) Seg Neutrophils # Man Lymphocytes # (Manual) D-Dimer 958.1 H POC ABG pH POC ABG pCO2 POC ABG pO2 Sodium Potassium Chloride Carbon Dioxide 19 L BUN 18 H Creatinine Glucose 143 H POC Glucose Lactic Acid Calcium 7.2 L C-Reactive Protein Crossmatch 06/21/16 06/21/16 06/22/16 11:39 16:19 06:22 WBC RBC 3.13 L Hgb 8.2 L Hct 25.1 L MCH 26 L RDW 28.6 H Plt Count Seg Neuts % (Manual) 88.0 H Lymphocytes % (Manual) 7.0 L Seg Neutrophils # Man Lymphocytes # (Manual) 0.6 L D-Dimer POC ABG pH POC ABG pCO2 POC ABG pO2 Sodium Potassium Chloride Carbon Dioxide BUN Creatinine Glucose POC Glucose 135 H 115 H Lactic Acid Calcium C-Reactive Protein Crossmatch 06/22/16 06/22/16 06/22/16 06:22 12:52 15:53 WBC RBC Hgb Hct MCH RDW Plt Count Seg Neuts % (Manual) Lymphocytes % (Manual) Seg Neutrophils # Man Lymphocytes # (Manual) D-Dimer POC ABG pH 7.461 H POC ABG pCO2 29.7 L POC ABG pO2 29 L Sodium Potassium Chloride 109.0 H Carbon Dioxide 21 L BUN Creatinine Glucose POC Glucose 112 H Lactic Acid Calcium 8.2 L C-Reactive Protein Crossmatch 06/27/16 06/27/16 06/28/16 07:03 07:03 06:40 WBC 17.0 H 16.0 H RBC 3.07 L 2.72 L Hgb 8.1 L 7.2 L Hct 25.5 L 22.3 L MCH 26 L 27 L RDW 28.4 H 28.1 H Plt Count Seg Neuts % (Manual) Lymphocytes % (Manual) Seg Neutrophils # Man Lymphocytes # (Manual) D-Dimer POC ABG pH POC ABG pCO2 POC ABG pO2 Sodium Potassium 5.5 H Chloride Carbon Dioxide BUN 23 H Creatinine Glucose 117 H POC Glucose Lactic Acid Calcium C-Reactive Protein Crossmatch 06/28/16 06/29/16 06/30/16 06:40 09:19 07:29 WBC 20.9 H RBC 2.68 L Hgb 7.2 L Hct 22.0 L MCH 27 L RDW 27.7 H Plt Count Seg Neuts % (Manual) Lymphocytes % (Manual) Seg Neutrophils # Man Lymphocytes # (Manual) D-Dimer POC ABG pH POC ABG pCO2 POC ABG pO2 Sodium Potassium Chloride Carbon Dioxide BUN 28 H 34 H Creatinine Glucose 110 H 115 H POC Glucose Lactic Acid Calcium 8.2 L C-Reactive Protein Crossmatch 06/30/16 06/30/16 07/01/16 07:29 12:50 07:10 WBC 17.0 H RBC 3.41 L Hgb 9.0 L Hct 28.1 L D MCH 27 L RDW 24.5 H Plt Count Seg Neuts % (Manual) Lymphocytes % (Manual) Seg Neutrophils # Man Lymphocytes # (Manual) D-Dimer POC ABG pH POC ABG pCO2 POC ABG pO2 Sodium Potassium Chloride Carbon Dioxide BUN 49 H Creatinine Glucose 139 H POC Glucose Lactic Acid Calcium 8.3 L C-Reactive Protein Crossmatch See Detail 07/02/16 07/02/16 07/03/16 06:58 06:58 05:53 WBC 13.9 H 26.0 H RBC 3.43 L Hgb 9.3 L Hct 28.6 L MCH 27 L 27 L RDW 24.6 H 24.2 H Plt Count Seg Neuts % (Manual) Lymphocytes % (Manual) Seg Neutrophils # Man Lymphocytes # (Manual) D-Dimer POC ABG pH POC ABG pCO2 POC ABG pO2 Sodium Potassium Chloride Carbon Dioxide BUN 30 H Creatinine Glucose 122 H POC Glucose Lactic Acid Calcium C-Reactive Protein Crossmatch 07/03/16 07/03/16 07/03/16 05:53 13:58 14:12 WBC RBC Hgb Hct MCH RDW Plt Count Seg Neuts % (Manual) Lymphocytes % (Manual) Seg Neutrophils # Man Lymphocytes # (Manual) D-Dimer POC ABG pH 7.525 H POC ABG pCO2 28.4 L POC ABG pO2 34 L Sodium Potassium Chloride 97.7 L Carbon Dioxide BUN 36 H Creatinine 1.3 H Glucose 135 H POC Glucose 182 H Lactic Acid Calcium C-Reactive Protein Crossmatch 07/03/16 07/03/16 07/03/16 16:46 19:43 21:53 WBC RBC Hgb Hct MCH RDW Plt Count Seg Neuts % (Manual) Lymphocytes % (Manual) Seg Neutrophils # Man Lymphocytes # (Manual) D-Dimer POC ABG pH 7.516 H POC ABG pCO2 32.1 L POC ABG pO2 66 L Sodium Potassium Chloride Carbon Dioxide BUN Creatinine Glucose POC Glucose 169 H 166 H Lactic Acid Calcium C-Reactive Protein Crossmatch 07/04/16 07/04/16 07/04/16 06:29 06:29 06:29 WBC 19.7 H RBC 3.41 L Hgb 9.3 L Hct 28.9 L MCH 27 L RDW 23.2 H Plt Count Seg Neuts % (Manual) 95.0 H Lymphocytes % (Manual) 3.0 L Seg Neutrophils # Man 18.7 H Lymphocytes # (Manual) 0.6 L D-Dimer POC ABG pH POC ABG pCO2 POC ABG pO2 Sodium Potassium 5.1 H Chloride Carbon Dioxide 20 L BUN 43 H Creatinine 1.5 H Glucose 181 H POC Glucose Lactic Acid 2.9 H* Calcium 8.2 L C-Reactive Protein Crossmatch 07/04/16 07/04/16 07/04/16 07:35 10:32 11:25 WBC RBC Hgb Hct MCH RDW Plt Count Seg Neuts % (Manual) Lymphocytes % (Manual) Seg Neutrophils # Man Lymphocytes # (Manual) D-Dimer POC ABG pH 7.461 H POC ABG pCO2 33.4 L POC ABG pO2 129 H Sodium Potassium Chloride Carbon Dioxide BUN Creatinine Glucose POC Glucose 158 H 156 H Lactic Acid Calcium C-Reactive Protein Crossmatch 07/04/16 07/04/16 07/04/16 13:50 13:50 16:19 WBC RBC Hgb Hct MCH RDW Plt Count Seg Neuts % (Manual) Lymphocytes % (Manual) Seg Neutrophils # Man Lymphocytes # (Manual) D-Dimer POC ABG pH POC ABG pCO2 POC ABG pO2 Sodium Potassium 5.5 H Chloride Carbon Dioxide 20 L BUN 45 H Creatinine 1.3 H Glucose 126 H POC Glucose 134 H Lactic Acid Calcium 8.2 L C-Reactive Protein 15.00 H Crossmatch 07/04/16 07/05/16 07/05/16 22:32 06:38 06:47 WBC RBC 3.27 L Hgb 9.1 L Hct 27.6 L MCH RDW 22.6 H Plt Count 130 L Seg Neuts % (Manual) Lymphocytes % (Manual) Seg Neutrophils # Man Lymphocytes # (Manual) D-Dimer POC ABG pH POC ABG pCO2 POC ABG pO2 Sodium Potassium Chloride 108.6 H Carbon Dioxide 21 L BUN 43 H Creatinine Glucose 126 H POC Glucose 197 H Lactic Acid Calcium 8.1 L C-Reactive Protein Crossmatch 07/05/16 07/05/16 07/05/16 13:10 16:22 22:29 WBC RBC Hgb Hct MCH RDW Plt Count Seg Neuts % (Manual) Lymphocytes % (Manual) Seg Neutrophils # Man Lymphocytes # (Manual) D-Dimer POC ABG pH POC ABG pCO2 POC ABG pO2 Sodium Potassium Chloride Carbon Dioxide BUN Creatinine Glucose POC Glucose 175 H 195 H 183 H Lactic Acid Calcium C-Reactive Protein Crossmatch 07/06/16 07/06/16 07/06/16 07:11 07:11 07:36 WBC RBC 3.04 L Hgb 8.5 L Hct 25.9 L MCH RDW 22.5 H Plt Count 125 L Seg Neuts % (Manual) Lymphocytes % (Manual) Seg Neutrophils # Man Lymphocytes # (Manual) D-Dimer POC ABG pH POC ABG pCO2 POC ABG pO2 Sodium 149 H Potassium Chloride 113.3 H Carbon Dioxide 21 L BUN 43 H Creatinine Glucose 154 H POC Glucose 175 H Lactic Acid Calcium C-Reactive Protein Crossmatch 07/06/16 07/06/16 07/06/16 11:58 16:43 22:07 WBC RBC Hgb Hct MCH RDW Plt Count Seg Neuts % (Manual) Lymphocytes % (Manual) Seg Neutrophils # Man Lymphocytes # (Manual) D-Dimer POC ABG pH POC ABG pCO2 POC ABG pO2 Sodium Potassium Chloride Carbon Dioxide BUN Creatinine Glucose POC Glucose 287 H 206 H 169 H Lactic Acid Calcium C-Reactive Protein Crossmatch 07/07/16 07/07/16 07/07/16 07:40 10:02 12:30 WBC RBC Hgb Hct MCH RDW Plt Count Seg Neuts % (Manual) Lymphocytes % (Manual) Seg Neutrophils # Man Lymphocytes # (Manual) D-Dimer POC ABG pH POC ABG pCO2 POC ABG pO2 Sodium 146 H Potassium Chloride 110.9 H Carbon Dioxide 20 L BUN 43 H Creatinine Glucose 215 H POC Glucose 138 H 245 H Lactic Acid Calcium C-Reactive Protein Crossmatch 07/07/16 07/07/16 07/08/16 16:40 21:32 06:39 WBC RBC Hgb Hct MCH RDW Plt Count Seg Neuts % (Manual) Lymphocytes % (Manual) Seg Neutrophils # Man Lymphocytes # (Manual) D-Dimer POC ABG pH POC ABG pCO2 POC ABG pO2 Sodium 152 H Potassium Chloride 116.1 H Carbon Dioxide 21 L BUN 39 H Creatinine Glucose 153 H POC Glucose 197 H 117 H Lactic Acid Calcium C-Reactive Protein Crossmatch 07/08/16 07/08/16 07/08/16 07:20 11:38 15:27 WBC RBC Hgb Hct MCH RDW Plt Count Seg Neuts % (Manual) Lymphocytes % (Manual) Seg Neutrophils # Man Lymphocytes # (Manual) D-Dimer POC ABG pH POC ABG pCO2 POC ABG pO2 Sodium Potassium Chloride Carbon Dioxide BUN Creatinine Glucose POC Glucose 162 H 189 H 138 H Lactic Acid Calcium C-Reactive Protein Crossmatch 07/08/16 07/09/16 07/09/16 21:52 07:39 13:55 WBC RBC Hgb Hct MCH RDW Plt Count Seg Neuts % (Manual) Lymphocytes % (Manual) Seg Neutrophils # Man Lymphocytes # (Manual) D-Dimer POC ABG pH POC ABG pCO2 POC ABG pO2 Sodium Potassium Chloride Carbon Dioxide BUN Creatinine Glucose POC Glucose 175 H 164 H 158 H Lactic Acid Calcium C-Reactive Protein Crossmatch 07/09/16 07/10/16 07/10/16 17:03 07:24 08:26 WBC RBC Hgb Hct MCH RDW Plt Count Seg Neuts % (Manual) Lymphocytes % (Manual) Seg Neutrophils # Man Lymphocytes # (Manual) D-Dimer POC ABG pH POC ABG pCO2 POC ABG pO2 Sodium 152 H Potassium 5.1 H Chloride 118.4 H Carbon Dioxide 17 L BUN 31 H Creatinine Glucose 125 H POC Glucose 110 H 131 H Lactic Acid Calcium C-Reactive Protein Crossmatch 07/10/16 12:11 WBC RBC Hgb Hct MCH RDW Plt Count Seg Neuts % (Manual) Lymphocytes % (Manual) Seg Neutrophils # Man Lymphocytes # (Manual) D-Dimer POC ABG pH POC ABG pCO2 POC ABG pO2 Sodium Potassium Chloride Carbon Dioxide BUN Creatinine Glucose POC Glucose 115 H Lactic Acid Calcium C-Reactive Protein Crossmatch Chest x-ray: report reviewed (Chronic interstitial changes bilaterally.)
--- NOTE | 2016-07-10 17:16 | Event Note ---
Date: 07/10/16 called to evaluate for respiratory distress, hypoxia. Oxygen saturation 80s. She was put on BiPAP. We'll obtain chest x-ray stat and ABG stat. Transfer to ICU
[2016-07-10 18:04] LABS: ISTAT Base Excess -10; ISTAT HCO3 14.5; ISTAT PCO2 22.2 (35-45); ISTAT PH 7.423 (7.35-7.45); ISTAT PO2 57 (80-105); ISTAT SO2 91; ISTAT TCO2 15
--- NOTE | 2016-07-10 18:35 | XRay Report ---
FINAL REPORT EXAM: XR CHEST 1V AP HISTORY: hypoxia TECHNIQUE: AP portable view(s) of the chest obtained. PRIORS: CT 04/10/2016 FINDINGS: No mediastinal shift. Cardiac silhouette is not enlarged. No pneumothorax, effusion, or focal pulmonary opacity identified. Diffuse reticular opacities. Hyperaeration of the lungs and flattening of the hemidiaphragms. No acute skeletal findings. Positive enteric contrast is seen in the colon. Aortic stent graft. IMPRESSION: No acute pulmonary finding identified. Sequela of pulmonary fibrosis and emphysema.
[2016-07-10 20:26] LABS: ISTAT Base Excess -5; ISTAT HCO3 18.2; ISTAT PCO2 24.3 (35-45); ISTAT PH 7.482 (7.35-7.45); ISTAT PO2 249 (80-105); ISTAT SO2 100; ISTAT TCO2 19
[2016-07-10 20:40] LABS: Hematocrit 30.7 % (30.3-42.9); Hemoglobin 9.9 gm/dl (10.1-14.3); Mean Corpuscular HGB Conc 32 % (30-34); Mean Corpuscular Hemoglobin 27 pg (28-32); Mean Corpuscular Volume 85 fl (79-97); Red Blood Count 3.62 M/mm3 (3.65-5.03); White Blood Count 7.9 K/mm3 (4.5-11.0)
[2016-07-10 20:54] LABS: Calcium 8.6 mg/dL (8.4-10.2); Chloride 120.3 mmol/L (98-107); Potassium 4.4 mmol/L (3.6-5.0)
[2016-07-10 21:08] LABS: Platelet Count 92 K/mm3 (140-440); Red Cell Distribution Width 21.5 % (13.2-15.2)
[2016-07-10] MEDS: NACL 0.45% 1000 ML 500 ML IV SCH ×2 (21:08→22:39)
[2016-07-10] MEDS: NEURONTIN PO SCH (22:27)
[2016-07-10 23:06] LABS: Basophils % (Manual) 0 % (0.0-1.8); Blastocytes % (Manual) 0 %; Eosinophils % (Manual) 0 % (0.0-4.3)
[2016-07-10 23:07] LABS: Anisocytosis 1+; Diff Status Complete; Platelet Estimate Consistent w Auto
[2016-07-11] MEDS ORDERED: NACL 0.9% 250ML 250 ML IV ONE (00:36)
[2016-07-11] MEDS: DUONEB 0.5 MG-3 MG/3 ML SOLN IH SCH ×4 (01:54→19:08)
[2016-07-11 05:48] LABS: Hematocrit 25.5 % (30.3-42.9); Hemoglobin 8.2 gm/dl (10.1-14.3); Mean Corpuscular HGB Conc 32 % (30-34); Mean Corpuscular Hemoglobin 28 pg (28-32); Mean Corpuscular Volume 86 fl (79-97); Red Blood Count 2.96 M/mm3 (3.65-5.03); White Blood Count 9.2 K/mm3 (4.5-11.0)
[2016-07-11 05:51] LABS: Platelet Count 72 K/mm3 (140-440); Red Cell Distribution Width 21.6 % (13.2-15.2)
[2016-07-11 05:58] LABS: Calcium 7.5 mg/dL (8.4-10.2); Chloride 117.8 mmol/L (98-107); Potassium 4.4 mmol/L (3.6-5.0)
[2016-07-11] MEDS: HEPARIN SUB-Q SCH ×3 (07:17→22:56)
[2016-07-11] MEDS: MAXIPIME/NS 1 GM/100 ML 1 GM/100 ML BAG IV SCH ×3 (07:17→22:51)
--- NOTE | 2016-07-11 09:11 | Progress Note ---
Hospitalist Physical - Constitutional Vitals: Temp Pulse Resp BP Pulse Ox 97.3 F L 70 20 103/73 100 07/11/16 08:00 07/11/16 04:42 07/11/16 04:42 07/11/16 04:42 07/11/16 04:42 General appearance: Present: no acute distress Results - Labs CBC & Chem 7: 07/11/16 04:59 07/11/16 04:59 Labs: Laboratory Last Values WBC 9.2 K/mm3 (4.5-11.0) 07/11/16 04:59 RBC 2.96 M/mm3 (3.65-5.03) L 07/11/16 04:59 Hgb 8.2 gm/dl (10.1-14.3) L 07/11/16 04:59 Hct 25.5 % (30.3-42.9) L 07/11/16 04:59 MCV 86 fl (79-97) 07/11/16 04:59 MCH 28 pg (28-32) 07/11/16 04:59 MCHC 32 % (30-34) 07/11/16 04:59 RDW 21.6 % (13.2-15.2) H 07/11/16 04:59 Plt Count 72 K/mm3 (140-440) L 07/11/16 04:59 Add Manual Diff Complete 07/10/16 20:24 Total Counted 100 07/10/16 20:24 Seg Neuts % (Manual) 90.0 % (40.0-70.0) H 07/10/16 20:24 Band Neutrophils % 0 % 07/10/16 20:24 Lymphocytes % (Manual) 7.0 % (13.4-35.0) L 07/10/16 20:24 Reactive Lymphs % (Man) 0 % 07/10/16 20:24 Monocytes % (Manual) 3.0 % (0.0-7.3) 07/10/16 20:24 Eosinophils % (Manual) 0 % (0.0-4.3) 07/10/16 20:24 Basophils % (Manual) 0 % (0.0-1.8) 07/10/16 20:24 Metamyelocytes % 0 % 07/10/16 20:24 Myelocytes % 0 % 07/10/16 20:24 Promyelocytes % 0 % 07/10/16 20:24 Blast Cells % 0 % 07/10/16 20:24 Nucleated RBC % Not Reportable 07/10/16 20:24 Seg Neutrophils # Man 7.1 K/mm3 (1.8-7.7) 07/10/16 20:24 Band Neutrophils # 0.0 K/mm3 07/10/16 20:24 Lymphocytes # (Manual) 0.6 K/mm3 (1.2-5.4) L 07/10/16 20:24 Abs React Lymphs (Man) 0.0 K/mm3 07/10/16 20:24 Monocytes # (Manual) 0.2 K/mm3 (0.0-0.8) 07/10/16 20:24 Eosinophils # (Manual) 0.0 K/mm3 (0.0-0.4) 07/10/16 20:24 Basophils # (Manual) 0.0 K/mm3 (0.0-0.1) 07/10/16 20:24 Metamyelocytes # 0.0 K/mm3 07/10/16 20:24 Myelocytes # 0.0 K/mm3 07/10/16 20:24 Promyelocytes # 0.0 K/mm3 07/10/16 20:24 Blast Cells # 0.0 K/mm3 07/10/16 20:24 WBC Morphology Not Reportable 07/10/16 20:24 Hypersegmented Neuts Not Reportable 07/10/16 20:24 Hyposegmented Neuts Not Reportable 07/10/16 20:24 Hypogranular Neuts Not Reportable 07/10/16 20:24 Smudge Cells Not Reportable 07/10/16 20:24 Toxic Granulation Not Reportable 07/10/16 20:24 Toxic Vacuolation Not Reportable 07/10/16 20:24 Dohle Bodies Not Reportable 07/10/16 20:24 Pelger-Huet Anomaly Not Reportable 07/10/16 20:24 Mony Rods Not Reportable 07/10/16 20:24 Platelet Estimate Consistent w auto 07/10/16 20:24 Clumped Platelets Not Reportable 07/10/16 20:24 Plt Clumps, EDTA Not Reportable 07/10/16 20:24 Large Platelets Not Reportable 07/10/16 20:24 Giant Platelets Not Reportable 07/10/16 20:24 Platelet Satelliting Not Reportable 07/10/16 20:24 Plt Morphology Comment Not Reportable 07/10/16 20:24 RBC Morphology Not Reportable 07/10/16 20:24 Dimorphic RBCs Not Reportable 07/10/16 20:24 Polychromasia Not Reportable 07/10/16 20:24 Hypochromasia Not Reportable 07/10/16 20:24 Poikilocytosis Not Reportable 07/10/16 20:24 Anisocytosis 1+ 07/10/16 20:24 Microcytosis Not Reportable 07/10/16 20:24 Macrocytosis Not Reportable 07/10/16 20:24 Spherocytes Not Reportable 07/10/16 20:24 Pappenheimer Bodies Not Reportable 07/10/16 20:24 Sickle Cells Not Reportable 07/10/16 20:24 Target Cells Not Reportable 07/10/16 20:24 Tear Drop Cells Not Reportable 07/10/16 20:24 Ovalocytes Not Reportable 07/10/16 20:24 Helmet Cells Not Reportable 07/10/16 20:24 Serna-Quay Bodies Not Reportable 07/10/16 20:24 Williamson Rings Not Reportable 07/10/16 20:24 Sandwich Cells Not Reportable 07/10/16 20:24 Bite Cells Not Reportable 07/10/16 20:24 Crenated Cell Not Reportable 07/10/16 20:24 Elliptocytes Not Reportable 07/10/16 20:24 Acanthocytes (Spur) Not Reportable 07/10/16 20:24 Rouleaux Not Reportable 07/10/16 20:24 Hemoglobin C Crystals Not Reportable 07/10/16 20:24 Schistocytes Not Reportable 07/10/16 20:24 Malaria parasites Not Reportable 07/10/16 20:24 Juan R Bodies Not Reportable 07/10/16 20:24 Hem Pathologist Commnt No 07/10/16 20:24 PT 14.4 Sec. (12.2-14.9) 06/20/16 14:11 INR 1.13 (0.87-1.13) 06/20/16 14:11 D-Dimer 958.1 ng/mlDDU (0-234) H 06/20/16 14:12 POC ABG pH 7.482 (7.35-7.45) H 07/10/16 20:12 POC ABG pCO2 24.3 (35-45) L 07/10/16 20:12 POC ABG pO2 249 (80-105) H 07/10/16 20:12 POC ABG HCO3 18.2 07/10/16 20:12 POC ABG Total CO2 19 07/10/16 20:12 POC ABG O2 Sat 100 07/10/16 20:12 POC ABG Base Excess -5 07/10/16 20:12 FiO2 100 % 07/10/16 20:12 Sodium 149 mmol/L (137-145) H 07/11/16 04:59 Potassium 4.4 mmol/L (3.6-5.0) 07/11/16 04:59 Chloride 117.8 mmol/L (98-107) H 07/11/16 04:59 Carbon Dioxide 17 mmol/L (22-30) L 07/11/16 04:59 Anion Gap 19 mmol/L 07/11/16 04:59 BUN 42 mg/dL (7-17) H 07/11/16 04:59 Creatinine 1.4 mg/dL (0.7-1.2) H 07/11/16 04:59 Estimated GFR 44 ml/min 07/11/16 04:59 BUN/Creatinine Ratio 30.00 % 07/11/16 04:59 Glucose 173 mg/dL (65-100) H 07/11/16 04:59 POC Glucose 165 (70-105) H 07/10/16 22:03 Lactic Acid 2.5 mmol/L (0.7-2.0) H* 07/10/16 20:24 Calcium 7.5 mg/dL (8.4-10.2) L 07/11/16 04:59 Troponin T < 0.010 ng/mL (0.00-0.029) 06/17/16 15:59 C-Reactive Protein 15.00 mg/dL (0.00-1.30) H 07/04/16 13:50 NT-Pro-B Natriuret Pep 1912 pg/mL (0-900) H 06/17/16 15:59 Blood Type B POSITIVE 06/30/16 12:50 Antibody Screen Negative 06/30/16 12:50 Crossmatch See Detail 06/30/16 12:50
[2016-07-11] MEDS: BROVANA NEBU IH SCH ×2 (09:35→19:08)
[2016-07-11] MEDS: PULMICORT IH SCH ×2 (09:35→19:09)
[2016-07-11] MEDS: RANEXA ER PO SCH ×2 (10:39→22:58)
[2016-07-11] MEDS: PROTONIX PO SCH (10:40)
[2016-07-11] MEDS: HALFPRIN EC PO SCH (10:40)
[2016-07-11] MEDS: COREG PO SCH ×2 (10:40→21:52)
[2016-07-11] MEDS: PEPCID PO SCH (10:40)
[2016-07-11] MEDS ORDERED: ATIVAN IV PRN (11:36)
[2016-07-11] MEDS: D5/0.45NS 1,000 ML IV SCH ×2 (12:12→23:55)
--- NOTE | 2016-07-11 13:23 | Progress Note ---
Assessment and Plan Patienent was on nasal canula. Patients respiratory status deteriorated. Patient placed on BIPAP and transfered to ICU. Patient presently on BIPAP 18/8, rate 25, FIO2 50%. O2 satuaration 100%. Patient sleeping on BIPAP at this time. I spent critical care time of 45 minutes on this patient.Examining the patient, review labs and chest xray and talking to nursing staff and respiratory therapy and work out plan of treatment. - Patient Problems (1) Acute exacerbation of chronic obstructive pulmonary disease (COPD) Current Visit: Yes Status: Acute Plan to address problem: Patient is on BIPAP 18/8, rate 25, FIO2 50%. Albuterol/atrovent aerosol treatments q 6 hours. Continue I/V solumedral. Continue S/C Heparin. patient is on cefepime. (2) Respiratory failure with hypoxia Current Visit: Yes Status: Acute Qualifiers: Chronicity: acute on chronic Qualified Code(s): J96.21 - Acute and chronic respiratory failure with hypoxia Plan to address problem: Patient is on BIPAP 18/8, rate 25, FIO2 50%. Albuterol/atrovent aerosol treatments q 6 hours. Continue I/V solumedral. Continue S/C Heparin. (3) PATIENCE (acute kidney injury) Current Visit: Yes Status: Acute Plan to address problem: Recommend to consult nephrology. Subjective Date of service: 07/11/16 Principal diagnosis: Acute On Chronic ypoxemic Respiratory Failure Interval history: Patienent was on nasal canula. Patients respiratory status deteriorated. Patient placed on BIPAP and transfered to ICU. Patient presently on BIPAP 18/8, rate 25, FIO2 50%. O2 satuaration 100%. Patient sleeping on BIPAP at this time. Objective Vital Signs - 12hr 07/11/16 07/11/16 07/11/16 01:30 01:45 02:00 Temperature Pulse Rate 82 79 78 Pulse Rate [ Anterior Bilateral Throughout] Pulse Rate [ From Monitor] Respiratory 24 23 25 H Rate Respiratory Rate [Anterior Bilateral Throughout] Blood Pressure 97/65 96/61 96/62 O2 Sat by Pulse 100 85 100 Oximetry 07/11/16 07/11/16 07/11/16 02:15 02:30 02:45 Temperature Pulse Rate 83 79 82 Pulse Rate [ Anterior Bilateral Throughout] Pulse Rate [ From Monitor] Respiratory 27 H 26 H 27 H Rate Respiratory Rate [Anterior Bilateral Throughout] Blood Pressure 97/65 97/65 98/67 O2 Sat by Pulse 93 100 95 Oximetry 07/11/16 07/11/16 07/11/16 03:00 03:15 03:30 Temperature Pulse Rate 79 75 70 Pulse Rate [ Anterior Bilateral Throughout] Pulse Rate [ From Monitor] Respiratory 27 H 23 22 Rate Respiratory Rate [Anterior Bilateral Throughout] Blood Pressure 96/64 99/66 85/56 O2 Sat by Pulse 100 98 98 Oximetry 07/11/16 07/11/16 07/11/16 03:45 03:57 04:00 Temperature 97.6 F Pulse Rate 86 73 Pulse Rate [ Anterior Bilateral Throughout] Pulse Rate [ 86 From Monitor] Respiratory 28 H 20 Rate Respiratory Rate [Anterior Bilateral Throughout] Blood Pressure 104/75 97/65 O2 Sat by Pulse 86 100 Oximetry 07/11/16 07/11/16 07/11/16 04:15 04:30 04:42 Temperature Pulse Rate 73 85 70 Pulse Rate [ Anterior Bilateral Throughout] Pulse Rate [ From Monitor] Respiratory 21 25 H 20 Rate Respiratory Rate [Anterior Bilateral Throughout] Blood Pressure 87/57 103/73 103/73 O2 Sat by Pulse 97 100 100 Oximetry 07/11/16 07/11/16 07/11/16 04:45 05:00 05:15 Temperature Pulse Rate 81 82 78 Pulse Rate [ Anterior Bilateral Throughout] Pulse Rate [ From Monitor] Respiratory 24 26 H 25 H Rate Respiratory Rate [Anterior Bilateral Throughout] Blood Pressure 93/60 97/61 99/62 O2 Sat by Pulse 100 100 99 Oximetry 07/11/16 07/11/16 07/11/16 05:30 05:45 06:00 Temperature Pulse Rate 89 71 70 Pulse Rate [ Anterior Bilateral Throughout] Pulse Rate [ From Monitor] Respiratory 32 H 22 24 Rate Respiratory Rate [Anterior Bilateral Throughout] Blood Pressure 99/65 95/57 94/59 O2 Sat by Pulse 97 100 100 Oximetry 07/11/16 07/11/16 07/11/16 06:15 06:30 06:45 Temperature Pulse Rate 87 76 88 Pulse Rate [ Anterior Bilateral Throughout] Pulse Rate [ From Monitor] Respiratory 26 H 27 H 32 H Rate Respiratory Rate [Anterior Bilateral Throughout] Blood Pressure 92/62 96/60 95/68 O2 Sat by Pulse 99 96 Oximetry 07/11/16 07/11/16 07/11/16 07:00 07:15 07:30 Temperature Pulse Rate 93 H 83 86 Pulse Rate [ Anterior Bilateral Throughout] Pulse Rate [ From Monitor] Respiratory 31 H 28 H 29 H Rate Respiratory Rate [Anterior Bilateral Throughout] Blood Pressure 104/72 99/66 101/67 O2 Sat by Pulse 100 94 100 Oximetry 07/11/16 07/11/16 07/11/16 07:45 08:00 08:15 Temperature 97.3 F L Pulse Rate 80 82 73 Pulse Rate [ Anterior Bilateral Throughout] Pulse Rate [ From Monitor] Respiratory 24 28 H 25 H Rate Respiratory Rate [Anterior Bilateral Throughout] Blood Pressure 102/63 89/65 91/57 O2 Sat by Pulse 97 99 98 Oximetry 07/11/16 07/11/16 07/11/16 08:30 08:45 09:00 Temperature Pulse Rate 83 78 86 Pulse Rate [ Anterior Bilateral Throughout] Pulse Rate [ From Monitor] Respiratory 29 H 26 H 31 H Rate Respiratory Rate [Anterior Bilateral Throughout] Blood Pressure 98/66 98/57 100/65 O2 Sat by Pulse 100 100 Oximetry 07/11/16 07/11/16 07/11/16 09:11 09:21 09:31 Temperature Pulse Rate 78 92 H 91 H Pulse Rate [ Anterior Bilateral Throughout] Pulse Rate [ From Monitor] Respiratory 26 H 36 H 34 H Rate Respiratory Rate [Anterior Bilateral Throughout] Blood Pressure 100/65 96/59 94/66 O2 Sat by Pulse 100 100 98 Oximetry 07/11/16 07/11/16 07/11/16 09:32 09:36 09:41 Temperature Pulse Rate 88 83 Pulse Rate [ 89 Anterior Bilateral Throughout] Pulse Rate [ From Monitor] Respiratory 20 32 H Rate Respiratory 30 H Rate [Anterior Bilateral Throughout] Blood Pressure 96/59 94/66 O2 Sat by Pulse 100 100 Oximetry 07/11/16 07/11/16 07/11/16 09:45 09:51 09:55 Temperature Pulse Rate 90 Pulse Rate [ 88 Anterior Bilateral Throughout] Pulse Rate [ From Monitor] Respiratory 32 H Rate Respiratory 33 H Rate [Anterior Bilateral Throughout] Blood Pressure 99/62 O2 Sat by Pulse 100 100 Oximetry 07/11/16 07/11/16 07/11/16 10:00 10:08 10:11 Temperature Pulse Rate 90 90 Pulse Rate [ 95 H Anterior Bilateral Throughout] Pulse Rate [ From Monitor] Respiratory 27 H 25 H Rate Respiratory 33 H Rate [Anterior Bilateral Throughout] Blood Pressure 103/62 103/62 O2 Sat by Pulse 99 96 Oximetry 07/11/16 07/11/16 07/11/16 10:21 10:31 10:40 Temperature Pulse Rate 84 102 H 93 H Pulse Rate [ Anterior Bilateral Throughout] Pulse Rate [ From Monitor] Respiratory 34 H 38 H Rate Respiratory Rate [Anterior Bilateral Throughout] Blood Pressure 106/77 108/58 108/58 O2 Sat by Pulse 98 92 Oximetry 07/11/16 07/11/16 07/11/16 10:41 10:51 11:00 Temperature Pulse Rate 88 91 H 90 Pulse Rate [ Anterior Bilateral Throughout] Pulse Rate [ From Monitor] Respiratory 35 H 35 H 29 H Rate Respiratory Rate [Anterior Bilateral Throughout] Blood Pressure 108/58 96/54 97/60 O2 Sat by Pulse 100 100 99 Oximetry 07/11/16 11:46 Temperature Pulse Rate Pulse Rate [ Anterior Bilateral Throughout] Pulse Rate [ 118 H From Monitor] Respiratory 33 H Rate Respiratory Rate [Anterior Bilateral Throughout] Blood Pressure O2 Sat by Pulse Oximetry Constitutional: no acute distress, alert, asleep, other (resting on BIPAP) Eyes: non-icteric ENT: oropharynx moist Neck: supple, no lymphadenopathy Effort: mildly labored (but close to her baseline) Ascultation: Bilateral: diminished breath sounds, rales (inspiratory in bases) Cardiovascular: regular rate and rhythm Gastrointestinal: normoactive bowel sounds, soft, non-tender, non-distended Integumentary: normal Extremities: no cyanosis, pulses normal, no ischemia or petechiae Neurologic: normal mental status, non-focal exam, pupils equal and round Psychiatric: mood appropriate, affect normal CBC and BMP: 07/11/16 04:59 07/11/16 04:59 ABG, PT/INR, D-dimer: ABG POC ABG pH 7.482 (7.35-7.45) H 07/10/16 20:12 POC ABG pCO2 24.3 (35-45) L 07/10/16 20:12 POC ABG pO2 249 (80-105) H 07/10/16 20:12 POC ABG HCO3 18.2 07/10/16 20:12 POC ABG Total CO2 19 07/10/16 20:12 POC ABG O2 Sat 100 07/10/16 20:12 PT/INR, D-dimer PT 14.4 Sec. (12.2-14.9) 06/20/16 14:11 INR 1.13 (0.87-1.13) 06/20/16 14:11 D-Dimer 958.1 ng/mlDDU (0-234) H 06/20/16 14:12 Abnormal lab findings: Abnormal Labs 06/18/16 06/20/16 06/21/16 05:34 14:12 00:31 WBC RBC 3.33 L Hgb 8.9 L Hct 26.9 L MCH 27 L RDW 28.4 H Plt Count Seg Neuts % (Manual) Lymphocytes % (Manual) Seg Neutrophils # Man Lymphocytes # (Manual) D-Dimer 958.1 H POC ABG pH POC ABG pCO2 POC ABG pO2 Sodium Potassium Chloride Carbon Dioxide 19 L BUN 18 H Creatinine Glucose 143 H POC Glucose Lactic Acid Calcium 7.2 L C-Reactive Protein Crossmatch 06/21/16 06/21/16 06/22/16 11:39 16:19 06:22 WBC RBC 3.13 L Hgb 8.2 L Hct 25.1 L MCH 26 L RDW 28.6 H Plt Count Seg Neuts % (Manual) 88.0 H Lymphocytes % (Manual) 7.0 L Seg Neutrophils # Man Lymphocytes # (Manual) 0.6 L D-Dimer POC ABG pH POC ABG pCO2 POC ABG pO2 Sodium Potassium Chloride Carbon Dioxide BUN Creatinine Glucose POC Glucose 135 H 115 H Lactic Acid Calcium C-Reactive Protein Crossmatch 06/22/16 06/22/16 06/22/16 06:22 12:52 15:53 WBC RBC Hgb Hct MCH RDW Plt Count Seg Neuts % (Manual) Lymphocytes % (Manual) Seg Neutrophils # Man Lymphocytes # (Manual) D-Dimer POC ABG pH 7.461 H POC ABG pCO2 29.7 L POC ABG pO2 29 L Sodium Potassium Chloride 109.0 H Carbon Dioxide 21 L BUN Creatinine Glucose POC Glucose 112 H Lactic Acid Calcium 8.2 L C-Reactive Protein Crossmatch 06/27/16 06/27/16 06/28/16 07:03 07:03 06:40 WBC 17.0 H 16.0 H RBC 3.07 L 2.72 L Hgb 8.1 L 7.2 L Hct 25.5 L 22.3 L MCH 26 L 27 L RDW 28.4 H 28.1 H Plt Count Seg Neuts % (Manual) Lymphocytes % (Manual) Seg Neutrophils # Man Lymphocytes # (Manual) D-Dimer POC ABG pH POC ABG pCO2 POC ABG pO2 Sodium Potassium 5.5 H Chloride Carbon Dioxide BUN 23 H Creatinine Glucose 117 H POC Glucose Lactic Acid Calcium C-Reactive Protein Crossmatch 06/28/16 06/29/16 06/30/16 06:40 09:19 07:29 WBC 20.9 H RBC 2.68 L Hgb 7.2 L Hct 22.0 L MCH 27 L RDW 27.7 H Plt Count Seg Neuts % (Manual) Lymphocytes % (Manual) Seg Neutrophils # Man Lymphocytes # (Manual) D-Dimer POC ABG pH POC ABG pCO2 POC ABG pO2 Sodium Potassium Chloride Carbon Dioxide BUN 28 H 34 H Creatinine Glucose 110 H 115 H POC Glucose Lactic Acid Calcium 8.2 L C-Reactive Protein Crossmatch 06/30/16 06/30/16 07/01/16 07:29 12:50 07:10 WBC 17.0 H RBC 3.41 L Hgb 9.0 L Hct 28.1 L D MCH 27 L RDW 24.5 H Plt Count Seg Neuts % (Manual) Lymphocytes % (Manual) Seg Neutrophils # Man Lymphocytes # (Manual) D-Dimer POC ABG pH POC ABG pCO2 POC ABG pO2 Sodium Potassium Chloride Carbon Dioxide BUN 49 H Creatinine Glucose 139 H POC Glucose Lactic Acid Calcium 8.3 L C-Reactive Protein Crossmatch See Detail 07/02/16 07/02/16 07/03/16 06:58 06:58 05:53 WBC 13.9 H 26.0 H RBC 3.43 L Hgb 9.3 L Hct 28.6 L MCH 27 L 27 L RDW 24.6 H 24.2 H Plt Count Seg Neuts % (Manual) Lymphocytes % (Manual) Seg Neutrophils # Man Lymphocytes # (Manual) D-Dimer POC ABG pH POC ABG pCO2 POC ABG pO2 Sodium Potassium Chloride Carbon Dioxide BUN 30 H Creatinine Glucose 122 H POC Glucose Lactic Acid Calcium C-Reactive Protein Crossmatch 07/03/16 07/03/16 07/03/16 05:53 13:58 14:12 WBC RBC Hgb Hct MCH RDW Plt Count Seg Neuts % (Manual) Lymphocytes % (Manual) Seg Neutrophils # Man Lymphocytes # (Manual) D-Dimer POC ABG pH 7.525 H POC ABG pCO2 28.4 L POC ABG pO2 34 L Sodium Potassium Chloride 97.7 L Carbon Dioxide BUN 36 H Creatinine 1.3 H Glucose 135 H POC Glucose 182 H Lactic Acid Calcium C-Reactive Protein Crossmatch 07/03/16 07/03/16 07/03/16 16:46 19:43 21:53 WBC RBC Hgb Hct MCH RDW Plt Count Seg Neuts % (Manual) Lymphocytes % (Manual) Seg Neutrophils # Man Lymphocytes # (Manual) D-Dimer POC ABG pH 7.516 H POC ABG pCO2 32.1 L POC ABG pO2 66 L Sodium Potassium Chloride Carbon Dioxide BUN Creatinine Glucose POC Glucose 169 H 166 H Lactic Acid Calcium C-Reactive Protein Crossmatch 07/04/16 07/04/16 07/04/16 06:29 06:29 06:29 WBC 19.7 H RBC 3.41 L Hgb 9.3 L Hct 28.9 L MCH 27 L RDW 23.2 H Plt Count Seg Neuts % (Manual) 95.0 H Lymphocytes % (Manual) 3.0 L Seg Neutrophils # Man 18.7 H Lymphocytes # (Manual) 0.6 L D-Dimer POC ABG pH POC ABG pCO2 POC ABG pO2 Sodium Potassium 5.1 H Chloride Carbon Dioxide 20 L BUN 43 H Creatinine 1.5 H Glucose 181 H POC Glucose Lactic Acid 2.9 H* Calcium 8.2 L C-Reactive Protein Crossmatch 07/04/16 07/04/16 07/04/16 07:35 10:32 11:25 WBC RBC Hgb Hct MCH RDW Plt Count Seg Neuts % (Manual) Lymphocytes % (Manual) Seg Neutrophils # Man Lymphocytes # (Manual) D-Dimer POC ABG pH 7.461 H POC ABG pCO2 33.4 L POC ABG pO2 129 H Sodium Potassium Chloride Carbon Dioxide BUN Creatinine Glucose POC Glucose 158 H 156 H Lactic Acid Calcium C-Reactive Protein Crossmatch 07/04/16 07/04/16 07/04/16 13:50 13:50 16:19 WBC RBC Hgb Hct MCH RDW Plt Count Seg Neuts % (Manual) Lymphocytes % (Manual) Seg Neutrophils # Man Lymphocytes # (Manual) D-Dimer POC ABG pH POC ABG pCO2 POC ABG pO2 Sodium Potassium 5.5 H Chloride Carbon Dioxide 20 L BUN 45 H Creatinine 1.3 H Glucose 126 H POC Glucose 134 H Lactic Acid Calcium 8.2 L C-Reactive Protein 15.00 H Crossmatch 07/04/16 07/05/16 07/05/16 22:32 06:38 06:47 WBC RBC 3.27 L Hgb 9.1 L Hct 27.6 L MCH RDW 22.6 H Plt Count 130 L Seg Neuts % (Manual) Lymphocytes % (Manual) Seg Neutrophils # Man Lymphocytes # (Manual) D-Dimer POC ABG pH POC ABG pCO2 POC ABG pO2 Sodium Potassium Chloride 108.6 H Carbon Dioxide 21 L BUN 43 H Creatinine Glucose 126 H POC Glucose 197 H Lactic Acid Calcium 8.1 L C-Reactive Protein Crossmatch 07/05/16 07/05/16 07/05/16 13:10 16:22 22:29 WBC RBC Hgb Hct MCH RDW Plt Count Seg Neuts % (Manual) Lymphocytes % (Manual) Seg Neutrophils # Man Lymphocytes # (Manual) D-Dimer POC ABG pH POC ABG pCO2 POC ABG pO2 Sodium Potassium Chloride Carbon Dioxide BUN Creatinine Glucose POC Glucose 175 H 195 H 183 H Lactic Acid Calcium C-Reactive Protein Crossmatch 07/06/16 07/06/16 07/06/16 07:11 07:11 07:36 WBC RBC 3.04 L Hgb 8.5 L Hct 25.9 L MCH RDW 22.5 H Plt Count 125 L Seg Neuts % (Manual) Lymphocytes % (Manual) Seg Neutrophils # Man Lymphocytes # (Manual) D-Dimer POC ABG pH POC ABG pCO2 POC ABG pO2 Sodium 149 H Potassium Chloride 113.3 H Carbon Dioxide 21 L BUN 43 H Creatinine Glucose 154 H POC Glucose 175 H Lactic Acid Calcium C-Reactive Protein Crossmatch 07/06/16 07/06/16 07/06/16 11:58 16:43 22:07 WBC RBC Hgb Hct MCH RDW Plt Count Seg Neuts % (Manual) Lymphocytes % (Manual) Seg Neutrophils # Man Lymphocytes # (Manual) D-Dimer POC ABG pH POC ABG pCO2 POC ABG pO2 Sodium Potassium Chloride Carbon Dioxide BUN Creatinine Glucose POC Glucose 287 H 206 H 169 H Lactic Acid Calcium C-Reactive Protein Crossmatch 07/07/16 07/07/16 07/07/16 07:40 10:02 12:30 WBC RBC Hgb Hct MCH RDW Plt Count Seg Neuts % (Manual) Lymphocytes % (Manual) Seg Neutrophils # Man Lymphocytes # (Manual) D-Dimer POC ABG pH POC ABG pCO2 POC ABG pO2 Sodium 146 H Potassium Chloride 110.9 H Carbon Dioxide 20 L BUN 43 H Creatinine Glucose 215 H POC Glucose 138 H 245 H Lactic Acid Calcium C-Reactive Protein Crossmatch 07/07/16 07/07/16 07/08/16 16:40 21:32 06:39 WBC RBC Hgb Hct MCH RDW Plt Count Seg Neuts % (Manual) Lymphocytes % (Manual) Seg Neutrophils # Man Lymphocytes # (Manual) D-Dimer POC ABG pH POC ABG pCO2 POC ABG pO2 Sodium 152 H Potassium Chloride 116.1 H Carbon Dioxide 21 L BUN 39 H Creatinine Glucose 153 H POC Glucose 197 H 117 H Lactic Acid Calcium C-Reactive Protein Crossmatch 07/08/16 07/08/16 07/08/16 07:20 11:38 15:27 WBC RBC Hgb Hct MCH RDW Plt Count Seg Neuts % (Manual) Lymphocytes % (Manual) Seg Neutrophils # Man Lymphocytes # (Manual) D-Dimer POC ABG pH POC ABG pCO2 POC ABG pO2 Sodium Potassium Chloride Carbon Dioxide BUN Creatinine Glucose POC Glucose 162 H 189 H 138 H Lactic Acid Calcium C-Reactive Protein Crossmatch 07/08/16 07/09/16 07/09/16 21:52 07:39 13:55 WBC RBC Hgb Hct MCH RDW Plt Count Seg Neuts % (Manual) Lymphocytes % (Manual) Seg Neutrophils # Man Lymphocytes # (Manual) D-Dimer POC ABG pH POC ABG pCO2 POC ABG pO2 Sodium Potassium Chloride Carbon Dioxide BUN Creatinine Glucose POC Glucose 175 H 164 H 158 H Lactic Acid Calcium C-Reactive Protein Crossmatch 07/09/16 07/09/16 07/10/16 17:03 20:15 07:24 WBC RBC Hgb Hct MCH RDW Plt Count Seg Neuts % (Manual) Lymphocytes % (Manual) Seg Neutrophils # Man Lymphocytes # (Manual) D-Dimer POC ABG pH POC ABG pCO2 POC ABG pO2 Sodium 152 H Potassium 5.1 H Chloride 118.4 H Carbon Dioxide 17 L BUN 31 H Creatinine Glucose 125 H POC Glucose 110 H 169 H Lactic Acid Calcium C-Reactive Protein Crossmatch 07/10/16 07/10/16 07/10/16 08:26 12:11 17:46 WBC RBC Hgb Hct MCH RDW Plt Count Seg Neuts % (Manual) Lymphocytes % (Manual) Seg Neutrophils # Man Lymphocytes # (Manual) D-Dimer POC ABG pH POC ABG pCO2 22.2 L POC ABG pO2 57 L Sodium Potassium Chloride Carbon Dioxide BUN Creatinine Glucose POC Glucose 131 H 115 H Lactic Acid Calcium C-Reactive Protein Crossmatch 07/10/16 07/10/16 07/10/16 20:12 20:24 20:24 WBC RBC 3.62 L Hgb 9.9 L Hct MCH 27 L RDW 21.5 H Plt Count 92 L Seg Neuts % (Manual) 90.0 H Lymphocytes % (Manual) 7.0 L Seg Neutrophils # Man Lymphocytes # (Manual) 0.6 L D-Dimer POC ABG pH 7.482 H POC ABG pCO2 24.3 L POC ABG pO2 249 H Sodium 152 H Potassium Chloride 120.3 H Carbon Dioxide 17 L BUN 39 H Creatinine 1.5 H D Glucose 137 H POC Glucose Lactic Acid Calcium C-Reactive Protein Crossmatch 07/10/16 07/10/16 07/11/16 20:24 22:03 04:59 WBC RBC 2.96 L Hgb 8.2 L Hct 25.5 L MCH RDW 21.6 H Plt Count 72 L Seg Neuts % (Manual) Lymphocytes % (Manual) Seg Neutrophils # Man Lymphocytes # (Manual) D-Dimer POC ABG pH POC ABG pCO2 POC ABG pO2 Sodium Potassium Chloride Carbon Dioxide BUN Creatinine Glucose POC Glucose 165 H Lactic Acid 2.5 H* Calcium C-Reactive Protein Crossmatch 07/11/16 07/11/16 04:59 07:49 WBC RBC Hgb Hct MCH RDW Plt Count Seg Neuts % (Manual) Lymphocytes % (Manual) Seg Neutrophils # Man Lymphocytes # (Manual) D-Dimer POC ABG pH POC ABG pCO2 POC ABG pO2 Sodium 149 H Potassium Chloride 117.8 H Carbon Dioxide 17 L BUN 42 H Creatinine 1.4 H Glucose 173 H POC Glucose 191 H Lactic Acid Calcium 7.5 L C-Reactive Protein Crossmatch Chest x-ray: report reviewed (Reported no acute pulmonary findings.Pulmonary fibrosis.), image reviewed
[2016-07-11] MEDS: FEOSOL PO SCH ×2 (14:04→22:54)
[2016-07-11] MEDS: NOVOLOG SUB-Q SCH ×2 (18:12→23:00)
[2016-07-11] MEDS: NEURONTIN PO SCH (22:58)
--- NOTE | 2016-07-12 01:44 | XRay Report ---
FINAL REPORT EXAM: XR ABDOMEN 1V AP HISTORY: NGT PLACEMENT COMPARISON: Chest x-ray from July 10, 2016. FINDINGS: AP view of the abdomen obtained. Enteric contrast opacifies majority the colon. Distal tip of the NG tube projects over the distal esophagus and could be advanced another 14 centimeters to be within the mid stomach region. Aortic stent graft is present. Nonobstructive bowel gas pattern. IMPRESSION: Distal tip of feeding tube projects over the mid to distal esophagus and could be advanced another 14 centimeters to be within the mid stomach region. Nonobstructive bowel gas pattern.
[2016-07-12] MEDS: DUONEB 0.5 MG-3 MG/3 ML SOLN IH SCH (02:17)
--- NOTE | 2016-07-12 03:16 | XRay Report ---
FINAL REPORT PROCEDURE: XR ABDOMEN 1V AP TECHNIQUE: Abdominal radiograph, single supine AP view. HISTORY: NGT PLACEMENT COMPARISON: No prior studies are available for comparison. FINDINGS: NG tube is in the esophagus above the gastroesophageal junction and should be repositioned prior to use. There is residual barium in the colon. There is no bowel obstruction. There is no free air. There is an aortic stent graft. There are no acute bony abnormalities. IMPRESSION: NG tube is in the esophagus above the gastroesophageal junction and should be repositioned prior to use. There is residual barium in the colon. There is no bowel obstruction. There is no free air.
[2016-07-12] MEDS ORDERED: SODIUM BICARBONATE IV ONE (03:30)
[2016-07-12] MEDS ORDERED: ADRENALIN ONE (03:30)
[2016-07-12 05:03] VITALS: BP 123/11
== END 2016-07-12 05:00 | disposition short-term general hospital (02) | DRG 189 ==
LOC: ED 15:06 → 4A 20:13 → CC1 07-10 17:29
PROVIDERS: ADMIT Internal Medicine; ATTEND Internal Medicine
PROC: 5A09557 Assistance with Respiratory Ventilation, Greater than 96 Consecutive Hours, Continuous Positive Airway Pressure (ICD-10-PCS; principal; 2016-06-17)
PROC: 30233N1 Transfusion of Nonautologous Red Blood Cells into Peripheral Vein, Percutaneous Approach (ICD-10-PCS; 2016-06-17)
PROC: 4A033R1 Measurement of Arterial Saturation, Peripheral, Percutaneous Approach (ICD-10-PCS; 2016-06-17)
DX: J96.21 Acute and chronic respiratory failure with hypoxia (principal); J69.0 Pneumonitis due to inhalation of food and vomit; A41.9 Sepsis, unspecified organism; N17.0 Acute kidney failure with tubular necrosis; J44.1 Chronic obstructive pulmonary disease with (acute) exacerbation; I50.22 Chronic systolic (congestive) heart failure; J90 Pleural effusion, not elsewhere classified; I13.0 Hypertensive heart and chronic kidney disease with heart failure and stage 1 through stage 4 chronic kidney disease, or unspecified chronic kidney disease; J96.22 Acute and chronic respiratory failure with hypercapnia; I25.10 Atherosclerotic heart disease of native coronary artery without angina pectoris; K21.9 Gastro-esophageal reflux disease without esophagitis; M19.90 Unspecified osteoarthritis, unspecified site; E78.5 Hyperlipidemia, unspecified; D63.8 Anemia in other chronic diseases classified elsewhere; K44.9 Diaphragmatic hernia without obstruction or gangrene; N18.9 Chronic kidney disease, unspecified; Z86.718 Personal history of other venous thrombosis and embolism; Z86.711 Personal history of pulmonary embolism; Z87.442 Personal history of urinary calculi; Z98.61 Coronary angioplasty status; Z95.1 Presence of aortocoronary bypass graft; Z98.891 History of uterine scar from previous surgery; Z87.891 Personal history of nicotine dependence; Z88.0 Allergy status to penicillin; Z88.2 Allergy status to sulfonamides; Z88.8 Allergy status to other drugs, medicaments and biological substances; Z83.3 Family history of diabetes mellitus; Z82.49 Family history of ischemic heart disease and other diseases of the circulatory system
CPT/HCPCS: 36415; 36600; 71010; 71275; 74000; 74230; 80048; 82140; 82803; 82962; 83880; 84484; 85007; 85025; 85027; 85379; 85610; 86140; 86850; 86900; 86901; 86920; 92950; 93005; 93010; 94640; 94660; 94760; A9270-GY; G8996-GN; G8997-GN; J0171; J0692; J1644; J1815; J1940; J2060; J2405; J2920; J2930; J7030; J7070; P9016; Q9967